=== PATIENT | female | born 1955 | race Caucasian/White ===

== ENCOUNTER 2023-03-27 08:40 | Outpatient (OUT) | payer MEDICARE, OTHER, SELFPAY ==
[2023-03-27 09:25] LABS: Basophils Absolute Auto 0.1 10^3/uL (0.0-0.1); Basophils Percent Auto 0.9 % (0.2-2.0); Eosinophils Absolute Auto 0.1 10^3/uL (0.0-0.7); Eosinophils Percent Auto 1.7 % (0.9-7.0); Hemoglobin 15.1 g/dL (12.0-16.0); Immature Granulocytes Abs Auto 0.02 10^3/uL (0.00-0.03); Immature Granulocytes Pct Auto 0.3 % (0.0-0.5); Lymphocytes Absolute Auto 2.9 10^3/uL (1.2-3.8); Lymphocytes Percent Auto 49.2 % (20.5-60.0); Mean Corpuscular HGB Conc 32.1 g/dL (29.9-35.2); Mean Corpuscular Hemoglobin 31.9 pg (26.7-34.0); Mean Corpuscular Volume 99.2 fL (81.0-99.0); Mean Platelet Volume 10.5 fL (9.5-13.5); Monocytes Absolute Auto 0.6 10^3/uL (0.3-0.8); Monocytes Percent Auto 10.2 % (1.7-12.0); Neutrophils Absolute Auto 2.2 10^3/uL (1.4-6.5); Neutrophils Percent Auto 37.7 % (43.0-75.0); Platelet Count 329 10^3/uL (150-450); Red Blood Count 4.74 10^6/uL (4.20-5.40); Red Cell Distribution Width 12.8 % (11.0-15.0); White Blood Count 5.8 10^3/uL (4.0-11.0)
[2023-03-27 10:08] LABS: Estimated Average Glucose 117 mg/dL; Glycohemoglobin A1C 5.7 % (4.5-6.2)
[2023-03-27 10:12] LABS: Alanine Aminotransferase 23 U/L (14-59); Albumin Globulin Ratio 0.9; Albumin Level 3.6 g/dL (3.4-5.0); Alkaline Phosphatase 84 U/L (46-116); Anion Gap 17.4; Aspartate Amino Transferase 16 U/L (15-37); Bilirubin Total 0.2 mg/dL (0.2-1.0); Calcium 9.1 mg/dL (8.5-10.1); Carbon Dioxide 24.2 mmol/L (21.0-32.0); Chloride 105 mmol/L (98-107); Chol HDL Ratio 4.1; Cholesterol 207 mg/dL (<=200); Estimated GFR (African America >60 (>=60); Estimated GFR (Non-African Ame >60 (>=60); Globulin 3.9 g/dL; Glucose 112 mg/dL (74-106); HDL Cholesterol 51 mg/dL (40-60); Potassium 4.6 mmol/L (3.5-5.1); Sodium 142 mmol/L (136-145); Thyroid Stimulating Hormone 0.739 uIU/mL (0.358-3.740); Total Protein 7.5 g/dL (6.4-8.2); Triglycerides 97 mg/dL (<=150); VLDL CHOLESTEROL 19.4 mg/dL
== END 2023-03-27 08:41 | disposition home or self-care (01) ==
PROVIDERS: PCP Family Medicine; Visit Provider Family Medicine
DX: R10.11 Right upper quadrant pain (principal); G47.00 Insomnia, unspecified; E78.00 Pure hypercholesterolemia, unspecified; R73.09 Other abnormal glucose; E55.9 Vitamin D deficiency, unspecified
CPT/HCPCS: 36415; 80053; 80061; 82306; 83036; 84436; 84443; 84481; 85025

== ENCOUNTER 2023-04-07 08:48 | Outpatient (OUT) | payer MEDICARE, OTHER, SELFPAY ==
--- NOTE | 2023-04-07 08:53 | MM_ITS ---
Patient: SUSANNA CABALLERO Exam Date: 04/07/2023 : 1955 Gender:F Ordering : DR John Tao . Admission #: [id number] Family : Order #: [id number] CLICK HERE TO VIEW EXAM RADIOLOGY REPORT PROCEDURE: MM TOMOSYNTHESIS SCREENING BI COMPARISON: MG MAMM SCREEN 3D MICHAEL CAD, 04/05/2022. MG MAMM SCREEN 3D MICHAEL CAD, 01/22/2021. MG MAMM SCREEN MICHAEL W CAD, 12/14/2019. MG MAMM MICHAEL SCRN W CAD DIG, 11/30/2013. INDICATIONS: Screening Calculator Name NCI Breast Cancer Risk Assessment Tool 5 Year Breast Cancer Risk 1.20% Lifetime Breast Cancer Risk 3.90% Personal Breast Cancer No Personal Ovarian Cancer No Treatments None Family Cancers Father with colon cancer at age 78; Mother with lung cancer at age 82. LOCATION: [facility] BREAST COMPOSITION: Heterogeneously dense,which may obscure small masses. FINDINGS: DIAGNOSTIC CATEGORY 2--BENIGN FINDING: RIGHT BREAST: No significant suspicious finding. Scattered benign-appearing calcifications are present. No significant change has occurred. LEFT BREAST: No significant suspicious finding. Scattered benign-appearing calcifications are present. No significant change has occurred. RECOMMENDATIONS: ROUTINE MAMMOGRAM AND CLINICAL EVALUATION IN 12 MONTHS. PLEASE NOTE: A NORMAL MAMMOGRAM DOES NOT EXCLUDE THE POSSIBILITY OF BREAST CANCER. A CLINICALLY SUSPICIOUS PALPABLE LUMP SHOULD BE BIOPSIED. Dictated by: Merrill Wu M.D. on 04/11/2023 at 14:45 Approved by: Merrill Wu M.D. on 04/11/2023 at 14:50
--- NOTE | 2023-04-07 08:53 | US_ITS ---
The [address] [address] Patient Name: SUSANNA CABALLERO MRN: [id number] date: 1955 Sex: F Assigned Patient Location: US Current Patient Location: Accession/Order Number: [id number] Exam Date: 04/07/2023 09:00 Report Date: 04/07/2023 13:46 At the request of: ELIDA BOOGIE Procedure: US aorta EXAM: US aorta HISTORY: Right Upper Quadrant Abdominal Pain Acute R10.11. Abdominal aortic aneurysm screening, family history of abdominal aortic aneurysm TECHNIQUE: Ultrasound was performed of the abdominal aorta. COMPARISON: None. FINDINGS: AORTA: 2.4 x 2.1 cm maximum diameter; no aneurysm or dissection. OTHER: Right iliac artery 1.1 cm diameter. Left iliac artery 1.3 cm diameter. Mild plaque. US/US aorta IMPRESSION: 1. No aneurysm of the abdominal aorta. 2. 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 Electronically authenticated by: MIGUEL ANGEL MILIAN Date: 04/07/2023 13:46
== END 2023-04-07 08:49 | disposition home or self-care (01) ==
LOC: US 08:49
PROVIDERS: PCP Family Medicine; Visit Provider Family Medicine
DX: R10.11 Right upper quadrant pain (principal); Z12.31 Encounter for screening mammogram for malignant neoplasm of breast; Z80.0 Family history of malignant neoplasm of digestive organs; Z80.1 Family history of malignant neoplasm of trachea, bronchus and lung
CPT/HCPCS: 76706; 77063; 77067

== ENCOUNTER 2023-07-29 10:54 | Outpatient (OUT) | payer MEDICARE, OTHER, SELFPAY ==
--- NOTE | 2023-07-29 10:57 | XR_ITS ---
[address] [address] Patient Name: SUSANNA CABALLERO MRN: [id number] date: 1955 Sex: F Assigned Patient Location: [facility] Current Patient Location: [facility] Accession/Order Number: [id number] Exam Date: 07/29/2023 11:05 Report Date: 07/29/2023 12:51 At the request of: ELIDA BOOGIE Procedure: XR DEXA axial skeleton EXAM: XR DEXA axial skeleton HISTORY: age-related osteoporosis without current pathological fx COMPARISON: None. TECHNIQUE: Routine DEXA scan lumbar spine and bilateral hips. FINDINGS: L1-L4: BMD 1.037 g/sq cm and T score -1.2. Left femoral neck: BMD 0.777 g/sq cm and T score -1.9. Left hip total: BMD 0.876 g/sq cm and T score -1.0. Right femoral neck: BMD 0.742 g/sq cm and T score -2.1. Right hip total: BMD 0.869 g/sq cm and T score -1.1. XR/XR DEXA axial skeleton IMPRESSION: Osteopenia. Electronically authenticated by: MY GRANDE Date: 07/29/2023 12:51
--- OUTSIDE RECORDS SUMMARY | 2023-07-29 10:57 | XMS_ITS | CCD ---
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 Role Phone KEAGAN, DR MARRERO Admitting Unavailable HOY, DR MARRERO Attending Unavailable HOY, DR MARRERO Primary Care Unavailable HOY, DR MARRERO Consulting Unavailable HOY, DR MARRERO Admitting Unavailable HOY, DR MARRERO Attending Unavailable HOY, DR MARRERO Primary Care Unavailable HOY, DR MARRERO Consulting Unavailable ZIEBER, DR MIGUEL ANGEL Bartholomew Consulting Unavailable RAMSAY, SORAYA Consulting Unavailable HOY, DR MARRERO Admitting Unavailable HOY, DR MARRERO Attending Unavailable HOY, DR MARRERO Primary Care Unavailable HOY, DR MARRERO Consulting Unavailable HOY, DR MARRERO Admitting Unavailable HOY, DR MARRERO Attending Unavailable HOY, DR MARRERO Primary Care Unavailable HOY, DR MARRERO Consulting Unavailable HOY, DR MARRERO Admitting Unavailable HOY, DR MARRERO Attending Unavailable HOY, DR MARRERO Primary Care Unavailable HOY, DR MARRERO Consulting Unavailable WEST, DR MARIA VICTORIA Bello Consulting Unavailable WEST, DR MARIA VICTORIA Bello Admitting Unavailable WEST, DR MARIA VICTORIA Bello Attending Unavailable KEAGAN, DR MARRERO Primary Care Unavailable WEST, DR MARIA VICTORIA Bello Consulting Unavailable WEST, DR MARIA VICTORIA Blelo Admitting Unavailable WEST, DR MARIA VICTORIA Bello Attending Unavailable HOY, DR MARRERO Primary Care Unavailable WEST, DR MARIA VICTORIA Bello Consulting Unavailable WEST, DR MARIA VICTORIA Bello Admitting Unavailable WEST, DR MARIA VICTORIA Bello Attending Unavailable HOY, DR MARRERO Primary Care Unavailable WEST, DR MARIA VICTORIA Bello Consulting Unavailable Allergies Allergy Classification Reported Allergen(s) Allergy Type Date of Onset Reaction(s) Facility (1 source) Naproxen Drug Allergy [facility] Repository Problems Active Problems Problem Classification Problem Date Documented Da te Episodic/Chronic Disorders of lipid metabolism (6 sources) Hyperlipidemia, unspecified; Translations: [Pure hypercholesterolem ia, unspecified] Onset: 08-20-2021 Chronic Nutritional deficiencies (1 source) Vitamin D deficiency, unspecified; Translations: [VITAMIN D DEFICIENCY UNSPECIFIED] Onset: 04-09-2022 Chronic Past or Other Problems Problem Classification Problem Date Documented Da te Episodic/Chronic Deficiency and other anemia (1 source) Anemia, unspecified; Translations: [ANEMIA UNSPECIFIED] Onset: 04-09-2022 Episodic Diabetes mellitus without complication (1 source) Other abnormal glucose; Translations: [OTHER ABNORMAL GLUCOSE] Onset: 04-09-2022 Episodic Malaise and fatigue (4 sources) Other fatigue; Translations: [OTHER FATIGUE] Onset: 04-04-2022 Episodic Other screening for suspected conditions (not mental disorders or infectious disease) (4 sources) Encounter for screening mammogram for malignant neoplasm of breast; Translations: [ENC SCR MAMMO MALIG NEOPLASM BREAST] Onset: 04-05-2022 Episodic Residual codes; unclassified (1 source) Family history of malignant neoplasm of digestive organs; Translations: [FAM HX MALIG NEOPLASM DIGESTIV ORGN] Onset: 04-10-2022 Episodic Residual codes; unclassified (1 source) Family history of malignant neoplasm of trachea, bronchus and lung; Translations: [FAM HX MALIG NEOPLSM TRACH BRON LNG] Onset: 04-10-2022 Episodic Residual codes; unclassified (1 source) Insomnia, unspecified; Translations: [INSOMNIA UNSPECIFIED] Onset: 04-09-2022 Episodic Urinary tract infections (8 sources) Urinary tract infection, site not specified; Translations: [Tubulo-interstit ial nephritis, not specified as acute or chronic] Onset: 01-08-2022 Episodic Results Test Name Value Interpretation Reference Range Facility INSULINon 04-05-2022 Insulin 9.4 uIU/mL Normal 2.6-24.9 [facility] Comment on above: Performed By: #### I NSULIN #### [facility] [address] [address] [address] May Santos MG MAMM SCREEN 3D MICHAEL CADon 04-05-2022 MG MAMM SCREEN 3D MICHAEL CAD Patient: SUSANNA CABALLERO Exam Date: 04/05/2022 : 1955 Gender:F Ordering : DR ELIDA BOOGIE . Admission #: [id number] Family : Order #: [id number] CLICK HERE TO VIEW EXAM RADIOLOGY REPORT PROCEDURE: MAMMOGRAM SCREENING 3D BILATERAL CAD COMPARISON: MG MAMM SCREEN MICHAEL W CAD, 12/14/2019. MG MAMM SCREEN 3D MICHAEL CAD, 01/22/2021. INDICATIONS: Screening mammography Calculator Name NCI Breast Cancer Risk Assessment Tool 5 Year Breast Cancer Risk 1.20% Lifetime Breast Cancer Risk 4.00% Personal Breast Cancer No Personal Ovarian Cancer No Treatments None Family Cancers Father with colon cancer at age 78; Mother with lung cancer at age 82. LOCATION: [facility] BREAST COMPOSITION: Heterogeneously dense,which may obscure small masses. FINDINGS: DIAGNOSTIC CATEGORY 2--BENIGN FINDING. NO CHANGE FROM COMPARISON. Scattered benign-appearing calcifications are present. Scattered benign-appearing lymph nodes are present. RIGHT BREAST: No significant suspicious finding. LEFT BREAST: No significant suspicious finding. RECOMMENDATIONS: ROUTINE MAMMOGRAM AND CLINICAL EVALUATION IN 12 MONTHS. PLEASE NOTE: A NORMAL MAMMOGRAM DOES NOT EXCLUDE THE POSSIBILITY OF BREAST CANCER. A CLINICALLY SUSPICIOUS PALPABLE LUMP SHOULD BE BIOPSIED. Dictated by: Maria Victoria Hayden MD on 04/05/2022 at 10:06 Approved by: Maria Victoria Hayden MD on 04/05/2022 at 10:08 Normal [facility] CBC AUTO DIFFon 04-04-2022 BASO # 0.0 103/ul Normal 0.0-0.1 [facility] Comment on above: Performed By: #### C BC ####[facility] [address] [place], [place] [address]Dr. May Santos Basophils/100 WBC (Bld) 0.3 % Normal 0.2-2.0 [facility] Comment on above: Performed By: #### C BC ####[facility] [address] [address]Dr. May Santos EO # 0.2 103/ul Normal 0.0-0.7 [facility] Comment on above: Performed By: #### C BC ####[facility] [address] [place], [place] [address]Dr. May Santos Eosinophils/100 WBC (Bld) 2.0 % Normal 0.9-7.0 [facility] Comment on above: Performed By: #### C BC ####[facility] R[address]qrspt[address] [place], [place] [address]Dr. May Santos Erythrocyte distribution width (RBC) [Ratio] 12.7 % Normal 11.0-15.0 [facility] Comment on above: Performed By: #### C BC ####[facility] [address] [address]Dr. May Santos Hematocrit (Bld) [Volume fraction] 44.7 % Normal 36.0-48.0 [facility] Comment on above: Performed By: #### C BC ####[facility] [address] [address]Dr. May Santos Hemoglobin (Bld) [Mass/Vol] 14.9 g/dL Normal 12.0-16.0 [facility] Comment on above: Performed By: #### C BC ####[facility] K[address] [place], [place] [address]Dr. May Santos IG # 0.05 10e3/ul Critically high 0.00-0.03 [facility] Comment on above: Performed By: #### C BC ####[facility] [address] [place], [place] [address]Dr. May Santos IG % 0.6 % Critically high 0.0-0.5 [facility] Comment on above: Performed By: #### C BC ####[facility] [address] [place], [place] [address]Dr. May Santos LYMPH # 2.9 103/ul Normal 1.2-3.8 [facility] Comment on above: Performed By: #### C BC ####[facility] [address] [place], [place] [address]Dr. May Santos Lymphocytes/100 WBC (Bld) 32.9 % Normal 20.5-60.0 [facility] Comment on above: Performed By: #### C BC ####[facility] [address]stl[address] [place], [place] [address]Dr. May Tom MANUAL DIFF REQ NO Normal [facility] Comment on above: Performed By: #### C BC ####[facility] [address]rwupbrq[address] [place], [place] [address]Dr. May Santos MCH (RBC) [Entitic mass] 33.0 pg Normal 26.7-34.0 [facility] Comment on above: Performed By: #### C BC ####[facility] [address] [id number]. May Santos MCHC (RBC) [Mass/Vol] 33.3 g/dL Normal 29.9-35.2 [facility] Comment on above: Performed By: #### C BC ####[facility] [address] [address]Dr. May Santos MCV (RBC) [Entitic vol] 98.9 fL Normal 81.0-99.0 [facility] Comment on above: Performed By: #### C BC ####[facility] Rwewtmx[address] [place], [place] [address]Dr. May Santos MONO # 0.7 103/ul Normal 0.3-0.8 [facility] Comment on above: Performed By: #### C BC ####[facility] [address]jmoj[address] [place], [place] [address]Dr. May Santos Monocytes/100 WBC (Bld) 8.4 % Normal 1.7-12.0 [facility] Comment on above: Performed By: #### C BC ####[facility] [address]ab[address] [place], [place] [address]Dr. May Santos NEUT # 4.9 103/ul Normal 1.4-6.5 [facility] Comment on above: Performed By: #### C BC ####[facility] Xz[address]dt[address]pc[address] [place], [place] [address]Dr. May Tom Neutrophils/100 WBC (Bld) 55.8 % Normal 43.0-75.0 [facility] Comment on above: Performed By: #### C BC ####[facility] Lexzqvmrys[address] [place], [place] [address]Dr. May Santos Platelet mean volume (Bld) [Entitic vol] 10.5 fL Normal 9.5-13.5 [facility] Comment on above: Performed By: #### C BC ####[facility] [address] [address]Dr. May Santos PLT 341 103/ul Normal 150-450 [facility] Comment on above: Performed By: #### C BC ####[facility] [address] [address]Dr. May Santos RBC 4.52 106/ul Normal 4.20-5.40 [facility] Comment on above: Performed By: #### C BC ####[facility] [address] [address]Dr. May Santos WBC 8.9 103/ul Normal 4.0-11.0 [facility] Comment on above: Performed By: #### C BC ####[facility] [address] [address]Dr. May Santos FREE THYROXINE INDEX T7on FTI 2.57 Normal 1.30-4.50 [facility] Comment on above: Performed By: #### T 7, TSH, LIPID, CMP ####[facility] [address] [address]Dr. May Santos T3U 33.0 % Normal 30.0-39.0 [facility] Comment on above: Performed By: #### T 7, TSH, LIPID, CMP ####[facility] [address] [address]Dr. May Santos T4 [Mass/Vol] 7.80 ug/dL Normal 4.80-13.90 [facility] Comment on above: Performed By: #### T 7, TSH, LIPID, CMP ####[facility] [address] [id number] Santos GLYCOHEMOGLOBIN A1Con 2021 ADA RECOMMENDATION SEE BELOW Normal [facility] Comment on above: Result Comment: ADA RECOMMENDED LIMIT 4.0 - 6.0 ADA THERAPEUTIC TARGET < 7.0 ACTION SUGGESTED > 7.0 Performed By: #### A 1C #### [facility] [address] [place], [place] [address] Dr. May Santos Glucose [Mass/Vol] 114 mg/dL Normal [facility] Comment on above: Performed By: #### A 1C #### [facility] [address] [place], [place] [address] Dr. May Santos HbA1c (Bld) [Mass fraction] 5.6 % Normal 4.5-6.2 [facility] Comment on above: Performed By: #### A 1C #### [facility] [address] [place], [place] [address] Dr. May Santos IRONon 04-04-2022 Iron [Mass/Vol] 100.0 ug/dL Normal 50.0-170.0 [facility] Comment on above: Performed By: #### V ITAD, IRON ####[facility] [address] [id number]. May Santos LIPID PROFILEon 04-04-2022 CHOL-HDL RATIO NORM SEE BELOW Normal [facility] Comment on above: Result Comment: 3.3 - 4.4 LOW RISK 4.4 - 7.1 AVERAGE RISK 7.1 - 11.0 MODERATE RISK >11.0 HIGH RISK Performed By: #### T 7, TSH, LIPID, CMP ####[facility] [address] [id number]. May Santos Cholesterol [Mass/Vol] 195 mg/dL Normal <=200 [facility] Comment on above: Performed By: #### T 7, TSH, LIPID, CMP ####[facility] [address] [place], [place] [address]Ow. May Santos Cholesterol in HDL [Mass/Vol] 47 mg/dL Normal 40-60 [facility] Comment on above: Performed By: #### T 7, TSH, LIPID, CMP ####[facility] [address] [place], [place] [address]Te. May Santos Cholesterol in LDL [Mass/Vol] 130.0 mg/dL Normal [facility] Comment on above: Performed By: #### T 7, TSH, LIPID, CMP ####[facility] [address] [place], [place] [address]Ti. May Santos Cholesterol.total/Ch olesterol in HDL [Mass ratio] 4.1 {ratio} Normal [facility] Comment on above: Performed By: #### T 7, TSH, LIPID, CMP ####[facility] [address] [address]Dr. May Santos HDL NORMAL > or = 60 mg/dl - LO W CARDIOVASCULAR RISK <40 mg/dl - HIGH CARDIOVASCULAR RISK Normal [facility] Comment on above: Performed By: #### T 7, TSH, LIPID, CMP ####[facility] [address] [address]Dr. May Santos LDL CALC NORMAL SEE BELOW Normal [facility] Comment on above: Result Comment: <100 mg/dl OPTIMAL 100 - 129 mg/dl NEAR OR ABOVE OPTIMAL 130 - 159 mg/dl BORDERLINE HIGH 160 - 189 mg/dl HIGH >190 mg/dl VERY HIGH Performed By: #### T 7, TSH, LIPID, CMP ####[facility] [address] [place], [place] [address]Dr. May Santos Triglyceride [Mass/Vol] 90 mg/dL Normal <=150 [facility] Comment on above: Performed By: #### T 7, TSH, LIPID, CMP ####[facility] [address] [address]Dr. May Santos VLDL CALC 18.0 mg/dL Normal [facility] Comment on above: Performed By: #### T 7, TSH, LIPID, CMP ####[facility] [address] [address]Dr. May Santos PROF 14(COMP METB)on 022 Albumin [Mass/Vol] 3.7 g/dL Normal 3.4-5.[address] [facility] Comment on above: Performed By: #### T 7, TSH, LIPID, CMP ####[facility] [address] [address]Dr. May Santos Albumin/Globulin [Mass ratio] 0.9 {ratio} Normal [facility] Comment on above: Performed By: #### T 7, TSH, LIPID, CMP ####[facility] [address] [address]Dr. May Santos ALP [Catalytic activity/Vol] 94 U/L Normal 46-116 [facility] Comment on above: Performed By: #### T 7, TSH, LIPID, CMP ####[facility] [address] [address]Dr. May Santos ALT [Catalytic activity/Vol] 19 U/L Normal 14-59 [facility] Comment on above: Performed By: #### T 7, TSH, LIPID, CMP ####[facility] V[address] [place], [place] [address]Dr. May Santos Anion gap [Moles/Vol] 14.1 mmol/L Normal [facility] Comment on above: Performed By: #### T 7, TSH, LIPID, CMP ####[facility] Yx[address]og[address] [place], [place] [address]Dr. May Santos AST [Catalytic activity/Vol] 16 U/L Normal 15-37 [facility] Comment on above: Performed By: #### T 7, TSH, LIPID, CMP ####[facility] Hxxjpvumbs[address] [place], [place] [address]Dr. May Santos Bilirubin [Mass/Vol] 0.5 mg/dL Normal 0.2-1.0 [facility] Comment on above: Performed By: #### T 7, TSH, LIPID, CMP ####[facility] [address] [place], [place] [address]Dr. May Santos Calcium [Mass/Vol] 9.1 mg/dL Normal 8.5-10.[address] [facility] Comment on above: Performed By: #### T 7, TSH, LIPID, CMP ####[facility] [address]rgdosrubc[address] [place], [place] [address]Dr. May Santos Chloride [Moles/Vol] 104 mmol/L Normal 98-107 [facility] Comment on above: Performed By: #### T 7, TSH, LIPID, CMP ####[facility] [address]cvj[address] [place], [place] [address]Dr. May Santos CO2 [Moles/Vol] 26.6 mmol/L Normal 21.0-32.0 [facility] Comment on above: Performed By: #### T 7, TSH, LIPID, CMP ####[facility] [address] [id number]. May Santos Creatinine [Mass/Vol] 0.82 mg/dL Normal 0.55-1.02 [facility] Comment on above: Performed By: #### T 7, TSH, LIPID, CMP ####[facility] [address] [address]Dr. May Santos EGFR-AF TRINIDADIAN >60 Normal >=60 [facility] Comment on above: Performed By: #### T 7, TSH, LIPID, CMP ####[facility] [address] [address]Dr. May Santos EGFR-NON AF TRINIDADIAN >60 Normal >=60 [facility] Comment on above: Performed By: #### T 7, TSH, LIPID, CMP ####[facility] [address]msmlsvi[address] [place], [place] [address]Dr. May Santos Globulin (S) [Mass/Vol] 4.0 g/dL Normal [facility] Comment on above: Performed By: #### T 7, TSH, LIPID, CMP ####[facility] M[address] [place], [place] [address]Dr. May Santos Glucose [Mass/Vol] 120 mg/dL Critically high 74-106 [facility] [place] Comment on above: Performed By: #### T 7, TSH, LIPID, CMP ####[facility] [address]fu[address]yx[address] [place], [place] [address]Dr. May Santos Potassium [Moles/Vol] 4.7 mmol/L Normal 3.5-5.1 [facility] Comment on above: Performed By: #### T 7, TSH, LIPID, CMP ####[facility] [address]zwl[address] [place], [place] [address]Dr. May Santos Protein [Mass/Vol] 7.7 g/dL Normal 6.4-8.2 [facility] Comment on above: Performed By: #### T 7, TSH, LIPID, CMP ####[facility] X[address] [place], [place] [address]Dr. May Santos Sodium [Moles/Vol] 140 mmol/L Normal 136-145 [facility] Comment on above: Performed By: #### T 7, TSH, LIPID, CMP ####[facility] [address] [place] [address]Dr. May Santos Urea nitrogen [Mass/Vol] 9.0 mg/dL Normal 7.0-18.0 [facility] Comment on above: Performed By: #### T 7, TSH, LIPID, CMP ####[facility] [address] [id number]. May Santos Urea nitrogen/Creatinine [Mass ratio] 11.0 mg/mg Normal [facility] Comment on above: Performed By: #### T 7, TSH, LIPID, CMP ####[facility] [address] [address]Dr. May Santos TSHon 04-04-2022 TSH 1.034 uIU/mL Normal 0.358-3.740 [facility] Comment on above: Performed By: #### T 7, TSH, LIPID, CMP ####[facility] [address] [address]Dr. May Santos VITAMIN D 25 OHon 04-04-2022 VIT D 25-OH 45.9 ng/mL Normal [facility] Comment on above: Performed By: #### I NSULIN #### [facility] [address] [place] [address] Dr. May Santos VIT D RANGES SEE BELOW Normal [facility] Comment on above: Result Comment: <20 ng/mL Vit D deficient 20 - <30 ng/mL Vit D insufficient 30 - 100 ng/mL Vit D sufficient >100 ng/mL Potential Toxicity Performed By: #### I NSULIN #### [facility] [address] [address] [address] May Santos CULTURE URINEon 01-24-2022 CULTURE URINE Culture Observations : HEAVY GROWTH OF MIXED GENITAL SEAN. NO POTENTIAL PATHOGENS SEEN. Normal [facility] Comment on above: Performed By: #### I NSULIN #### [facility] [address] [address] [address] Yilan Santos UA RANDOM W/MICROSCOPICon BACTERIA NONE SEEN Normal NONE SEEN [facility] Comment on above: Performed By: #### U AMIC ####[facility] [address] [place], [place] [address]Dr. May Santos Bilirubin Ql (U) Negative Normal NEGATIVE [facility] Comment on above: Performed By: #### U AMIC ####[facility] [address] [address]Dr. May Santos CAST NONE SEEN Normal NONE SEEN [facility] Comment on above: Performed By: #### U AMIC ####[facility] [address] [place], [place] [address]Dr. May Santos Clarity (U) CLEAR Normal CLEAR [facility] Comment on above: Performed By: #### U AMIC ####[facility] [address]fbs[address] [place], [place] [address]Dr. May Santos Color (U) YELLOW Normal YELLOW [facility] Comment on above: Performed By: #### U AMIC ####[facility] Cl[address]es[address] [place], [place] [address]Dr. May Santos Crystals LM Nom (Urine sed) NONE SEEN Normal NONE SEEN [facility] Comment on above: Performed By: #### U AMIC ####[facility] [address]vc[address]zd[address] [place], [place] [address]Dr. May Santos Epithelial cells LM Ql (Urine sed) FEW Abnormal NONE SEEN /RARE [facility] Comment on above: Performed By: #### U AMIC ####[facility] Z[address]as[address] [place], [place] [address]Dr. May Santos Glucose Ql (U) Negative Normal NEGATIVE [facility] Comment on above: Performed By: #### U AMIC ####[facility] F[address]cjwwexy[address] [place], [place] [address]Dr. May Santos Hemoglobin Ql (U) Negative Normal NEGATIVE [facility] Comment on above: Performed By: #### U AMIC ####[facility] [address]ls[address] [place], [place] [address]Dr. May Santos Ketones Ql (U) Negative Normal NEGATIVE [facility] Comment on above: Performed By: #### U AMIC ####[facility] [address] [place] [address]Dr. May Santos LEUKOCYTES Negative Normal NEGATIVE [facility] Comment on above: Performed By: #### U AMIC ####[facility] [address] [address]Dr. May Santos MUCOUS NONE SEEN Normal NONE SEEN [facility] Comment on above: Performed By: #### U AMIC ####[facility] [address]rtbzdy[address] [place], [place] [address]Dr. Loveiliana Santos Nitrite Ql (U) Negative Normal NEGATIVE [facility] Comment on above: Performed By: #### U AMIC ####[facility] Gabvaxwmil[address] [place], [place] [address]Dr. May Santos pH (U) 7.0 [pH] Normal 5-9 [facility] Comment on above: Performed By: #### U AMIC ####[facility] [address] [place], [place] [address]Dr. May Santos RBC NONE SEEN Abnormal 0-2 [facility] Comment on above: Performed By: #### U AMIC ####[facility] [address]joa[address] [place], [place] [address]Dr. May Santos SPEC GRAVITY 1.015 Normal 1.005-<=1.025 [facility] Comment on above: Performed By: #### U AMIC ####[facility] [address]fs[address]ibnv[address] [place], [place] [address]Dr. May Santos UA PROTEIN Negative Normal NEGATIVE/ TRACE [facility] Comment on above: Performed By: #### U AMIC ####[facility] Gr[address]uanabu[address] [place], [place] [address]Dr. May Santos Urobilinogen Qn (U) 0.2 {Taylor'U}/dL Normal 0.2 - 1. 0 [facility] Comment on above: Performed By: #### U AMIC ####[facility] [address]ctsuh[address] [place], [place] [address]Dr. May Santos WBC NONE SEEN Normal NONE SEEN [facility] Comment on above: Performed By: #### U AMIC ####[facility] [address] [place], [place] [address]GuDeborah Santos XR KUB 1 VIEWon 01-09-2022 XR KUB 1 VIEW EXAMINATION: XR KUB 1 VIEW HISTORY: Tubulointerstitial nephritis , lower abdominal discomfort, blood in urine COMPARISON: No relevant comparison available. FINDINGS: KIDNEY/URETER - RIGHT: No visible renal or ureteral calcifications. KIDNEY/URETER - LEFT: No visible renal or ureteral calcifications. PELVIS: No appreciable ureteral stones. Pelvic calcifications compatible with phleboliths and atherosclerotic disease. BOWEL: No abnormal dilation or deviation. BONES: No acute abnormality. OTHER: Abdominal and pelvic surgical clips. IMPRESSION: 1. No appreciable urinary tract calculi. 2. Normal bowel gas pattern. Electronically authenticated by: MIGUEL ANGEL MILIAN Date: 2022-01-09 07:27 Normal [facility] US KIDNEYS BLADDERon 022 US KIDNEYS BLADDER Ultrasound kidneys, bilateral HISTORY: Tubulointerstitial nephritis , right nephrectomy. COMPARISON: None. TECHNIQUE: Transabdominal ultrasound imaging of both kidneys was performed. FINDINGS: The right kidney is surgically absent. The left kidney demonstrates normal echogenicity, and measures 12.6 x 6.0 x 7.0 cm. No hydronephrosis of left kidney. No discrete lesion or renal stone seen in the left kidney. The bladder is distended with prevoid volume of 568 mL. Left ureteral jet is seen within the bladder lumen. No focal bladder abnormality. Post void residual is 7 mL. IMPRESSION: 1. Normal left kidney without hydronephrosis, structural lesion, or renal stone by ultrasound. 2. Right nephrectomy. 3. Normal bladder. Postvoid bladder volume of 7 mL is insignificant, reflecting a 1% residual of the pre-void volume. Electronically authenticated by: SORAYA RAMSAY Date: 2022-01-08 10:51 Normal [facility] CBC AUTO DIFFon 08-20-2021 BASO # 0.0 103/ul Normal 0.0-0.1 [facility] Comment on above: Performed By: #### C BC ####[facility] [address] [place], [place] [address]YsDeborah Santos Basophils/100 WBC (Bld) 0.6 % Normal 0.2-2.0 [facility] Comment on above: Performed By: #### C BC ####[facility] Z[address] [place], [place] [address]Dr. May Santos EO # 0.2 103/ul Normal 0.0-0.7 [facility] Comment on above: Performed By: #### C BC ####[facility] Id[address] [place], [place] [address]Dr. May Santos Eosinophils/100 WBC (Bld) 2.4 % Normal 0.9-7.0 [facility] Comment on above: Performed By: #### C BC ####[facility] Ajllujlqvv[address] [place], [place] [address]Dr. May Santos Erythrocyte distribution width (RBC) [Ratio] 13.0 % Normal 11.0-15.0 [facility] Comment on above: Performed By: #### C BC ####[facility] Sogxurtrxp[address] [place], [place] [address]Dr. May Santos Hematocrit (Bld) [Volume fraction] 45.8 % Normal 36.0-48.0 [facility] Comment on above: Performed By: #### C BC ####[facility] Kw[address] [place], [place] [address]Dr. May Santos Hemoglobin (Bld) [Mass/Vol] 15.1 g/dL Normal 12.0-16.0 [facility] Comment on above: Performed By: #### C BC ####[facility] [address] [place], [place] [address]Dr. May Santos IG # 0.02 10e3/ul Normal 0.00-0.03 [facility] Comment on above: Performed By: #### C BC ####[facility] [address] [place], [place] [address]Dr. May Santos IG % 0.3 % Normal 0.0-0.5 [facility] Comment on above: Performed By: #### C BC ####[facility] [address] [place], [place] [address]DrDeborah Santos LYMPH # 2.7 103/ul Normal 1.2-3.8 [facility] Comment on above: Performed By: #### C BC ####[facility] [address] [place] [id number] Santos Lymphocytes/100 WBC (Bld) 41.8 % Normal 20.5-60.0 [facility] Comment on above: Performed By: #### C BC ####[facility] [address] [place] [address]DrDeborah Santos MANUAL DIFF REQ NO Normal [facility] Comment on above: Performed By: #### C BC ####[facility] [address] [place] [address]DrDeborah Santos MCH (RBC) [Entitic mass] 33.0 pg Normal 26.7-34.0 [facility] Comment on above: Performed By: #### C BC ####[facility] [address] [place], [place] [address]DrDeborah Santos MCHC (RBC) [Mass/Vol] 33.0 g/dL Normal 29.9-35.2 [facility] Comment on above: Performed By: #### C BC ####[facility] A[address] [place], [place] [address]DrDeborah Santos MCV (RBC) [Entitic vol] 100.0 fL Critically high 81.0-99.0 [facility] Comment on above: Performed By: #### C BC ####[facility] [address] [place], [place] [address]DrDeborah Santos MONO # 0.5 103/ul Normal 0.3-0.8 [facility] Comment on above: Performed By: #### C BC ####[facility] [address] [place], [place] [address]DrDeborah Santos Monocytes/100 WBC (Bld) 7.2 % Normal 1.7-12.0 [facility] Comment on above: Performed By: #### C BC ####[facility] [address]els[address] [place], [place] [address]DrDeborah Santos NEUT # 3.0 103/ul Normal 1.4-6.5 [facility] Comment on above: Performed By: #### C BC ####[facility] [address] [place] [address]Dr. May Sanots Neutrophils/100 WBC (Bld) 47.7 % Normal 43.0-75.0 [facility] Comment on above: Performed By: #### C BC ####[facility] [address] [place] [address]Dr. May Santos Platelet mean volume (Bld) [Entitic vol] 10.7 fL Normal 9.5-13.5 [facility] Comment on above: Performed By: #### C BC ####[facility] [address] [place] [address]Dr. May Santos PLT 300 103/ul Normal 150-450 [facility] Comment on above: Performed By: #### C BC ####[facility] [address] [place] [address]Dr. May Santos RBC 4.58 106/ul Normal 4.20-5.40 [facility] Comment on above: Performed By: #### C BC ####[facility] [address] [place] [address]DrDeborah Santos WBC 6.4 103/ul Normal 4.0-11.0 [facility] Comment on above: Performed By: #### C BC ####[facility] [address] [place], [place] [address]DrDeborah Santos FREE THYROXINE INDEX T7on FTI 2.24 Normal [facility] Comment on above: Performed By: #### L IPID, CMP, TSH, T7 #### [facility] [address] [place] [address] Dr. May Santos T3U 34.0 % Normal 23.5-40.5 [facility] Comment on above: Performed By: #### L IPID, CMP, TSH, T7 #### [facility] [address] [place] [address] [address] May Santos T4 [Mass/Vol] 6.60 ug/dL Normal 5.53-11.00 [facility] Comment on above: Performed By: #### L IPID, CMP, TSH, T7 #### [facility] [address] [place] [address] Dr. May Santos GLYCOHEMOGLOBIN A1Con 2021 ADA RECOMMENDATION ADA THERAPEUTIC TARG ET 6.0 - 7.0 ACTION SUGGESTED > 7.0 Normal [facility] Comment on above: Performed By: #### A 1C #### [facility] [address] [place] [address] Dr. May Santos Glucose [Mass/Vol] 120 mg/dL Normal [facility] Comment on above: Performed By: #### A 1C #### [facility] [address] [place] [address] Dr. May Santos HbA1c (Bld) [Mass fraction] 5.8 % Normal <=6.0 [facility] Comment on above: Performed By: #### A 1C #### [facility] [address] [place] [address] Dr. May Santos IRONon 08-20-2021 Iron [Mass/Vol] 121.0 ug/dL Normal 37.0-170.0 [facility] Comment on above: Performed By: #### I URSULA FOOTE #### [facility] [address] [place] [address] Dr. May Santos LIPID PROFILEon 08-20-2021 CHOL-HDL RATIO NORM SEE BELOW Normal [facility] Comment on above: Result Comment: 3.3 - 4.4 LOW RISK 4.4 - 7.1 AVERAGE RISK 7.1 - 11.0 MODERATE RISK >11.0 HIGH RISK Performed By: #### L IPID, CMP, TSH, T7 #### [facility] [address] [place] [address] Dr. May Santos Cholesterol [Mass/Vol] 218 mg/dL Critically high <=200 [facility] Comment on above: Performed By: #### L IPID, CMP, TSH, T7 #### [facility] [address] [place] [address] Dr. May Santos Cholesterol in HDL [Mass/Vol] 54 mg/dL Normal [facility] Comment on above: Performed By: #### L IPID, CMP, TSH, T7 #### [facility] [address] [place] [address] [address] May Santos Cholesterol in LDL [Mass/Vol] 140.0 mg/dL Normal [facility] Comment on above: Performed By: #### L IPID, CMP, TSH, T7 #### [facility] [address] [place] [address] [address] May Santos Cholesterol.total/Ch olesterol in HDL [Mass ratio] 4.0 {ratio} Normal [facility] Comment on above: Performed By: #### L IPID, CMP, TSH, T7 #### [facility] [address] [place] [address] [address] May Santos HDL NORMAL > or = 60 mg/dl - LO W CARDIOVASCULAR RISK <40 mg/dl - HIGH CARDIOVASCULAR RISK Normal [facility] Comment on above: Performed By: #### L IPID, CMP, TSH, T7 #### [facility] [address] [place] [address] [address] May Santos LDL CALC NORMAL SEE BELOW Normal [facility] Comment on above: Result Comment: <100 mg/dl OPTIMAL 100 - 129 mg/dl NEAR OR ABOVE OPTIMAL 130 - 159 mg/dl BORDERLINE HIGH 160 - 189 mg/dl HIGH >190 mg/dl VERY HIGH Performed By: #### L IPID, CMP, TSH, T7 #### [facility] [address] [place] [address] [address] May Santos Triglyceride [Mass/Vol] 120 mg/dL Normal <=150 [facility] Comment on above: Performed By: #### L IPID, CMP, TSH, T7 #### [facility] [address] [place] [address] [address] May Santos VLDL CALC 24.0 mg/dL Normal [facility] Comment on above: Performed By: #### L IPID, CMP, TSH, T7 #### [facility] [address] [place] [address] [address] May Santos PROF 14(COMP METB)on 022 Albumin [Mass/Vol] 3.7 g/dL Normal 3.5-5.[address] [facility] Comment on above: Performed By: #### L IPID, CMP, TSH, T7 #### [facility] [address] [place] [address] Dr. May Santos Albumin/Globulin [Mass ratio] 1.0 {ratio} Normal [facility] Comment on above: Performed By: #### L IPID, CMP, TSH, T7 #### [facility] [address] [place] [address] Dr. May Santos ALP [Catalytic activity/Vol] 84 U/L Normal 38-126 [facility] Comment on above: Performed By: #### L IPID, CMP, TSH, T7 #### [facility] [address] [place] [address] Dr. May Santos ALT [Catalytic activity/Vol] 17 U/L Normal 9-52 [facility] Comment on above: Performed By: #### L IPID, CMP, TSH, T7 #### [facility] [address] [place] [address] [address] May Santos Anion gap [Moles/Vol] 11.0 mmol/L Normal [facility] Comment on above: Performed By: #### L IPID, CMP, TSH, T7 #### [facility] [address] [place] [address] Dr. May Santos AST [Catalytic activity/Vol] 16 U/L Normal 14-36 [facility] Comment on above: Performed By: #### L IPID, CMP, TSH, T7 #### [facility] [address] [place] [address] Dr. May Santos Bilirubin [Mass/Vol] 0.5 mg/dL Normal 0.2-1.3 [facility] Comment on above: Performed By: #### L IPID, CMP, TSH, T7 #### [facility] [address] [place] [address] Dr. May Santos Calcium [Mass/Vol] 8.8 mg/dL Normal 8.4-10.2 [facility] Comment on above: Performed By: #### L IPID, CMP, TSH, T7 #### [facility] [address] [place] [address] [address] May Santos Chloride [Moles/Vol] 107 mmol/L Normal 98-107 [facility] Comment on above: Performed By: #### L IPID, CMP, TSH, T7 #### [facility] [address] [place] [address] [address] May Santos CO2 [Moles/Vol] 25.6 mmol/L Normal 22.0-30.0 [facility] Comment on above: Performed By: #### L IPID, CMP, TSH, T7 #### [facility] [address] [place] [address] Dr. May Santos Creatinine [Mass/Vol] 0.91 mg/dL Normal 0.52-1.04 [facility] Comment on above: Performed By: #### L IPID, CMP, TSH, T7 #### [facility] [address] [place] [address] Dr. May Santos EGFR-AF TRINIDADIAN >60 Normal >=60 [facility] Comment on above: Performed By: #### L IPID, CMP, TSH, T7 #### [facility] [address] [place] [address] Dr. May Santos EGFR-NON AF TRINIDADIAN >60 Normal >=60 [facility] Comment on above: Performed By: #### L IPID, CMP, TSH, T7 #### [facility] [address] [place] [address] [address] May Santos Globulin (S) [Mass/Vol] 3.7 g/dL Normal [facility] Comment on above: Performed By: #### L IPID, CMP, TSH, T7 #### [facility] [address] [place] [address] Dr. May Santos Glucose [Mass/Vol] 116 mg/dL Critically high 74-106 [facility] Comment on above: Performed By: #### L IPID, CMP, TSH, T7 #### [facility] [address] [place] [address] Dr. May Santos Potassium [Moles/Vol] 4.6 mmol/L Normal 3.4-5.0 [facility] Comment on above: Performed By: #### L IPID, CMP, TSH, T7 #### [facility] [address] [place] [address] Dr. May Santos Protein [Mass/Vol] 7.4 g/dL Normal 6.1-8.2 [facility] Comment on above: Performed By: #### L IPID, CMP, TSH, T7 #### [facility] [address] [place] [address] Dr. May Santos Sodium [Moles/Vol] 139 mmol/L Normal 137-145 [facility] Comment on above: Performed By: #### L IPID, CMP, TSH, T7 #### [facility] [address] [place] [address] Dr. May Santos Urea nitrogen [Mass/Vol] 8.0 mg/dL Normal 7.0-17.0 [facility] Comment on above: Performed By: #### L IPID, CMP, TSH, T7 #### [facility] [address] [place] [address] Dr. May Santos Urea nitrogen/Creatinine [Mass ratio] 8.8 mg/mg Normal [facility] Comment on above: Performed By: #### L IPID, CMP, TSH, T7 #### [facility] [address] [place] [address] Dr. May Santos TSHon 08-20-2021 TSH 1.583 uIU/mL Normal 0.470-4.680 [facility] Comment on above: Performed By: #### L IPID, CMP, TSH, T7 #### [facility] [address] [place] [address] Dr. May Santos TSH RANGE SEE BELOW Normal [facility] Comment on above: Result Comment: <0.3 4 UIU/ml HYPERTHYROID 0.34-5.60 UIU/ml EUTHYROID >5.60 UIU/ml HYPOTHYROID Performed By: #### L IPID, CMP, TSH, T7 #### [facility] [address] [place], [place] [address] Dr. May Santos VITAMIN D 25 OHon 08-20-2021 VIT D 25-OH 26.0 ng/mL Normal [facility] Comment on above: Performed By: #### I QAMAR VITAD ####[facility] [address] [place], [place] [address]Dr. May Santos VIT D RANGES SEE BELOW Normal [facility] Comment on above: Result Comment: <20 ng/mL Vit D deficient 20 - <30 ng/mL Vit D insufficient 30 - 100 ng/mL Vit D sufficient >100 ng/mL Potential Toxicity Performed By: #### I QAMAR VITAD ####[facility] [address] [place], [place] [address]Dr. May Santos Encounters Encounter Date Encounter Type Care Provider Facility Start: 07-22-[address] MARIA VICTORIA HAYDEN Facilit y:[facility] Start: 04-05-2022 End: 04-06-[address] ELIDA BOOGIE Facility:[facility] Start: 04-04-2022 End: 04-05-[address] ELIDA BOOGIE Facility:[facility] Start: 01-24-2022 End: 01-25-[address] ELIDA BOOGIE Facility:[facility] Start: 01-08-2022 End: 01-09-[address] ELIDA BOOGIE Facility:[facility] Start: 01-07-2022 End: 07-18-[address] MARIA VICTORIA HAYDEN Facility:[facility] Start: 09-17-2021 End: 12-27-[address] MARIA VICTORIA HAYDEN Facility:[facility] Start: 08-20-2021 End: 08-21-[address] ELIDA BOOGIE Facility:[facility] Payers Date Payer Category Payer Medicare [id number] 1961 Self-pay 1961 Unknown [id number] 1955 Unknown [id number] 2.16.84 [id number] 1953 Unknown [id number] 2.16.84 [id number] 1953 Unknown [id number] 2.16.84 [id number] 1953 Unknown [id number] 2.16.84 [id number] 1953 Unknown [id number] 2.16.84 [id number] 1953 Unknown [id number] 2.16.84 [id number] 1953 Unknown [id number] 2.16.84 [id number] 1953 Unknown [id number] 2.16.84 [id number] Summary Purpose Family History No Family History Records Found Advance Directives No Advanced Directives Records Found Additional Source Comments INFORMATION SOURCE (unrecogn ized section and content) DATE CREATED AUTHOR 07/22/2022 [facility] FOR RECORDS PERTAINING TO PATIENTS WHO ARE OR HAVE BEEN ENROLLED IN A CHEMICAL DEPENDENCY/SUBSTANCEABUSE PROGRAM, SOME INFORMATION MAY BE OMITTED. This clinical summary was aggregated from multiple sources. Caution should be exercised in using it in the provision of clinical care. This summary normalizes information from multiple sources, and as a consequence, information in this document may materially change the coding, format and clinical context of patient data. In addition, data may be omitted in some cases. CLINICAL DECISIONS SHOULD BE BASED ON THE PRIMARY CLINICAL RECORDS. [facility]. provides no warranty or guarantee of the accuracy or completeness of information in this document.
== END 2023-07-29 10:55 | disposition home or self-care (01) ==
LOC: RAD 10:54
PROVIDERS: PCP Family Medicine; Visit Provider Family Medicine
DX: M81.0 Age-related osteoporosis without current pathological fracture (principal); M85.80 Other specified disorders of bone density and structure, unspecified site
CPT/HCPCS: 77080

== ENCOUNTER 2024-03-10 07:57 | Outpatient (OUT) | payer MEDICARE, OTHER, SELFPAY ==
--- OUTSIDE RECORDS SUMMARY | 2024-03-10 08:07 | XMS_ITS | CCD ---
Author Organization [facility] CliniSyct Care Team Providers Care Manager Reporting Name Role Phone KEAGAN, DR MARRERO Admitting [...] MARRERO Consulting Unavailable WEST, DR MARIA VICTORIA Blelo Consulting Unavailable WEST, DR MARIA VICTORIA Bello Admitting Unavailable WEST, DR MARIA VICTORIA Bello Attending Unavailable KEAGAN, DR MARRERO Primary Care Unavailable WEST, DR MARIA VICTORIA Bello Consulting Unavailable CATRACHO, DR MARIA VICTORIA Bello Admitting Unavailable WEST, DR MARIA VICTORIA Bello Attending Unavailable JAELY, DR MARRERO Primary Care Unavailable WEST, DR MARIA VICTORIA Bello Consulting Unavailable WEST, DR MARIA VICTORIA Bello Admitting Unavailable WEST, DR MARIA VICTORIA Bello Attending Unavailable HOY, DR MARRERO Primary Care Unavailable WEST, DR MARIA VICTORIA Bello Consulting Unavailable Allergies Allergy Classification Reported Allergen(s) Allergy Type Date of Onset Reaction(s) Facility (1 source) Naproxen Drug Allergy [facility] Repository Problems Active Problems Problem Classification Problem [...] Test Name Value Interpretation Reference Range Facility Physician Referralon 024 Physician Referral [id number] 403 [id number]#1.00T IFF Normal [facility] Physician Referral [id number] 403 [id number]#1.00T IFF Normal [facility] INSULINon 04-05-2022 Insulin 9.4 uIU/mL Normal 2.6-24.9 [facility] Comment on above: Performed By: #### I NSULIN #### [facility] [address] [place] [address] Dr. May Santos MG MAMM SCREEN 3D MICHAEL CADon 04-05-2022 MG MAMM SCREEN 3D MICHAEL CAD Patient: SUSANNA CABALLERO Exam Date: 04/05/2022 : 1955 Gender:F Ordering : DR ELIDA BOOGIE . Admission #: [id number] Family : Order #: [id number] CLICK HERE TO VIEW EXAM RADIOLOGY REPORT [...] lung cancer at age 80. LOCATION: [facility] BREAST COMPOSITION: Heterogeneously dense,which may obscure small [...] MD on 04/05/2022 at 10:08 Normal [facility] CBC AUTO DIFFon 04-04-2022 BASO # 0.0 103/ul Normal 0.0-0.1 [facility] Comment on above: Performed By: #### C BC ####[facility] [address] [place] [phone] Santos Basophils/100 WBC (Bld) 0.3 % Normal 0.2-2.0 [facility] Comment on above: Performed By: #### C BC ####[facility] [address] [place] [phone] Santos EO # 0.2 103/ul Normal 0.0-0.7 [facility] Comment on above: Performed By: #### C BC ####[facility] [address] [place] [phone] Santos Eosinophils/100 WBC (Bld) 2.0 % Normal 0.9-7.0 [facility] Comment on above: Performed By: #### C BC ####[facility] [address] [place], [place] [address]Dr. May Santos Erythrocyte distribution width (RBC) [Ratio] 12.7 % Normal 11.0-15.0 [facility] Comment on above: Performed By: #### C BC ####[facility] Csmpuyllll[address] [place], [place] [address]Dr. May Santos Hematocrit (Bld) [Volume fraction] 44.7 % Normal 36.0-48.0 [facility] Comment on above: Performed By: #### C BC ####[facility] Zvxlfmaxtm[address] [place], [place] [address]Dr. May Santos Hemoglobin (Bld) [Mass/Vol] 14.9 g/dL Normal 12.0-16.0 [facility] Comment on above: Performed By: #### C BC ####[facility] Pjiyylbcur[address] [place], [place] [address]Dr. May Santos IG # 0.05 10e3/ul Critically high 0.00-0.03 [facility] Comment on above: Performed By: #### C BC ####[facility] Qijshgtjym[address] [place], [place] [address]Dr. May Santos IG % 0.6 % Critically high 0.0-0.5 [facility] Comment on above: Performed By: #### C BC ####[facility] Jaqhvnx[address] [place], [place] [address]Dr. May Santos LYMPH # 2.9 103/ul Normal 1.2-3.8 [facility] Comment on above: Performed By: #### C BC ####[facility] Eauhxxyaeq[address] [place], [place] [address]Dr. May Santos Lymphocytes/100 WBC (Bld) 32.9 % Normal 20.5-60.0 [facility] Comment on above: Performed By: #### C BC ####[facility] Aiiwbsajcq[address] [place], [place] [address]Dr. May Santos MANUAL DIFF REQ NO Normal [facility] Comment on above: Performed By: #### C BC ####[facility] [address] [place] [address]Dr. May Tom MCH (RBC) [Entitic mass] 33.0 pg Normal 26.7-34.0 [facility] Comment on above: Performed By: #### C BC ####[facility] Imgcscydms[address] [place], [place] [address]Dr. May Tom MCHC (RBC) [Mass/Vol] 33.3 g/dL Normal 29.9-35.2 [facility] Comment on above: Performed By: #### C BC ####[facility] Uwqjatelkb[address] [place], [place] [address]Dr. May Santos MCV (RBC) [Entitic vol] 98.9 fL Normal 81.0-99.0 [facility] Comment on above: Performed By: #### C BC ####[facility] Ubuupjicev[address] [place], [place] [address]Dr. May Santos MONO # 0.7 103/ul Normal 0.3-0.8 [facility] Comment on above: Performed By: #### C BC ####[facility] Bhktozmocl[address] [place], [place] [address]Dr. May Santos Monocytes/100 WBC (Bld) 8.4 % Normal 1.7-12.0 [facility] Comment on above: Performed By: #### C BC ####[facility] Pbtppenltb[address] [place], [place] [address]Dr. May Santos NEUT # 4.9 103/ul Normal 1.4-6.5 [facility] Comment on above: Performed By: #### C BC ####[facility] Iupagonzaa[address] [place], [place] [address]Dr. May Santos Neutrophils/100 WBC (Bld) 55.8 % Normal 43.0-75.0 [facility] Comment on above: Performed By: #### C BC ####[facility] Hmrlwhihye[address] [place], [place] [address]Dr. May Santos Platelet mean volume (Bld) [Entitic vol] 10.5 fL Normal 9.5-13.5 [facility] Comment on above: Performed By: #### C BC ####[facility] [address] [place] [phone]. May Santos PLT 341 103/ul Normal 150-450 [facility] Comment on above: Performed By: #### C BC ####[facility] [address]rs[address] [place] [phone]. May Santos RBC 4.52 106/ul Normal 4.20-5.40 [facility] Comment on above: Performed By: #### C BC ####[facility] [address] [place] [address]Dr. May Santos WBC 8.9 103/ul Normal 4.0-11.0 [facility] Comment on above: Performed By: #### C BC ####[facility] [address] [place] [address]Dr. May Santos FREE THYROXINE INDEX T7on FTI 2.57 Normal 1.30-4.50 [facility] Comment on above: Performed By: #### T 7, TSH, LIPID, CMP ####[facility] [address] [place] [address]Dr. May Santos T3U 33.0 % Normal 30.0-39.0 [facility] Comment on above: Performed By: #### T 7, TSH, LIPID, CMP ####[facility] [address] [place] [phone]. May Santos T4 [Mass/Vol] 7.80 ug/dL Normal 4.80-13.90 [facility] Comment on above: Performed By: #### T 7, TSH, LIPID, CMP ####[facility] [address] [place] [address]Dr. May Santos GLYCOHEMOGLOBIN A1Con 2021 ADA RECOMMENDATION SEE BELOW Normal [facility] Comment on above: Result Comment: ADA RECOMMENDED LIMIT 4.0 - 6.0 ADA THERAPEUTIC TARGET < 7.0 ACTION SUGGESTED > 7.0 Performed By: #### A 1C #### [facility] [address] [address] [address] May Santos Glucose [Mass/Vol] 114 mg/dL Normal [facility] Comment on above: Performed By: #### A 1C #### [facility] [address] [place], [place] [address] Dr. May Santos HbA1c (Bld) [Mass fraction] 5.6 % Normal 4.5-6.2 [facility] Comment on above: Performed By: #### A 1C #### [facility] [address] [address] [address] May Santos IRONon 04-04-2022 Iron [Mass/Vol] 100.0 ug/dL Normal 50.0-170.0 [facility] Comment on above: Performed By: #### V ITAD, IRON ####[facility] [address] [place] [address]Dr. May Santos LIPID PROFILEon 04-04-2022 CHOL-HDL RATIO NORM SEE BELOW Normal [facility] Comment on above: Result Comment: 3.3 - 4.4 LOW RISK 4.4 - 7.1 AVERAGE RISK 7.1 - 11.0 MODERATE RISK >11.0 HIGH RISK Performed By: #### T 7, TSH, LIPID, CMP ####[facility] [address] [place] [phone]. May Santos Cholesterol [Mass/Vol] 195 mg/dL Normal <=200 [facility] Comment on above: Performed By: #### T 7, TSH, LIPID, CMP ####[facility] [address] [place] [phone] Santos Cholesterol in HDL [Mass/Vol] 47 mg/dL Normal 40-60 [facility] Comment on above: Performed By: #### T 7, TSH, LIPID, CMP ####[facility] [address] [place] [phone] Santos Cholesterol in LDL [Mass/Vol] 130.0 mg/dL Normal [facility] Comment on above: Performed By: #### T 7, TSH, LIPID, CMP ####[facility] [address] [place] [phone]. May Santos Cholesterol.total/Ch olesterol in HDL [Mass ratio] 4.1 {ratio} Normal [facility] Comment on above: Performed By: #### T 7, TSH, LIPID, CMP ####[facility] [address] [place] [phone]. May Santos HDL NORMAL > or = 60 mg/dl - LO W CARDIOVASCULAR RISK <40 mg/dl - HIGH CARDIOVASCULAR RISK Normal [facility] Comment on above: Performed By: #### T 7, TSH, LIPID, CMP ####[facility] [address] [place] [address]Dr. May Santos LDL CALC NORMAL SEE BELOW Normal [facility] Comment on above: Result Comment: <100 mg/dl OPTIMAL 100 - 129 mg/dl NEAR OR ABOVE OPTIMAL 130 - 159 mg/dl BORDERLINE HIGH 160 - 189 mg/dl HIGH >190 mg/dl VERY HIGH Performed By: #### T 7, TSH, LIPID, CMP ####[facility] [address]cxety[address] [place] [phone]. May Santos Triglyceride [Mass/Vol] 90 mg/dL Normal <=150 [facility] Comment on above: Performed By: #### T 7, TSH, LIPID, CMP ####[facility] [address] [place] [phone]. May Santos VLDL CALC 18.0 mg/dL Normal [facility] Comment on above: Performed By: #### T 7, TSH, LIPID, CMP ####[facility] [address]xy[address] [place] [phone]. May Santos PROF 14(COMP METB)on 022 Albumin [Mass/Vol] 3.7 g/dL Normal 3.4-5.0 [facility] Comment on above: Performed By: #### T 7, TSH, LIPID, CMP ####[facility] [address] [place] [phone]. May Santos Albumin/Globulin [Mass ratio] 0.9 {ratio} Normal [facility] Comment on above: Performed By: #### T 7, TSH, LIPID, CMP ####[facility] [address] [place] [address]Dr. May Santos ALP [Catalytic activity/Vol] 94 U/L Normal 46-116 [facility] Comment on above: Performed By: #### T 7, TSH, LIPID, CMP ####[facility] [address] [place] [address]Dr. May Santos ALT [Catalytic activity/Vol] 19 U/L Normal 14-59 [facility] Comment on above: Performed By: #### T 7, TSH, LIPID, CMP ####[facility] Ezksxuwcbe[address] [place], [place] [address]Dr. May Santos Anion gap [Moles/Vol] 14.1 mmol/L Normal [facility] Comment on above: Performed By: #### T 7, TSH, LIPID, CMP ####[facility] Ilvuwaziwy[address] [place], [place] [address]Dr. May Santos AST [Catalytic activity/Vol] 16 U/L Normal 15-37 [facility] Comment on above: Performed By: #### T 7, TSH, LIPID, CMP ####[facility] Kkqxlzetzi[address] [place], [place] [address]Dr. May Santos Bilirubin [Mass/Vol] 0.5 mg/dL Normal 0.2-1.0 [facility] Comment on above: Performed By: #### T 7, TSH, LIPID, CMP ####[facility] Hypjesqgzs[address] [place], [place] [address]Dr. May Santos Calcium [Mass/Vol] 9.1 mg/dL Normal 8.5-10.1 [facility] Comment on above: Performed By: #### T 7, TSH, LIPID, CMP ####[facility] Enlpkwmleh[address] [place], [place] [address]Dr. May Santos Chloride [Moles/Vol] 104 mmol/L Normal 98-107 [facility] Comment on above: Performed By: #### T 7, TSH, LIPID, CMP ####[facility] [address] [place] [address]Dr. May Santos CO2 [Moles/Vol] 26.6 mmol/L Normal 21.0-32.0 [facility] [place] [facility] Comment on above: Performed By: #### T 7, TSH, LIPID, CMP ####[facility] Acbwbpplif[address] [place], [place] [address]Dr. May Santos Creatinine [Mass/Vol] 0.82 mg/dL Normal 0.55-1.02 [facility] Comment on above: Performed By: #### T 7, TSH, LIPID, CMP ####[facility] Vbquaiwvcy[address] [place], [place] [address]Dr. May Santos EGFR-AF ALBANIAN >60 Normal >=60 [facility] [place] [facility] Comment on above: Performed By: #### T 7, TSH, LIPID, CMP ####[facility] Hmfg[address] [place], [place] [address]Dr. May Santos EGFR-NON AF ALBANIAN >60 Normal >=60 [facility] Comment on above: Performed By: #### T 7, TSH, LIPID, CMP ####[facility] Eggehxmpfe[address] [place], [place] [address]Dr. May Santos Globulin (S) [Mass/Vol] 4.0 g/dL [facility] Comment on above: Performed By: #### T 7, TSH, LIPID, CMP ####[facility] Tldyjurkqd[address] [place], [place] [address]Dr. May Santos Glucose [Mass/Vol] 120 mg/dL Critically high 74-106 [facility] Comment on above: Performed By: #### T 7, TSH, LIPID, CMP ####[facility] Ofvpqnxcik[address] [place], [place] [address]Dr. May Santos Potassium [Moles/Vol] 4.7 mmol/L Normal 3.5-5.1 [facility] Comment on above: Performed By: #### T 7, TSH, LIPID, CMP ####[facility] Mzsobpbihd[address] [place], [place] [address]Dr. May Santos Protein [Mass/Vol] 7.7 g/dL Normal 6.4-8.2 [facility] Comment on above: Performed By: #### T 7, TSH, LIPID, CMP ####[facility] [address] [place] [address]Dr. May Santos Sodium [Moles/Vol] 140 mmol/L Normal 136-145 [facility] Comment on above: Performed By: #### T 7, TSH, LIPID, CMP ####[facility] [address] [place] [address]Dr. May Santos Urea nitrogen [Mass/Vol] 9.0 mg/dL Normal 7.0-18.0 [facility] Comment on above: Performed By: #### T 7, TSH, LIPID, CMP ####[facility] L[address]zijzr[address] [place], [place] [address]Dr. May Santos Urea nitrogen/Creatinine [Mass ratio] 11.0 mg/mg Normal [facility] Comment on above: Performed By: #### T 7, TSH, LIPID, CMP ####[facility] [address] [place] [address]Dr. May Santos TSHon 04-04-2022 TSH 1.034 uIU/mL Normal 0.358-3.740 [facility] Comment on above: Performed By: #### T 7, TSH, LIPID, CMP ####[facility] Glofkyzoom[address] [place], [place] [address]Dr. May Santos VITAMIN D 25 OHon 04-04-2022 VIT D 25-OH 45.9 ng/mL Normal [facility] Comment on above: Performed By: #### I NSULIN #### [facility] [address] [place] [address] Dr. May Santos VIT D RANGES SEE BELOW Normal [facility] Comment on above: Result Comment: <20 ng/mL Vit D deficient 20 - <30 ng/mL Vit D insufficient 30 - 100 ng/mL Vit D sufficient >100 ng/mL Potential Toxicity Performed By: #### I NSULIN #### [facility] [address] [address] [address] May Santos CULTURE URINEon 01-24-2022 CULTURE URINE Culture Observations : HEAVY GROWTH OF MIXED GENITAL SEAN. NO POTENTIAL PATHOGENS SEEN. Normal [facility] Comment on above: Performed By: #### I NSULIN #### [facility] [address] [address] [address] May Santos UA RANDOM W/MICROSCOPICon BACTERIA NONE SEEN Normal NONE SEEN [facility] Comment on above: Performed By: #### U AMIC ####[facility] [address] [place] [address]Dr. May Santos Bilirubin Ql (U) Negative Normal NEGATIVE [facility] [place] [facility] Comment on above: Performed By: #### U AMIC ####[facility] [address] [place] [address]Dr. May Santos CAST NONE SEEN Normal NONE SEEN [facility] Comment on above: Performed By: #### U AMIC ####[facility] [address] [place] [address]Dr. May Santos Clarity (U) CLEAR Normal CLEAR [facility] Comment on above: Performed By: #### U AMIC ####[facility] [address] [place] [address]Dr. May Santos Color (U) YELLOW Normal YELLOW [facility] Comment on above: Performed By: #### U AMIC ####[facility] [address] [place] [address]Dr. May Santos Crystals LM Nom (Urine sed) NONE SEEN Normal NONE SEEN [facility] Comment on above: Performed By: #### U AMIC ####[facility] [address]xi[address] [place] [address]Dr. May Santos Epithelial cells LM Ql (Urine sed) FEW Abnormal NONE SEEN /RARE [facility] Comment on above: Performed By: #### U AMIC ####[facility] Ly[address]hzmzan[address] [place], [place] [address]Dr. May Santos Glucose Ql (U) Negative Normal NEGATIVE [facility] Comment on above: Performed By: #### U AMIC ####[facility] [address] [place] [address]Dr. May Santos Hemoglobin Ql (U) Negative Normal NEGATIVE [facility] Comment on above: Performed By: #### U AMIC ####[facility] [address] [place] [address]Dr. May Santos Ketones Ql (U) Negative Normal NEGATIVE [facility] Comment on above: Performed By: #### U AMIC ####[facility] [address] [place], [place] [address]Dr. May Santos LEUKOCYTES Negative Normal NEGATIVE [facility] Comment on above: Performed By: #### U AMIC ####[facility] Ak[address]lsie[address] [place], [place] [address]Dr. May Santos MUCOUS NONE SEEN Normal NONE SEEN [facility] Comment on above: Performed By: #### U AMIC ####[facility] Jtrr[address]fua[address] [place], [place] [address]Dr. May Santos Nitrite Ql (U) Negative Normal NEGATIVE [facility] Comment on above: Performed By: #### U AMIC ####[facility] [address]ux[address]adn[address] [place], [place] [address]Dr. May Santos pH (U) 7.0 [pH] Normal 5-9 [facility] Comment on above: Performed By: #### U AMIC ####[facility] [address]ew[address]oxygp[address] [place], [place] [address]Dr. May Santos RBC NONE SEEN Abnormal 0-2 [facility] Comment on above: Performed By: #### U AMIC ####[facility] [address]drl[address] [place], [place] [address]Dr. May Santos SPEC GRAVITY 1.015 Normal 1.005-<=1.025 [facility] Comment on above: Performed By: #### U AMIC ####[facility] O[address]xtg[address] [place], [place] [address]Dr. May Santos UA PROTEIN Negative Normal NEGATIVE/ TRACE [facility] Comment on above: Performed By: #### U AMIC ####[facility] Dhxgsyjjrk[address] [place], [place] [address]Dr. May Santos Urobilinogen Qn (U) 0.2 {Taylor'U}/dL Normal 0.2 - 1. 0 [facility] Comment on above: Performed By: #### U AMIC ####[facility] [address] [place], [place] [address]Hu. May Santos WBC NONE SEEN Normal NONE SEEN [facility] Comment on above: Performed By: #### U AMIC ####[facility] [address]ex[address]ahds[address] [place], [place] [address]Qp. May Santos XR KUB 1 VIEWon 01-09-2022 XR [...] ANGEL MILIAN Date: 2022-01-09 07:27 Normal [facility] US KIDNEYS BLADDERon 01-08- 022 US KIDNEYS BLADDER Ultrasound kidneys, bilateral [...] SORAYA RAMSAY Date: 2022-01-08 10:51 Normal [facility] CBC AUTO DIFFon 08-20-2021 BASO # 0.0 103/ul Normal 0.0-0.1 [facility] Comment on above: Performed By: #### C BC ####[facility] [address]ju[address] [place], [place] [address]Dr. May Santos Basophils/100 WBC (Bld) 0.6 % Normal 0.2-2.0 [facility] Comment on above: Performed By: #### C BC ####[facility] Ruyynwirhl[address] [place], [place] [address]Dr. May Santos EO # 0.2 103/ul Normal 0.0-0.7 [facility] Comment on above: Performed By: #### C BC ####[facility] [address]ngdaeoeu[address] [place], [place] [address]Dr. May Santos Eosinophils/100 WBC (Bld) 2.4 % Normal 0.9-7.0 [facility] Comment on above: Performed By: #### C BC ####[facility] Aaks[address]jim[address] [place], [place] [address]Dr. May Santos Erythrocyte distribution width (RBC) [Ratio] 13.0 % Normal 11.0-15.0 [facility] Comment on above: Performed By: #### C BC ####[facility] [address] [place], [place] [address]Dr. Loveiliana Santos Hematocrit (Bld) [Volume fraction] 45.8 % Normal 36.0-48.0 [facility] Comment on above: Performed By: #### C BC ####[facility] [address]ay[address]ogf[address] [place], [place] [address]Dr. May Santos Hemoglobin (Bld) [Mass/Vol] 15.1 g/dL Normal 12.0-16.0 [facility] Comment on above: Performed By: #### C BC ####[facility] [address]mcejpipxa[address] [place], [place] [address]Dr. May Santos IG # 0.02 10e3/ul Normal 0.00-0.03 [facility] Comment on above: Performed By: #### C BC ####[facility] N[address]eq[address] [place], [place] [address]Dr. May Santos IG % 0.3 % Normal 0.0-0.5 [facility] Comment on above: Performed By: #### C BC ####[facility] [address] [place] [address]DrDeborah Loveiliana Santos LYMPH # 2.7 103/ul Normal 1.2-3.8 [facility] Comment on above: Performed By: #### C BC ####[facility] [address]rt[address] [place] [address]DrDeborah Santos Lymphocytes/100 WBC (Bld) 41.8 % Normal 20.5-60.0 [facility] Comment on above: Performed By: #### C BC ####[facility] [address]fe[address] [place] [address]DrDeborah Santos MANUAL DIFF REQ NO Normal [facility] Comment on above: Performed By: #### C BC ####[facility] [address]ers[address]lsn[address] [place], [place] [address]DrDeborah Santos MCH (RBC) [Entitic mass] 33.0 pg Normal 26.7-34.0 [facility] Comment on above: Performed By: #### C BC ####[facility] [address]ugwp[address] [place], [place] [address]DrDeborah May Tom MCHC (RBC) [Mass/Vol] 33.0 g/dL Normal 29.9-35.2 [facility] Comment on above: Performed By: #### C BC ####[facility] Tb[address]eqz[address]vq[address] [place] [address]DrDeborah Santos MCV (RBC) [Entitic vol] 100.0 fL Critically high 81.0-99.0 [facility] Comment on above: Performed By: #### C BC ####[facility] R[address]to[address] [place], [place] [address]DrDeborah Santos MONO # 0.5 103/ul Normal 0.3-0.8 [facility] Comment on above: Performed By: #### C BC ####[facility] Bis[address] [place], [place] [address]DrDeborah Santos Monocytes/100 WBC (Bld) 7.2 % Normal 1.7-12.0 [facility] Comment on above: Performed By: #### C BC ####[facility] [address]bv[address] [place] [id number]. May Santos NEUT # 3.0 103/ul Normal 1.4-6.5 [facility] Comment on above: Performed By: #### C BC ####[facility] [address]fwdx[address] [place] [address]Dr. May Santos Neutrophils/100 WBC (Bld) 47.7 % Normal 43.0-75.0 [facility] Comment on above: Performed By: #### C BC ####[facility] [address]xf[address] [place] [address]Dr. May Santos Platelet mean volume (Bld) [Entitic vol] 10.7 fL Normal 9.5-13.5 [facility] Comment on above: Performed By: #### C BC ####[facility] [address] [place] [address]Dr. May Santos PLT 300 103/ul Normal 150-450 [facility] Comment on above: Performed By: #### C BC ####[facility] [address] [place] [address]Dr. May Santos RBC 4.58 106/ul Normal 4.20-5.40 [facility] Comment on above: Performed By: #### C BC ####[facility] [address] [place] [id number] Santos WBC 6.4 103/ul Normal 4.0-11.0 [facility] Comment on above: Performed By: #### C BC ####[facility] [address] [place] [id number]. May Santos FREE THYROXINE INDEX T7on FTI 2.24 Normal [facility] Comment on above: Performed By: #### L IPID, CMP, TSH, T7 #### [facility] [address] [place], [place] [address] Dr. May Santos T3U 34.0 % Normal 23.5-40.5 [facility] Comment on above: Performed By: #### L IPID, CMP, TSH, T7 #### [facility] [address] [address] [address] May Santos T4 [Mass/Vol] 6.60 ug/dL Normal 5.53-11.00 [facility] Comment on above: Performed By: #### L IPID, CMP, TSH, T7 #### [facility] [address] [address] [address] May Santos GLYCOHEMOGLOBIN A1Con 2021 ADA RECOMMENDATION ADA THERAPEUTIC TARG ET 6.0 - 7.0 ACTION SUGGESTED > 7.0 [facility] Comment on above: Performed By: #### A 1C #### [facility] [address] [place] [address] Dr. May Santos Glucose [Mass/Vol] 120 mg/dL Normal [facility] Comment on above: Performed By: #### A 1C #### [facility] [address] [address] [address] May Santos HbA1c (Bld) [Mass fraction] 5.8 % Normal <=6.0 [facility] Comment on above: Performed By: #### A 1C #### [facility] [address] [place] [address] Dr. May Santos IRONon 08-20-2021 Iron [Mass/Vol] 121.0 ug/dL Normal 37.0-170.0 [facility] Comment on above: Performed By: #### I URSULA FOOTE #### [facility] [address] [place] [address] Dr. May Santos LIPID PROFILEon 08-20-2021 CHOL-HDL RATIO NORM SEE BELOW Normal [facility] Comment on above: Result Comment: 3.3 - 4.4 LOW RISK 4.4 - 7.1 AVERAGE RISK 7.1 - 11.0 MODERATE RISK >11.0 HIGH RISK Performed By: #### L IPID, CMP, TSH, T7 #### [facility] [address] [place] [address] Dr. May Santos Cholesterol [Mass/Vol] 218 mg/dL Critically high <=200 [facility] Comment on above: Performed By: #### L IPID, CMP, TSH, T7 #### [facility] [address] [address] [address] May Santos Cholesterol in HDL [Mass/Vol] 54 mg/dL Normal [facility] Comment on above: Performed By: #### L IPID, CMP, TSH, T7 #### [facility] [address] [address] [address] May Santos Cholesterol in LDL [Mass/Vol] 140.0 mg/dL Normal [facility] Comment on above: Performed By: #### L IPID, CMP, TSH, T7 #### [facility] [address] [address] [address] May Santos Cholesterol.total/Ch olesterol in HDL [Mass ratio] 4.0 {ratio} Normal [facility] Comment on above: Performed By: #### L IPID, CMP, TSH, T7 #### [facility] [address] [address] [address] May Santos HDL NORMAL > or = 60 mg/dl - LO W CARDIOVASCULAR RISK <40 mg/dl - HIGH CARDIOVASCULAR RISK Normal [facility] Comment on above: Performed By: #### L IPID, CMP, TSH, T7 #### [facility] [address] [address] [address] May Santos LDL CALC NORMAL SEE BELOW Normal [facility] Comment on above: Result Comment: <100 mg/dl OPTIMAL 100 - 129 mg/dl NEAR OR ABOVE OPTIMAL 130 - 159 mg/dl BORDERLINE HIGH 160 - 189 mg/dl HIGH >190 mg/dl VERY HIGH Performed By: #### L IPID, CMP, TSH, T7 #### [facility] [address] [address] [address] May Santos Triglyceride [Mass/Vol] 120 mg/dL Normal <=150 [facility] Comment on above: Performed By: #### L IPID, CMP, TSH, T7 #### [facility] [address] [address] [address] May Santos VLDL CALC 24.0 mg/dL Normal [facility] Comment on above: Performed By: #### L IPID, CMP, TSH, T7 #### [facility] [address] [place] [address] Dr. May Santos PROF 14(COMP METB)on 022 Albumin [Mass/Vol] 3.7 g/dL Normal 3.5-5.0 [facility] Comment on above: Performed By: #### L IPID, CMP, TSH, T7 #### [facility] [address] [place] [address] Dr. May Santos Albumin/Globulin [Mass ratio] 1.0 {ratio} Normal [facility] Comment on above: Performed By: #### L IPID, CMP, TSH, T7 #### [facility] [address] [place] [address] Dr. May Santos ALP [Catalytic activity/Vol] 84 U/L Normal 38-126 [facility] Comment on above: Performed By: #### L IPID, CMP, TSH, T7 #### [facility] [address] [place] [address] Dr. May Santos ALT [Catalytic activity/Vol] 17 U/L Normal 9-52 [facility] Comment on above: Performed By: #### L IPID, CMP, TSH, T7 #### [facility] [address] [place] [address] Dr. May Santos Anion gap [Moles/Vol] 11.0 mmol/L Normal [facility] Comment on above: Performed By: #### L IPID, CMP, TSH, T7 #### [facility] [address] [place] [address] Dr. May Santos AST [Catalytic activity/Vol] 16 U/L Normal 14-36 [facility] Comment on above: Performed By: #### L IPID, CMP, TSH, T7 #### [facility] [address] [place] [address] Dr. May Santos Bilirubin [Mass/Vol] 0.5 mg/dL Normal 0.2-1.3 [facility] Comment on above: Performed By: #### L IPID, CMP, TSH, T7 #### [facility] [address] [address] [address] May Santos Calcium [Mass/Vol] 8.8 mg/dL Normal 8.4-10.2 [facility] Comment on above: Performed By: #### L IPID, CMP, TSH, T7 #### [facility] [address] [place] [address] Dr. May Santos Chloride [Moles/Vol] 107 mmol/L Normal 98-107 [facility] Comment on above: Performed By: #### L IPID, CMP, TSH, T7 #### [facility] [address] [address] [address] May Santos CO2 [Moles/Vol] 25.6 mmol/L Normal 22.0-30.0 [facility] Comment on above: Performed By: #### L IPID, CMP, TSH, T7 #### [facility] [address] [place] [address] Dr. May Santos Creatinine [Mass/Vol] 0.91 mg/dL Normal 0.52-1.04 [facility] Comment on above: Performed By: #### L IPID, CMP, TSH, T7 #### [facility] [address] [place] [address] Dr. May Santos EGFR-AF ALBANIAN >60 Normal >=60 [facility] Comment on above: Performed By: #### L IPID, CMP, TSH, T7 #### [facility] [address] [place] [address] Dr. May Santos EGFR-NON AF ALBANIAN >60 Normal >=60 [facility] Comment on above: Performed By: #### L IPID, CMP, TSH, T7 #### [facility] [address] [place] [address] Dr. May Santos Globulin (S) [Mass/Vol] 3.7 g/dL Normal [facility] Comment on above: Performed By: #### L IPID, CMP, TSH, T7 #### [facility] [address] [place] [address] Dr. May Santos Glucose [Mass/Vol] 116 mg/dL Critically high 74-106 [facility] Comment on above: Performed By: #### L IPID, CMP, TSH, T7 #### [facility] [address] [address] [address] May Santos Potassium [Moles/Vol] 4.6 mmol/L Normal 3.4-5.0 [facility] Comment on above: Performed By: #### L IPID, CMP, TSH, T7 #### [facility] [address] [address] [address] May Santos Protein [Mass/Vol] 7.4 g/dL Normal 6.1-8.2 [facility] Comment on above: Performed By: #### L IPID, CMP, TSH, T7 #### [facility] [address] [place] [address] Dr. May Santos Sodium [Moles/Vol] 139 mmol/L Normal 137-145 [facility] Comment on above: Performed By: #### L IPID, CMP, TSH, T7 #### [facility] [address] [address] [address] May Santos Urea nitrogen [Mass/Vol] 8.0 mg/dL Normal 7.0-17.0 [facility] Comment on above: Performed By: #### L IPID, CMP, TSH, T7 #### [facility] [address] [place] [address] Dr. May Santos Urea nitrogen/Creatinine [Mass ratio] 8.8 mg/mg Normal [facility] Comment on above: Performed By: #### L IPID, CMP, TSH, T7 #### [facility] [address] [address] [address] May Santos TSHon 08-20-2021 TSH 1.583 uIU/mL Normal 0.470-4.680 [facility] Comment on above: Performed By: #### L IPID, CMP, TSH, T7 #### [facility] [address] [place] [address] Dr. May Santos TSH RANGE SEE BELOW Normal [facility] Comment on above: Result Comment: <0.3 4 UIU/ml HYPERTHYROID 0.34-5.60 UIU/ml EUTHYROID >5.60 UIU/ml HYPOTHYROID Performed By: #### L IPID, CMP, TSH, T7 #### [facility] [address] [place], [place] [address] Dr. May Santos VITAMIN D 25 OHon 08-20-2021 VIT D 25-OH 26.0 ng/mL Normal [facility] Comment on above: Performed By: #### I QAMAR VITAD ####[facility] [address] [place], [place] [address]BtDr. May Santos VIT D RANGES SEE BELOW Normal [facility] Comment on above: Result Comment: <20 ng/mL Vit D deficient 20 - <30 ng/mL Vit D insufficient 30 - 100 ng/mL Vit D sufficient >100 ng/mL Potential Toxicity Performed By: #### I QAMAR VITAD ####[facility] [address] [place], [place] [address]DuDr. May Santos Encounters Encounter Date Encounter Type [...] Facility:[facility] Payers Date Payer Category Payer Medicare [id number] 1961 Self-pay 1961 Unknown [id number] 1955 Unknown [id number] 2.16.84 [id number] 1955 Unknown [id number] 2.16.84 [id number] 1953 Unknown [id number] 2.16.84 [id number] 1953 Unknown [id number] 2.16.84 [id number] 1953 Unknown [id number] 2.16.84 [id number] 1953 Unknown [id number] 2.16.84 [id number] 1953 Unknown [id number] 2.16.84 [id number] 1953 Unknown [id number] 2.16.84 [id number] Summary Purpose Family History No Family History Records FoundNo Family History Records Found Advance Directives No Advanced Directives Records FoundNo Advanced Directives Records Found Additional Source Comments INFORMATION SOURCE (unrecogn ized section and content) DATE CREATED AUTHOR 07/22/2022 [facility] DATE CREATED AUTHOR AUTHOR'S CLAUDIO KHAN 09/17/2023 [facility] FOR RECORDS PERTAINING TO PATIENTS WHO ARE [...] BE BASED ON THE PRIMARY CLINICAL RECORDS. [employer] provides no warranty or guarantee of the accuracy or completeness of information in this document.
[2024-03-10 08:28] LABS: Basophils Percent Auto 0.5 % (0.2-2.0); Eosinophils Absolute Auto 0.3 10^3/uL (0.0-0.7); Eosinophils Percent Auto 3.2 % (0.9-7.0); Hematocrit 46.5 % (36.0-48.0); Hemoglobin 15.3 g/dL (12.0-16.0); Immature Granulocytes Abs Auto 0.02 10^3/uL (0.00-0.03); Immature Granulocytes Pct Auto 0.2 % (0.0-0.5); Lymphocytes Absolute Auto 3.6 10^3/uL (1.2-3.8); Lymphocytes Percent Auto 41.1 % (20.5-60.0); Mean Corpuscular HGB Conc 32.9 g/dL (29.9-35.2); Mean Corpuscular Hemoglobin 32.9 pg (26.7-34.0); Mean Platelet Volume 10.4 fL (9.5-13.5); Monocytes Absolute Auto 0.7 10^3/uL (0.3-0.8); Monocytes Percent Auto 7.4 % (1.7-12.0); Neutrophils Absolute Auto 4.2 10^3/uL (1.4-6.5); Neutrophils Percent Auto 47.6 % (43.0-75.0); Platelet Count 346 10^3/uL (150-450); Red Blood Count 4.65 10^6/uL (4.20-5.40); Red Cell Distribution Width 12.9 % (11.0-15.0); White Blood Count 8.8 10^3/uL (4.0-11.0)
[2024-03-10 09:06] LABS: Estimated Average Glucose 108 mg/dL; Glycohemoglobin A1C 5.4 % (4.5-6.2)
[2024-03-10 09:31] LABS: Alanine Aminotransferase 18 U/L (14-59); Albumin Globulin Ratio 1.1; Albumin Level 3.8 g/dL (3.4-5.0); Alkaline Phosphatase 79 U/L (46-116); Anion Gap 10.6; Aspartate Amino Transferase 19 U/L (15-37); BUN Creatinine Ratio 15.4; Bilirubin Total 0.7 mg/dL (0.2-1.0); Calcium 9.6 mg/dL (8.5-10.1); Chloride 103 mmol/L (98-107); Chol HDL Ratio 4.3; Cholesterol 234 mg/dL (<=200); Estimated GFR (African America >60 (>=60); Estimated GFR (Non-African Ame >60 (>=60); Free T3 3.36 pg/mL (2.18-3.98); Globulin 3.6 g/dL; Glucose 116 mg/dL (74-106); HDL Cholesterol 54 mg/dL (40-60); Potassium 4.6 mmol/L (3.5-5.1); Sodium 137 mmol/L (136-145); Thyroid Stimulating Hormone 0.986 uIU/mL (0.358-3.740); Total Protein 7.4 g/dL (6.4-8.2); Triglycerides 175 mg/dL (<=150)
== END 2024-03-10 07:58 | disposition home or self-care (01) ==
LOC: LAB 08:04
PROVIDERS: PCP Family Medicine; Visit Provider Family Medicine
DX: G47.00 Insomnia, unspecified (principal); E78.5 Hyperlipidemia, unspecified; E78.00 Pure hypercholesterolemia, unspecified; M85.80 Other specified disorders of bone density and structure, unspecified site; R53.83 Other fatigue; I10 Essential (primary) hypertension; R73.09 Other abnormal glucose; D64.9 Anemia, unspecified; E03.9 Hypothyroidism, unspecified
CPT/HCPCS: 36415; 80053; 80061; 83036; 83540; 84436; 84443; 84481; 85025

== ENCOUNTER 2024-04-08 12:54 | Outpatient (OUT) | payer MEDICARE, OTHER, SELFPAY ==
--- NOTE | 2024-04-08 12:56 | MM_ITS ---
Patient Name: SUSANNA CABALLERO MR#: [id number] : 1955 Exam Date: 04/08/2024 Ordering Doctor: DR John Tao . RADIOLOGY REPORT PROCEDURE: MM TOMOSYNTHESIS SCREENING BI COMPARISON: MM TOMOSYNTHESIS SCREENING BI, 04/07/2023. MG MAMM SCREEN 3D MICHAEL CAD, 04/05/2022. MG MAMM SCREEN 3D MICHAEL CAD, 01/22/2021. MG MAMM MICHAEL SCRN W CAD DIG, 11/30/2013. INDICATIONS: Screening for malignant neoplasm of breast Calculator Name NCI Breast Cancer Risk Assessment Tool 5 Year Breast Cancer Risk 1.20% Lifetime Breast Cancer Risk 3.70% Personal Breast Cancer No Personal Ovarian Cancer No Treatments None Family Cancers Father with colon cancer at age 78; Mother with lung cancer at age 82. LOCATION: [facility] BREAST COMPOSITION: The breasts are heterogeneously dense,which may obscure small masses. FINDINGS: DIAGNOSTIC CATEGORY 2--BENIGN FINDING: RIGHT BREAST: No significant suspicious finding. Scattered benign-appearing calcifications are present. Scattered benign-appearing lymph nodes are present. No significant change has occurred. LEFT BREAST: No significant suspicious finding. Scattered benign-appearing calcifications are present. No significant change has occurred. RECOMMENDATIONS: ROUTINE MAMMOGRAM AND CLINICAL EVALUATION IN 12 MONTHS. PLEASE NOTE: A NORMAL MAMMOGRAM DOES NOT EXCLUDE THE POSSIBILITY OF BREAST CANCER. A CLINICALLY SUSPICIOUS PALPABLE LUMP SHOULD BE BIOPSIED. Dictated by: Merrill Wu M.D. on 04/11/2024 at 19:27 Approved by: Merrill Wu M.D. on 04/11/2024 at 19:32
--- OUTSIDE RECORDS SUMMARY | 2024-04-08 13:00 | XMS_ITS | CCD ---
Author Organization [facility] Care Team Providers Care Guard Immigration Name Role Phone KEAGAN, DR MARRERO Admitting [...] WEST, DR MARIA VICTORIA Bello Attending Unavailable HORobert, DR MARRERO Primary Care Unavailable WEST, DR MARIA VICTORIA Bello Consulting Unavailable Herbert RUIZ Attending Unavailable Elida Tao Primary Care Physician [phone] Allergies Allergy Classification Reported Allergen(s) Allergy Type Date of Onset Reaction(s) Facility (2 sources) Naproxen; Translations: [Aleve] Drug Allergy [facility] Repository (1 source) Naproxen; Translations: [naproxen] Drug Allergy [facility] Medications Current Medications Medication Drug Class(es) Dates Sig (Normalized) Sig (Original) calcium carbonate 1500 mg oral tablet (1 source) Start: 03-12-2024 take 1 tablet by mouth twice daily calcium (as carbonate) 600 mg oral tablet 600 mg = 1 tab(s), Oral, BID, Refills(s) 0 Start Date: 03/12/24 Status: Ordered zolpidem tartrate 12.5 mg extended release oral tablet (1 source) gamma-Aminobutyri c Acid-ergic Agonist Start: 11-07-2015 take 12.5 mg by mouth once daily at bedtime zolpidem 12.5 mg, Oral, Once a day (at bedtime), Refills(s) 0, Insomnia Start Date: 11/07/15 Status: Ordered Problems Active Problems Problem Classification Problem Date Documented Date Episodic/Chronic Disorders of lipid metabolism (7 sources) Hyperlipidemia, unspecified; Translations: [Pure hypercholesterolemia, unspecified] Onset: 08-20-2021 Chronic Nutritional deficiencies (1 source) Vitamin D deficiency, unspecified; Translations: [VITAMIN D DEFICIENCY UNSPECIFIED] Onset: 04-09-2022 Chronic Osteoporosis (1 source) Osteoporosis 03-12-2024 Chronic Other and unspecified benign neoplasm (3 sources) History of polyp of colon; Translations: [Personal history of hyperplastic colon polyps] Onset: 03-30-2024 Episodic Other and unspecified benign neoplasm (1 source) Pseudopolyposis of colon 03-16-2019 Episodic Other nutritional; endocrine; and metabolic disorders (1 source) Overweight 03-12-2024 Episodic Other nutritional; endocrine; and metabolic disorders (1 source) Overweight in adulthood with body mass index of 25 or more but less than 30 03-30-2024 Episodic Residual codes; unclassified (1 source) Family history of malignant neoplasm of digestive organ; Translations: [Family history of malignant neoplasm of digestive organs] Onset: 03-30-2024 Episodic Residual codes; unclassified (1 source) Family history of cancer of colon 03-12-2024 Episodic Residual codes; unclassified (1 source) Insomnia 03-12-2024 Episodic Residual codes; unclassified (1 source) Tobacco user 03-30-2024 Episodic Past or Other Problems Problem Classification Problem [...] Test Name Value Interpretation Reference Range Facility Ambulatory Visit Summaryon 1 Ambulatory Visit Summary Ambulatory Visit Summary SUSANNA CABALLERO :1955 Visit Date:03/30/2024 Ambulatory Visit Instructions Your Diagnosis Family history of colon cancer in father Personal history of hyperplastic colon polyps Your Care Team Attending Physician - JOSEPH WISDOM, Herbert Bartholomew Primary Care Physician - Elida Tao MD This Is Your Medications List Contact prescribing physician if questions or concerns calcium carbonate (calcium (as carbonate) 600 mg oral tablet) zolpidem Procedures Performed Colonoscopy (03/2019), Colonoscopy and biopsy of colon (11/08/2015), Appendectomy, Nephrectomy, IDA BSO - Total abdominal hysterectomy and bilateral salpingo-oophorectomy, Tonsillectomy. Discharge Vitals Heart Rate (Peripheral) 72 Respiratory Rate 16 Blood Pressure 116/76 Height 170.1 cm Height 67 in Weight 74 kg Weight 162.8 lb BMI 25.58 Medications What How Much When Instructions Unchanged calcium carbonate (calcium (as carbonate) 600 mg oral tablet) 1 Tablets By Mouth 2 times a day Contact prescribing physician if questions or concerns Unchanged zolpidem 12.5 Milligram By Mouth Once a day (at bedtime) Contact prescribing physician if questions or concerns Allergies Aleve (Hives) Problems Ongoing - Any problem that you are currently receiving treatment for. BMI 25.0-25.9,adult Family history of colon cancer in father Insomnia Osteoporosis Overweight Personal history of colonic polyps Personal history of hyperplastic colon polyps Pure hypercholesterolemia Historical - Any problem that you are no longer receiving treatment for. Inflammatory polyps of colon Patient Survey You may receive a survey via text or e-mail asking about your office visit. Please share your experience with us by completing your survey. We appreciate your feedback and thank you for choosing us for your care. Normal [facility] Physician Referralon 024 Physician Referral [phone] [id number] [id number] F Normal [facility] Physician Referral [id number] 4030 [id number] F Normal [facility] INSULINon 04-05-2022 Insulin 9.4 uIU/mL Normal 2.6-24.9 [facility] Comment on above: Performed By: #### I NSULIN #### [facility] [address] [place] [address] Dr. May Santos MG MAMM SCREEN 3D MICHAEL CADon 04-05-2022 MG MAMM SCREEN 3D MICHAEL CAD Patient: SUSANNA CABALLERO Exam Date: 04/05/2022 : 1955 Gender:F Ordering : DR ELIDA TAO . Admission #: [id number] Family : Order #: [id number] CLICK HERE TO VIEW EXAM RADIOLOGY REPORT [...] lung cancer at age 80. LOCATION: [facility] BREAST COMPOSITION: Heterogeneously dense,which may [...] MD on 04/05/2022 at 10:08 Normal [facility] CBC AUTO DIFFon 04-04-2022 BASO # 0.0 103/ul Normal 0.0-0.1 [facility] Comment on above: Performed By: #### C BC ####[facility] Ehza[address] [place], [place] [address]Dr. May Santos Basophils/100 WBC (Bld) 0.3 % Normal 0.2-2.0 [facility] Comment on above: Performed By: #### C BC ####[facility] Luc[address] [place], [place] [address]Dr. May Santos EO # 0.2 103/ul Normal 0.0-0.7 [facility] Comment on above: Performed By: #### C BC ####[facility] E[address] [place], [place] [address]Dr. May Santos Eosinophils/100 WBC (Bld) 2.0 % Normal 0.9-7.0 [facility] Comment on above: Performed By: #### C BC ####[facility] Eff[address] [place], [place] [address]Dr. May Santos Erythrocyte distribution width (RBC) [Ratio] 12.7 % Normal 11.0-15.0 [facility] Comment on above: Performed By: #### C BC ####[facility] Xqs[address] [place], [place] [address]Dr. May Santos Hematocrit (Bld) [Volume fraction] 44.7 % Normal 36.0-48.0 [facility] Comment on above: Performed By: #### C BC ####[facility] [address] [place] [address]Dr. May Santos Hemoglobin (Bld) [Mass/Vol] 14.9 g/dL Normal 12.0-16.0 [facility] Comment on above: Performed By: #### C BC ####[facility] [address] [place] [address]Dr. May Santos IG # 0.05 10e3/ul Critically high 0.00-0.03 [facility] Comment on above: Performed By: #### C BC ####[facility] [address] [place] [address]Dr. May Santos IG % 0.6 % Critically high 0.0-0.5 [facility] Comment on above: Performed By: #### C BC ####[facility] U[address] [place], [place] [address]Dr. May Santos LYMPH # 2.9 103/ul Normal 1.2-3.8 [facility] Comment on above: Performed By: #### C BC ####[facility] [address] [place] [address]Dr. May Santos Lymphocytes/100 WBC (Bld) 32.9 % Normal 20.5-60.0 [facility] Comment on above: Performed By: #### C BC ####[facility] [address] [place] [address]Dr. May Santos MANUAL DIFF REQ NO Normal [facility] Comment on above: Performed By: #### C BC ####[facility] Cx[address] [place], [place] [address]Dr. May Santos MCH (RBC) [Entitic mass] 33.0 pg Normal 26.7-34.0 [facility] Comment on above: Performed By: #### C BC ####[facility] [address] [place], [place] [address]Dr. May Santos MCHC (RBC) [Mass/Vol] 33.3 g/dL Normal 29.9-35.2 [facility] Comment on above: Performed By: #### C BC ####[facility] [address] [place] [id number]. May Santos MCV (RBC) [Entitic vol] 98.9 fL Normal 81.0-99.0 [facility] Comment on above: Performed By: #### C BC ####[facility] [address] [place] [id number]. May Santos MONO # 0.7 103/ul Normal 0.3-0.8 [facility] Comment on above: Performed By: #### C BC ####[facility] [address] [place] [id number]. May Tom Monocytes/100 WBC (Bld) 8.4 % Normal 1.7-12.0 [facility] Comment on above: Performed By: #### C BC ####[facility] [address] [place], [place] [address]Dr. May Santos NEUT # 4.9 103/ul Normal 1.4-6.5 [facility] Comment on above: Performed By: #### C BC ####[facility] [address] [place], [place] [address]Dr. Loveiliana Santos Neutrophils/100 WBC (Bld) 55.8 % Normal 43.0-75.0 [facility] Comment on above: Performed By: #### C BC ####[facility] [address] [place], [place] [address]Dr. May Santos Platelet mean volume (Bld) [Entitic vol] 10.5 fL Normal 9.5-13.5 [facility] Comment on above: Performed By: #### C BC ####[facility] [address] [place], [place] [address]Dr. May Tom PLT 341 103/ul Normal 150-450 [facility] Comment on above: Performed By: #### C BC ####[facility] [address] [place], [place] [address]Dr. May Santos RBC 4.52 106/ul Normal 4.20-5.40 [facility] Comment on above: Performed By: #### C BC ####[facility] [address] [place] [id number]. May Santos WBC 8.9 103/ul Normal 4.0-11.0 [facility] Comment on above: Performed By: #### C BC ####[facility] [address] [place] [id number]. May Santos FREE THYROXINE INDEX T7on FTI 2.57 Normal 1.30-4.50 [facility] Comment on above: Performed By: #### T 7, TSH, LIPID, CMP ####[facility] [address] [place] [id number]. May Santos T3U 33.0 % Normal 30.0-39.0 [facility] Comment on above: Performed By: #### T 7, TSH, LIPID, CMP ####[facility] [address] [place] [address]Dr. May Santos T4 [Mass/Vol] 7.80 ug/dL Normal 4.80-13.90 [facility] Comment on above: Performed By: #### T 7, TSH, LIPID, CMP ####[facility] [address] [place] [address]DrDeborah Santos GLYCOHEMOGLOBIN A1Con 2021 ADA RECOMMENDATION SEE BELOW Normal [facility] Comment on above: Result Comment: ADA RECOMMENDED LIMIT 4.0 - 6.0 ADA THERAPEUTIC TARGET < 7.0 ACTION SUGGESTED > 7.0 Performed By: #### A 1C #### [facility] [address] [address] [address] May Santos Glucose [Mass/Vol] 114 mg/dL Normal [facility] Comment on above: Performed By: #### A 1C #### [facility] [address] [address] [address] May Santos HbA1c (Bld) [Mass fraction] 5.6 % Normal 4.5-6.2 [facility] Comment on above: Performed By: #### A 1C #### [facility] [address] [address] [address] May Santos IRONon 04-04-2022 Iron [Mass/Vol] 100.0 ug/dL Normal 50.0-170.0 [facility] Comment on above: Performed By: #### V ITAD, IRON ####[facility] [address] [place] [address]Dr. May Santos LIPID PROFILEon 04-04-2022 CHOL-HDL RATIO NORM SEE BELOW Normal [facility] Comment on above: Result Comment: 3.3 - 4.4 LOW RISK 4.4 - 7.1 AVERAGE RISK 7.1 - 11.0 MODERATE RISK >11.0 HIGH RISK Performed By: #### T 7, TSH, LIPID, CMP ####[facility] [address] [place] [address]Dr. May Santos Cholesterol [Mass/Vol] 195 mg/dL Normal <=200 [facility] Comment on above: Performed By: #### T 7, TSH, LIPID, CMP ####[facility] [address] [place] [address]Dr. May Santos Cholesterol in HDL [Mass/Vol] 47 mg/dL Normal 40-60 [facility] Comment on above: Performed By: #### T 7, TSH, LIPID, CMP ####[facility] [address] [place] [address]Dr. May Santos Cholesterol in LDL [Mass/Vol] 130.0 mg/dL Normal [facility] Comment on above: Performed By: #### T 7, TSH, LIPID, CMP ####[facility] [address] [place] [address]Dr. May Santos Cholesterol.total/Ch olesterol in HDL [Mass ratio] 4.1 {ratio} Normal [facility] Comment on above: Performed By: #### T 7, TSH, LIPID, CMP ####[facility] [address] [place] [address]Dr. May Santos HDL NORMAL > or = 60 mg/dl - LO W CARDIOVASCULAR RISK <40 mg/dl - HIGH CARDIOVASCULAR RISK Normal [facility] Comment on above: Performed By: #### T 7, TSH, LIPID, CMP ####[facility] [address] [place] [id number]. May Santos LDL CALC NORMAL SEE BELOW Normal [facility] Comment on above: Result Comment: <100 mg/dl OPTIMAL 100 - 129 mg/dl NEAR OR ABOVE OPTIMAL 130 - 159 mg/dl BORDERLINE HIGH 160 - 189 mg/dl HIGH >190 mg/dl VERY HIGH Performed By: #### T 7, TSH, LIPID, CMP ####[facility] [address] [place] [address]Dr. May Santos Triglyceride [Mass/Vol] 90 mg/dL Normal <=150 [facility] Comment on above: Performed By: #### T 7, TSH, LIPID, CMP ####[facility] [address] [place] [address]Dr. May Santos VLDL CALC 18.0 mg/dL Normal [facility] Comment on above: Performed By: #### T 7, TSH, LIPID, CMP ####[facility] E[address] [place] [address]Dr. May Santos PROF 14(COMP METB)on 04-04- 022 Albumin [Mass/Vol] 3.7 g/dL Normal 3.4-5.0 [facility] Comment on above: Performed By: #### T 7, TSH, LIPID, CMP ####[facility] [address] [place] [id number]. May Santos Albumin/Globulin [Mass ratio] 0.9 {ratio} Normal [facility] Comment on above: Performed By: #### T 7, TSH, LIPID, CMP ####[facility] [address] [place] [id number]. May Santos ALP [Catalytic activity/Vol] 94 U/L Normal 46-116 [facility] Comment on above: Performed By: #### T 7, TSH, LIPID, CMP ####[facility] [address] [place] [address]Dr. May Santos ALT [Catalytic activity/Vol] 19 U/L Normal 14-59 [facility] Comment on above: Performed By: #### T 7, TSH, LIPID, CMP ####[facility] [address] [place] [address]Dr. May Santos Anion gap [Moles/Vol] 14.1 mmol/L Normal [facility] Comment on above: Performed By: #### T 7, TSH, LIPID, CMP ####[facility] [address] [place] [address]Dr. May Santos AST [Catalytic activity/Vol] 16 U/L Normal 15-37 [facility] Comment on above: Performed By: #### T 7, TSH, LIPID, CMP ####[facility] [address] [place], [place] [address]Dr. May Santos Bilirubin [Mass/Vol] 0.5 mg/dL Normal 0.2-1.0 [facility] Comment on above: Performed By: #### T 7, TSH, LIPID, CMP ####[facility] Z[address] [place], [place] [address]Dr. May Santos Calcium [Mass/Vol] 9.1 mg/dL Normal 8.5-10.1 [facility] Comment on above: Performed By: #### T 7, TSH, LIPID, CMP ####[facility] [address] [place], [place] [address]Dr. May Santos Chloride [Moles/Vol] 104 mmol/L Normal 98-107 [facility] Comment on above: Performed By: #### T 7, TSH, LIPID, CMP ####[facility] [address] [place], [place] [address]Dr. May Santos CO2 [Moles/Vol] 26.6 mmol/L Normal 21.0-32.0 [facility] Comment on above: Performed By: #### T 7, TSH, LIPID, CMP ####[facility] Yslzybingq[address] [place], [place] [address]Dr. May Santos Creatinine [Mass/Vol] 0.82 mg/dL Normal 0.55-1.02 [facility] Comment on above: Performed By: #### T 7, TSH, LIPID, CMP ####[facility] [address] [place], [place] [address]Dr. May Santos EGFR-AF KOSOVAN >60 Normal >=60 [facility] Comment on above: Performed By: #### T 7, TSH, LIPID, CMP ####[facility] [address] [place] [address]Dr. May Santos EGFR-NON AF KOSOVAN >60 Normal >=60 [facility] Comment on above: Performed By: #### T 7, TSH, LIPID, CMP ####[facility] [address] [place] [address]Dr. May Santos Globulin (S) [Mass/Vol] 4.0 g/dL Normal [facility] Comment on above: Performed By: #### T 7, TSH, LIPID, CMP ####[facility] [address] [place], [place] [address]Dr. May Santos Glucose [Mass/Vol] 120 mg/dL Critically high 74-106 [facility] Comment on above: Performed By: #### T 7, TSH, LIPID, CMP ####[facility] [address] [place] [address]Dr. May Santos Potassium [Moles/Vol] 4.7 mmol/L Normal 3.5-5.1 [facility] Comment on above: Performed By: #### T 7, TSH, LIPID, CMP ####[facility] [address] [place] [address]Dr. May Santos Protein [Mass/Vol] 7.7 g/dL Normal 6.4-8.2 [facility] Comment on above: Performed By: #### T 7, TSH, LIPID, CMP ####[facility] [address]qr[address] [place] [address]Dr. May Santos Sodium [Moles/Vol] 140 mmol/L Normal 136-145 [facility] Comment on above: Performed By: #### T 7, TSH, LIPID, CMP ####[facility] [address] [place] [address]Dr. May Santos Urea nitrogen [Mass/Vol] 9.0 mg/dL Normal 7.0-18.0 [facility] Comment on above: Performed By: #### T 7, TSH, LIPID, CMP ####[facility] [address] [place] [id number] Santos Urea nitrogen/Creatinine [Mass ratio] 11.0 mg/mg Normal [facility] Comment on above: Performed By: #### T 7, TSH, LIPID, CMP ####[facility] [address] [place] [id number]. May Santos TSHon 04-04-2022 TSH 1.034 uIU/mL Normal 0.358-3.740 [facility] Comment on above: Performed By: #### T 7, TSH, LIPID, CMP ####[facility] [address] [place] [id number]. May Santos VITAMIN D 25 OHon 04-04-2022 VIT D 25-OH 45.9 ng/mL Normal [facility] Comment on above: Performed By: #### I NSULIN #### [facility] [address] [place] [address] Dr. May Santos VIT D RANGES SEE BELOW Normal [facility] Comment on above: Result Comment: <20 ng/mL Vit D deficient 20 - <30 ng/mL Vit D insufficient 30 - 100 ng/mL Vit D sufficient >100 ng/mL Potential Toxicity Performed By: #### I NSULIN #### [facility] [address] [place] [address] Dr. May Santos CULTURE URINEon 01-24-2022 CULTURE URINE Culture Observations : HEAVY GROWTH OF MIXED GENITAL SEAN. NO POTENTIAL PATHOGENS SEEN. Normal [facility] Comment on above: Performed By: #### I NSULIN #### [facility] [address] [place] [address] Dr. May Santos UA RANDOM W/MICROSCOPICon BACTERIA NONE SEEN Normal NONE SEEN [facility] Comment on above: Performed By: #### U AMIC ####[facility] [address] [place] [id number]. May Santos Bilirubin Ql (U) Negative Normal NEGATIVE [facility] Comment on above: Performed By: #### U AMIC ####[facility] [address] [place] [address]Dr. May Santos CAST NONE SEEN Normal NONE SEEN [facility] Comment on above: Performed By: #### U AMIC ####[facility] [address] [place], [place] [address]Dr. May Santos Clarity (U) CLEAR Normal CLEAR [facility] Comment on above: Performed By: #### U AMIC ####[facility] [address] [place] [address]Dr. May Santos Color (U) YELLOW Normal YELLOW [facility] Comment on above: Performed By: #### U AMIC ####[facility] [address] [place], [place] [address]Dr. May Santos Crystals LM Nom (Urine sed) NONE SEEN Normal NONE SEEN [facility] Comment on above: Performed By: #### U AMIC ####[facility] [address] [place], [place] [address]Dr. May Santos Epithelial cells LM Ql (Urine sed) FEW Abnormal NONE SEEN /RARE [facility] Comment on above: Performed By: #### U AMIC ####[facility] [address]wf[address] [place], [place] [address]Dr. May Santos Glucose Ql (U) Negative Normal NEGATIVE [facility] Comment on above: Performed By: #### U AMIC ####[facility] [address] [place], [place] [address]Dr. May Santos Hemoglobin Ql (U) Negative Normal NEGATIVE [facility] Comment on above: Performed By: #### U AMIC ####[facility] K[address] [place], [place] [address]Dr. May Santos Ketones Ql (U) Negative Normal NEGATIVE [facility] Comment on above: Performed By: #### U AMIC ####[facility] Z[address] [place], [place] [address]Dr. May Santos LEUKOCYTES Negative Normal NEGATIVE [facility] Comment on above: Performed By: #### U AMIC ####[facility] Sw[address] [place], [place] [address]Dr. Yilan Santos MUCOUS NONE SEEN Normal NONE SEEN [facility] Comment on above: Performed By: #### U AMIC ####[facility] [address] [place] [address]Dr. May Santos Nitrite Ql (U) Negative Normal NEGATIVE [facility] Comment on above: Performed By: #### U AMIC ####[facility] [address] [place] [address]Dr. May Santos pH (U) 7.0 [pH] Normal 5-9 [facility] Comment on above: Performed By: #### U AMIC ####[facility] [address] [place] [address]Dr. May Santos RBC NONE SEEN Abnormal 0-2 [facility] Comment on above: Performed By: #### U AMIC ####[facility] [address] [place] [address]Dr. May Santos SPEC GRAVITY 1.015 Normal 1.005-<=1.025 [facility] Comment on above: Performed By: #### U AMIC ####[facility] [address] [place] [address]Dr. May Santos UA PROTEIN Negative Normal NEGATIVE/ TRACE [facility] Comment on above: Performed By: #### U AMIC ####[facility] [address] [place] [address]Dr. May Santos Urobilinogen Qn (U) 0.2 {Taylor'U}/dL Normal 0.2 - 1. 0 [facility] Comment on above: Performed By: #### U AMIC ####[facility] [address] [place], [place] [address]Dr. May Santos WBC NONE SEEN Normal NONE SEEN [facility] Comment on above: Performed By: #### U AMIC ####[facility] [address] [place], [place] [address]Dr. May Santos XR KUB 1 VIEWon 01-09-2022 [...] ANGEL MILIAN Date: 2022-01-09 07:27 Normal [facility] US KIDNEYS BLADDERon 01-08-2 022 US KIDNEYS BLADDER Ultrasound kidneys, bilateral [...] SORAYA RAMSAY Date: 2022-01-08 10:51 Normal [facility] CBC AUTO DIFFon 08-20-2021 BASO # 0.0 103/ul Normal 0.0-0.1 [facility] Comment on above: Performed By: #### C BC ####[facility] [address] [place], [place] [address]Vk. May Santos Basophils/100 WBC (Bld) 0.6 % Normal 0.2-2.0 [facility] Comment on above: Performed By: #### C BC ####[facility] [address] [place], [place] [address]QwDeborah Santos EO # 0.2 103/ul Normal 0.0-0.7 [facility] Comment on above: Performed By: #### C BC ####[facility] [address] [place] [id number]. May Santos Eosinophils/100 WBC (Bld) 2.4 % Normal 0.9-7.0 [facility] Comment on above: Performed By: #### C BC ####[facility] [address] [place] [id number]. May Santos Erythrocyte distribution width (RBC) [Ratio] 13.0 % Normal 11.0-15.0 [facility] Comment on above: Performed By: #### C BC ####[facility] [address] [place], [place] [address]Dr. May Santos Hematocrit (Bld) [Volume fraction] 45.8 % Normal 36.0-48.0 [facility] Comment on above: Performed By: #### C BC ####[facility] [address] [place], [place] [address]Dr. May Santos Hemoglobin (Bld) [Mass/Vol] 15.1 g/dL Normal 12.0-16.0 [facility] Comment on above: Performed By: #### C BC ####[facility] [address] [place], [place] [address]Dr. May Santos IG # 0.02 10e3/ul Normal 0.00-0.03 [facility] Comment on above: Performed By: #### C BC ####[facility] [address] [place], [place] [address]Dr. May Santos IG % 0.3 % Normal 0.0-0.5 [facility] Comment on above: Performed By: #### C BC ####[facility] [address] [place], [place] [address]Dr. May Santos LYMPH # 2.7 103/ul Normal 1.2-3.8 [facility] Comment on above: Performed By: #### C BC ####[facility] Z[address] [place], [place] [address]Dr. May Santos Lymphocytes/100 WBC (Bld) 41.8 % Normal 20.5-60.0 [facility] Comment on above: Performed By: #### C BC ####[facility] [address] [place] [address]Dr. May Santos MANUAL DIFF REQ NO Normal [facility] Comment on above: Performed By: #### C BC ####[facility] [address] [place] [address]Dr. May Santos MCH (RBC) [Entitic mass] 33.0 pg Normal 26.7-34.0 [facility] Comment on above: Performed By: #### C BC ####[facility] N[address] [place], [place] [address]Dr. May Santos MCHC (RBC) [Mass/Vol] 33.0 g/dL Normal 29.9-35.2 [facility] Comment on above: Performed By: #### C BC ####[facility] T[address] [place], [place] [address]Dr. May Santos MCV (RBC) [Entitic vol] 100.0 fL Critically high 81.0-99.0 [facility] Comment on above: Performed By: #### C BC ####[facility] [address] [place], [place] [address]Dr. May Santos MONO # 0.5 103/ul Normal 0.3-0.8 [facility] Comment on above: Performed By: #### C BC ####[facility] [address] [place], [place] [address]Dr. May Santos Monocytes/100 WBC (Bld) 7.2 % Normal 1.7-12.0 [facility] Comment on above: Performed By: #### C BC ####[facility] [address] [place], [place] [address]Dr. May Santos NEUT # 3.0 103/ul Normal 1.4-6.5 [facility] Comment on above: Performed By: #### C BC ####[facility] [address] [place], [place] [address]Dr. May Santos Neutrophils/100 WBC (Bld) 47.7 % Normal 43.0-75.0 [facility] Comment on above: Performed By: #### C BC ####[facility] [address] [place], [place] [address]Ol. May Santos Platelet mean volume (Bld) [Entitic vol] 10.7 fL Normal 9.5-13.5 [facility] Comment on above: Performed By: #### C BC ####[facility] [address] [place], [place] [address]Vt. May Santos PLT 300 103/ul Normal 150-450 [facility] Comment on above: Performed By: #### C BC ####[facility] [address] [place], [place] [address]Sc. May Santos RBC 4.58 106/ul Normal 4.20-5.40 [facility] Comment on above: Performed By: #### C BC ####[facility] [address] [place], [place] [address]Lx. May Santos WBC 6.4 103/ul Normal 4.0-11.0 [facility] Comment on above: Performed By: #### C BC ####[facility] [address] [place], [place] [address]VnDeborah Santos FREE THYROXINE INDEX T7on FTI 2.24 Normal [facility] Comment on above: Performed By: #### L IPID, CMP, TSH, T7 #### [facility] [address] [place] [address] [address] May Santos T3U 34.0 % Normal 23.5-40.5 [facility] Comment on above: Performed By: #### L IPID, CMP, TSH, T7 #### [facility] [address] [place] [address] [address] May Santos T4 [Mass/Vol] 6.60 ug/dL Normal 5.53-11.00 [facility] Comment on above: Performed By: #### L IPID, CMP, TSH, T7 #### [facility] [address] [place] [address] [address] May Santos GLYCOHEMOGLOBIN A1Con 2021 ADA RECOMMENDATION ADA THERAPEUTIC TARG ET 6.0 - 7.0 ACTION SUGGESTED > 7.0 Normal [facility] Comment on above: Performed By: #### A 1C #### [facility] [address] [place] [address] [address] May Santos Glucose [Mass/Vol] 120 mg/dL Normal [facility] Comment on above: Performed By: #### A 1C #### [facility] [address] [place] [address] [address] May Santos HbA1c (Bld) [Mass fraction] 5.8 % Normal <=6.0 [facility] Comment on above: Performed By: #### A 1C #### [facility] [address] [place] [address] Dr. May Santos IRONon 08-20-2021 Iron [Mass/Vol] 121.0 ug/dL Normal 37.0-170.0 [facility] Comment on above: Performed By: #### I URSULA FOOTE #### [facility] [address] [place] [address] Dr. May Santos LIPID PROFILEon 08-20-2021 CHOL-HDL RATIO NORM SEE BELOW Normal [facility] Comment on above: Result Comment: 3.3 - 4.4 LOW RISK 4.4 - 7.1 AVERAGE RISK 7.1 - 11.0 MODERATE RISK >11.0 HIGH RISK Performed By: #### L IPID, CMP, TSH, T7 #### [facility] [address] [place] [address] Dr. May Santos Cholesterol [Mass/Vol] 218 mg/dL Critically high <=200 [facility] Comment on above: Performed By: #### L IPID, CMP, TSH, T7 #### [facility] [address] [place] [address] [address] May Santos Cholesterol in HDL [Mass/Vol] 54 mg/dL Normal [facility] Comment on above: Performed By: #### L IPID, CMP, TSH, T7 #### [facility] [address] [place] [address] [address] May Santos Cholesterol in LDL [Mass/Vol] 140.0 mg/dL Normal [facility] Comment on above: Performed By: #### L IPID, CMP, TSH, T7 #### [facility] [address] [place] [address] [address] May Santos Cholesterol.total/Ch olesterol in HDL [Mass ratio] 4.0 {ratio} Normal [facility] Comment on above: Performed By: #### L IPID, CMP, TSH, T7 #### [facility] [address] [address] [address] May Santos HDL NORMAL > or = 60 mg/dl - LO W CARDIOVASCULAR RISK <40 mg/dl - HIGH CARDIOVASCULAR RISK Normal [facility] Comment on above: Performed By: #### L IPID, CMP, TSH, T7 #### [facility] [address] [place] [address] [address] May Santos LDL CALC NORMAL SEE BELOW Normal [facility] Comment on above: Result Comment: <100 mg/dl OPTIMAL 100 - 129 mg/dl NEAR OR ABOVE OPTIMAL 130 - 159 mg/dl BORDERLINE HIGH 160 - 189 mg/dl HIGH >190 mg/dl VERY HIGH Performed By: #### L IPID, CMP, TSH, T7 #### [facility] [address] [address] [address] May Santos Triglyceride [Mass/Vol] 120 mg/dL Normal <=150 [facility] Comment on above: Performed By: #### L IPID, CMP, TSH, T7 #### [facility] [address] [address] [address] May Santos VLDL CALC 24.0 mg/dL Normal [facility] Comment on above: Performed By: #### L IPID, CMP, TSH, T7 #### [facility] [address] [address] [address] May Santos PROF 14(COMP METB)on 022 Albumin [Mass/Vol] 3.7 g/dL Normal 3.5-5.0 [facility] Comment on above: Performed By: #### L IPID, CMP, TSH, T7 #### [facility] [address] [address] [address] May Santos Albumin/Globulin [Mass ratio] 1.0 {ratio} Normal [facility] Comment on above: Performed By: #### L IPID, CMP, TSH, T7 #### [facility] [address] [address] [address] May Santos ALP [Catalytic activity/Vol] 84 U/L Normal 38-126 [facility] Comment on above: Performed By: #### L IPID, CMP, TSH, T7 #### [facility] [address] [place] [address] Dr. May Santos ALT [Catalytic activity/Vol] 17 U/L Normal 9-52 [facility] Comment on above: Performed By: #### L IPID, CMP, TSH, T7 #### [facility] [address] [place] [address] Dr. May Santos Anion gap [Moles/Vol] 11.0 mmol/L Normal [facility] Comment on above: Performed By: #### L IPID, CMP, TSH, T7 #### [facility] [address] [place] [address] Dr. May Santos AST [Catalytic activity/Vol] 16 U/L Normal 14-36 [facility] Comment on above: Performed By: #### L IPID, CMP, TSH, T7 #### [facility] [address] [place] [address] Dr. May Santos Bilirubin [Mass/Vol] 0.5 mg/dL Normal 0.2-1.3 [facility] Comment on above: Performed By: #### L IPID, CMP, TSH, T7 #### [facility] [address] [place] [address] Dr. May Santos Calcium [Mass/Vol] 8.8 mg/dL Normal 8.4-10.2 [facility] Comment on above: Performed By: #### L IPID, CMP, TSH, T7 #### [facility] [address] [place] [address] Dr. May Santos Chloride [Moles/Vol] 107 mmol/L Normal 98-107 [facility] Comment on above: Performed By: #### L IPID, CMP, TSH, T7 #### [facility] [address] [address] [address] May Santos CO2 [Moles/Vol] 25.6 mmol/L Normal 22.0-30.0 [facility] Comment on above: Performed By: #### L IPID, CMP, TSH, T7 #### [facility] [address] [place] [address] Dr. May Santos Creatinine [Mass/Vol] 0.91 mg/dL Normal 0.52-1.04 [facility] Comment on above: Performed By: #### L IPID, CMP, TSH, T7 #### [facility] [address] [address] [address] May Santos EGFR-AF KOSOVAN >60 Normal >=60 [facility] Comment on above: Performed By: #### L IPID, CMP, TSH, T7 #### [facility] [address] [place] [address] Dr. May Santos EGFR-NON AF KOSOVAN >60 Normal >=60 [facility] Comment on above: Performed By: #### L IPID, CMP, TSH, T7 #### [facility] [address] [place] [address] Dr. May Santos Globulin (S) [Mass/Vol] 3.7 g/dL Normal [facility] Comment on above: Performed By: #### L IPID, CMP, TSH, T7 #### [facility] [address] [place] [address] Dr. May Santos Glucose [Mass/Vol] 116 mg/dL Critically high 74-106 [facility] Comment on above: Performed By: #### L IPID, CMP, TSH, T7 #### [facility] [address] [place] [address] Dr. May Santos Potassium [Moles/Vol] 4.6 mmol/L Normal 3.4-5.0 [facility] Comment on above: Performed By: #### L IPID, CMP, TSH, T7 #### [facility] [address] [place] [address] Dr. May Santos Protein [Mass/Vol] 7.4 g/dL Normal 6.1-8.2 [facility] Comment on above: Performed By: #### L IPID, CMP, TSH, T7 #### [facility] [address] [address] [address] May Santos Sodium [Moles/Vol] 139 mmol/L Normal 137-145 [facility] Comment on above: Performed By: #### L IPID, CMP, TSH, T7 #### [facility] [address] [address] [address] May Santos Urea nitrogen [Mass/Vol] 8.0 mg/dL Normal 7.0-17.0 [facility] Comment on above: Performed By: #### L IPID, CMP, TSH, T7 #### [facility] [address] [address] [address] May Santos Urea nitrogen/Creatinine [Mass ratio] 8.8 mg/mg Normal [facility] Comment on above: Performed By: #### L IPID, CMP, TSH, T7 #### [facility] [address] [address] [address] May Santos TSHon 08-20-2021 TSH 1.583 uIU/mL Normal 0.470-4.680 [facility] Comment on above: Performed By: #### L IPID, CMP, TSH, T7 #### [facility] [address] [address] [address] May Santos TSH RANGE SEE BELOW Normal [facility] Comment on above: Result Comment: <0.3 4 UIU/ml HYPERTHYROID 0.34-5.60 UIU/ml EUTHYROID >5.60 UIU/ml HYPOTHYROID Performed By: #### L IPID, CMP, TSH, T7 #### [facility] [address] [address] [address] May Santos VITAMIN D 25 OHon 08-20-2021 VIT D 25-OH 26.0 ng/mL Normal [facility] Comment on above: Performed By: #### I QAMAR, VITAD ####[facility] [address] [place] [address]Dr. May Santos VIT D RANGES SEE BELOW Normal [facility] Comment on above: Result Comment: <20 ng/mL Vit D deficient 20 - <30 ng/mL Vit D insufficient 30 - 100 ng/mL Vit D sufficient >100 ng/mL Potential Toxicity Performed By: #### I QAMAR VITAD ####[facility] [address] [place], [place] [address]Dr. May Santos Vital Signs Date Time Vital Sign Value Performing Clinician Arelis pimentel 03-30-2024 14:29-0400 Blood Pressure Location Herbert NILL [facility] 03-30-2024 14:29-0400 Diastolic blood pressure 76 mm[Hg] Herbert NILL [facility] 03-30-2024 14:29-0400 Heart rate 72 /min Herbert OSORIOL [facility] 03-30-2024 14:29-0400 Respiratory rate 16 /min Herbert OSORIOL [facility] 03-30-2024 14:29-0400 Systolic blood pressure 116 mm[Hg] Herbert NILL [facility] Encounters Encounter Date Encounter Type Care Provider Facility Start: 03-30-2024 End: 03-30-2024 ambulatory Herbert RUIZ Facility:[facility] Start: 03-30-2024 End: 03-30-2024 Patient encounter procedure Herbert RUIZ [facility] Start: 07-22-[address] MARIA VICTORIA Mckeon y:[facility] Start: 04-05-2022 End: 04-06-[address] ELIDA TAO Facility:[facility] Start: 04-04-2022 End: 04-05-[address] ELIDA TAO Facility:[facility] Start: 01-24-2022 End: 01-25-[address] ELIDA TAO Facility:[facility] Start: 01-08-2022 End: 01-09-[address] ELIDA TAO Facility:[facility] Start: 01-07-2022 End: 07-18-[address] MARIA VICTORIA HAYDEN Facility:[facility] Start: 09-17-2021 End: 12-27-[address] MARIA VICTORIA HAYDEN Facility:[facility] Start: 08-20-2021 End: 08-21-[address] ELIDA TAO Facility:[facility] Procedures Date Procedure Procedure Detail Performing Clinician Start: 03-16-2019 Colonoscopy Herbert GARCIA LL Start: 11-08-2015 Colonoscopy and biop sy of colon Herbert NILL Comment on above: hyperplastic polyps Appendectomy Herbert NILL Tonsillectomy Herbert NILL Total abdominal hysterectomy with bilateral salpingo-oophorectomy Herbert NILL Total nephrectomy Herbert NI LL Immunizations Immunization Date Immunization Notes Care Provider Fa [facility] 05-14-2021 SARS-CoV-2 (COVID-19 ) mRNA BNT-162b2 vax Herbert NILL [facility] [place] 08-18-2020 SARS-CoV-2 (COVID-19 ) mRNA BNT-162b2 vax Herbert NILL [facility] [place] 07-28-2020 SARS-CoV-2 (COVID-19 ) mRNA BNT-162b2 vax Herbert NILL [facility] [place] Payers Date Payer Category Payer Medicare [id number] 1961 Self-pay 1961 Unknown [id number] 1955 Unknown [id number] 2.16.84 [id number] 1953 Unknown [id number] 2.16.84 [id number] 1953 Unknown [id number] 2.16.84 [id number] 1953 Unknown [id number] 2.16.84 [id number] 1953 Unknown [id number] 2.16.84 [id number] 1953 Unknown [id number] 2.16.84 [id number] 1953 Unknown [id number] 2.16.84 [id number] 1953 Unknown [id number] 2.16.84 [id number] 1953 Unknown [id number] 2.16.8 [id number] Social History Date Type Detail Facility Start: 03-30-2024 Tobacco smoking status Heavy t obacco smoker (finding) [facility] Tobacco smoking status Never [facility] Sex Assigned At Female [facility] Functional Status Date Assessment Result Facility 03-30-2024 Functional Status N/A [facility] Clinical Note 03-30-2024 Note Date & Type Note Facility 03-30-2024 Note [facility] Offi ce/Clinic Note Chief Complaint consultation for colonoscopy HPI Staff 68 year old female presents on consultation from Dr. Tao for surveillance colonoscopy. Last colonoscopy completed 03/2019 with hyperplastic polyp x 2. Father with history of colon cancer, diagnosed age 70. Denies abdominal or rectal pain. No rectal bleeding or change in bowel habits. Denies nausea or vomiting. No unexplained weight loss. History of Present Illness 68 yo female with h/o hypercholesterolemia, referred for surveillance colonoscopy; personal h/o colon polyps, small hyperplastic rectosigmoid polyps removed in 2015 and 2018; patient denies change in bms or blood in stools, no abdominal complaints; fmhx of colon cancer in patient's father, of the disease at age 70; no fmhx of IBD; abdominal operations significant for IDA, appendectomy and donor nephrectomy; no asa or NSAID use; smokes daily. Review of Systems PHQ Score Initial Depression Screen Score: 0 SCORE ROS - Provider Constitutional: no fever, no sweats, no weight loss. Eyes: no glasses, no blurred vision, no visual loss. ENMT: no dentures, no hoarseness, no swallowing difficulties, no hearing loss, no ear infection(s), no nose bleeds. Cardiovascular: normal blood pressure, no chest pain, regular heartbeat, no heart murmur. Respiratory: no shortness of breath, no cough, no asthma, no wheezing. Gastrointestinal: no nausea, no vomiting, no diarrhea, no constipation, no blood in stool, no change in bowel habits, no abdominal pain, no hepatitis. Genitourinary: no kidney stones, no urine infection, no dysuria. Musculoskeletal: no pain, no weakness. Skin: no changing moles, no rash, no skin lumps. Neurologic: no seizures, no epilepsy, no headache. Psychiatric: no emotional or psychiatric problem. Heme/Lymph: no bleeding problems, no anemia, no blood clots, no transfusions. Allergy/Immunologic: no swollen lymph nodes/glands, no IV drug abuse. Other: Additional ROS info: Except as noted in the above Review of Systems and in the History of Present Illness, all other systems have been reviewed and are negative or noncontributory. Physical Exam Vitals & Measurements HR: 72(Peripheral) RR: 16 BP: 116/76 HT: 67 in HT: 170.1 cm WT: 74 kg WT: 162.8 lb BMI: 25.58 HEENT: normal conjunctiva, sclera clear, no scleral icterus, EOM intact, PERRLA, oral mucosa moist without lesions. Neck: trachea midline, no mass, symmetric, no thyromegaly or nodules, no adenopathy Respiratory: lungs CTA, respirations non labored. Cardiovascular: regular rate and rhythm, no murmur, no pedal edema or varicosities. Gastrointestinal: soft, non distended, no tenderness, no masses, no palpable hernias, diastasis recti no, no hepatosplenomegaly; normal bs Lymphatic: no cervical adenopathy, no supraclavicular adenopathy. Musculoskeletal: normal gait, digits and nails without infection, nodes, cyanosis, clubbing. Skin: no rashes, no lesions, no ulcers, no subcutaneous nodules, induration. Psychiatric/Neuro: oriented to time, place, person, judgement normal, affect appropriate for age, insight intact, no focal deficits. Tests: , review of old records completed , Discussed surgical options, risks, and possible complications with patient. Assessment/Plan 1. Family history of colon cancer in father (Z80.0: Family history of malignant neoplasm of digestive organs) plan colonoscopy under anesthesia, informed consent obtained. 2. Personal history of hyperplastic colon polyps (Z86.0102: Personal history of hyperplastic colon polyps) see # 1 Follow-up No qualifying data available Problem List/Past Medical History Ongoing BMI 25.0-25.9,adult Family history of colon cancer in father Insomnia Osteoporosis Overweight Personal history of colonic polyps Personal history of hyperplastic colon polyps Pure hypercholesterolemia Historical Inflammatory polyps of colon Procedure/Surgical History Colonoscopy (03/2019), Colonoscopy and biopsy of colon (11/08/2015), Appendectomy, Nephrectomy, IDA BSO - Total abdominal hysterectomy and bilateral salpingo-oophorectomy, Tonsillectomy. Medications calcium (as carbonate) 600 mg oral tablet, 600 mg= 1 tab(s), Oral, BID zolpidem, 12.5 mg, Oral, Once a day (at bedtime) Allergies Aleve (Hives) Social History Alcohol Current, Beer, Daily, 03/30/2024 Substance Abuse - Denies Substance Abuse, 03/16/2019 Tobacco 10 or more cigarettes (1/2 pack or more)/day in last 30 days Tobacco Use:. Never Smokeless Tobacco Use:. Cigarettes, 0.5 per day. Started age 16.0 Years., 03/30/2024 Family History Primary malignant neoplasm of colon: Father. Immunizations Vaccine Date Status SARS-CoV-2 (COVID-19) mRNA BNT-162b2 vax 05/14/2021 Recorded SARS-CoV-2 (COVID-19) mRNA BNT-162b2 vax 08/18/2020 Recorded SARS-CoV-2 (COVID-19) mRNA BNT-162b2 vax 07/28/2020 Recorded [facility] Comment on above: Result Comment: Elec tronically Signed By: JOSEPH WISDOM, Herbert Cunha\Date and Time Signed: 03/30/24 14:52 EDT Evaluation + Plan note Note Date & Type Note Facility Evaluation + Plan note No data available for this section [facility] Hospital Discharge instructions Note Date & Type Note Facility Hospital Discharge instructions No data available for this section [facility] Progress note Note Date & Type Note Facility Progress note No data available for this section [facility] Summary Purpose Family History No Family History Records FoundNo Family History Records Found No data available for this section Advance Directives No Advanced Directives Records FoundNo Advanced Directives Records Found Additional Source Comments INFORMATION SOURCE (unrecogn ized section and content) DATE CREATED AUTHOR 07/22/2022 [facility] DATE CREATED AUTHOR AUTHOR'S ORGANIZ ATION 04/01/2024 [facility] Patient Care team informatio n (unrecognized section and content) Personnel Name: Elida Tao MD Address: Address: [address] [place] [address] FOR RECORDS PERTAINING TO PATIENTS WHO ARE [...] BE BASED ON THE PRIMARY CLINICAL RECORDS. [facility]. provides no warranty or guarantee of the accuracy or completeness of information in this document.
== END 2024-04-08 12:55 | disposition home or self-care (01) ==
LOC: MAMMO 12:54
PROVIDERS: PCP Family Medicine; Visit Provider Family Medicine
DX: Z12.31 Encounter for screening mammogram for malignant neoplasm of breast (principal); Z80.0 Family history of malignant neoplasm of digestive organs; Z80.1 Family history of malignant neoplasm of trachea, bronchus and lung
CPT/HCPCS: 77063; 77067

== ENCOUNTER 2024-05-06 14:09 | Outpatient (OUT) | payer MEDICARE, OTHER, SELFPAY | END 2024-05-06 14:10 | disposition home or self-care (01) | LOC: PST 14:09 | PROVIDERS: PCP Family Medicine; Visit Provider Surgery | DX: Z01.818 Encounter for other preprocedural examination (principal); Z80.0 Family history of malignant neoplasm of digestive organs; Z86.0109 Personal history of other colon polyps ==

== ENCOUNTER 2024-05-19 06:30 | Day surgery (SDC) | payer MEDICARE, OTHER, SELFPAY ==
--- NOTE | 2024-05-19 | OP_ITS ---
OPERATION DATE: 05/19/2024 PREOPERATIVE DIAGNOSIS: Family history of colon cancer. POSTOPERATIVE DIAGNOSIS: 3 mm rectal polyp as well as severe sigmoid diverticulosis. PROCEDURE: Colonoscopy to cecum. SURGEON: Herbert Rainey M.D. ANESTHESIA: Monitored anesthesia care. ESTIMATED BLOOD LOSS: Less than 1 mL. INDICATIONS AND CONSENT: Patient is a 68-year-old female who presents for surveillance colonoscopy. Indications, risks, benefits, alternatives of proceeding with colonoscopy were explained extensively to the patient, including the risks of bleeding, colon perforation or anesthetic complications. All of her questions were answered. Informed consent was obtained. PROCEDURE: Patient brought to the operating room, placed in the left lateral decubitus position. Monitored anesthesia care was provided. Rectal exam was performed which showed no masses or blood. The scope was inserted into the anal canal. Under direct visualization was advanced. With the aid of abdominal compression, it was advanced to the cecum where cecal markings were clearly identified. There was noted to be a fair prep with some solid and liquid stool throughout the colon that was partially irrigated clear. Upon withdrawal of the scope, mucosal surfaces were carefully examined. There were no mass lesions or inflammatory changes. There was severe sigmoid diverticulosis without inflammatory changes or scarring. Within the rectum, there was noted to be a 3 mm sessile, erythematous polyp that was removed with cold biopsy forceps with good hemostasis. The scope was retroflexed in the anal canal. There were prominent rectal veins. No significant hemorrhoidal disease. Scope was then withdrawn. Patient tolerated procedure well, was sent to recovery room in good condition. f/u screening colonoscopy likely in 5 years, but may change based on pathology report. CC: John Tao M.D. [place]
[2024-05-19 06:30] VITALS: BP 102/68; PULSE 86; TEMP 35.8; O2SAT 98; BMI 25.4
--- OUTSIDE RECORDS SUMMARY | 2024-05-19 06:33 | XMS_ITS | CCD ---
Author Organization [facility] Care Team Providers Care Back Hanger Name Role Phone KEAGAN, DR MARRERO Admitting [...] Attending Unavailable Elida Tao Primary Care Physician Allergies Allergy Classification Reported Allergen(s) Allergy Type Date of Onset Reaction(s) Facility (2 sources) Naproxen; Translations: [Aleve] Drug Allergy [facility] Repository (1 source) Naproxen; Translations: [naproxen] Drug Allergy [facility] Medications Current Medications Medication Drug Class(es) [...] for choosing us for your care. Normal [facility] Physician Referralon 024 Physician Referral [id number] 4030 [id number] F Normal [facility] Physician Referral [id number] 4030 [id number] F Normal [facility] INSULINon 04-05-2022 Insulin 9.4 uIU/mL Normal 2.6-24.9 [facility] Comment on above: Performed By: #### I NSULIN #### [facility] Laboratory [address] [place] [address] Dr. May Santos MG MAMM SCREEN 3D MIHCAEL CADon 04-05-2022 MG MAMM SCREEN 3D MICHAEL CAD Patient: SUSANNA CABALLERO Exam Date: 04/05/2022 : 1955 Gender:F Ordering : DR ELIDA TAO . Admission #: [id number] Family : Order #: [id number] CLICK HERE TO VIEW EXAM RADIOLOGY REPORT [...] lung cancer at age 80. LOCATION: [facility] BREAST COMPOSITION: Heterogeneously dense,which may obscure small [...] MD on 04/05/2022 at 10:08 Normal [facility] CBC AUTO DIFFon 04-04-2022 BASO # 0.0 103/ul Normal 0.0-0.1 [facility] Comment on above: Performed By: #### C BC ####[facility] [address] [place], [place] [address]Dr. May Santos Basophils/100 WBC (Bld) 0.3 % Normal 0.2-2.0 [facility] Comment on above: Performed By: #### C BC ####[facility] E[address] [place], [place] [address]Dr. May Santos EO # 0.2 103/ul Normal 0.0-0.7 [facility] Comment on above: Performed By: #### C BC ####[facility] [address] [place], [place] [address]Dr. May Santos Eosinophils/100 WBC (Bld) 2.0 % Normal 0.9-7.0 [facility] Comment on above: Performed By: #### C BC ####[facility] He[address] [place], [place] [address]Dr. May Santos Erythrocyte distribution width (RBC) [Ratio] 12.7 % Normal 11.0-15.0 [facility] Comment on above: Performed By: #### C BC ####[facility] [address] [place], [place] [address]Dr. May Santos Hematocrit (Bld) [Volume fraction] 44.7 % Normal 36.0-48.0 [facility] Comment on above: Performed By: #### C BC ####[facility] [address] [place] [address]Dr. May Santos Hemoglobin (Bld) [Mass/Vol] 14.9 g/dL Normal 12.0-16.0 [facility] Comment on above: Performed By: #### C BC ####[facility] [address] [place] [address]Dr. May Santos IG # 0.05 10e3/ul Critically high 0.00-0.03 [facility] Comment on above: Performed By: #### C BC ####[facility] [address] [place] [address]Dr. May Santos IG % 0.6 % Critically high 0.0-0.5 [facility] Comment on above: Performed By: #### C BC ####[facility] M[address]qi[address] [place], [place] [address]Dr. May Santos LYMPH # 2.9 103/ul Normal 1.2-3.8 [facility] Comment on above: Performed By: #### C BC ####[facility] [address] [place] [address]Dr. May Santos Lymphocytes/100 WBC (Bld) 32.9 % Normal 20.5-60.0 [facility] Comment on above: Performed By: #### C BC ####[facility] [address] [place] [address]Dr. May Santos MANUAL DIFF REQ NO Normal [facility] Comment on above: Performed By: #### C BC ####[facility] Xers[address] [place], [place] [address]Dr. May Santos MCH (RBC) [Entitic mass] 33.0 pg Normal 26.7-34.0 [facility] Comment on above: Performed By: #### C BC ####[facility] Gx[address] [place], [place] [address]Dr. May Santos MCHC (RBC) [Mass/Vol] 33.3 g/dL Normal 29.9-35.2 [facility] Comment on above: Performed By: #### C BC ####[facility] [address] [place] [address]Dr. May Santos MCV (RBC) [Entitic vol] 98.9 fL Normal 81.0-99.0 [facility] Comment on above: Performed By: #### C BC ####[facility] [address] [place] [address]Dr. May Santos MONO # 0.7 103/ul Normal 0.3-0.8 [facility] Comment on above: Performed By: #### C BC ####[facility] [address] [place] [address]Dr. May Tom Monocytes/100 WBC (Bld) 8.4 % Normal 1.7-12.0 [facility] Comment on above: Performed By: #### C BC ####[facility] Z[address] [place], [place] [address]Dr. May Santos NEUT # 4.9 103/ul Normal 1.4-6.5 [facility] Comment on above: Performed By: #### C BC ####[facility] F[address] [place], [place] [address]Dr. Loveiliana Santos Neutrophils/100 WBC (Bld) 55.8 % Normal 43.0-75.0 [facility] Comment on above: Performed By: #### C BC ####[facility] [address] [place], [place] [address]Dr. May Santos Platelet mean volume (Bld) [Entitic vol] 10.5 fL Normal 9.5-13.5 [facility] Comment on above: Performed By: #### C BC ####[facility] Cx[address] [place], [place] [address]Dr. May Tom PLT 341 103/ul Normal 150-450 [facility] Comment on above: Performed By: #### C BC ####[facility] Wy[address] [place], [place] [address]Dr. May Santos RBC 4.52 106/ul Normal 4.20-5.40 [facility] Comment on above: Performed By: #### C BC ####[facility] [address] [place] [address]Dr. May Santos WBC 8.9 103/ul Normal 4.0-11.0 [facility] Comment on above: Performed By: #### C BC ####[facility] [address] [place] [address]Dr. May Santos FREE THYROXINE INDEX T7on FTI 2.57 Normal 1.30-4.50 [facility] Comment on above: Performed By: #### T 7, TSH, LIPID, CMP ####[facility] [address] [place] [address]Dr. May Santos T3U 33.0 % Normal 30.0-39.0 [facility] Comment on above: Performed By: #### T 7, TSH, LIPID, CMP ####[facility] [address] [place] [address]Dr. May Santos T4 [Mass/Vol] 7.80 ug/dL Normal 4.80-13.90 [facility] Comment on above: Performed By: #### T 7, TSH, LIPID, CMP ####[facility] [address] [place] [address]DrDeborah Santos GLYCOHEMOGLOBIN A1Con 2021 ADA RECOMMENDATION SEE BELOW Normal [facility] Comment on above: Result Comment: ADA RECOMMENDED LIMIT 4.0 - 6.0 ADA THERAPEUTIC TARGET < 7.0 ACTION SUGGESTED > 7.0 Performed By: #### A 1C #### [facility] Laboratory [address] [address] [address] May Santos Glucose [Mass/Vol] 114 mg/dL Normal [facility] Comment on above: Performed By: #### A 1C #### [facility] Laboratory [address] [address] [address] May Santos HbA1c (Bld) [Mass fraction] 5.6 % Normal 4.5-6.2 [facility] Comment on above: Performed By: #### A 1C #### [facility] Laboratory [address] [address] [address] May Santos IRONon 04-04-2022 Iron [Mass/Vol] 100.0 ug/dL Normal 50.0-170.0 [facility] Comment on above: Performed By: #### V ITAD, IRON ####[facility] [address] [place] [address]Dr. May Santos LIPID PROFILEon 04-04-2022 CHOL-HDL RATIO NORM SEE BELOW Normal [facility] Comment on above: Result Comment: 3.3 - 4.4 LOW RISK 4.4 - 7.1 AVERAGE RISK 7.1 - 11.0 MODERATE RISK >11.0 HIGH RISK Performed By: #### T 7, TSH, LIPID, CMP ####[facility] [address] [place] [address]Dr. May Santos Cholesterol [Mass/Vol] 195 mg/dL Normal <=200 [facility] Comment on above: Performed By: #### T 7, TSH, LIPID, CMP ####[facility] [address] [place] [address]Dr. May Santos Cholesterol in HDL [Mass/Vol] 47 mg/dL Normal 40-60 [facility] Comment on above: Performed By: #### T 7, TSH, LIPID, CMP ####[facility] [address] [place] [address]Dr. May Santos Cholesterol in LDL [Mass/Vol] 130.0 mg/dL Normal [facility] Comment on above: Performed By: #### T 7, TSH, LIPID, CMP ####[facility] [address] [place] [address]Dr. May Santos Cholesterol.total/Ch olesterol in HDL [Mass ratio] 4.1 {ratio} Normal [facility] Comment on above: Performed By: #### T 7, TSH, LIPID, CMP ####[facility] [address] [place] [address]Dr. May Santos HDL NORMAL > or = 60 mg/dl - LO W CARDIOVASCULAR RISK <40 mg/dl - HIGH CARDIOVASCULAR RISK Normal [facility] Comment on above: Performed By: #### T 7, TSH, LIPID, CMP ####[facility] [address] [place] [address]Dr. May Santos LDL CALC NORMAL SEE BELOW Normal [facility] Comment on above: Result Comment: <100 mg/dl OPTIMAL 100 - 129 mg/dl NEAR OR ABOVE OPTIMAL 130 - 159 mg/dl BORDERLINE HIGH 160 - 189 mg/dl HIGH >190 mg/dl VERY HIGH Performed By: #### T 7, TSH, LIPID, CMP ####[facility] [address] [place] [address]Dr. May Santos Triglyceride [Mass/Vol] 90 mg/dL Normal <=150 [facility] Comment on above: Performed By: #### T 7, TSH, LIPID, CMP ####[facility] [address]yr[address] [place] [address]Dr. May Santos VLDL CALC 18.0 mg/dL Normal [facility] Comment on above: Performed By: #### T 7, TSH, LIPID, CMP ####[facility] [address] [place] [address]Dr. May Santos PROF 14(COMP METB)on 04-04- 022 Albumin [Mass/Vol] 3.7 g/dL Normal 3.4-5.0 [facility] Comment on above: Performed By: #### T 7, TSH, LIPID, CMP ####[facility] [address] [place] [address]Dr. May Santos Albumin/Globulin [Mass ratio] 0.9 {ratio} Normal [facility] Comment on above: Performed By: #### T 7, TSH, LIPID, CMP ####[facility] [address] [place] [address]Dr. May Santos ALP [Catalytic activity/Vol] 94 U/L Normal 46-116 [facility] Comment on above: Performed By: #### T 7, TSH, LIPID, CMP ####[facility] [address] [place] [address]Dr. May Santos ALT [Catalytic activity/Vol] 19 U/L Normal 14-59 [facility] Comment on above: Performed By: #### T 7, TSH, LIPID, CMP ####[facility] [address] [place] [address]Dr. May Santos Anion gap [Moles/Vol] 14.1 mmol/L Normal [facility] Comment on above: Performed By: #### T 7, TSH, LIPID, CMP ####[facility] [address] [place] [address]Dr. May Santos AST [Catalytic activity/Vol] 16 U/L Normal 15-37 [facility] Comment on above: Performed By: #### T 7, TSH, LIPID, CMP ####[facility] [address]rn[address] [place], [place] [address]Dr. May Santos Bilirubin [Mass/Vol] 0.5 mg/dL Normal 0.2-1.0 [facility] Comment on above: Performed By: #### T 7, TSH, LIPID, CMP ####[facility] [address] [place], [place] [address]Dr. May Santos Calcium [Mass/Vol] 9.1 mg/dL Normal 8.5-10.1 [facility] Comment on above: Performed By: #### T 7, TSH, LIPID, CMP ####[facility] Ot[address] [place], [place] [address]Dr. May Santos Chloride [Moles/Vol] 104 mmol/L Normal 98-107 [facility] Comment on above: Performed By: #### T 7, TSH, LIPID, CMP ####[facility] [address]wapxoi[address] [place], [place] [address]Dr. May Santos CO2 [Moles/Vol] 26.6 mmol/L Normal 21.0-32.0 [facility] Comment on above: Performed By: #### T 7, TSH, LIPID, CMP ####[facility] X[address]zw[address] [place], [place] [address]Dr. May Santos Creatinine [Mass/Vol] 0.82 mg/dL Normal 0.55-1.02 [facility] Comment on above: Performed By: #### T 7, TSH, LIPID, CMP ####[facility] [address]wi[address] [place], [place] [address]Dr. May Santos EGFR-AF WALLISIAN >60 Normal >=60 [facility] Comment on above: Performed By: #### T 7, TSH, LIPID, CMP ####[facility] [address] [place] [address]Dr. May Santos EGFR-NON AF WALLISIAN >60 Normal >=60 [facility] Comment on above: Performed By: #### T 7, TSH, LIPID, CMP ####[facility] [address]tesu[address] [place] [address]Dr. May Santos Globulin (S) [Mass/Vol] 4.0 g/dL Normal [facility] Comment on above: Performed By: #### T 7, TSH, LIPID, CMP ####[facility] [address]nz[address] [place], [place] [address]Dr. May Santos Glucose [Mass/Vol] 120 mg/dL Critically high 74-106 [facility] Comment on above: Performed By: #### T 7, TSH, LIPID, CMP ####[facility] [address] [place] [address]Dr. May Santos Potassium [Moles/Vol] 4.7 mmol/L Normal 3.5-5.1 [facility] Comment on above: Performed By: #### T 7, TSH, LIPID, CMP ####[facility] [address] [place] [address]Dr. Mya Santos Protein [Mass/Vol] 7.7 g/dL Normal 6.4-8.2 [facility] Comment on above: Performed By: #### T 7, TSH, LIPID, CMP ####[facility] [address]gb[address] [place] [address]Dr. May Santos Sodium [Moles/Vol] 140 mmol/L Normal 136-145 [facility] Comment on above: Performed By: #### T 7, TSH, LIPID, CMP ####[facility] [address] [place] [address]Dr. May Santos Urea nitrogen [Mass/Vol] 9.0 mg/dL Normal 7.0-18.0 [facility] Comment on above: Performed By: #### T 7, TSH, LIPID, CMP ####[facility] [address] [place] [address]DrDeborah Santos Urea nitrogen/Creatinine [Mass ratio] 11.0 mg/mg Normal [facility] Comment on above: Performed By: #### T 7, TSH, LIPID, CMP ####[facility] [address] [place] [address]Dr. May Santos TSHon 04-04-2022 TSH 1.034 uIU/mL Normal 0.358-3.740 [facility] Comment on above: Performed By: #### T 7, TSH, LIPID, CMP ####[facility] [address] [place] [address]Dr. May Santos VITAMIN D 25 OHon 04-04-2022 VIT D 25-OH 45.9 ng/mL Normal [facility] Comment on above: Performed By: #### I NSULIN #### [facility] Laboratory [address] [place] [address] Dr. May Santos VIT D RANGES SEE BELOW Normal [facility] Comment on above: Result Comment: <20 ng/mL Vit D deficient 20 - <30 ng/mL Vit D insufficient 30 - 100 ng/mL Vit D sufficient >100 ng/mL Potential Toxicity Performed By: #### I NSULIN #### [facility] [address] [place] [address] Dr. May Santos CULTURE URINEon 01-24-2022 CULTURE URINE Culture Observations : HEAVY GROWTH OF MIXED GENITAL SEAN. NO POTENTIAL PATHOGENS SEEN. Normal [facility] Comment on above: Performed By: #### I NSULIN #### [facility] [address] [place] [address] Dr. May Santos UA RANDOM W/MICROSCOPICon BACTERIA NONE SEEN Normal NONE SEEN [facility] Comment on above: Performed By: #### U AMIC ####[facility] [address] [place] [id number]. May Santos Bilirubin Ql (U) Negative Normal NEGATIVE [facility] Comment on above: Performed By: #### U AMIC ####[facility] [address] [place] [address]Dr. May Satnos CAST NONE SEEN Normal NONE SEEN [facility] Comment on above: Performed By: #### U AMIC ####[facility] [address] [place], [place] [address]Dr. May Santos Clarity (U) CLEAR Normal CLEAR [facility] Comment on above: Performed By: #### U AMIC ####[facility] [address] [place] [address]Dr. May Santos Color (U) YELLOW Normal YELLOW [facility] Comment on above: Performed By: #### U AMIC ####[facility] [address] [place], [place] [address]Dr. May Santos Crystals LM Nom (Urine sed) NONE SEEN Normal NONE SEEN [facility] Comment on above: Performed By: #### U AMIC ####[facility] On[address] [place], [place] [address]Dr. May Santos Epithelial cells LM Ql (Urine sed) FEW Abnormal NONE SEEN /RARE [facility] Comment on above: Performed By: #### U AMIC ####[facility] [address]xh[address] [place], [place] [address]Dr. May Santos Glucose Ql (U) Negative Normal NEGATIVE [facility] Comment on above: Performed By: #### U AMIC ####[facility] [address]ionu[address] [place], [place] [address]Dr. May Santos Hemoglobin Ql (U) Negative Normal NEGATIVE [facility] Comment on above: Performed By: #### U AMIC ####[facility] Sc[address]feuosa[address] [place], [place] [address]Dr. May Santos Ketones Ql (U) Negative Normal NEGATIVE [facility] Comment on above: Performed By: #### U AMIC ####[facility] [address]jovu[address] [place], [place] [address]Dr. May Santos LEUKOCYTES Negative Normal NEGATIVE [facility] Comment on above: Performed By: #### U AMIC ####[facility] [address]xw[address]fgue[address] [place], [place] [address]Dr. Yilan Santos MUCOUS NONE SEEN Normal NONE SEEN [facility] Comment on above: Performed By: #### U AMIC ####[facility] [address] [place] [address]Dr. May Santos Nitrite Ql (U) Negative Normal NEGATIVE [facility] Comment on above: Performed By: #### U AMIC ####[facility] [address]hda[address] [place] [address]Dr. May Santos pH (U) 7.0 [pH] Normal 5-9 [facility] Comment on above: Performed By: #### U AMIC ####[facility] [address] [place] [address]Dr. May Santos RBC NONE SEEN Abnormal 0-2 [facility] Comment on above: Performed By: #### U AMIC ####[facility] [address] [place] [address]Dr. May Santos SPEC GRAVITY 1.015 Normal 1.005-<=1.025 [facility] Comment on above: Performed By: #### U AMIC ####[facility] [address]le[address] [place] [address]Dr. May Santos UA PROTEIN Negative Normal NEGATIVE/ TRACE [facility] Comment on above: Performed By: #### U AMIC ####[facility] [address]sx[address] [place] [address]Dr. May Santos Urobilinogen Qn (U) 0.2 {Taylor'U}/dL Normal 0.2 - 1. 0 [facility] Comment on above: Performed By: #### U AMIC ####[facility] [address]pc[address] [place], [place] [address]Dr. May Santos WBC NONE SEEN Normal NONE SEEN [facility] Comment on above: Performed By: #### U AMIC ####[facility] [address]wo[address] [place], [place] [address]Dr. May Santos XR KUB 1 VIEWon 01-09-2022 [...] ANGEL MILIAN Date: 2022-01-09 07:27 Normal [facility] US KIDNEYS BLADDERon 01-08-2 022 US KIDNEYS [...] SORAYA RAMSAY Date: 2022-01-08 10:51 Normal [facility] CBC AUTO DIFFon 08-20-2021 BASO # 0.0 103/ul Normal 0.0-0.1 [facility] Comment on above: Performed By: #### C BC ####[facility] [address] [place], [place] [address]Vc. May Santos Basophils/100 WBC (Bld) 0.6 % Normal 0.2-2.0 [facility] Comment on above: Performed By: #### C BC ####[facility] [address] [place], [place] [address]MoDeborah Santos EO # 0.2 103/ul Normal 0.0-0.7 [facility] Comment on above: Performed By: #### C BC ####[facility] [address]cyv[address] [place] [address]Dr. May Santos Eosinophils/100 WBC (Bld) 2.4 % Normal 0.9-7.0 [facility] Comment on above: Performed By: #### C BC ####[facility] [address] [place] [address]Dr. May Santos Erythrocyte distribution width (RBC) [Ratio] 13.0 % Normal 11.0-15.0 [facility] Comment on above: Performed By: #### C BC ####[facility] [address] [place], [place] [id number]. May Santos Hematocrit (Bld) [Volume fraction] 45.8 % Normal 36.0-48.0 [facility] Comment on above: Performed By: #### C BC ####[facility] [address] [place], [place] [address]Dr. May Santos Hemoglobin (Bld) [Mass/Vol] 15.1 g/dL Normal 12.0-16.0 [facility] Comment on above: Performed By: #### C BC ####[facility] [address]va[address] [place], [place] [address]Dr. May Santos IG # 0.02 10e3/ul Normal 0.00-0.03 [facility] Comment on above: Performed By: #### C BC ####[facility] [facility] [place] [id number] [place], [place] [address]Dr. May Santos IG % 0.3 % Normal 0.0-0.5 [facility] Comment on above: Performed By: #### C BC ####[facility] [address] [place], [place] [address]Dr. May Santos LYMPH # 2.7 103/ul Normal 1.2-3.8 [facility] Comment on above: Performed By: #### C BC ####[facility] [address] [place], [place] [address]Dr. May Santos Lymphocytes/100 WBC (Bld) 41.8 % Normal 20.5-60.0 [facility] Comment on above: Performed By: #### C BC ####[facility] [address] [place] [address]Dr. May Santos MANUAL DIFF REQ NO Normal [facility] Comment on above: Performed By: #### C BC ####[facility] [address] [place] [address]Dr. May Santos MCH (RBC) [Entitic mass] 33.0 pg Normal 26.7-34.0 [facility] Comment on above: Performed By: #### C BC ####[facility] [address] [place], [place] [address]Dr. May Santos MCHC (RBC) [Mass/Vol] 33.0 g/dL Normal 29.9-35.2 [facility] Comment on above: Performed By: #### C BC ####[facility] [address] [place], [place] [address]Dr. May Santos MCV (RBC) [Entitic vol] 100.0 fL Critically high 81.0-99.0 [facility] Comment on above: Performed By: #### C BC ####[facility] [address] [place], [place] [address]Dr. May Santos MONO # 0.5 103/ul Normal 0.3-0.8 [facility] Comment on above: Performed By: #### C BC ####[facility] [address] [place], [place] [address]Dr. May Santos Monocytes/100 WBC (Bld) 7.2 % Normal 1.7-12.0 [facility] Comment on above: Performed By: #### C BC ####[facility] [address] [place], [place] [address]Dr. May Santos NEUT # 3.0 103/ul Normal 1.4-6.5 [facility] Comment on above: Performed By: #### C BC ####[facility] [address] [place], [place] [address]Dr. May Santos Neutrophils/100 WBC (Bld) 47.7 % Normal 43.0-75.0 [facility] Comment on above: Performed By: #### C BC ####[facility] [address] [place], [place] [address]Pr. May Santos Platelet mean volume (Bld) [Entitic vol] 10.7 fL Normal 9.5-13.5 [facility] Comment on above: Performed By: #### C BC ####[facility] [address] [place], [place] [address]Gv. May Santos PLT 300 103/ul Normal 150-450 [facility] Comment on above: Performed By: #### C BC ####[facility] [address] [place], [place] [address]Qi. May Santos RBC 4.58 106/ul Normal 4.20-5.40 [facility] Comment on above: Performed By: #### C BC ####[facility] [address] [place], [place] [address]Tr. May Santos WBC 6.4 103/ul Normal 4.0-11.0 [facility] Comment on above: Performed By: #### C BC ####[facility] [address] [place], [place] [address]DcDeborah Santos FREE THYROXINE INDEX T7on FTI 2.24 Normal [facility] Comment on above: Performed By: #### L IPID, CMP, TSH, T7 #### [facility] Laboratory [address] [address] [address] May Santos T3U 34.0 % Normal 23.5-40.5 [facility] Comment on above: Performed By: #### L IPID, CMP, TSH, T7 #### [facility] Laboratory [address] [address] [address] May Santos T4 [Mass/Vol] 6.60 ug/dL Normal 5.53-11.00 [facility] Comment on above: Performed By: #### L IPID, CMP, TSH, T7 #### [facility] Laboratory [address] [address] [address] May Santos GLYCOHEMOGLOBIN A1Con 2021 ADA RECOMMENDATION ADA THERAPEUTIC TARG ET 6.0 - 7.0 ACTION SUGGESTED > 7.0 Normal [facility] Comment on above: Performed By: #### A 1C #### [facility] Laboratory [address] [address] [address] May Santos Glucose [Mass/Vol] 120 mg/dL Normal [facility] Comment on above: Performed By: #### A 1C #### [facility] Laboratory [address] [address] [address] May Santos HbA1c (Bld) [Mass fraction] 5.8 % Normal <=6.0 [facility] Comment on above: Performed By: #### A 1C #### [facility] Laboratory [address] [place] [address] Dr. May Santos IRONon 08-20-2021 Iron [Mass/Vol] 121.0 ug/dL Normal 37.0-170.0 [facility] Comment on above: Performed By: #### I URSULA FOOTE #### [facility] Laboratory [address] [place] [address] Dr. May Santos LIPID PROFILEon 08-20-2021 CHOL-HDL RATIO NORM SEE BELOW Normal [facility] Comment on above: Result Comment: 3.3 - 4.4 LOW RISK 4.4 - 7.1 AVERAGE RISK 7.1 - 11.0 MODERATE RISK >11.0 HIGH RISK Performed By: #### L IPID, CMP, TSH, T7 #### [facility] Laboratory [address] [place] [address] Dr. May aSntos Cholesterol [Mass/Vol] 218 mg/dL Critically high <=200 [facility] Comment on above: Performed By: #### L IPID, CMP, TSH, T7 #### [facility] Laboratory [address] [address] [address] May Santos Cholesterol in HDL [Mass/Vol] 54 mg/dL Normal [facility] Comment on above: Performed By: #### L IPID, CMP, TSH, T7 #### [facility] Laboratory [address] [address] [address] May Santos Cholesterol in LDL [Mass/Vol] 140.0 mg/dL Normal [facility] Comment on above: Performed By: #### L IPID, CMP, TSH, T7 #### [facility] [address] [address] [address] May Santos Cholesterol.total/Ch olesterol in HDL [Mass ratio] 4.0 {ratio} Normal [facility] Comment on above: Performed By: #### L IPID, CMP, TSH, T7 #### [facility] [address] [address] [address] May Santos HDL NORMAL > or = 60 mg/dl - LO W CARDIOVASCULAR RISK <40 mg/dl - HIGH CARDIOVASCULAR RISK Normal [facility] Comment on above: Performed By: #### L IPID, CMP, TSH, T7 #### [facility] [address] [address] [address] May Santos LDL CALC NORMAL SEE BELOW Normal [facility] Comment on above: Result Comment: <100 mg/dl OPTIMAL 100 - 129 mg/dl NEAR OR ABOVE OPTIMAL 130 - 159 mg/dl BORDERLINE HIGH 160 - 189 mg/dl HIGH >190 mg/dl VERY HIGH Performed By: #### L IPID, CMP, TSH, T7 #### [facility] [address] [address] [address] May Santos Triglyceride [Mass/Vol] 120 mg/dL Normal <=150 [facility] Comment on above: Performed By: #### L IPID, CMP, TSH, T7 #### [facility] [address] [address] [address] May Santos VLDL CALC 24.0 mg/dL Normal [facility] Comment on above: Performed By: #### L IPID, CMP, TSH, T7 #### [facility] [address] [address] [address] May Santos PROF 14(COMP METB)on 022 Albumin [Mass/Vol] 3.7 g/dL Normal 3.5-5.0 [facility] Comment on above: Performed By: #### L IPID, CMP, TSH, T7 #### [facility] [address] [address] [address] May Santos Albumin/Globulin [Mass ratio] 1.0 {ratio} Normal [facility] Comment on above: Performed By: #### L IPID, CMP, TSH, T7 #### [facility] [address] [address] [address] May Santos ALP [Catalytic activity/Vol] 84 U/L Normal 38-126 [facility] Comment on above: Performed By: #### L IPID, CMP, TSH, T7 #### [facility] Laboratory [address] [place] [address] Dr. May Snatos ALT [Catalytic activity/Vol] 17 U/L Normal 9-52 [facility] Comment on above: Performed By: #### L IPID, CMP, TSH, T7 #### [facility] Laboratory [address] [place] [address] Dr. May Santos Anion gap [Moles/Vol] 11.0 mmol/L Normal [facility] Comment on above: Performed By: #### L IPID, CMP, TSH, T7 #### [facility] [address] [place] [address] Dr. May Santos AST [Catalytic activity/Vol] 16 U/L Normal 14-36 [facility] Comment on above: Performed By: #### L IPID, CMP, TSH, T7 #### [facility] [address] [place] [address] Dr. May Santos Bilirubin [Mass/Vol] 0.5 mg/dL Normal 0.2-1.3 [facility] Comment on above: Performed By: #### L IPID, CMP, TSH, T7 #### [facility] [address] [place] [address] Dr. May Santos Calcium [Mass/Vol] 8.8 mg/dL Normal 8.4-10.2 [facility] Comment on above: Performed By: #### L IPID, CMP, TSH, T7 #### [facility] [address] [place] [address] Dr. May Santos Chloride [Moles/Vol] 107 mmol/L Normal 98-107 [facility] Comment on above: Performed By: #### L IPID, CMP, TSH, T7 #### [facility] [address] [address] [address] May Santos CO2 [Moles/Vol] 25.6 mmol/L Normal 22.0-30.0 [facility] Comment on above: Performed By: #### L IPID, CMP, TSH, T7 #### [facility] [address] [place] [address] Dr. May Santos Creatinine [Mass/Vol] 0.91 mg/dL Normal 0.52-1.04 [facility] Comment on above: Performed By: #### L IPID, CMP, TSH, T7 #### [facility] [address] [address] [address] May Santos EGFR-AF WALLISIAN >60 Normal >=60 [facility] Comment on above: Performed By: #### L IPID, CMP, TSH, T7 #### [facility] [address] [place] [address] Dr. May Santos EGFR-NON AF WALLISIAN >60 Normal >=60 [facility] Comment on above: Performed By: #### L IPID, CMP, TSH, T7 #### [facility] [address] [place] [address] Dr. May Santos Globulin (S) [Mass/Vol] 3.7 g/dL Normal [facility] Comment on above: Performed By: #### L IPID, CMP, TSH, T7 #### [facility] [address] [place] [address] Dr. May Santos Glucose [Mass/Vol] 116 mg/dL Critically high 74-106 [facility] Comment on above: Performed By: #### L IPID, CMP, TSH, T7 #### [facility] [address] [place] [address] Dr. May Santos Potassium [Moles/Vol] 4.6 mmol/L Normal 3.4-5.0 [facility] Comment on above: Performed By: #### L IPID, CMP, TSH, T7 #### [facility] [address] [place] [address] Dr. May Santos Protein [Mass/Vol] 7.4 g/dL Normal 6.1-8.2 [facility] Comment on above: Performed By: #### L IPID, CMP, TSH, T7 #### [facility] [address] [address] [address] May Santos Sodium [Moles/Vol] 139 mmol/L Normal 137-145 [facility] Comment on above: Performed By: #### L IPID, CMP, TSH, T7 #### [facility] [address] [address] [address] May Santos Urea nitrogen [Mass/Vol] 8.0 mg/dL Normal 7.0-17.0 [facility] Comment on above: Performed By: #### L IPID, CMP, TSH, T7 #### [facility] [address] [address] [address] May Santos Urea nitrogen/Creatinine [Mass ratio] 8.8 mg/mg Normal [facility] Comment on above: Performed By: #### L IPID, CMP, TSH, T7 #### [facility] [address] [address] [address] May Santos TSHon 08-20-2021 TSH 1.583 uIU/mL Normal 0.470-4.680 [facility] Comment on above: Performed By: #### L IPID, CMP, TSH, T7 #### [facility] [address] [address] [address] May Santos TSH RANGE SEE BELOW Normal [facility] Comment on above: Result Comment: <0.3 4 UIU/ml HYPERTHYROID 0.34-5.60 UIU/ml EUTHYROID >5.60 UIU/ml HYPOTHYROID Performed By: #### L IPID, CMP, TSH, T7 #### [facility] [address] [address] [address] May Santos VITAMIN D 25 OHon 08-20-2021 VIT D 25-OH 26.0 ng/mL Normal [facility] Comment on above: Performed By: #### I QAMAR, VITAD ####[facility] [address] [place] [address]Dr. May Santos VIT D RANGES SEE BELOW Normal [facility] Comment on above: Result Comment: <20 ng/mL Vit D deficient 20 - <30 ng/mL Vit D insufficient 30 - 100 ng/mL Vit D sufficient >100 ng/mL Potential Toxicity Performed By: #### I QAMAR VITAD ####[facility] [address] [place], [place] [address]RnDr. May Santos Vital Signs Date Time Vital Sign Value Performing Clinician Arelis pimentel 03-30-2024 14:29-0400 Blood Pressure Location Herbert NILL [facility] 03-30-2024 14:29-0400 Diastolic blood pressure 76 mm[Hg] Herbert NILL [facility] 03-30-2024 14:29-0400 Heart rate 72 /min Herbert OSORIOL [facility] 03-30-2024 14:29-0400 Respiratory rate 16 /min Herbert OSORIOL [facility] 03-30-2024 14:29-0400 Systolic blood pressure 116 mm[Hg] Herbert NILL [facility] Encounters Encounter Date Encounter Type Care Provider Facility Start: 03-30-2024 End: 03-30-2024 ambulatory Herbert RUIZ Facility:[facility] Start: 03-30-2024 End: 03-30-2024 Patient encounter procedure Herbert RUIZ [facility] Start: 07-22-[address] MARIA VICTORIA Mckeon y:[facility] Start: 04-05-2022 End: 04-06-[address] ELIDA TAO Facility:[facility] Start: 04-04-2022 End: 04-05-[address] ELIDA TAO Facility:[facility] Start: 01-24-2022 End: 01-25-[address] ELIDA TAO Facility:[facility] Start: 01-08-2022 End: 01-09-[address] ELIDA TAO Facility:[facility] Start: 01-07-2022 End: 07-18-[address] MARIA VICTORIA HYADEN Facility:[facility] Start: 09-17-2021 End: 12-27-[address] [...] Immunization Date Immunization Notes Care Provider Fa [facility] 05-14-2021 SARS-CoV-2 (COVID-19 ) mRNA BNT-162b2 vax Herbert NILL [facility] [place] 08-18-2020 SARS-CoV-2 (COVID-19 ) mRNA BNT-162b2 vax Herbert NILL [facility] [place] 07-28-2020 SARS-CoV-2 (COVID-19 ) mRNA BNT-162b2 vax Herbert NILL [facility] [place] Payers Date Payer Category Payer Medicare [id number] 1961 Self-pay 1961 Unknown [id number] 1955 Unknown [id number] 2.16.84 [id number] 1953 Unknown [id number] 2.16.84 [id number] 1953 Unknown [id number] 2.16.84 [id number] 1953 Unknown [id number] 2.16.84 [id number] 1953 Unknown [id number] 2.16.84 [id number] 1953 Unknown [id number] 2.16.84 [id number] 1953 Unknown [id number] 2.16.84 [id number] 1953 Unknown [id number] 2.16.84 [id number] 1953 Unknown [id number] 2.16.8 [id number] Social History Date Type Detail Facility Start: 03-30-2024 Tobacco smoking status Heavy t obacco smoker (finding) [facility] Tobacco smoking status Never Fis[facility] Sex Assigned At Female [facility] Functional Status Date Assessment Result Facility 03-30-2024 Functional Status N/A [facility] Clinical Note 03-30-2024 Note Date & Type Note Facility 03-30-2024 Note [facility] Offi ce/Clinic Note Chief Complaint consultation [...] SARS-CoV-2 (COVID-19) mRNA BNT-162b2 vax 07/28/2020 Recorded [facility] Comment on above: Result Comment: Elec tronically Signed By: JOSEPH WISDOM, Herbert Cunha\Date and Time Signed: 03/30/24 14:52 EDT Evaluation + Plan note Note Date & Type Note Facility Evaluation + Plan note No data available for this section [facility] Hospital Discharge instructions Note Date & Type Note Facility Hospital Discharge instructions No data available for this section [facility] Progress note Note Date & Type Note Facility Progress note No data available for this section [facility] Summary Purpose Family History No Family History Records FoundNo Family History Records Found No data available for this section Advance Directives No Advanced Directives Records FoundNo Advanced Directives Records Found Additional Source Comments INFORMATION SOURCE (unrecogn ized section and content) DATE CREATED AUTHOR 07/22/2022 [facility] DATE CREATED AUTHOR AUTHOR'S ORGANIZ ATION 04/01/2024 [facility] Patient Care team informatio n (unrecognized section and content) Personnel Name: Elida Tao MD Address: Address: [address] [place] [address] FOR RECORDS PERTAINING TO PATIENTS WHO ARE [...] BE BASED ON THE PRIMARY CLINICAL RECORDS. [facility]. provides no warranty or guarantee of the accuracy or completeness of information in this document.
[2024-05-19] MEDS: 0.9 % SODIUM CHLORIDE 500 ML 50 ML IV (07:07)
[2024-05-19 07:50] VITALS: BP 121/67; PULSE 78; TEMP 36.2; O2SAT 95
[2024-05-19 08:05] VITALS: BP 92/67; PULSE 75; TEMP 36.1; O2SAT 95
[2024-05-19 08:20] VITALS: BP 118/80; PULSE 79; O2SAT 94
[2024-05-19 08:35] VITALS: BP 111/89; PULSE 77; TEMP 36.2; O2SAT 95
== END 2024-05-19 08:35 | disposition home or self-care (01) ==
PROVIDERS: PCP Family Medicine; Visit Provider Surgery
PROC: (CPT 45380; principal; 2024-05-19 07:30)
DX: Z09 Encounter for follow-up examination after completed treatment for conditions other than malignant neoplasm (principal); K62.1 Rectal polyp; Z86.0100 Personal history of colon polyps, unspecified; Z80.0 Family history of malignant neoplasm of digestive organs; K57.30 Diverticulosis of large intestine without perforation or abscess without bleeding; E78.00 Pure hypercholesterolemia, unspecified; Z90.710 Acquired absence of both cervix and uterus; Z90.5 Acquired absence of kidney; F17.210 Nicotine dependence, cigarettes, uncomplicated
CPT/HCPCS: 45380; J2704

== ENCOUNTER 2024-08-09 16:23 | Outpatient (OUT) | payer MEDICARE, OTHER, SELFPAY ==
--- OUTSIDE RECORDS SUMMARY | 2024-08-09 16:42 | XMS_ITS | CCD ---
Author Organization [facility] Care Team Providers Care Paid Search Specialist Name Role Phone KEAGAN, DR MARRERO Admitting [...] WEST, DR MARIA VICTORIA Bello Consulting Unavailable Elida Tao Primary Care Physician Herbert Rainey Attending Unavailable Nill, Herbert Bartholomew Admitting Unavailable NILL, Herbert Bartholomew Attending Unavailable NILL, Herbert Bartholomew Attending Unavailable NILL, Herbert Bartholomew Attending Unavailable NILL, Herbert Bartholomew Attending Unavailable Allergies Allergy Classification Reported Allergen(s) Allergy Type Date of Onset Reaction(s) Facility (2 sources) Naproxen; Translations: [Aleve] Drug Allergy [facility] Repository (2 sources) Naproxen; Translations: [naproxen] Drug Allergy [facility] Medications Current Medications Medication Drug Class(es) Dates Sig (Normalized) Sig (Original) calcium carbonate 1500 mg oral tablet (2 sources) Start: 03-12-2024 take 1 tablet by mouth twice daily calcium (as carbonate) 600 mg oral tablet 600 mg = 1 tab(s), Oral, BID, Refills(s) 0 Start Date: 03/12/24 Status: Ordered zolpidem tartrate 12.5 mg extended release oral tablet (2 sources) gamma-Aminobutyri c Acid-ergic Agonist Start: 11-07-2015 take 12.5 mg by mouth once daily at bedtime zolpidem 12.5 mg, Oral, Once a day (at bedtime), Refills(s) 0, Insomnia Start Date: 11/07/15 Status: Ordered Problems Active Problems Problem Classification Problem Date Documented Date Episodic/Chronic Disorders of lipid metabolism (8 sources) Hyperlipidemia, unspecified; Translations: [Pure hypercholesterolemia, unspecified] Onset: 08-20-2021 Chronic Diverticulosis and diverticulitis (1 source) Diverticular disease 05-20-2024 Chronic Nutritional deficiencies (1 source) Vitamin D deficiency, unspecified; Translations: [VITAMIN D DEFICIENCY UNSPECIFIED] Onset: 04-09-2022 Chronic Osteoporosis (2 sources) Osteoporosis 03-12-2024 Chronic Other and unspecified benign neoplasm (5 sources) History of polyp of colon; Translations: [Personal history of hyperplastic colon polyps] Onset: 03-30-2024 Episodic Other and unspecified benign neoplasm (2 sources) Pseudopolyposis of colon 03-16-2019 Episodic Other nutritional; endocrine; and metabolic disorders (2 sources) Overweight 03-12-2024 Episodic Other nutritional; endocrine; and metabolic disorders (2 sources) Overweight in adulthood with body mass index of 25 or more but less than 30 03-30-2024 Episodic Residual codes; unclassified (1 source) Family history of malignant neoplasm of digestive organ; Translations: [Family history of malignant neoplasm of digestive organs] Onset: 03-30-2024 Episodic Residual codes; unclassified (2 sources) Family history of cancer of colon 03-12-2024 Episodic Residual codes; unclassified (2 sources) Insomnia 03-12-2024 Episodic Residual codes; unclassified (2 sources) Tobacco user 03-30-2024 Episodic Past or Other [...] Test Name Value Interpretation Reference Range Facility Reminderson 05-27-2024 Reminders Reminders From: Yeimi Schwartz LPN To: [facility] - Clinical; Sent: 05/27/2024 15:40:04 EST Show up: 04/19/2029 07:00:00 EST Subject: colonosocpy recall Due Date/Time: 05/19/2029 07:00:00 EST Reminder/Recall Patient due for surveillance colonoscopy 05/19/2029 due to family history of colon cancer. Normal [facility] Pathology Request for Lab Co rpon 05-19-2024 Pathology Request for Lab Kristofer Normal [facility] Comment on above: Order Comment: PATHO LOGY GI SPECIMEN Result Comment: See report. Scanned copy available in EMR. PERFORMED BY: [place] [address] PATHOLOGIST INFORMATION SECURITY OFFICER YUAN GLEASON M.D. Performed By: #### P ATH TO [facility] #### [address] Ambulatory Visit Summaryon 1 Ambulatory Visit Summary [...] for your care. Normal [facility] Physician Referralon 024 Physician Referral [id number] F Normal [facility] Physician Referral [id number] 4030 [id number] F Normal [facility] INSULINon 04-05-2022 Insulin 9.4 uIU/mL Normal 2.6-24.9 [facility] Comment on above: Performed By: #### I NSULIN #### [facility] [address] [address] [address] May Santos MG MAMM SCREEN 3D MICHAEL CADon 04-05-2022 MG MAMM SCREEN 3D MICHAEL CAD Patient: SUSANNA CABALLERO Exam Date: 04/05/2022 : 1955 Gender:F Ordering : DR ELIDA TAO . Admission #: [id number] Family : Order #: [id number] CLICK HERE TO VIEW EXAM RADIOLOGY REPORT [...] lung cancer at age 80. LOCATION: [facility] BREAST COMPOSITION: Heterogeneously dense,which may [...] MD on 04/05/2022 at 10:08 Normal [facility] CBC AUTO DIFFon 04-04-2022 BASO # 0.0 103/ul Normal 0.0-0.1 [facility] Comment on above: Performed By: #### C BC ####[facility] [address] [id number]. May Santos Basophils/100 WBC (Bld) 0.3 % Normal 0.2-2.0 [facility] Comment on above: Performed By: #### C BC ####[facility] [address] [id number]. May Santos EO # 0.2 103/ul Normal 0.0-0.7 [facility] Comment on above: Performed By: #### C BC ####[facility] [address] [place], [place] [id number]. May Santos Eosinophils/100 WBC (Bld) 2.0 % Normal 0.9-7.0 [facility] Comment on above: Performed By: #### C BC ####[facility] [address] [place], [place] [address]Dr. May Santos Erythrocyte distribution width (RBC) [Ratio] 12.7 % Normal 11.0-15.0 [facility] Comment on above: Performed By: #### C BC ####[facility] [address] [place], [place] [address]Dr. May Santos Hematocrit (Bld) [Volume fraction] 44.7 % Normal 36.0-48.0 [facility] Comment on above: Performed By: #### C BC ####[facility] E[address] [place], [place] [id number]. May Santos Hemoglobin (Bld) [Mass/Vol] 14.9 g/dL Normal 12.0-16.0 [facility] Comment on above: Performed By: #### C BC ####[facility] [address] [address]Dr. May Santos IG # 0.05 10e3/ul Critically high 0.00-0.03 [facility] Comment on above: Performed By: #### C BC ####[facility] Fs[address] [place], [place] [id number]. May Santos IG % 0.6 % Critically high 0.0-0.5 [facility] Comment on above: Performed By: #### C BC ####[facility] [address] [id number]. May Santos LYMPH # 2.9 103/ul Normal 1.2-3.8 [facility] Comment on above: Performed By: #### C BC ####[facility] [address] [id number]. May Santos Lymphocytes/100 WBC (Bld) 32.9 % Normal 20.5-60.0 [facility] Comment on above: Performed By: #### C BC ####[facility] [address] [id number]. May Santos MANUAL DIFF REQ NO Normal [facility] Comment on above: Performed By: #### C BC ####[facility] [address] [id number]. May Santos MCH (RBC) [Entitic mass] 33.0 pg Normal 26.7-34.0 [facility] Comment on above: Performed By: #### C BC ####[facility] [address] [id number]. May Santos MCHC (RBC) [Mass/Vol] 33.3 g/dL Normal 29.9-35.2 [facility] Comment on above: Performed By: #### C BC ####[facility] [address] [id number]. May Santos MCV (RBC) [Entitic vol] 98.9 fL Normal 81.0-99.0 [facility] Comment on above: Performed By: #### C BC ####[facility] [address] [id number]. May Santos MONO # 0.7 103/ul Normal 0.3-0.8 [facility] Comment on above: Performed By: #### C BC ####[facility] [address] [id number]. May Santos Monocytes/100 WBC (Bld) 8.4 % Normal 1.7-12.0 [facility] Comment on above: Performed By: #### C BC ####[facility] [address] [id number]. May Santos NEUT # 4.9 103/ul Normal 1.4-6.5 [facility] Comment on above: Performed By: #### C BC ####[facility] [address] [id number]. May Santos Neutrophils/100 WBC (Bld) 55.8 % Normal 43.0-75.0 [facility] Comment on above: Performed By: #### C BC ####[facility] [address] [id number]. May Santos Platelet mean volume (Bld) [Entitic vol] 10.5 fL Normal 9.5-13.5 [facility] Comment on above: Performed By: #### C BC ####[facility] [address] [place], [place] [address]Dr. May Santos PLT 341 103/ul Normal 150-450 [facility] Comment on above: Performed By: #### C BC ####[facility] [address] [place], [place] [phone]. May Santos RBC 4.52 106/ul Normal 4.20-5.40 [facility] Comment on above: Performed By: #### C BC ####[facility] Fuwfxtciei[address] [place], [place] [phone]. May Santos WBC 8.9 103/ul Normal 4.0-11.0 [facility] Comment on above: Performed By: #### C BC ####[facility] [address] [place], [place] [phone]. May Santos FREE THYROXINE INDEX T7on -2021 FTI 2.57 Normal 1.30-4.50 [facility] Comment on above: Performed By: #### T 7, TSH, LIPID, CMP ####[facility] [address] [address]Dr. May Santos T3U 33.0 % Normal 30.0-39.0 [facility] Comment on above: Performed By: #### T 7, TSH, LIPID, CMP ####[facility] [address] [id number]. May Santos T4 [Mass/Vol] 7.80 ug/dL Normal 4.80-13.90 [facility] Comment on above: Performed By: #### T 7, TSH, LIPID, CMP ####[facility] [address] [id number] Santos GLYCOHEMOGLOBIN A1Con 2021 ADA RECOMMENDATION SEE BELOW Normal [facility] Comment on above: Result Comment: ADA RECOMMENDED LIMIT 4.0 - 6.0 ADA THERAPEUTIC TARGET < 7.0 ACTION SUGGESTED > 7.0 Performed By: #### A 1C #### [facility] [address] [address] [address] May Santos Glucose [Mass/Vol] 114 mg/dL Normal [facility] Comment on above: Performed By: #### A 1C #### [facility] [address] [address] [address] May Santos HbA1c (Bld) [Mass fraction] 5.6 % Normal 4.5-6.2 [facility] Comment on above: Performed By: #### A 1C #### [facility] [address] [address] [address] May Santos IRONon 04-04-2022 Iron [Mass/Vol] 100.0 ug/dL Normal 50.0-170.0 [facility] Comment on above: Performed By: #### V ITAD, IRON ####[facility] [address] [id number]. May Santos LIPID PROFILEon 04-04-2022 CHOL-HDL RATIO NORM SEE BELOW Normal [facility] Comment on above: Result Comment: 3.3 - 4.4 LOW RISK 4.4 - 7.1 AVERAGE RISK 7.1 - 11.0 MODERATE RISK >11.0 HIGH RISK Performed By: #### T 7, TSH, LIPID, CMP ####[facility] [address] [phone]. Yilan Santos Cholesterol [Mass/Vol] 195 mg/dL Normal <=200 [facility] Comment on above: Performed By: #### T 7, TSH, LIPID, CMP ####[facility] [address] [id number]. May Santos Cholesterol in HDL [Mass/Vol] 47 mg/dL Normal 40-60 [facility] Comment on above: Performed By: #### T 7, TSH, LIPID, CMP ####[facility] [address] [phone]. Loveiliana Santos Cholesterol in LDL [Mass/Vol] 130.0 mg/dL Normal [facility] Comment on above: Performed By: #### T 7, TSH, LIPID, CMP ####[facility] [address] [place], [place] [address]Dr. May Santos Cholesterol.total/C holesterol in HDL [Mass ratio] 4.1 {ratio} Normal [facility] Comment on above: Performed By: #### T 7, TSH, LIPID, CMP ####[facility] [address] [address]Dr. Lovelan Santos HDL NORMAL > or = 60 mg/dl - LO W CARDIOVASCULAR RISK <40 mg/dl - HIGH CARDIOVASCULAR RISK Normal [facility] Comment on above: Performed By: #### T 7, TSH, LIPID, CMP ####[facility] [address] [address]Dr. May Santos LDL CALC NORMAL SEE BELOW Normal [facility] Comment on above: Result Comment: <100 mg/dl OPTIMAL 100 - 129 mg/dl NEAR OR ABOVE OPTIMAL 130 - 159 mg/dl BORDERLINE HIGH 160 - 189 mg/dl HIGH >190 mg/dl VERY HIGH Performed By: #### T 7, TSH, LIPID, CMP ####[facility] [address] [address]Dr. Lovelan Santos Triglyceride [Mass/Vol] 90 mg/dL Normal <=150 [facility] Comment on above: Performed By: #### T 7, TSH, LIPID, CMP ####[facility] [address] [address]Dr. May Santos VLDL CALC 18.0 mg/dL Normal [facility] Comment on above: Performed By: #### T 7, TSH, LIPID, CMP ####[facility] [address] [address]Dr. May Santos PROF 14(COMP METB)on 022 Albumin [Mass/Vol] 3.7 g/dL Normal 3.4-5.0 [facility] Comment on above: Performed By: #### T 7, TSH, LIPID, CMP ####[facility] [address] [address]Dr. May Santos Albumin/Globulin [Mass ratio] 0.9 {ratio} Normal [facility] Comment on above: Performed By: #### T 7, TSH, LIPID, CMP ####[facility] [address] [place], [place] [address]Dr. May Santos ALP [Catalytic activity/Vol] 94 U/L Normal 46-116 [facility] Comment on above: Performed By: #### T 7, TSH, LIPID, CMP ####[facility] [address] [address]Dr. May Santos ALT [Catalytic activity/Vol] 19 U/L Normal 14-59 [facility] Comment on above: Performed By: #### T 7, TSH, LIPID, CMP ####[facility] [address] [address]Dr. May Santos Anion gap [Moles/Vol] 14.1 mmol/L Normal [facility] Comment on above: Performed By: #### T 7, TSH, LIPID, CMP ####[facility] [address] [address]Dr. May Santos AST [Catalytic activity/Vol] 16 U/L Normal 15-37 [facility] Comment on above: Performed By: #### T 7, TSH, LIPID, CMP ####[facility] [address] [address]Dr. May Santos Bilirubin [Mass/Vol] 0.5 mg/dL Normal 0.2-1.0 [facility] Comment on above: Performed By: #### T 7, TSH, LIPID, CMP ####[facility] [address] [address]Dr. May Santos Calcium [Mass/Vol] 9.1 mg/dL Normal 8.5-10.1 [facility] Comment on above: Performed By: #### T 7, TSH, LIPID, CMP ####[facility] U[address]rur[address] [place], [place] [address]Dr. May Santos Chloride [Moles/Vol] 104 mmol/L Normal 98-107 [facility] Comment on above: Performed By: #### T 7, TSH, LIPID, CMP ####[facility] St[address]tn[address] [place], [place] [address]Dr. May Santos CO2 [Moles/Vol] 26.6 mmol/L Normal 21.0-32.0 [facility] Comment on above: Performed By: #### T 7, TSH, LIPID, CMP ####[facility] [address] [place], [place] [address]Dr. May Santos Creatinine [Mass/Vol] 0.82 mg/dL Normal 0.55-1.02 [facility] Comment on above: Performed By: #### T 7, TSH, LIPID, CMP ####[facility] J[address] [place], [place] [address]Dr. May Santos EGFR-AF AUSTRALIAN >60 Normal >=60 [facility] Comment on above: Performed By: #### T 7, TSH, LIPID, CMP ####[facility] [address] [place], [place] [address]Dr. May Santos EGFR-NON AF AUSTRALIAN >60 Normal >=60 [facility] Comment on above: Performed By: #### T 7, TSH, LIPID, CMP ####[facility] En[address]vquqls[address] [place], [place] [address]Dr. May Santos Globulin (S) [Mass/Vol] 4.0 g/dL Normal [facility] Comment on above: Performed By: #### T 7, TSH, LIPID, CMP ####[facility] Y[address] [place], [place] [address]Dr. May Santos Glucose [Mass/Vol] 120 mg/dL Critically high 74-106 [facility] Comment on above: Performed By: #### T 7, TSH, LIPID, CMP ####[facility] [address] [address]Dr. May Santos Potassium [Moles/Vol] 4.7 mmol/L Normal 3.5-5.1 [facility] Comment on above: Performed By: #### T 7, TSH, LIPID, CMP ####[facility] [address] [address]Dr. May Santos Protein [Mass/Vol] 7.7 g/dL Normal 6.4-8.2 [facility] Comment on above: Performed By: #### T 7, TSH, LIPID, CMP ####[facility] [address]ogn[address] [place], [place] [address]Dr. May Santos Sodium [Moles/Vol] 140 mmol/L Normal 136-145 [facility] Comment on above: Performed By: #### T 7, TSH, LIPID, CMP ####[facility] [address] [address]Dr. May Santos Urea nitrogen [Mass/Vol] 9.0 mg/dL Normal 7.0-18.0 [facility] Comment on above: Performed By: #### T 7, TSH, LIPID, CMP ####[facility] [address] [place], [place] [id number]. May Santos Urea nitrogen/Creatinine [Mass ratio] 11.0 mg/mg Normal [facility] Comment on above: Performed By: #### T 7, TSH, LIPID, CMP ####[facility] [address] [address]Dr. May Santos TSHon 04-04-2022 TSH 1.034 uIU/mL Normal 0.358-3.740 [facility] Comment on above: Performed By: #### T 7, TSH, LIPID, CMP ####[facility] [address] [place], [place] [address]Dr. May Santos VITAMIN D 25 OHon 04-04-2022 VIT D 25-OH 45.9 ng/mL Normal [facility] Comment on above: Performed By: #### I NSULIN #### [facility] [address] [place] [address] Dr. May Santos VIT D RANGES SEE BELOW Normal [facility] Comment on above: Result Comment: <20 ng/mL Vit D deficient 20 - <30 ng/mL Vit D insufficient 30 - 100 ng/mL Vit D sufficient >100 ng/mL Potential Toxicity Performed By: #### I NSULIN #### [facility] [address] [place] [address] Dr. May Santos CULTURE URINEon 01-24-2022 CULTURE URINE Culture Observations : HEAVY GROWTH OF MIXED GENITAL SEAN. NO POTENTIAL PATHOGENS SEEN. Normal [facility] Comment on above: Performed By: #### I NSULIN #### [facility] [address] [place] [address] Dr. May Santos UA RANDOM W/MICROSCOPICon BACTERIA NONE SEEN Normal NONE SEEN [facility] Comment on above: Performed By: #### U AMIC ####[facility] [address] [address]Dr. May Santos Bilirubin Ql (U) Negative Normal NEGATIVE [facility] Comment on above: Performed By: #### U AMIC ####[facility] [address] [place], [place] [address]Dr. May Santos CAST NONE SEEN Normal NONE SEEN [facility] Comment on above: Performed By: #### U AMIC ####[facility] [address] [place], [place] [address]Dr. May Santos Clarity (U) CLEAR Normal CLEAR [facility] Comment on above: Performed By: #### U AMIC ####[facility] [address] [address]Dr. May Santos Color (U) YELLOW Normal YELLOW [facility] Comment on above: Performed By: #### U AMIC ####[facility] [address] [address]Dr. May Santos Crystals LM Nom (Urine sed) NONE SEEN Normal NONE SEEN [facility] Comment on above: Performed By: #### U AMIC ####[facility] [address] [address]Dr. May Santos Epithelial cells LM Ql (Urine sed) FEW Abnormal NONE SEEN /RARE [facility] Comment on above: Performed By: #### U AMIC ####[facility] [address] [address]Dr. May Santos Glucose Ql (U) Negative Normal NEGATIVE [facility] Comment on above: Performed By: #### U AMIC ####[facility] [address] [place], [place] [address]Dr. May Santos Hemoglobin Ql (U) Negative Normal NEGATIVE [facility] Comment on above: Performed By: #### U AMIC ####[facility] [address] [place], [place] [address]Dr. May Santos Ketones Ql (U) Negative Normal NEGATIVE [facility] Comment on above: Performed By: #### U AMIC ####[facility] [address] [place], [place] [address]Dr. Yilan Santos LEUKOCYTES Negative Normal NEGATIVE [facility] Comment on above: Performed By: #### U AMIC ####[facility] [address] [place], [place] [address]Dr. Yilan Santos MUCOUS NONE SEEN Normal NONE SEEN [facility] Comment on above: Performed By: #### U AMIC ####[facility] [address] [place], [place] [address]Dr. Yilan Santos Nitrite Ql (U) Negative Normal NEGATIVE [facility] Comment on above: Performed By: #### U AMIC ####[facility] [address] [place], [place] [address]Dr. May Santos pH (U) 7.0 [pH] Normal 5-9 [facility] Comment on above: Performed By: #### U AMIC ####[facility] [address] [place], [place] [address]Dr. Lovelan Santos RBC NONE SEEN Abnormal 0-2 [facility] Comment on above: Performed By: #### U AMIC ####[facility] [address] [place], [place] [address]Pb. May Santos SPEC GRAVITY 1.015 Normal 1.005-<=1.025 [facility] Comment on above: Performed By: #### U AMIC ####[facility] [address] [place], [place] [address]Tm. May Santos UA PROTEIN Negative Normal NEGATIVE/ TRACE [facility] Comment on above: Performed By: #### U AMIC ####[facility] [address] [place], [place] [address]Gx. May Santos Urobilinogen Qn (U) 0.2 {Taylor'U}/dL Normal 0.2 - 1. 0 [facility] Comment on above: Performed By: #### U AMIC ####[facility] [address] [id number]. May Santos WBC NONE SEEN Normal NONE SEEN [facility] Comment on above: Performed By: #### U AMIC ####[facility] [address]qp[address] [place], [place] [address]Ak. May Santos XR KUB 1 VIEWon 01-09-2022 [...] ANGEL MILIAN Date: 2022-01-09 07:27 Normal [facility] US KIDNEYS BLADDERon 022 US KIDNEYS BLADDER [...] SORAYA RAMSAY Date: 2022-01-08 10:51 Normal [facility] CBC AUTO DIFFon 08-20-2021 BASO # 0.0 103/ul Normal 0.0-0.1 [facility] Comment on above: Performed By: #### C BC ####[facility] [address] [place], [place] [address]Dr. May Santos Basophils/100 WBC (Bld) 0.6 % Normal 0.2-2.0 [facility] Comment on above: Performed By: #### C BC ####[facility] [address] [address]Dr. Loveiliana Santos EO # 0.2 103/ul Normal 0.0-0.7 [facility] Comment on above: Performed By: #### C BC ####[facility] [address]fwi[address] [place], [place] [address]Dr. May Santos Eosinophils/100 WBC (Bld) 2.4 % Normal 0.9-7.0 [facility] Comment on above: Performed By: #### C BC ####[facility] [address]rfe[address] [place], [place] [address]Dr. May Snatos Erythrocyte distribution width (RBC) [Ratio] 13.0 % Normal 11.0-15.0 [facility] Comment on above: Performed By: #### C BC ####[facility] [address] [place], [place] [address]Dr. May Santos Hematocrit (Bld) [Volume fraction] 45.8 % Normal 36.0-48.0 [facility] Comment on above: Performed By: #### C BC ####[facility] [address] [id number]. May Santos Hemoglobin (Bld) [Mass/Vol] 15.1 g/dL Normal 12.0-16.0 [facility] Comment on above: Performed By: #### C BC ####[facility] [address] [id number]. May Santos IG # 0.02 10e3/ul Normal 0.00-0.03 [facility] Comment on above: Performed By: #### C BC ####[facility] Z[address] [place], [place] [address]Dr. May Santos IG % 0.3 % Normal 0.0-0.5 [facility] Comment on above: Performed By: #### C BC ####[facility] [address] [place], [place] [address]Dr. May Santos LYMPH # 2.7 103/ul Normal 1.2-3.8 [facility] Comment on above: Performed By: #### C BC ####[facility] Spr[address] [place], [place] [address]Dr. May Santos Lymphocytes/100 WBC (Bld) 41.8 % Normal 20.5-60.0 [facility] Comment on above: Performed By: #### C BC ####[facility] [address] [place], [place] [address]Dr. May Santos MANUAL DIFF REQ NO Normal [facility] Comment on above: Performed By: #### C BC ####[facility] I[address] [place], [place] [address]Dr. May Santos MCH (RBC) [Entitic mass] 33.0 pg Normal 26.7-34.0 [facility] Comment on above: Performed By: #### C BC ####[facility] [address] [place], [place] [address]Dr. May Santos MCHC (RBC) [Mass/Vol] 33.0 g/dL Normal 29.9-35.2 [facility] Comment on above: Performed By: #### C BC ####[facility] [address] [id number]. May Santos MCV (RBC) [Entitic vol] 100.0 fL Critically high 81.0-99.0 [facility] Comment on above: Performed By: #### C BC ####[facility] [address] [id number]. May Santos MONO # 0.5 103/ul Normal 0.3-0.8 [facility] Comment on above: Performed By: #### C BC ####[facility] Gh[address]ver[address] [place], [place] [address]Dr. May Santos Monocytes/100 WBC (Bld) 7.2 % Normal 1.7-12.0 [facility] Comment on above: Performed By: #### C BC ####[facility] C[address] [place], [place] [address]Dr. May Santos NEUT # 3.0 103/ul Normal 1.4-6.5 [facility] Comment on above: Performed By: #### C BC ####[facility] [address] [place], [place] [address]Dr. May Santos Neutrophils/100 WBC (Bld) 47.7 % Normal 43.0-75.0 [facility] Comment on above: Performed By: #### C BC ####[facility] As[address] [place], [place] [address]Dr. May Santos Platelet mean volume (Bld) [Entitic vol] 10.7 fL Normal 9.5-13.5 [facility] Comment on above: Performed By: #### C BC ####[facility] [address] [place], [place] [id number]. May Santos PLT 300 103/ul Normal 150-450 [facility] Comment on above: Performed By: #### C BC ####[facility] [address] [place], [place] [address]Dr. May Santos RBC 4.58 106/ul Normal 4.20-5.40 [facility] Comment on above: Performed By: #### C BC ####[facility] [address] [place], [place] [address]LcDr. May Santos WBC 6.4 103/ul Normal 4.0-11.0 [facility] Comment on above: Performed By: #### C BC ####[facility] [address] [place], [place] [address]VyDr. May Santos FREE THYROXINE INDEX T7on FTI 2.24 Normal [facility] Comment on above: Performed By: #### L IPID, CMP, TSH, T7 #### [facility] [address] [address] [address] May Santos T3U 34.0 % Normal 23.5-40.5 [facility] Comment on above: Performed By: #### L IPID, CMP, TSH, T7 #### [facility] [address] [address] [address] May Santos T4 [Mass/Vol] 6.60 ug/dL Normal 5.53-11.00 [facility] Comment on above: Performed By: #### L IPID, CMP, TSH, T7 #### [facility] [address] [address] [address] May Santos GLYCOHEMOGLOBIN A1Con 2021 ADA RECOMMENDATION ADA THERAPEUTIC TARG ET 6.0 - 7.0 ACTION SUGGESTED > 7.0 Normal [facility] Comment on above: Performed By: #### A 1C #### [facility] [address] [address] [address] May Santos Glucose [Mass/Vol] 120 mg/dL Normal [facility] Comment on above: Performed By: #### A 1C #### [facility] [address] [address] [address] May Santos HbA1c (Bld) [Mass fraction] 5.8 % Normal <=6.0 [facility] Comment on above: Performed By: #### A 1C #### [facility] [address] [address] [address] May Santos IRONon 08-20-2021 Iron [Mass/Vol] 121.0 ug/dL Normal 37.0-170.0 [facility] Comment on above: Performed By: #### I QAMAR, VITAD #### [facility] [address] [address] [address] May Santos LIPID PROFILEon 08-20-2021 CHOL-HDL RATIO NORM SEE BELOW Normal [facility] Comment on above: Result Comment: 3.3 - 4.4 LOW RISK 4.4 - 7.1 AVERAGE RISK 7.1 - 11.0 MODERATE RISK >11.0 HIGH RISK Performed By: #### L IPID, CMP, TSH, T7 #### [facility] [address] [address] [address] May Santos Cholesterol [Mass/Vol] 218 mg/dL Critically high <=200 [facility] Comment on above: Performed By: #### L IPID, CMP, TSH, T7 #### [facility] [address] [address] [address] May Santos Cholesterol in HDL [Mass/Vol] 54 mg/dL Normal [facility] Comment on above: Performed By: #### L IPID, CMP, TSH, T7 #### [facility] [address] [address] [address] May Santos Cholesterol in LDL [Mass/Vol] 140.0 mg/dL Normal [facility] Comment on above: Performed By: #### L IPID, CMP, TSH, T7 #### [facility] [address] [address] [address] May Santos Cholesterol.total/C holesterol in HDL [Mass ratio] 4.0 {ratio} Normal [facility] Comment on above: Performed By: #### L IPID, CMP, TSH, T7 #### [facility] [address] [address] [address] May Santos HDL NORMAL > or = 60 mg/dl - LO W CARDIOVASCULAR RISK <40 mg/dl - HIGH CARDIOVASCULAR RISK Normal [facility] Comment on above: Performed By: #### L IPID, CMP, TSH, T7 #### [facility] [address] [address] [address] May Santos LDL CALC NORMAL SEE BELOW Normal [facility] Comment on above: Result Comment: <100 mg/dl OPTIMAL 100 - 129 mg/dl NEAR OR ABOVE OPTIMAL 130 - 159 mg/dl BORDERLINE HIGH 160 - 189 mg/dl HIGH >190 mg/dl VERY HIGH Performed By: #### L IPID, CMP, TSH, T7 #### [facility] [address] [address] [address] May Santos Triglyceride [Mass/Vol] 120 mg/dL Normal <=150 [facility] Comment on above: Performed By: #### L IPID, CMP, TSH, T7 #### [facility] [address] [address] [address] May Santos VLDL CALC 24.0 mg/dL Normal [facility] Comment on above: Performed By: #### L IPID, CMP, TSH, T7 #### [facility] [address] [address] [address] May Santos PROF 14(COMP METB)on 022 Albumin [Mass/Vol] 3.7 g/dL Normal 3.5-5.0 [facility] Comment on above: Performed By: #### L IPID, CMP, TSH, T7 #### [facility] [address] [address] [address] May Santos Albumin/Globulin [Mass ratio] 1.0 {ratio} Normal [facility] Comment on above: Performed By: #### L IPID, CMP, TSH, T7 #### [facility] [address] [address] [address] May Santos ALP [Catalytic activity/Vol] 84 U/L Normal 38-126 [facility] Comment on above: Performed By: #### L IPID, CMP, TSH, T7 #### [facility] [address] [address] [address] May Santos ALT [Catalytic activity/Vol] 17 U/L Normal 9-52 [facility] Comment on above: Performed By: #### L IPID, CMP, TSH, T7 #### [facility] [address] [address] [address] May Santos Anion gap [Moles/Vol] 11.0 mmol/L Normal [facility] Comment on above: Performed By: #### L IPID, CMP, TSH, T7 #### [facility] [address] [address] [address] May Santos AST [Catalytic activity/Vol] 16 U/L Normal 14-36 [facility] Comment on above: Performed By: #### L IPID, CMP, TSH, T7 #### [facility] [address] [address] [address] May Santos Bilirubin [Mass/Vol] 0.5 mg/dL Normal 0.2-1.3 [facility] Comment on above: Performed By: #### L IPID, CMP, TSH, T7 #### [facility] [address] [place] [address] Dr. May Santos Calcium [Mass/Vol] 8.8 mg/dL Normal 8.4-10.2 [facility] Comment on above: Performed By: #### L IPID, CMP, TSH, T7 #### [facility] [address] [place] [address] Dr. May Santos Chloride [Moles/Vol] 107 mmol/L Normal 98-107 [facility] Comment on above: Performed By: #### L IPID, CMP, TSH, T7 #### [facility] [address] [place] [address] Dr. May Santos CO2 [Moles/Vol] 25.6 mmol/L Normal 22.0-30.0 [facility] Comment on above: Performed By: #### L IPID, CMP, TSH, T7 #### [facility] [address] [place] [address] Dr. May Santos Creatinine [Mass/Vol] 0.91 mg/dL Normal 0.52-1.04 [facility] Comment on above: Performed By: #### L IPID, CMP, TSH, T7 #### [facility] [address] [place] [address] Dr. May Santos EGFR-AF AUSTRALIAN >60 Normal >=60 [facility] Comment on above: Performed By: #### L IPID, CMP, TSH, T7 #### [facility] [address] [address] [address] May Santos EGFR-NON AF AUSTRALIAN >60 Normal >=60 [facility] Comment on above: Performed By: #### L IPID, CMP, TSH, T7 #### [facility] [address] [address] [address] May Santos Globulin (S) [Mass/Vol] 3.7 g/dL Normal [facility] Comment on above: Performed By: #### L IPID, CMP, TSH, T7 #### [facility] [address] [address] [address] May Santos Glucose [Mass/Vol] 116 mg/dL Critically high 74-106 T [facility] Comment on above: Performed By: #### L IPID, CMP, TSH, T7 #### [facility] [address] [place] [address] Dr. May Santos Potassium [Moles/Vol] 4.6 mmol/L Normal 3.4-5.0 [facility] Comment on above: Performed By: #### L IPID, CMP, TSH, T7 #### [facility] [address] [address] [address] May Santos Protein [Mass/Vol] 7.4 g/dL Normal 6.1-8.2 [facility] Comment on above: Performed By: #### L IPID, CMP, TSH, T7 #### [facility] [address] [address] [address] May Santos Sodium [Moles/Vol] 139 mmol/L Normal 137-145 [facility] Comment on above: Performed By: #### L IPID, CMP, TSH, T7 #### [facility] [address] [address] [address] May Santos Urea nitrogen [Mass/Vol] 8.0 mg/dL Normal 7.0-17.0 [facility] Comment on above: Performed By: #### L IPID, CMP, TSH, T7 #### [facility] [address] [address] [address] May Santos Urea nitrogen/Creatinine [Mass ratio] 8.8 mg/mg Normal [facility] Comment on above: Performed By: #### L IPID, CMP, TSH, T7 #### [facility] [address] [address] [address] May Santos TSHon 08-20-2021 TSH 1.583 uIU/mL Normal 0.470-4.680 [facility] Comment on above: Performed By: #### L IPID, CMP, TSH, T7 #### [facility] [address] [address] [address] May Santos TSH RANGE SEE BELOW Normal [facility] Comment on above: Result Comment: <0.3 4 UIU/ml HYPERTHYROID 0.34-5.60 UIU/ml EUTHYROID >5.60 UIU/ml HYPOTHYROID Performed By: #### L IPID, CMP, TSH, T7 #### [facility] [address] [address] [address] May Santos VITAMIN D 25 OHon 08-20-2021 VIT D 25-OH 26.0 ng/mL Normal [facility] Comment on above: Performed By: #### I QAMAR VITAD ####[facility] [address] [address]Dr. May Santos VIT D RANGES SEE BELOW Normal [facility] Comment on above: Result Comment: <20 ng/mL Vit D deficient 20 - <30 ng/mL Vit D insufficient 30 - 100 ng/mL Vit D sufficient >100 ng/mL Potential Toxicity Performed By: #### Anneliese FOOTE VITAD ####[facility] [address] [address]Dr. May Santos Vital Signs Date Time Vital Sign Value Performing Clinician Faci lity 03-30-2024 14:29-0400 Blood Pressure Location Herbert RAINEY [facility] 03-30-2024 14:29-0400 Diastolic blood pressure 76 mm[Hg] Herbert RAINEY [facility] 03-30-2024 14:29-0400 Heart rate 72 /min [facility]-30-[facility] 14:29-0400 Respiratory rate 16 /min Herbert OSORIOL [facility] 03-30-2024 14:29-0400 Systolic blood pressure 116 mm[Hg] Herbert OSORIOL [facility] Encounters Encounter Date Encounter Type Care Provider Facility Start: 06-01-2024 End: 06-01-2024 [facility]: 06-01-2024 End: 06-01-2024 Patient encounter procedure Herbert aBrtholomew NILL [facility] [place] Start: 05-19-2024 End: 05-19-2024 ambulatory Herbert R Nill Facility:[facility] Start: 05-19-2024 End: 05-19-2024 ambulatory Herbert R NILL Facility:[id number] Start: 03-30-2024 End: 03-30-2024 [facility]ulatory [facility] Start: 03-30-2024 End: 03-30-2024 Patient encounter [facility] Start: 07-22-[address] MARIA VICTORIA HAYDEN [...] Date Procedure Procedure Detail Performing Clinician Start: 05-19-2024 Colonoscopy Herbert NI LL Start: 03-16-2019 Colonoscopy Herebrt HANNA Start: 11-08-2015 Colonoscopy and biop sy of colon Herbert RAINEY Comment on above: hyperplastic polyps Appendectomy Herbert OSORIOL Tonsillectomy Herbert NILL Total abdominal hysterectomy with bilateral salpingo-oophorectomy Herbert NILL Total nephrectomy Herbert GARCIA LL Immunizations Immunization Date Immunization Notes Care Provider [facility] 05-14-2021 SARS-CoV-2 (COVID-19 ) mRNA BNT-162b2 vax Herbert RAINEY [facility] [place] 08-18-2020 SARS-CoV-2 (COVID-19 ) mRNA BNT-162b2 vax Herbert RAINEY [facility] 07-28-2020 SARS-CoV-2 (COVID-19 ) mRNA BNT-162b2 vax Herbert RAINEY [facility] Payers Date Payer Category Payer Medicare [id number] 1961 Self-pay 1961 Unknown [id number] 1955 Unknown [id number] 2.16.84 [id number] 1955 Unknown [id number] 2.16.84 0.1.473819.3.579.2.593 1953 Unknown [id number] 2.16.84 0.1.763591.3.579.2.593 1953 Unknown [id number] 2.16.84 0.1.019639.3.579.2.593 1953 Unknown [id number] 2.16.84 0.1.383373.3.579.2.593 1953 Unknown [id number] 2.16.84 0.1.665076.3.579.2.593 1953 Unknown [id number] 2.16.84 0.1.429441.3.579.2.593 1953 Unknown [id number] 2.16.84 0.1.838902.3.579.2.593 1953 Unknown [id number] 2.16.8 40.1.931552.3.579.2.727 1955 Unknown [id number] 2.16.8 40.1.825025.3.579.2.727 1955 Unknown [id number] 2.16.8 40.1.220500.3.579.2.727 1955 Unknown [id number] 2.16.8 40.1.324043.3.579.2.727 Unknown [id number] 2.16.8 40.1.750461.3.579.2.531 Social History Date Type Detail Facility Start: 03-30-2024 Tobacco smoking status Heavy t obacco smoker (finding) [facility] Tobacco smoking status Never [facility] Sex Assigned At Female [facility] Functional Status Date Assessment Result Facility 03-30-2024 Functional Status N/A [facility] Clinical Note 03-30-2024 Note Date & Type Note Facility 03-30-2024 Note General Surgery Offi ce/Clinic Note Chief Complaint consultation for [...] polyps, small hyperplastic rectosigmoid polyps removed in 2016 and 2019; patient denies change in bms or blood [...] BNT-162b2 vax 07/28/2020 Recorded [facility] Comment on above: Result Comment: Elec tronically Signed By: JOSEPH WISDOM, Herbert Cunha\Date and Time Signed: 03/30/24 14:52 EDT Evaluation + Plan note Note Date & Type Note Facility Evaluation + Plan note No data available for this section [facility] Discharge instructions Note Date & Type Note Facility Hospital Discharge instructions No data available for this section [facility] Progress note Note Date & Type Note Facility Progress note No data available for this section [facility] Summary Purpose Family History No Family History Records Found No data available for this section No Family History Records Found No data available for this section No Family History Records Found Advance Directives No Advanced Directives Records FoundNo Advanced Directives Records FoundNo Advanced Directives Records Found Additional Source Comments INFORMATION SOURCE (unrecogn ized section and content) DATE CREATED AUTHOR 07/22/2022 [facility] DATE CREATED AUTHOR AUTHOR'S ORGANIZ ATION 05/27/2024 [facility] DATE CREATED AUTHOR AUTHOR'S ORGANIZ ATION 06/05/2024 [facility] Patient Care team informatio n (unrecognized section and content) Personnel Name: Elida Tao MD Address: Address: [address] [place] [address] Personnel Name: Elida Tao MD Address: Address: [address] [place] [address] FOR RECORDS PERTAINING TO PATIENTS WHO ARE [...] BE BASED ON THE PRIMARY CLINICAL RECORDS. [facility]. provides no warranty or guarantee of the accuracy or completeness of information in this document.
--- NOTE | 2024-08-09 16:44 | XR_ITS ---
The [address] [address] Patient Name: SUSANNA CABALLERO MRN: [id number] date: 1955 Sex: F Assigned Patient Location: [facility] Current Patient Location: Accession/Order Number: [id number] Exam Date: 08/10/2024 10:37 Report Date: 08/10/2024 10:41 At the request of: ELIDA BOOGIE MD Procedure: XR lumbar spine min 4V LUMBAR SPINE -4 views: CLINICAL HISTORY: Low back pain at multiple sites COMPARISON: None AP, lateral and both oblique views of the lumbosacral junction were obtained. There is osteopenia. There is no evidence of fracture. There is slight retrolisthesis of L2 on L3 and approximately 9 mm of anterolisthesis of L4 and L5. Obvious pars defects are seen. Mild to moderate space narrowing is present at L4-5 and the lumbosacral junction. There is minimal endplate spurring and mild facet disease. Sclerosis is visualized at the SI joints. There are no paraspinal soft tissue abnormalities. XR/XR lumbar spine min 4V IMPRESSION: OSTEOPENIA AND DEGENERATIVE CHANGES Impression dictated by: Sana White M.D.08/10/2024 10:41 AM [facility]ictation [facility] Electron[facility] authenticated by: [id number] Y Date: 08/10/2024 10:41
== END 2024-08-09 16:24 | disposition home or self-care (01) ==
LOC: RAD 16:24
PROVIDERS: PCP Family Medicine; Visit Provider Family Medicine
DX: M54.50 Low back pain, unspecified (principal); M85.80 Other specified disorders of bone density and structure, unspecified site; M51.369 Other intervertebral disc degeneration, lumbar region without mention of lumbar back pain or lower extremity pain
CPT/HCPCS: 72110

== ENCOUNTER 2025-01-03 13:55 | Outpatient (OUT) | payer MEDICARE, OTHER, SELFPAY ==
--- OUTSIDE RECORDS SUMMARY | 2024-12-23 06:13 | XMS_ITS ---
Author Organization The [facility] in [place] Address [address] [place] [address] Care Team Providers Care Dining Room Attendant Cafeteria Name Role Phone Janusz Tao Primary Care Provider REASON FOR VISIT BP CHeck Medications Medication SIG (Take, Route, Fr equency, Duration) Notes Start Date End Date Status Lisinopril 20 MG 1 tablet Orally Once a day for 30 days 11/29/2024 Active Encounters Encounter Location Date Provider Diagnosis [facility] [address] [facility] [place] [address] 12/23/2024 Janusz Tao Hypertension I10 Assessments Encounter Date Diagnosis (ICD Code) Assessment Notes Treatment Notes Treatment Clinical Notes Section Notes 12/23/2024 Hypertension (ICD-10 - I10) Plan Of Treatment Medication Medication Name Sig Start Date Stop Date Notes Lisinopril 20 MG 1 tablet Orally Once a day for 30 days Progress Notes * Courtney CABALLERO LDOB:1955 (69 yo F)Acc No.[id number]:12/23/2024 Patient: Courtney JOEL :1955 A ge:69 Y S ex:Female Address:[facility] [place] [address] [address] * Refills Refill Lisinopril Tablet, 20 MG, Orally, 30, 1 tablet, Once a day, 30 days, Refills=3 * true * Date: Generated for Printi ng/Faxing/eTransmitting on: 0 01/03/2025 01:56 PM EDT
--- OUTSIDE RECORDS SUMMARY | 2024-12-23 06:15 | XMS_ITS ---
Author Organization The [facility] in [place] Address [address] [place] [address] Care Team Providers Care Legal Word Processor Name Role Phone Janusz Tao Primary Care Provider [phone] REASON FOR VISIT bp check Vital Signs Height 67 in 12/23/2024 Blood pressure systolic 140 mm Hg 12/24/19 25 Blood pressure diastolic 88 mm Hg 025 Encounters Encounter Location Date Provider Diagnosis [facility] [address] [facility] [place] [address] 12/23/2024 Janusz Tao Plan Of Treatment No Information Progress Notes * Courtney CABALLERO LDOB:1955 (69 yo F)Acc No.[id number]:12/23/2024 BP Check Patient: Courtney JOEL Provider: Junior Tao ([facility])MD :1955 A ge:69 Y S ex:Female Date:12/23/2024 Address:[address], [id number] Check In:10:08 AM ESTCheck O ut:10:14 AM EST Subjective: * Chief Complaints: * 1 . Bp check. * Active Problem List D22.5 Melanocytic nevi of trunk Modified On:09/06/2022W/U Status:confirmed L72.11 Pilar cyst Modified On:09/06/2022/U Status:confirmed N30.01 Acute cystitis with hematuria Modified On:09/06/2022/U Status:confirmed Z01.89 Encounter for other specified special examinations Modified On:09/06/2022 Status:confirmed J20.9 Acute bronchitis, un specified organism Modified On:09/06/2022 Status:confirmed L82.1 Keratosis, seborrhei c Modified On:09/06/2022 Status:confirmed R10.11 Abdominal pain, acut e, right upper quadrant Modified On:03/25/2023 Status:confirmed M25.50 Arthralgia, unspecif ied joint Modified On:09/06/2022 Status:confirmed K63.5 Polyp of colon, unsp ecified part of colon, unspecified type Modified On:09/16/2023 Status:confirmed L84 Clavus Modified On:09/06/2022 Status:confirmed G47.00 Insomnia, unspecifie d type Modified On:09/15/2023 Status:confirmed E78.00 Pure hypercholestero lemia, unspecified Modified On:03/25/2023 Status:confirmed M85.80 Other specified diso rders of bone density and structure, unspecified site Modified On:07/30/2023 Status:confirmed K57.90 Diverticulosis Modified On:06/03/2024 Status:confirmed M54.50 Low back pain at mul tiple sites Modified On:08/09/2024 Status:confirmed I10 Hypertension Modified On:11/29/2024 Status:confirmed * Medical History: Objective: * Vitals: H t: 67 in, BP:140/88mm Hg, Ht-cm: 170.18 cm. Assessment: Plan: * Treatment: * * Sign off status: Completed Visit Status: Joanne SCHULTE (Check Out) true * Provider: Junior Tao ([facility])MD Date: 12/23/2024 Generated for Annie dobson/Camelia/Rosetteitting on: 01/03/2025 01:56 PM EDT
--- OUTSIDE RECORDS SUMMARY | 2025-01-03 13:56 | XMS_ITS | Clinical Summary ---
Author Organization [facility] Address [address] [place] [id number] Care Team Providers Care Peripheral Equipment Operator Name Role Phone Ramin Isaac Primary Care Provider Allergies No known active allergies Medications OMEGA-3 ACID ETHYL ESTERS (LOVAZA ORAL) Take by mouth. Active rosuvastatin (CRESTOR) 5 mg ORAL tablet Take 5 mg by mouth once daily. Active VITAMIN E ORAL Take by mouth. Active Ascorbic Acid (VITAMIN C) 1,000 mg ORAL tablet Take 1,000 mg by mouth once daily. Active aspirin 325 mg ORAL tablet Take 325 mg by mouth once daily. Active Zolpidem 12.5 mg ORAL CR tablet Take 12.5 mg by mouth at bedtime as needed. Active Family History Medical History Relation Comments Diabetes Father Relation Status Comments Father Social History Tobacco Use Types Packs/Day Years Used Date Smoking Tobacco: Every Day Cigarettes Alcohol Use Standard Drinks/Week Comments Yes 0 (1 standard drink = 0.6 oz pur e alcohol) Comments Unknown Sex and Gender Information Value Date Recorded Sex Assigned at Not on file Legal Sex Female 10:12 AM EST Gender Identity Not on file Sexual Orientation Not on file Last Filed Vital Signs Vital Sign Reading Time Taken Comments Blood Pressure - - Pulse - - Temperature - - Respiratory Rate - - Oxygen Saturation - - Inhaled Oxygen Concentration - - Weight 72.6 kg (160 lb) 07/02/2011 12:41 PM EST Height 167.6 cm (5' 6 ) 07/02/2011 12:41 PM EST Body Mass Index 25.82 07/02/2011 12:41 PM EST Plan of Treatment Health Maintenance Due Date Last Done Comments Anxiety Screening 10/30/1971 Depression Screening 10/30/1971 Hepatitis C Screening 10/30/1971 DTaP,Tdap,Td Vaccine (1 - Tdap) [address] Colonography 1998 Cologuard (FIT-DNA) 1998 Colonoscopy 1998 Colorectal Cancer Screening 1998 Diabetes Screening 1998 Fecal Occult Blood 1998 Lipid Screening 1998 Sigmoidoscopy 1998 Pneumococcal Vaccine: 50+ (1 of 1 - PCV) 10/30/2003 Shingrix Vaccine (1 of 2) 10/30/2003 Bone Density Screening 2018 Covid-19 Vaccine (1 - 2023- season) 2024 Advance Directive Discussion 06/16/2024 Influenza Vaccine (#1) 2025 RSV Vaccine (1 - 1-dose 75+ series) 2028 Insurance [employer] PPO Care Teams Peripheral Equipment Operator Relationship Specialty Start Date End Date Ramin Isaac [address] [facility] [place] [id number] PCP - General Enrobing Machine Feeder 04/25/11
--- OUTSIDE RECORDS SUMMARY | 2025-01-03 13:56 | XMS_ITS | Clinical Summary ---
[facility] Organization [facility] Address [address] [place] [address] Care Team Providers Care Quality Assurance Calibrator Name Role Phone Unavailable Primary Care Provider Unavailabl e Social History Tobacco Use Types Packs/Day Years Used Date Smoking Tobacco: Never Assessed Comments Unknown Sex and Gender Information Value Date Recorded Sex Assigned at Not on file Legal Sex Female 3:41 PM EST Gender Identity Not on file Sexual Orientation Not on file Plan of Treatment Health Maintenance Due Date Last Done Comments DEXA SCAN DISCUSSION 1955 HEPATITIS C VIRUS SCREENING 1955 TETANUS 1955 TDAP (ADULT) 1972 CERVICAL CANCER SCREENING DISCUSSION 1974 LIPID SCREENING 1993 MAMMOGRAM SCREENING DISCUSSION 1993 COLORECTAL CANCER SCREENING DISCUSSION 1998 PNEUMOCOCCAL VACCINE SERIES (1 of 1 - PCV) 10/30/2003 ZOSTER (SHINGLES) VACCINE (1 of 2) 10/30/2003 COVID-19 VACCINE (2023-2 5 season) 2024 INFLUENZA VACCINE (#1) 2025 RSV VACCINE (1 - 1-dose 75+ series) 2028 HEP B VACCINE Aged Out No longer anita bassett based on patient's age to complete this topic
--- OUTSIDE RECORDS SUMMARY | 2025-01-03 13:56 | XMS_ITS | Patient Health Record ---
Author Organization [facility] in [place] Address [address] [place] [address] Care Team Providers Care Spindle Repairer Name Role Phone Janusz Boogie Primary Care Provider Celeste Brown Unavailable [phone] Allergies No Known Allergies Results Component Value Reference Range Notes GLYCOHEMOGLOBIN A1C Reviewed date:03/10/2024 01:01:24 PM Interpretation: Performing Lab: Notes/Report: [facility] , Glycohemoglobin A1C 5.4 4.5-6.2 % ADA RECOMMENDED LIMIT 4.0 - 6.0 ADA THERAPEUTIC TARGET < 7.0 ACTION SUGGESTED > 7.0 Estimated Average Glucose 108 Performing Lab: see note ML - [facility] MM tomosynthesis screening B I Reviewed date:04/11/2024 10:39:37 PM Interpretation: Performing Lab: Notes/Report: Source Facility: [place] [address] [place] [address] Mammography Report Signed Patient: SUSANNA CABALLERO MR#: [id number] : 1955 Acct:[id number] Age/Sex: 68 / F ADM Date: 04/08/24 Loc: MAMMO Attending Dr: Elida Boogie M.D. Ordering Physician: Elida Boogie M.D. Results: Date of Service: 04/08/24 Follow Up: Procedure(s): MM tomosynthesis screening BI Accession Number(s): [id number] cc: Elida Boogie M.D. Patient Name: SUSANNA CABALLERO MR#: [id number] : 1955 Exam Date: 04/08/2024 Ordering Doctor: DR Elida Boogie . RADIOLOGY REPORT PROCEDURE: MM TOMOSYNTHESIS SCREENING BI COMPARISON: MM TOMOSYNTHESIS SCREENING BI, 04/07/2023. MG MAMM SCREEN 3D MICHAEL CAD, 04/05/2022. MG MAMM SCREEN 3D MICHAEL CAD, 01/22/2021. MG MAMM MICHAEL SCRN W CAD DIG, 11/30/2013. INDICATIONS: Screening for malignant neoplasm of breast Calculator Name NCI Breast Cancer Risk Assessment Tool 5 Year Breast Cancer Risk 1.20% Lifetime Breast Cancer Risk 3.70% Personal Breast Cancer No Personal Ovarian Cancer No Treatments None Family Cancers Father with colon cancer at age 78; Mother with lung cancer at age 82. LOCATION: [facility] BREAST COMPOSITION: The breasts are heterogeneously dense,which may obscure small masses. FINDINGS: DIAGNOSTIC CATEGORY 2--BENIGN FINDING: RIGHT BREAST: No significant suspicious finding. Scattered benign-appearing calcifications are present. Scattered benign-appearing lymph nodes are present. No significant change has occurred. LEFT BREAST: No significant suspicious finding. Scattered benign-appearing calcifications are present. No significant change has occurred. RECOMMENDATIONS: ROUTINE MAMMOGRAM AND CLINICAL EVALUATION IN 12 MONTHS. PLEASE NOTE: A NORMAL MAMMOGRAM DOES NOT EXCLUDE THE POSSIBILITY OF BREAST CANCER. A CLINICALLY SUSPICIOUS PALPABLE LUMP SHOULD BE BIOPSIED. Dictated by: Merrill Wu M.D. on 04/11/2024 at 19:27 Approved by: Merrill Wu M.D. on 04/11/2024 at 19:32 Dictated By: Merrill Wu M.D. Signed By: 04/11/241932 DD/ 31 TD/TT: Forest Botany Instructor: [place] [address] Mammography Report Signed Patient: SUSANNA CABALLERO MR#: [id number] : 1955 Acct:[id number] Age/Sex: 68 / F ADM Date: 04/08/24 Loc: MAMMO Attending Dr: Nas Boogie M.D. Ordering Physician: Elida Boogie M.D. Results: Date of Service: 04/08/24 Follow Up: Procedure(s): MM tomosynthesis screening BI Accession Number(s): [id number] cc: Elida Boogie M.D. Patient Name: SUSANNA CABALLERO MR#: [id number] : 1955 Exam Date: 04/08/2024 Ordering Doctor: DR Elida Boogie . RADIOLOGY REPORT PROCEDURE: MM TOMOSYNTHESIS SCREENING BI COMPARISON: MM TOMOSYNTHESIS SCREENING BI, 04/07/2023. MG MAMM SCREEN 3D MICHAEL CAD, 04/05/2022. MG MAMM SCREEN 3D MICHAEL CAD, 01/22/2021. MG MAMM MICHAEL SCRN W CAD DIG, 11/30/2013. INDICATIONS: Screeni ng for malignant neoplasm of breast Calculator Name NCI Breast Cancer Risk Assessment Tool 5 Year Breast Cancer Risk 1.20% Lifetime Breast Canc er Risk 3.70% Personal Breast Canc er No Personal Ovarian Can cer No Treatments None Family Cancers Fathe r with colon cancer at age 78; Mother with lung cancer at age 82. LOCATION: [facility] BREAST COMPOSITION: The breasts are heterogeneously dense,which may obscure small masses. FINDINGS: DIAGNOSTIC CATEGORY 2--BENIGN FINDING: RIGHT BREAST: No significant suspicious finding. Scattered benign-appearing calcifications are present. Scattered benign-appearing lymph nodes are present. No signific ant change has occurred. LEFT BREAST: No significant suspicious finding. Scattered benign-appearing calcifications are present. No significant change has occurred. RECOMMENDATIONS: ROUTINE MAMMOGRAM AN D CLINICAL EVALUATION IN 12 MONTHS. PLEASE NOTE: A JOHNSON L MAMMOGRAM DOES NOT EXCLUDE THE POSSIBILITY OF BREAST CANCER. A CLINICALLY SUSPICIOUS PALPABLE LUMP SHOULD BE BIOPSIED. Dictated by: Merrill Wu M.D. on 04/11/2024 at 19:27 Approved by: Merrill Wu M.D. on 04/11/2024 at 19:32 Dictated By: Merrill Wu M.D. Signed By: 04/11/241932 DD/ 31 TD/TT: Forest Botany Instructor: ANGELES lumbar spine min 4V Reviewed date:08/10/2024 02:32:42 PM Interpretation: Performing Lab: Notes/Report: Source Facility: [facility]-[address] [place] [address] [place] [address] XRay Report Signed Patient: SUSANNA CABALLERO MR#: [id number] : 1955 Acct:[id number] Age/Sex: 68 / F ADM Date: 08/09/24 Loc: [facility] Attending Dr: Elida Boogie M.D. Ordering Physician: Elida Boogie M.D. Date of Service: 08/09/24 Procedure(s): XR lumbar spine min 4V Accession Number(s): [id number] cc: Elida Boogie M.D. [place] [address] Patient Name: SUSANNA CABALLERO MRN: [id number] date: 1955 Sex: F Assigned Patient Location: [facility] Current Patient Location: Accession/Order Number: [id number] Exam Date: 08/10/2024 10:37 Report Date: 08/10/2024 10:41 At the request of: ELIDA BOOGIE MD Procedure: XR lumbar spine min 4V LUMBAR SPINE -4 views: CLINICAL HISTORY: Low back pain at multiple sites COMPARISON: None AP, lateral and both oblique views of the lumbosacral junction were obtained. There is osteopenia. There is no evidence of fracture. There is slight retrolisthesis of L2 on L3 and approximately 9 mm of anterolisthesis of L4 and L5. Obvious pars defects are seen. Mild to moderate space narrowing is present at L4-5 and the lumbosacral junction. There is minimal endplate spurring and mild facet disease. Sclerosis is visualized at the SI joints. There are no paraspinal soft tissue abnormalities. XR/XR lumbar spine min 4V IMPRESSION: OSTEOPENIA AND DEGENERATIVE CHANGES Impression dictated by: Sana White M.D.08/10/2024 10:41 AM Dictation Location: [place] [address] Electronically authenticated by: [id number] Y Date: 08/10/2024 10:41 Dictated By: Sana White M.D. Signed By: 08/10/24 1043 DD/ 1041 TD/TT: Forest Botany Instructor: [place] [id number] XRay Report Signed Patient: SUSANNA CABALLERO MR#: [id number] : 1955 Acct:[id number] Age/Sex: 68 / F ADM Date: 08/09/24 Loc: RAD Attending Dr: Nas Boogie M.D. Ordering Physician: Elida Boogie M.D. Date of Service: 08/09/24 Procedure(s): XR lum bar spine min 4V Accession Number(s): [id number] cc: Elida Boogie M.D. [place] [id number] Patient Name: SUSANNA CABALLERO MRN: [id number] date: 1955 Sex: F Assigned Patient Location: [facility] Current Patient Location: Accession/Order Numb er: [id number] Exam Date: 08/10/2024 10:37 Report Date: 08/10/2024 10:41 At the request of: ELIDA BOOGIE MD Procedure: XR lumbar spine min 4V LUMBAR SPINE -4 views: CLINICAL HISTORY: Lo w back pain at multiple sites COMPARISON: None AP, lateral and both oblique views of the lumbosacral junction were obtained. There is osteopenia. There is no evidence of fracture. There is slight retrolisthesis of L2 on L3 and approximately 9 mm of anterolisthesis of L4 and L5. Obvious pars defects are seen. Mild to moderate space narrowing is present at L4-5 and the lumbosacral junction. There is minimal endplate spurring and mild fa cet disease. Sclerosis is visualized at the SI joints. There are no paraspi nal soft tissue abnormalities. XR/XR lumbar spine min 4V IMPRESSION: OSTEOPENIA AND DEGENERATIVE CHANGES Impression dictated by: Sana White M.D.08/10/2024 10:41 AM Dictation Location: [place] [address] Electronically authenticated by: [id number] Y Date: 08/10/2024 10:41 Dictated By: Sana White M.D. Signed By: 08/10/24 1043 DD/ 1041 TD/TT: Forest Botany Instructor: TRINIDAD Reviewed date:03/10/2024 01:01:24 PM Interpretation: Performing Lab: Notes/Report: [facility] , Thyroid Stimulating Hormone 0.986 0.358-3.740 uIU/mL Performing Lab: see note ML - [facility] LB T4 Reviewed date:03/10/2024 01:01:24 PM Interpretation: Performing Lab: Notes/Report: [facility] , T4 Thyroxine 7.90 4.80-13.90 ug/dL Performing Lab: see note - [facility] LB PROF 14(COMP METB) Reviewed date:03/10/2024 01:01:24 PM Interpretation: Performing Lab: Notes/Report: [facility] , Sodium 137 136-145 mmol/L Potassium 4.6 3.5-5.1 mmol/L Chloride 103 98-107 mmol/L Carbon Dioxide 28.0 21.0-32.0 mmol/L Anion Gap 10.6 Glucose 116 74-106 mg/dL Blood Urea Nitrogen 14.0 7.0-18.0 mg/dL Creatinine 0.91 0.55-1.02 mg/dL Estimated GFR ( [place] >60 >=60 Estimated GFR (Non- Siom[place] >60 >=60 BUN Creatinine Ratio 15.4 Calcium 9.6 8.5-10.1 mg/dL Bilirubin Total 0.7 0.2-1.0 mg/dL Aspartate Amino Transferase 19 15-37 U/L Alanine Aminotransferase 18 14-59 U/L Alkaline Phosphatase 79 46-116 U/L Total Protein 7.4 6.4-8.2 g/dL Albumin Level 3.8 3.4-5.0 g/dL Globulin 3.6 Albumin Globulin Ratio 1.1 Performing Lab: see note ML - [facility] LB LIPID PROFILE Reviewed date:03/10/2024 01:01:24 PM Interpretation: Performing Lab: Notes/Report: [facility] , Triglycerides 175 <=150 mg/dL Cholesterol 234 <=200 mg/dL HDL Cholesterol 54 40-60 mg/dL > or =60 mg/dl - LOW CARDIOVASCULAR RISK <40 mg/dl - HIGH CARDIOVASCULAR RISK LDL Cholesterol Calculated 145.0 <100 mg/dl OPTIMAL 100-129 mg/dl NEAR OR ABOVE OPTIMAL 130-159 mg/dl BORDERLINE HIGH 160-189 mg/dl HIGH >190 mg/dl VERY HIGH VLDL CHOLESTEROL 35.0 Chol HDL Ratio 4.3 3.3 - 4.4 LOW RISK 4.4 - 7.1 AVERAGE RISK 7.1 - 11.0 MODERATE RISK >11.0 HIGH RISK Performing Lab: see note ML - [facility] LB IRON Reviewed date:03/10/2024 01:01:24 PM Interpretation: Performing Lab: Notes/Report: [facility] , Iron 146.0 50.0-170.0 ug/dL Performing Lab: see note ML - [facility] LB FREE T3 Reviewed date:03/10/2024 01:01:24 PM Interpretation: Performing Lab: Notes/Report: [facility] , Free T3 3.36 2.18-3.98 pg/mL Performing Lab: see note ML - [facility] LB CBC AUTO DIFF Reviewed date:03/10/2024 01:01:24 PM Interpretation: Performing Lab: Notes/Report: [facility] , White Blood Count 8.8 4.0-11.0 10 3/uL Red Blood Count 4.65 4.20-5.40 10 6/uL Hemoglobin 15.3 12.0-16.0 g/dL Hematocrit 46.5 36.0-48.0 % Mean Corpuscular Volume 100.0 81.0-99.0 fL Mean Corpuscular Hemoglobin 32.9 26.7-34.0 pg Mean Corpuscular HGB Conc 32.9 29.9-35.2 g/dL Red Cell Distribution Width 12.9 11.0-15.0 % Platelet Count 346 150-450 10 3/uL Mean Platelet Volume 10.4 9.5-13.5 fL Neutrophils Percent Auto 47.6 43.0-75.0 % Lymphocytes Percent Auto 41.1 20.5-60.0 % Monocytes Percent Auto 7.4 1.7-12.0 % Eosinophils Percent Auto 3.2 0.9-7.0 % Basophils Percent Auto 0.5 0.2-2.0 % Immature Granulocytes Pct Auto 0.2 0.0-0.5 % Neutrophils Absolute Auto 4.2 1.4-6.5 10 3/uL Lymphocytes Absolute Auto 3.6 1.2-3.8 10 3/uL Monocytes Absolute Auto 0.7 0.3-0.8 10 3/uL Eosinophils Absolute Auto 0.3 0.0-0.7 10 3/uL Basophils Absolute Auto 0.0 0.0-0.1 10 3/uL Immature Granulocytes Abs Auto 0.02 0.00-0.03 10 3/uL Performing Lab: see note ML - [facility] LB Reason For Referral No Information Medications Medication SIG (Take, Route, Frequency, Duration) Notes Start Date End Date Status Calcium 600 600 MG 1 tablet with food O rally Twice a day Active Carvedilol 12.5 MG 1 tablet with food O rally Twice a day for 30 days 12/06/2024 Active Lisinopril 20 MG 1 tablet Orally Once a day for 30 days 11/29/2024 Active Vitamin D (Cholecalciferol) 50 MCG (1999) [...] qhs fo r 30 days 08/09/2024 Active Immunizations Vaccine Route Administration Date Status Comme nts Flu, Fluad (2345-1401) (40686) 65 yrs+, single-dose syringe IM Intramuscular 03/25/2023 Administered Pneumococcal (Prevnar 13) Unknown 08/20/2019 Administer ed Social History Tobacco Use: Social History Observation [...] in quitting? Not ready to vernon t Problems Problem Type SNOMED Code ICD Code Onset Dates Problem Status W/U Status Risk Notes Problem 355618131 Melanocytic nevi of trunk (D22.5) Active confirmed Problem 702852934 Pilar cyst (L72.11) Active confirmed Problem 638090400 Other specified disorders of bone density and structure, unspecified site (M85.80) Active confirmed Problem 22538351 Acute cystitis with hematuria (N30.01) Active confirmed Problem 410159058 Encounter for other specified special examinations (Z01.89) Active confirmed Problem Hypertension (06707430) Hypertension (I10) Active confirmed Problem Diverticular disease of colon (614439198) Diverticulosis (K57.90) Active confirmed Problem 06108900 Acute bronchitis , unspecified organism (J20.9) Active confirmed Problem 599483494 Keratosis, seborrheic (L82.1) Active confirmed Problem 295543756 Abdominal pain, acute, right upper quadrant (R10.11) Active confirmed Problem 922682998 Insomnia, unspecified type (G47.00) Active confirmed Problem 91280523 Arthralgia, unspecified joint (M25.50) Active confirmed Problem 075100278 Pure hypercholesterolem ia, unspecified (E78.00) Active confirmed Problem 93354402 Polyp of colon, unspecified part of colon, unspecified type (K63.5) Active confirmed Problem 42538353 Clavus (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) Active confirmed Problem Low back pain at multiple sites (M54.50) Active confirmed Vital Signs Blood pressure diastolic 94 mm Hg 12/30/2024 Height 67 in 12/30/2024 Blood pressure systolic 170 mm Hg 12/30/2024 Weight 156 lbs 12/30/2024 BMI 24.43 kg/m2 12/30/2024 Procedures Procedure Date Ordered Date Performed Result Body Sit e Colonoscopy 05/19/2024 Normal Encounters Encounter Location Date Provider Diagnosis [address] [address] 12/30/2024 Janusz Hoy Hypertension I10 [place] [address] [place] [address] 03/08/2024 Janusz Hoy Insomnia, unspecifie d type G47.00 ; Pure hypercholesterolemia, unspecified E78.00 and Other specified disorders of bone density and structure, unspecified site M85.80 [place] [address] [place] [address] 08/09/2024 Janusz Hoy Low back pain at multiple sites M54.50 [facility] [address] [place] [address] 11/29/2024 Janusz Hoy Hypertension I10 [place] [address] [place] [address] 03/10/2024 Janusz Boogie [facility] [address] [place] [address] 04/02/2024 Janusz [facility] [address] [place] [address] 04/11/2024 Celeste Mejiamer [facility] [address] [place] [address] 05/03/2024 Janusz maegan [facility] [address] [place] [address] 05/31/2024 Janusz [facility] [address] [place] [address] 06/29/2024 Janusz [facility] [address] [place] [address] 07/26/2024 Janusz [facility] [address] [place] [address] 08/10/2024 Janusz maegan [facility] [address] [place] [address] 08/27/2024 Janusz [facility] [address] [place] [address] 09/27/2024 Janusz [facility] [address] [place] [address] 10/26/2024 Janusz maegan [facility] [address] [place] [address] 11/23/2024 Janusz [facility] [address] [place] [address] 12/10/2024 Janusz [facility] [address] [place] [address] 12/16/2024 Janusz maegan [facility] [address] [place] [address] 12/21/2024 Janusz [facility] [address] [place] [address] 12/23/2024 Janusz Hoy Hypertension I10 [facility] [address] [place] [address] 12/06/2024 Janusz Hoy Hypertension I10 [facility] [address] [place] [address] 12/10/2024 Janusz Hoy Hypertension I10 [facility] [address] [place] [address] 12/16/2024 Janusz Hoy Hypertension I10 [facility] [address] [place] [address] 12/23/2024 Janusz Hoy Assessments Encounter Date Diagnosis (ICD Code) Assessment Notes Treatment Notes Treatment Clinical Notes Section Notes 03/08/2024 Insomnia, unspecified type (ICD-10 - G47.00) 03/08/2024 Pure hypercholesterole elvis, unspecified (ICD-10 - E78.00) 08/09/2024 Low back pain at multiple sites (ICD-10 - M54.50) 11/29/2024 Hypertension (ICD-10 - I10) 12/06/2024 Hypertension (ICD-10 - I10) 12/10/2024 Hypertension (ICD-10 - I10) 12/16/2024 Hypertension (ICD-10 - I10) 12/30/2024 Hypertension (ICD-10 - I10) 12/23/2024 Hypertension (ICD-10 - I10) 03/08/2024 Other specified disorders of bone density and structure, unspecified site (ICD-10 - M85.80) Plan Of Treatment Pending Test Test Name Order Date CMP (COMPLETE METABOLIC PANEL) 3 CMP (COMPLETE METABOLIC PANEL) HEMOGLOBIN A1C (GLYCO) 03/25/2023 HEMOGLOBIN A1C (GLYCO) 03/08/2024 IRON, TOTAL 03/08/2024 LIPID PANEL (CHOL/TRIG/HDL/LDL) 03/08/20 LIPID PANEL (CHOL/TRIG/HDL/LDL) 03/25/20 CBC WITH DIFF 03/25/2023 CBC WITH DIFF 03/08/2024 VITAMIN D, 25 LEVEL (TOTAL) 03/25/2023 MAMM Mammograms CAD 03/25/2023 US Aorta 10/15/2022 US Aorta 03/25/2023 CT Angio Upper Extremity Left 12/30/2024 CT Angio Upper Extremity Right 5 XR DEXA BONE DENSITY 07/24/2023 XR LSPINE MIN 4 VIEWS 08/09/2024 THYROID PANEL (T4/TSH/FREE T3) 4 THYROID PANEL (T4/TSH/FREE T3) 3 MM screening mammo BI 03/08/2024 Insurance Providers Payer Name Payer Address Payer Phone Subscriber Number Group Number Insured Name Patient Relationship to Insured Coverage Start Date Coverage End Date [place] [address] [place] [address] [id number] Deborah Susanna Self - patient is the insured [address] [id number] Susanna Caballero Self - patient is the insured Medical (General) History Medical History History ICD Code Overweight E66.3 Pyelonephritis N12 Lump on face R22.0 Fatigue R53.83 Skin tag L91.8 Seborrheic keratosis L82.1 Hyperplastic colonic polyp K63.5 Arthralgia, unspecified joint M25.50 Acute cystitis with hematuria N30.01 Polyp of colon, unspecified part of colo n, unspecified type K63.5 Clavus L84 Encounter for other specified special ex aminations Z01.89 Melanocytic nevi of trunk D22.5 Keratosis, seborrheic L82.1 Pilar cyst L72.11 Acute bronchitis, unspecified organism J 20.9 Insomnia, unspecified type G47.00 Abdominal pain, acute, right upper quadr ant R10.11 Pure hypercholesterolemia, unspecified E 78.00 Osteoporosis M81.0 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
--- NOTE | 2025-01-03 14:18 | CT_ITS ---
The [address] [address] Patient Name: SUSANNA CABALLERO MRN: [id number] date: 1955 Sex: F Assigned Patient Location: LAB Current Patient Location: Accession/Order Number: [id number] Exam Date: 01/04/2025 08:44 Report Date: 01/04/2025 08:48 At the request of: ELIDA BOOGIE MD Procedure: CT angio UE RT CTA right upper extremity CLINICAL DATA: High blood pressure for one month. TECHNIQUE: Intravenous contrast-enhanced CT angiography of the right upper extremity was performed. Axial, sagittal, coronal, and 3D-dimensional reconstructions were created and reviewed. These CT exams were performed using one or more of the following dose reduction techniques: Automated exposure control, adjustment of the mA and/or kV according to patient size, or use of iterative reconstruction technique. COMPARISON: None. FINDINGS: Visualized portions of the aortic arch appear unremarkable. Three-vessel arch is noted. Right subclavian axillary arteries appear unremarkable. Right brachial artery appears unremarkable. The radial and are larger arteries appear unremarkable to the level of the wrist. Common carotid arteries appear unremarkable. There is mild calcification and soft plaquing involving the carotid bulbs causing no critical stenosis or occlusion. Internal carotid arteries appear unremarkable. Visualized portions of the left subclavian artery appear unremarkable. Musculature of the right upper extremity appears unremarkable. No soft tissue swelling is seen. No fluid collection to suggest abscess. Osseous structures demonstrate degenerative change. Visualized lung parenchyma demonstrates emphysematous change. No pneumothorax. Left lobe thyroid nodule measuring 3.5 cm. No gross central airway mass. No soft tissue swelling or lymphadenopathy involving the neck. CT/CT angio UE RT IMPRESSION: No critical stenosis or occlusion involving the major arterial vessels of the right upper extremity. Impression dictated by: John Erickson Jr., D.O. 01/04/2025 8:48 AM Dictation Location: [place] [address] Electronically authenticated by: [id number] Y Date: 01/04/2025 08:48
[2025-01-03 14:31] LABS: Estimated GFR (African America >60 (>=60 mL/min/1.73m^2); Estimated GFR (Non-African Ame >60 (>=60 mL/min/1.73m^2)
== END 2025-01-03 13:56 | disposition home or self-care (01) ==
LOC: LAB 13:55
PROVIDERS: Pathology Anatomic Pathology & Clinical Pathology; PCP Family Medicine; Visit Provider Family Medicine
DX: I10 Essential (primary) hypertension (principal)
CPT/HCPCS: 36415; 73206; 82565; Q9967

== ENCOUNTER 2025-01-05 10:02 | Outpatient (OUT) | payer MEDICARE, OTHER, SELFPAY ==
--- OUTSIDE RECORDS SUMMARY | 2024-12-23 06:15 | XMS_ITS ---
Author Organization The [facility] in [place] Address [address] [place] [address] Care Team Providers Care Pipe Fitter Name Role Phone Janusz Tao Primary Care Provider REASON FOR VISIT bp check Vital Signs Height 67 in 12/23/2024 Blood pressure systolic 140 mm Hg 12/24/19 25 Blood pressure diastolic 88 mm Hg 025 Encounters Encounter Location Date Provider Diagnosis [facility] [address] [facility] [place] [address] 12/23/2024 Janusz Tao Plan Of Treatment No Information Progress Notes * Courtney CABALLERO LDOB:1955 (69 yo F)Acc No.[id number]:12/23/2024 BP Check Patient: Courtney JOEL Provider: Junior Tao ([facility])MD :1955 A ge:69 Y S ex:Female Date:12/23/2024 Address:[address], [id number] Check In:10:08 AM ESTCheck O ut:10:14 AM [...] Junior Tao ([facility])MD Date: 12/23/2024 Generated for Anine dobson/Camelia/Rosetteitting on: 01/05/2025 10:05 AM EDT
--- OUTSIDE RECORDS SUMMARY | 2024-12-30 06:30 | XMS_ITS ---
Author Organization [facility] [place] Address [address] [place] [address] Care Team Providers Care Merchandise Executive Name Role Phone Janusz Tao Primary Care Provider Allergies No Known Allergies REASON FOR VISIT BP- still elevated with increased meds- lisinopril 20mg QD, Coreg 6.25mg BID, Left arm BP 140/92, and right arm 162/100 Medications Medication SIG (Take, Route, Frequency, Duration) Notes Start Date End Date Status Carvedilol 12.5 MG 1 tablet with food O rally Twice a day for 30 days 12/06/2024 Active Vitamin D (Cholecalciferol) 50 MCG (1999) 1 capsule Orally Once a day Active Zolpidem Tartrate ER 12.5 MG TAKE 1 TABLET BY MOUTH EVERY DAY AT BEDTIME NEEDED FOR 30 DAYS for 30 12/21/2024 Active Meloxicam 15 MG 1 tablet Orally Once a day for 30 days 08/09/2024 Active tiZANidine HCl 4 MG 2 tabs Orally qhs fo r 30 days 08/09/2024 Active Calcium 600 600 MG 1 tablet with food O rally Twice a day Active Lisinopril 20 MG 1 tablet Orally Once a day for 30 days 11/29/2024 Active Social History Tobacco Use: Social History Observation Description Date Details (start date - stop date) Current Smoker 10/14/1969 - NA Tobacco Use/Smoking Question Answer Notes Patient is a current smoker When did you start smoking? 10/14/1969 How often do you smoke cigarettes? every day How many cigarettes a day do you smoke? 6-10 How soon after you wake up do you smoke your fir st cigarette? 31-60 minutes Are you interested in quitting? Not ready to vernon t Vital Signs Weight 156 lbs 12/30/2024 Height 67 in 12/30/2024 Blood pressure systolic 170 mm Hg 12/31/19 25 Blood pressure diastolic 94 mm Hg 025 BMI 24.43 kg/m2 12/30/2024 Encounters Encounter Location Date Provider Diagnosis [facility] [address] [facility] [place] [address] 12/30/2024 Janusz Tao Hypertension I10 Assessments Encounter Date Diagnosis (ICD Code) Assessment Notes Treatment Notes Treatment Clinical Notes Section Notes 12/30/2024 Hypertension (ICD-10 - I10) Plan Of Treatment Medication Medication Name Sig Start Date Stop Date Notes Carvedilol 12.5 MG 1 tablet with food O rally Twice a day for 30 days 12/06/2024 Pending Test Test Name Order Date CT Angio Upper Extremity Left 12/30/2024 CT Angio Upper Extremity Right Progress Notes * Courtney CABALLERO LDOB:1955 (69 yo F)Acc No.[id number]:12/30/2024 Progress Note Patient: Courtney JOEL Provider: Junior Tao ([facility])MD :1955 A ge:69 Y S ex:Female Date:12/30/2024 Address:[address] [place] [address] , [id number] Check In:10:21 AM ESTCheck O ut:11:14 AM EST Subjective: * Chief Complaints: * B P- still elevated with increased meds- lisinopril 20mg QD, Coreg 6.25mg BIDLeft arm BP 140/92, and right arm 162/100 * HPI: I nterim History: Patient presents for high blood pressure check. Doing well on medication. Denies chest pain, palpitations, lightheadedness, or vision changes. * ROS: G eneral/Constitutional: Lightheadedness d enies. F ever d enies. H eadache d enies. C ardiovascular: Chest pain d enies. P alpitations d enies. ? R espiratory: Cough d enies. S hortness of breath d enies. ? * Active Problem List D22.5 Melanocytic nevi of trunk Modified On:09/06/2022 Status:confirmed L72.11 Pilar cyst Modified On:09/06/2022 Status:confirmed N30.01 Acute cystitis with hematuria Modified On:09/06/2022 Status:confirmed Z01.89 Encounter for other specified special [...] Hypertension Modified On:11/29/2024 Status:confirmed * Medical History: * Surgical History: h ysterectmy 10/2018kidney transplant for sisiter 10/1979Appendectomy Tonsillectomy Repair torn retina Rt eye 12/07dental extraction 2024 * Hospitalization/Major Diagno stic Procedure: D enies Past Hospitalization * Family History: F ather: 79 yrs, diagnosed with Colon cancer. M other: 84 yrs, diagnosed with Other malignant neoplasm of unspecified site. B rother(s): alive. S ister(s): alive. Son(s): alive 43 yrs. D sonu(s): alive 41 yrs. 2 brother(s) , 1 sister(s) - healthy. 1 son(s) , 1 daughter(s) - healthy. . * Social History: T obacco Use: T obacco Use/Smoking P atient is a c urrent smoker W hen did you start smoking? H ow often do you smoke cigarettes? e very day H ow many cigarettes a day do you smoke? 6 -10 H ow soon after you wake up do you smoke your first cigarette? 3 1-60 minutes A re you interested in quitting? N ot ready to quit * Medications: T akingCalcium 600(Calcium Carbonate) 600 MG Tablet 1 tablet with food Orally Twice a day Carvedilol 6.25 MG Tablet 1 tablet with food Orally Twice a day Lisinopril 20 MG Tablet 1 tablet Orally Once a day Meloxicam 15 MG Tablet 1 tablet Orally Once a day tiZANidine HCl 4 MG Tablet 2 tabs Orally qhs Vitamin D (Cholecalciferol) 50 MCG (2000 UT) Capsule 1 capsule Orally Once a day Zolpidem Tartrate ER 12.5 MG Tablet Extended Release TAKE 1 TABLET BY MOUTH EVERY DAY AT BEDTIME NEEDED FOR 30 DAYS Medication List reviewed and reconciled with the patientTaking Calcium 600(Calcium Carbonate) 600 MG Tablet 1 tablet with food Orally Twice a day Taking Carvedilol 6.25 MG Tablet 1 tablet with food Orally Twice a day Taking Lisinopril 20 MG Tablet 1 tablet Orally Once a day Taking Meloxicam 15 MG Tablet 1 tablet Orally Once a day Taking tiZANidine HCl 4 MG Tablet 2 tabs Orally qhs Taking Vitamin D (Cholecalciferol) 50 MCG (2000 UT) Capsule 1 capsule Orally Once a day Taking Zolpidem Tartrate ER 12.5 MG Tablet Extended Release TAKE 1 TABLET BY MOUTH EVERY DAY AT BEDTIME NEEDED FOR 30 DAYS Medication List reviewed and reconciled with the patient * Allergies: N .K.D.A.no[Allergies Verified] Objective: * Vitals: W t:156lbs, Ht: 67 in, BP: 140/92 mm Hg,162/100 mm Hg,170/94mm Hg, BMI:24.43Index, Ht-cm: 170.18 cm, Wt-k.76 kg. * Examination: G eneral Examination: GENERAL APPEARANCE: in no acute distress, well developed, well nourished. LUNGS: clear to auscultation bilaterally. CARDIO: regular rate and rhythm, S1, S2 normal, no murmurs. Assessment: * Assessment: 1. H ypertension - I10 (Primary) Plan: * Treatment: * Procedure Codes: * * Sign off status: Completed Visit Status: C HK (Check Out) true * Provider: Junior Tao ([facility])MD Date: 12/30/2024 Generated for Printi ng/Camelia/eTransmitting on: 01/05/2025 10:05 AM EDT History and Physical Notes * Examination Category Sub-Category Detail Notes Category Not es General Examination GENERAL APPEARANCE: in no ac xochitl distress, well developed, well nourished CARDIO: regular rate and rhy thm, S1, S2 normal, no murmurs LUNGS: clear to auscultatio n bilaterally
--- OUTSIDE RECORDS SUMMARY | 2025-01-04 11:33 | XMS_ITS ---
Author Organization The [facility] in [place] Address [address] [place] [address] Care Team Providers Care Collection Supervisor Name Role Phone Udaymaegan Janusz Primary Care Provider Encounters Encounter Location Date Provider Diagnosis [address] [place] [address] 01/04/2025 Janusz Tao Plan Of Treatment No Information Progress Notes * ADACourtney LDOB:1955 (69 yo F)Acc No.[id number]:01/04/2025 UNLOCKED PROGRESS NOTE Patient: Courtney JOEL :1955 A ge:69 Y S ex:Female Address:[place] [address] * * Date:
--- NOTE | 2025-01-05 10:06 | CT_ITS ---
The [address] [address] Patient Name: SUSANNA CABALLERO MRN: [id number] date: 1955 Sex: F Assigned Patient Location: CT Current Patient Location: CT Accession/Order Number: [id number] Exam Date: 01/05/2025 11:04 Report Date: 01/05/2025 11:08 At the request of: ELIDA BOOGIE MD Procedure: CT angio UE LT CTA left upper extremity CLINICAL DATA: Hypertension. TECHNIQUE: Intravenous contrast-enhanced CT angiography of the left upper extremity was performed. Axial, sagittal, coronal, and 3D-dimensional reconstructions were created and reviewed. These CT exams were performed using one or more of the following dose reduction techniques: Automated exposure control, adjustment of the mA and/or kV according to patient size, or use of iterative reconstruction technique. COMPARISON: None. FINDINGS: 3 vessel arch is noted. Left subclavian artery appears unremarkable. Left axillary and brachial artery appears unremarkable. Radial and ulnar arteries appear unremarkable to the level of the wrist. Musculature appears unremarkable. No soft tissue swelling. No fluid collection to suggest abscess. Osseous structures demonstrate degenerative change. Lung parenchyma demonstrates no acute process. No left axillary lymphadenopathy. 3.3 cm nodule left lobe of the thyroid gland. CT/CT angio UE LT IMPRESSION: No critical stenosis or occlusion involving the major vessels of the left upper extremity. 3.3 cm nodule left lobe of the thyroid gland. This can be further evaluated by ultrasound. Impression dictated by: John Erickson Jr., DDeborahODeborah 01/05/2025 11:08 AM Dictation Location: [place] [address] Electronically authenticated by: [id number] Y Date: 01/05/2025 11:08
--- OUTSIDE RECORDS SUMMARY | 2025-01-05 10:06 | XMS_ITS | Clinical Summary ---
Author Organization [facility] Address [address] [place] [address] Care Team Providers Care Inker And Opaquer Name Role Phone Ramin Isaac Primary Care [...] (1 - 1-dose 75+ series) 2028 Insurance [employer] PPO Care Teams Inker And Opaquer Relationship Specialty Start Date End Date Ramin Isaac [address] [place] [facility] [place] [id number] PCP - General Grain I Farmworker 04/25/11
--- OUTSIDE RECORDS SUMMARY | 2025-01-05 10:06 | XMS_ITS | Clinical Summary ---
Author Organization [facility] Address [address] [place] [address] Care Team Providers Care Plush Finisher Name Role Phone Unavailable Primary Care Provider [...]
--- OUTSIDE RECORDS SUMMARY | 2025-01-05 10:06 | XMS_ITS | Patient Health Record ---
Author Organization [facility] in [place] Address [address] [place] [address] Care Team Providers Care Forklift Wheel Loader Name Role Phone Janusz Boogie Primary Care Provider [phone] StephanieAvani blueela Unavailable [phone] Allergies No Known Allergies Results Component Value Reference Range Notes FREE T3 Reviewed date:03/10/2024 01:01:24 PM Interpretation: Performing Lab: Notes/Report: [facility] , Free T3 3.36 2.18-3.98 pg/mL Performing Lab: see note ML - [facility] LB LIPID PROFILE Reviewed date:03/10/2024 01:01:24 PM Interpretation: Performing Lab: Notes/Report: [facility] , Triglycerides 175 <=150 mg/dL Cholesterol 234 <=200 mg/dL HDL Cholesterol 54 40-60 mg/dL > or =60 mg/dl - LOW CARDIOVASCULAR RISK <40 mg/dl - HIGH CARDIOVASCULAR RISK LDL Cholesterol Calculated 145.0 100-129 mg/dl NEAR OR ABOVE OPTIMAL <100 mg/dl OPTIMAL >190 mg/dl VERY HIGH 130-159 mg/dl BORDERLINE HIGH 160-189 mg/dl HIGH VLDL CHOLESTEROL 35.0 Chol HDL Ratio 4.3 3.3 - 4.4 LOW RISK >11.0 HIGH RISK 7.1 - 11.0 MODERATE RISK 4.4 - 7.1 AVERAGE RISK Performing Lab: see note ML - [facility] LB PROF 14(COMP METB) Reviewed date:03/10/2024 01:01:24 PM Interpretation: Performing Lab: Notes/Report: [facility] , Sodium 137 136-145 mmol/L Potassium [...] 1.1 Performing Lab: see note ML - [facility] LB T4 Reviewed date:03/10/2024 01:01:24 PM Interpretation: Performing Lab: Notes/Report: [facility] , T4 Thyroxine 7.90 4.80-13.90 ug/dL Performing Lab: see note ML - [facility] LB TSH Reviewed date:03/10/2024 01:01:24 PM Interpretation: Performing Lab: Notes/Report: [facility] , Thyroid Stimulating Hormone 0.986 0.358-3.740 uIU/mL Performing Lab: see note ML - [facility] LB CREATININE Reviewed date:01/03/2025 02:41:26 PM Interpretation: Performing Lab: Notes/Report: [facility] , Creatinine 0.87 0.55-1.02 mg/dL Estimated GFR ( Diana >60 >=60 mL/min/1.73m 2 Estimated GFR (Non- Siomara >60 >=60 mL/min/1.73m 2 Performing Lab: see note ML - [facility] LB MM tomosynthesis screening B I Reviewed date:04/11/2024 10:39:37 PM Interpretation: Performing Lab: Notes/Report: Source Facility: [facility] [place] [address] [place] [address] Mammography Report Signed Patient: SUSANAN CABALLERO MR#: [id number] : 1955 Acct:[id number] Age/Sex: 68 / F ADM Date: 04/08/24 Loc: MAMMO Attending Dr: Elida Boogie M.D. Ordering Physician: Elida Boogie M.D. Results: Date of Service: 04/08/24 Follow Up: Procedure(s): MM tomosynthesis screening BI Accession Number(s): [id number] cc: Elida Boogie M.D. Patient Name: SUSANNA CABALLERO MR#: [id number] : 1955 Exam Date: 04/08/2024 Ordering Doctor: [...] lung cancer at age 80. LOCATION: [facility] BREAST COMPOSITION: The breasts are heterogeneously [...] M.D. Signed By: 04/11/241932 DD/ 31 TD/TT: P[employer] Control Service Sales Agent: [place] [address] Mammography Report Signed Patient: SUSANNA CABALLERO MR#: [id number] : 1955 Acct:[id number] Age/Sex: 68 / F ADM Date: 04/08/24 Loc: MAMMO Attending Dr: Nas Boogie M.D. Ordering Physician: Elida Boogie M.D. Results: Date of Service: 04/08/24 Follow Up: Procedure(s): MM tomosynthesis screening BI Accession Number(s): [id number] cc: Elida Boogie M.D. Patient Name: SUSANNA CABALLERO MR#: [id number] : 1955 Exam Date: 04/08/2024 Ordering Doctor: [...] lung cancer at age 80. LOCATION: The [facility] BREAST COMPOSITION: The breasts are heterogeneously dense,which [...] M.D. Signed By: 04/11/241932 DD/ 31 TD/TT: Pest Control Service Sales Agent: IRON Reviewed date:03/10/2024 01:01:24 PM Interpretation: Performing Lab: Notes/Report: [facility] , Iron 146.0 50.0-170.0 ug/dL Performing Lab: see note ML - [facility] LB GLYCOHEMOGLOBIN A1C Reviewed date:03/10/2024 01:01:24 PM Interpretation: Performing Lab: Notes/Report: [facility] , Glycohemoglobin A1C 5.4 4.5-6.2 % ADA RECOMMENDED LIMIT 4.0 - 6.0 > 7.0 ACTION SUGGESTED ADA THERAPEUTIC TARGET < 7.0 Estimated Average Glucose 108 Performing Lab: see note - [facility] LB CBC AUTO DIFF Reviewed date:03/10/2024 01:01:24 PM Interpretation: Performing Lab: Notes/Report: [facility] , White Blood Count 8.8 4.0-11.0 [...] 3/uL Performing Lab: see note ML - [facility] CT angio UE RT Reviewed date:01/04/2025 03:34:53 PM Interpretation: Performing Lab: Notes/Report: Source Facility: [place] [address] CT Scan Report Signed Patient: SUSANNA CABALLERO MR#: [id number] : 1955 Acct:[id number] Age/Sex: 69 / F ADM Date: 01/03/25 Loc: LAB Attending Dr: Elida Boogie M.D. Ordering Physician: Elida Boogie M.D. Date of Service: 01/03/25 Procedure(s): CT angio UE RT Accession Number(s): [id number] cc: Elida Boogie M.D. [place] [id number] Patient Name: SUSANNA CABALLERO MRN: [id number] date: 1955 Sex: F Assigned Patient Location: LAB Current Patient Location: Accession/Order Number: [id number] Exam Date: 01/04/2025 08:44 Report Date: 01/04/2025 08:48 At the request of: ELIDA BOOGIE MD Procedure: CT angio UE RT CTA right upper extremity CLINICAL DATA: High blood pressure for one month. TECHNIQUE: Intravenous contrast-enhanced CT angiography of the right upper extremity was performed. Axial, sagittal, coronal, and 3D-dimensional reconstructions were created and reviewed. These CT exams were performed using one or more of the following dose reduction techniques: Automated exposure control, adjustment of the mA and/or kV according to patient size, or use of iterative reconstruction technique. COMPARISON: None. FINDINGS: Visualized portions of the aortic arch appear unremarkable. Three-vessel arch is noted. Right subclavian axillary arteries appear unremarkable. Right brachial artery appears unremarkable. The radial and are larger arteries appear unremarkable to the level of the wrist. Common carotid arteries appear unremarkable. There is mild calcification and soft plaquing involving the carotid bulbs causing no critical stenosis or occlusion. Internal carotid arteries appear unremarkable. Visualized portions of the left subclavian artery appear unremarkable. Musculature of the right upper extremity appears unremarkable. No soft tissue swelling is seen. No fluid collection to suggest abscess. Osseous structures demonstrate degenerative change. Visualized lung parenchyma demonstrates emphysematous change. No pneumothorax. Left lobe thyroid nodule measuring 3.5 cm. No gross central airway mass. No soft tissue swelling or lymphadenopathy involving the neck. CT/CT angio UE RT IMPRESSION: No critical stenosis or occlusion involving the major arterial vessels of the right upper extremity. Impression dictated by: John Erickson Jr., D.ODeborah 01/04/2025 8:48 AM Dictation Location: [place] [address] Electronically authenticated by: [id number] Y Date: 01/04/2025 08:48 Dictated By: John Erickson M.D. Signed By: 01/04/25 0851 DD/ TD/TT: Pest Control Service Sales Agent: [place] [address] CT Scan Report Signed Patient: SUSANNA CABALLERO MR#: [id number] : 1955 Acct:[id number] Age/Sex: 69 / F ADM Date: 01/03/25 Loc: LAB Attending Dr: Nas Boogie M.D. Ordering Physician: Elida Boogie M.D. Date of Service: 01/03/25 Procedure(s): CT ang io UE RT Accession Number(s): [id number] cc: Elida Boogie M.D. [address] [address] Patient Name: SUSANNA CABALLERO MRN: [id number] date: 1955 Sex: F Assigned Patient Location: LAB Current Patient Location: Accession/Order Numb er: [id number] Exam Date: 01/04/2025 08:44 Report Date: 01/04/2025 08:48 At the request of: ELIDA BOOGIE MD Procedure: CT angio UE RT CTA right upper extremity CLINICAL DATA: High blood pressure for one month. TECHNIQUE: Intraveno us contrast-enhanced CT angiography of the right upper extremity was performed. Axial, sagittal, coronal, and 3D-dimensional reconstructions were created and reviewed. These CT exams were performed using one or more of the following dose reduction techniques: Automated exposure control, adjustment of the mA and/or kV according to patient size, or use of iterative reconstruction technique. COMPARISON: None. FINDINGS: Visualized portions of the aortic arch appear unremarkable. Three-vessel arch is noted. Right subclavian axillary arteries appear unremarkable. Right brachial artery appe ars unremarkable. The radial and are larger arteries appear unremarkable to the level of the wrist. Common carotid arteries appear unremarkable. There is mild calcification and soft plaquing involving the carotid bulbs causin g no critical stenosis or occlusion. Internal carotid arteries appear unremarkable. Visualized portions of the left subclavian artery appear unremarkable. Musculature of the right upper extremity appears unremarkable. No soft tissue swelling is seen. No fluid collection to suggest abscess. Osseous structures demonstrate degenerative change. Visualized lung parenchyma demonstrates emphysematous change. No pneumothorax. Left lobe thyroid nodule measuring 3.5 cm. No gross central airway mass. No soft tissue swelling or lymphadenopathy involving the neck. CT/CT angio UE RT IMPRESSION: No critical stenosis or occlusion involving the major arterial vessels of the right upper extremity. Impression dictated by: John Erickson Jr., D.O. 01/04/2025 8:48 AM Dictation Location: [place] [address] Electronically authenticated by: [id number] Y Date: 01/04/2025 08:48 Dictated By: John Erickson M.D. Signed By: 01/04/25 0851 DD/ TD/TT: Pest Control Service Sales Agent: XR lumbar spine min 4V Reviewed date:08/10/2024 02:32:42 PM Interpretation: Performing Lab: Notes/Report: Source Facility: [place] [address] [place] [address] XRay Report Signed Patient: SUSANNA CABALLERO MR#: [id number] : 1955 Acct:[id number] Age/Sex: 68 / F ADM Date: 08/09/24 Loc: [facility] Attending Dr: Elida Boogie M.D. Ordering Physician: Elida Boogie M.D. Date of Service: 08/09/24 Procedure(s): XR lumbar spine min 4V Accession Number(s): [id number] cc: Elida Boogie M.D. [address] [address] Patient Name: SUSANNA CABALLERO MRN: [id number] date: 1955 Sex: F Assigned Patient Location: [facility] Current Patient Location: Accession/Order Number: [id number] Exam Date: 08/10/2024 10:37 Report Date: 08/10/2024 [...] Sana White M.D.08/10/2024 10:41 AM Dictation Location: [place] [address] Electronically authenticated by: [id number] Y Date: 08/10/2024 10:41 Dictated By: Sana White M.D. Signed By: 08/10/24 1043 DD/ 1041 TD/TT: Pest Control Service Sales Agent: [place] [address] XRay Report Signed Patient: SUSANNA CABALLERO MR#: [id number] : 1955 Acct:[id number] Age/Sex: 68 / F ADM Date: 08/09/24 Loc: RAD Attending Dr: Nas Boogie M.D. Ordering Physician: Elida Boogie M.D. Date of Service: 08/09/24 Procedure(s): XR lum bar spine min 4V Accession Number(s): [id number] cc: Elida Boogie M.D. [place] [id number] Patient Name: SUSANNA CABALLERO MRN: [id number] date: 1955 Sex: F Assigned Patient Location: [facility] Current Patient Location: Accession/Order Numb er: [id number] Exam Date: 08/10/2024 10:37 Report Date: 08/10/2024 [...] Sana White M.D.08/10/2024 10:41 AM Dictation Location: [place] [address] Electronically authenticated by: [id number] Y Date: 08/10/2024 10:41 Dictated By: Sana White M.D. Signed By: 08/10/24 1043 DD/ 1041 TD/TT: Pest Control Service Sales Agent: Reason For Referral No Information Medications Medication [...] Administration Date Status Comme nts Flu, Fluad (4562-0020) (60424) 65 yrs+, single-dose syringe IM Intramuscular 03/25/2023 [...] in quitting? Not ready to vernon t Alcohol Screen (Audit-C) Question Answer Notes Did you have a drink contain ing alcohol in the past year? Yes How often did you have 6 or more drinks on one occasion in the past year? Never (0 point) How many drinks did you have on a typical day when you were drinking in the past year? 3 or 4 drinks (1 point) How often did you have a dri nk containing alcohol in the past year? Daily or almost daily (4 points) Points 5 Interpretation Positive AUDIT-C (Standard) Question Answer Notes Did you have a drink contain ing alcohol in the past year? Yes How often did you have six o r more drinks on one occasion in the past year? Less than monthly (1 point) How many drinks did you have on a typical day when you were drinking in the past year? 3 or 4 drinks (1 point) How often did you have a dri nk containing alcohol in the past year? 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) Active confirmed Problem 47939888 Acute cystitis with hematuria (N30.01) Active confirmed Problem 747713675 Encounter for other specified special examinations (Z01.89) Active confirmed Problem Hypertension (90304146) Hypertension (I10) Active confirmed Problem Diverticular disease of colon (293637016) Diverticulosis (K57.90) Active confirmed Problem 23089354 Acute bronchitis , unspecified organism (J20.9) Active confirmed Problem 683280331 Keratosis, seborrheic (L82.1) Active confirmed Problem 902882686 Abdominal pain, acute, right upper quadrant (R10.11) Active confirmed Problem 406757412 Insomnia, unspecified type (G47.00) Active confirmed Problem 16156452 Arthralgia, unspecified joint (M25.50) Active confirmed Problem 318274513 Pure hypercholesterolem ia, unspecified (E78.00) Active confirmed Problem 65241136 Polyp of colon, unspecified part of colon, unspecified type (K63.5) Active confirmed Problem 58130891 Clavus (L84) Active confirmed Problem Low back pain at multiple sites (M54.50) Active confirmed Vital Signs Blood pressure diastolic 94 mm Hg 12/30/2024 Height 67 in 12/30/2024 Blood pressure systolic 170 mm Hg 12/30/2024 Weight 156 lbs 12/30/2024 BMI 24.43 kg/m2 12/30/2024 Procedures Procedure Date Ordered Date Performed Result Body Sit e Colonoscopy 05/19/2024 Normal Encounters Encounter Location Date Provider Diagnosis [facility] [address] [place] [address] 01/04/2025 Janusz maegan [facility] [address] [place] [address] 12/21/2024 Janusz Boogie [facility] [address] [place] [address] 12/23/2024 Janusz Boogie Hypertension I10 [facility] [address] [place] [address] 08/27/2024 Janusz maegan [facility] [address] [place] [address] 09/27/2024 Janusz Boogie [facility] [address] [place] [address] 10/26/2024 Janusz Boogie [facility] [address] [place] [address] 11/23/2024 Janusz Boogie [facility] [address] [place] [address] 12/10/2024 Janusz maegan [facility] [address] [place] [address] 12/16/2024 Janusz maegan [facility] [address] [place] [address] 04/11/2024 Celeste Stephanie [facility] [address] [place] [address] 05/03/2024 Janusz Boogie [facility] [address] [place] [address] 05/31/2024 Janusz [facility] [address] [place] [address] 06/29/2024 Janusz Boogie [facility] [address] [place] [address] 07/26/2024 Janusz maegan [facility] [address] [place] [address] 08/10/2024 Janusz maegan [facility] [address] [place] [address] 03/10/2024 Janusz Boogie [facility] [address] [place] [address] 04/02/2024 Janusz maegan [facility] [address] [place] [address] 12/06/2024 Janusz Hoy Hypertension I10 [place] [address] [place] [address] 12/10/2024 Janusz Hoy Hypertension I10 [facility] [address] [place] [address] 12/16/2024 Janusz Hoy Hypertension I10 [facility] [address] [place] [address] 12/23/2024 Janusz Hoy [facility] [address] [place] [address] 03/08/2024 Janusz Hoy Insomnia, unspecifie d type G47.00 ; Pure hypercholesterolemia, unspecified E78.00 and Other specified disorders of bone density and structure, unspecified site M85.80 [place] [address] [place] [address] 08/09/2024 Janusz Hoy Low back pain at multiple sites M54.50 [place] [address] [place] [address] 11/29/2024 Janusz Hoy Hypertension I10 [address] [address] 12/30/2024 Janusz Hoy Hypertension I10 Assessments Encounter Date Diagnosis (ICD [...] METABOLIC PANEL) 3 CMP (COMPLETE METABOLIC PANEL) 4 HEMOGLOBIN A1C (GLYCO) 03/25/2023 HEMOGLOBIN A1C (GLYCO) 03/08/2024 IRON, TOTAL 03/08/2024 LIPID PANEL (CHOL/TRIG/HDL/LDL) 03/08/20 24 LIPID PANEL (CHOL/TRIG/HDL/LDL) 03/25/20 23 CBC WITH DIFF 03/25/2023 CBC WITH DIFF [...] End Date [place]IC[place] [address] [place] [address] [id number] DeborahSusanna Self - patient is the insured [address] [id number] DeborahSusanna Self - patient is the insured Medical [...] detachme nt OD Surgical History Surgery Date(Month/Year) hysterectmy 10/2018 dental extraction 2024 Repair torn retina Rt eye 12/07 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
== END 2025-01-05 10:03 | disposition home or self-care (01) ==
LOC: CT 10:03
PROVIDERS: PCP Family Medicine; Visit Provider Family Medicine
DX: E04.1 Nontoxic single thyroid nodule (principal); I10 Essential (primary) hypertension
CPT/HCPCS: 73206; Q9967

== ENCOUNTER 2025-01-10 13:33 | Outpatient (OUT) | payer MEDICARE, OTHER, SELFPAY ==
--- NOTE | 2025-01-10 13:35 | US_ITS ---
The [address] [address] Patient Name: SUSANNA CABALLERO MRN: [id number] date: 1955 Sex: F Assigned Patient Location: US Current Patient Location: US Accession/Order Number: [id number] Exam Date: 01/10/2025 20:55 Report Date: 01/10/2025 20:57 At the request of: ELIDA BOOGIE MD Procedure: US thyroid Thyroid ultrasound Reason for exam: Thyroid cyst Comparison: none Technique: Grayscale and color Doppler images of the thyroid gland were obtained. Findings: The right lobe measures 4.7 x 1.5 x 2.1 cm. The left lobe measures 4.7 x 2.7 x 2.5 cm. The isthmus measures 4 mm. A solid/cystic nodule seen involving the mid to inferior aspect of the left lobe measuring 33 x 31 x 32 mm. No solid component is seen. Additional smaller colloid cyst is seen involving the inferior pole of the right lobe measuring 4 x 3 x 4 mm. No solid nodule is noted. US/US thyroid Impression: Solid/cystic nodule involving the mid to inferior aspect of the left lobe measuring 33 x 31 x 32 mm. FNA should be considered. Impression dictated by: John Erickson Jr., D.O. 01/10/2025 8:57 PM Dictation Location: [place] [address] Electronically authenticated by: [id number] Y Date: 01/10/2025 20:57
--- OUTSIDE RECORDS SUMMARY | 2025-01-10 14:26 | XMS_ITS | CCD ---
Author Organization [facility] Care Team Providers Care Philosophy Faculty Name Role Phone KEAGAN, DR MARRERO Admitting [...] Consulting Unavailable Elida Tao Primary Care Physician [phone] Herbert Rainey Attending Unavailable Nill, Herbert Bartholomew Admitting Unavailable NILL, Herbert Bartholomew Attending Unavailable NILL, Herbert Bartholomew Attending Unavailable NILL, Herbert Bartholomew Attending Unavailable NILL, Herbert Bartholomew Attending Unavailable Allergies Allergy Classification Reported Allergen(s) Allergy Type Date of Onset Reaction(s) Facility (2 sources) Naproxen; Translations: [Aleve] Drug Allergy [facility] Repository (2 sources) Naproxen; Translations: [naproxen] Drug Allergy [facility] Medications Current Medications Medication Drug Class(es) [...] to family history of colon cancer. Normal [facility] Pathology Request for Lab Co rpon 05-19-2024 Pathology Request for Lab Kristofer Normal [facility] Comment on above: Order Comment: PATHO LOGY GI SPECIMEN Result Comment: See report. Scanned copy available in EMR. PERFORMED BY: [place] [address] PATHOLOGIST MEDICAL RECORDS ANALYST YUAN GLEASON M.D. Performed By: #### P ATH TO [facility] #### [address] Ambulatory Visit Summaryon 1 Ambulatory Visit [...] for choosing us for your care. Normal [facility] Physician Referralon 024 Physician Referral [id number] [id number] F Normal [facility] Physician Referral [id number] 4030 [id number] F Normal [facility] INSULINon 04-05-2022 Insulin 9.4 uIU/mL Normal 2.6-24.9 [facility] Comment on above: Performed By: #### I NSULIN #### [facility] [address] [address] [address] May Santos MG MAMM SCREEN 3D MICHAEL CADon 04-05-2022 MG MAMM SCREEN 3D MICHAEL CAD Patient: SUSANNA CABALLERO Exam Date: 04/05/2022 : 1955 Gender:F Ordering : DR ELIDA TAO . Admission #: [id number] Family : Order #: [id number] CLICK HERE TO VIEW EXAM RADIOLOGY REPORT [...] lung cancer at age 80. LOCATION: [facility] BREAST COMPOSITION: Heterogeneously dense,which may obscure [...] MD on 04/05/2022 at 10:08 Normal [facility] CBC AUTO DIFFon 04-04-2022 BASO # 0.0 103/ul Normal 0.0-0.1 [facility] Comment on above: Performed By: #### C BC ####[facility] [address] [id number]. May Santos Basophils/100 WBC (Bld) 0.3 % Normal 0.2-2.0 [facility] Comment on above: Performed By: #### C BC ####[facility] [address]fh[address] [id number]. May Santos EO # 0.2 103/ul Normal 0.0-0.7 [facility] Comment on above: Performed By: #### C BC ####[facility] Qeglasjgjt[address] [place], [place] [address]Dr. May Santos Eosinophils/100 WBC (Bld) 2.0 % Normal 0.9-7.0 [facility] Comment on above: Performed By: #### C BC ####[facility] Nrkz[address]reds[address] [place], [place] [address]Dr. May Santos Erythrocyte distribution width (RBC) [Ratio] 12.7 % Normal 11.0-15.0 [facility] Comment on above: Performed By: #### C BC ####[facility] Jxaqzcmtle[address] [place], [place] [address]Dr. May Santos Hematocrit (Bld) [Volume fraction] 44.7 % Normal 36.0-48.0 [facility] Comment on above: Performed By: #### C BC ####[facility] Fjzzssux[address] [place], [place] [address]Dr. May Santos Hemoglobin (Bld) [Mass/Vol] 14.9 g/dL Normal 12.0-16.0 [facility] Comment on above: Performed By: #### C BC ####[facility] [address] [address]Dr. May Santos IG # 0.05 10e3/ul Critically high 0.00-0.03 [facility] Comment on above: Performed By: #### C BC ####[facility] Isj[address]nfqow[address] [place], [place] [address]Dr. May Santos IG % 0.6 % Critically high 0.0-0.5 [facility] Comment on above: Performed By: #### C BC ####[facility] [address]kex[address] [id number]. May Santos LYMPH # 2.9 103/ul Normal 1.2-3.8 [facility] Comment on above: Performed By: #### C BC ####[facility] V[address]qpq[address] [address]Dr. May Santos Lymphocytes/100 WBC (Bld) 32.9 % Normal 20.5-60.0 [facility] Comment on above: Performed By: #### C BC ####[facility] F[address]xs[address]rmm[address] [address]Dr. May Santos MANUAL DIFF REQ NO Normal [facility] Comment on above: Performed By: #### C BC ####[facility] [address]yglpe[address] [address]Dr. May Santos MCH (RBC) [Entitic mass] 33.0 pg Normal 26.7-34.0 [facility] Comment on above: Performed By: #### C BC ####[facility] [address]llla[address] [address]Dr. May Santos MCHC (RBC) [Mass/Vol] 33.3 g/dL Normal 29.9-35.2 [facility] Comment on above: Performed By: #### C BC ####[facility] [address]vkedh[address] [address]Dr. May Santos MCV (RBC) [Entitic vol] 98.9 fL Normal 81.0-99.0 [facility] Comment on above: Performed By: #### C BC ####[facility] H[address] [address]Dr. May Santos MONO # 0.7 103/ul Normal 0.3-0.8 [facility] Comment on above: Performed By: #### C BC ####[facility] Hzticrqaqx[address] [address]Dr. May Santos Monocytes/100 WBC (Bld) 8.4 % Normal 1.7-12.0 [facility] Comment on above: Performed By: #### C BC ####[facility] W[address]qluizeb[address] [id number]. May Santos NEUT # 4.9 103/ul Normal 1.4-6.5 [facility] Comment on above: Performed By: #### C BC ####[facility] Idpbiwdflc[address] [address]Dr. May Santos Neutrophils/100 WBC (Bld) 55.8 % Normal 43.0-75.0 [facility] Comment on above: Performed By: #### C BC ####[facility] Im[address]htscrt[address] [address]Dr. May Santos Platelet mean volume (Bld) [Entitic vol] 10.5 fL Normal 9.5-13.5 [facility] Comment on above: Performed By: #### C BC ####[facility] Qjvmhrnlus[address] [place], [place] [address]Dr. May Santos PLT 341 103/ul Normal 150-450 [facility] Comment on above: Performed By: #### C BC ####[facility] Oovvpypdts[address] [place], [place] [address]Dr. May Santos RBC 4.52 106/ul Normal 4.20-5.40 [facility] Comment on above: Performed By: #### C BC ####[facility] Yxyby[address]wfx[address] [place], [place] [address]Dr. May Santos WBC 8.9 103/ul Normal 4.0-11.0 [facility] Comment on above: Performed By: #### C BC ####[facility] Menxykdurl3[address] [place], [place] [address]Dr. May Santos FREE THYROXINE INDEX T7on -2021 FTI 2.57 Normal 1.30-4.50 [facility] Comment on above: Performed By: #### T 7, TSH, LIPID, CMP ####[facility] [address]px[address] [address]Dr. May Santos T3U 33.0 % Normal 30.0-39.0 [facility] Comment on above: Performed By: #### T 7, TSH, LIPID, CMP ####[facility] Jigtyudper[address] [address]Dr. May Santos T4 [Mass/Vol] 7.80 ug/dL Normal 4.80-13.90 [facility] Comment on above: Performed By: #### T 7, TSH, LIPID, CMP ####[facility] Ilf[address] [id number] Santos GLYCOHEMOGLOBIN A1Con 2021 ADA RECOMMENDATION SEE BELOW Normal [facility] Comment on above: Result Comment: ADA RECOMMENDED LIMIT 4.0 - 6.0 ADA THERAPEUTIC TARGET < 7.0 ACTION SUGGESTED > 7.0 Performed By: #### A 1C #### [facility] [address] [address] [address] May Santos Glucose [Mass/Vol] 114 mg/dL Normal [facility] Comment on above: Performed By: #### A 1C #### [facility] [address] [address] [address] May Santos HbA1c (Bld) [Mass fraction] 5.6 % Normal 4.5-6.2 [facility] Comment on above: Performed By: #### A 1C #### [facility] [address] [address] [address] May Santos IRONon 04-04-2022 Iron [Mass/Vol] 100.0 ug/dL Normal 50.0-170.0 [facility] Comment on above: Performed By: #### V ITAD, IRON ####[facility] R[address]ds[address] [id number]. May Santos LIPID PROFILEon 04-04-2022 CHOL-HDL RATIO NORM SEE BELOW Normal [facility] Comment on above: Result Comment: 3.3 - 4.4 LOW RISK 4.4 - 7.1 AVERAGE RISK 7.1 - 11.0 MODERATE RISK >11.0 HIGH RISK Performed By: #### T 7, TSH, LIPID, CMP ####[facility] V[address] [address]Dr. Yilan Santos Cholesterol [Mass/Vol] 195 mg/dL Normal <=200 [facility] Comment on above: Performed By: #### T 7, TSH, LIPID, CMP ####[facility] Mrigxmlxsw[address] [address]Dr. May Santos Cholesterol in HDL [Mass/Vol] 47 mg/dL Normal 40-60 [facility] Comment on above: Performed By: #### T 7, TSH, LIPID, CMP ####[facility] K[address]al[address] [id number]. Loveiliana Santos Cholesterol in LDL [Mass/Vol] 130.0 mg/dL Normal [facility] Comment on above: Performed By: #### T 7, TSH, LIPID, CMP ####[facility] Navpcjhokj[address] [place], [place] [address]Dr. May Santos Cholesterol.total/C holesterol in HDL [Mass ratio] 4.1 {ratio} Normal [facility] Comment on above: Performed By: #### T 7, TSH, LIPID, CMP ####[facility] [address] [address]Dr. Lovelan Santos HDL NORMAL > or = 60 mg/dl - LO W CARDIOVASCULAR RISK <40 mg/dl - HIGH CARDIOVASCULAR RISK Normal [facility] Comment on above: Performed By: #### T 7, TSH, LIPID, CMP ####[facility] [address] [address]Dr. May Santos LDL CALC NORMAL SEE BELOW Normal [facility] Comment on above: Result Comment: <100 mg/dl OPTIMAL 100 - 129 mg/dl NEAR OR ABOVE OPTIMAL 130 - 159 mg/dl BORDERLINE HIGH 160 - 189 mg/dl HIGH >190 mg/dl VERY HIGH Performed By: #### T 7, TSH, LIPID, CMP ####[facility] [address] [address]Dr. Lovelan Santos Triglyceride [Mass/Vol] 90 mg/dL Normal <=150 [facility] Comment on above: Performed By: #### T 7, TSH, LIPID, CMP ####[facility] Qpqdlrammx[address] [address]Dr. May Santos VLDL CALC 18.0 mg/dL Normal [facility] Comment on above: Performed By: #### T 7, TSH, LIPID, CMP ####[facility] [address]em[address]zd[address] [address]Dr. May Santos PROF 14(COMP METB)on 022 Albumin [Mass/Vol] 3.7 g/dL Normal 3.4-5.0 [facility] Comment on above: Performed By: #### T 7, TSH, LIPID, CMP ####[facility] Q[address]udvrrj[address] [address]Dr. May Santos Albumin/Globulin [Mass ratio] 0.9 {ratio} Normal [facility] Comment on above: Performed By: #### T 7, TSH, LIPID, CMP ####[facility] Wptwbvfwyh[address] [place], [place] [address]Dr. May Santos ALP [Catalytic activity/Vol] 94 U/L Normal 46-116 [facility] Comment on above: Performed By: #### T 7, TSH, LIPID, CMP ####[facility] Bxmuscn[address] [address]Dr. May Santos ALT [Catalytic activity/Vol] 19 U/L Normal 14-59 [facility] Comment on above: Performed By: #### T 7, TSH, LIPID, CMP ####[facility] V[address]clcuujp[address] [address]Dr. May Santos Anion gap [Moles/Vol] 14.1 mmol/L Normal [facility] Comment on above: Performed By: #### T 7, TSH, LIPID, CMP ####[facility] R[address]ymttopc[address] [address]Dr. May Santos AST [Catalytic activity/Vol] 16 U/L Normal 15-37 [facility] Comment on above: Performed By: #### T 7, TSH, LIPID, CMP ####[facility] [address]byqmoc[address] [address]Dr. May Santos Bilirubin [Mass/Vol] 0.5 mg/dL Normal 0.2-1.0 [facility] Comment on above: Performed By: #### T 7, TSH, LIPID, CMP ####[facility] L[address]qolyyis[address] [address]Dr. May Santos Calcium [Mass/Vol] 9.1 mg/dL Normal 8.5-10.1 [facility] Comment on above: Performed By: #### T 7, TSH, LIPID, CMP ####[facility] Qllbckrnmm[address] [place], [place] [address]Dr. May Santos Chloride [Moles/Vol] 104 mmol/L Normal 98-107 [facility] Comment on above: Performed By: #### T 7, TSH, LIPID, CMP ####[facility] Kenmrcbfpi70[address] [place], [place] [address]Dr. May Santos CO2 [Moles/Vol] 26.6 mmol/L Normal 21.0-32.0 [facility] Comment on above: Performed By: #### T 7, TSH, LIPID, CMP ####[facility] Wlrdgbjbao[address] [place], [place] [address]Dr. May Santos Creatinine [Mass/Vol] 0.82 mg/dL Normal 0.55-1.02 [facility] Comment on above: Performed By: #### T 7, TSH, LIPID, CMP ####[facility] Hphaorereb[address] [place], [place] [address]Dr. May Santos EGFR-AF YEMENI >60 Normal >=60 [facility] Comment on above: Performed By: #### T 7, TSH, LIPID, CMP ####[facility] Jpezxrwjhi97[address] [place], [place] [address]Dr. May Santos EGFR-NON AF YEMENI >60 Normal >=60 [facility] Comment on above: Performed By: #### T 7, TSH, LIPID, CMP ####[facility] Gigukaxbla8[address] [place], [place] [address]Dr. May Santos Globulin (S) [Mass/Vol] 4.0 g/dL Normal [facility] Comment on above: Performed By: #### T 7, TSH, LIPID, CMP ####[facility] Vlaoorplpb[address] [place], [place] [address]Dr. May Santos Glucose [Mass/Vol] 120 mg/dL Critically high 74-106 [facility] Comment on above: Performed By: #### T 7, TSH, LIPID, CMP ####[facility] Vpzsdorkbi[address] [address]Dr. May Santos Potassium [Moles/Vol] 4.7 mmol/L Normal 3.5-5.1 [facility] Comment on above: Performed By: #### T 7, TSH, LIPID, CMP ####[facility] D[address]fwpks[address] [address]Dr. May Santos Protein [Mass/Vol] 7.7 g/dL Normal 6.4-8.2 [facility] Comment on above: Performed By: #### T 7, TSH, LIPID, CMP ####[facility] Rhoflvzavd8[address] [place], [place] [address]Dr. May Santos Sodium [Moles/Vol] 140 mmol/L Normal 136-145 [facility] Comment on above: Performed By: #### T 7, TSH, LIPID, CMP ####[facility] Jkbxavjcck[address] [address]Dr. May Santos Urea nitrogen [Mass/Vol] 9.0 mg/dL Normal 7.0-18.0 [facility] Comment on above: Performed By: #### T 7, TSH, LIPID, CMP ####[facility] Doptrptqus[address] [place], [place] [address]Dr. May Santos Urea nitrogen/Creatinine [Mass ratio] 11.0 mg/mg Normal [facility] Comment on above: Performed By: #### T 7, TSH, LIPID, CMP ####[facility] Snqefwpqiu[address] [address]Dr. May Santos TSHon 04-04-2022 TSH 1.034 uIU/mL Normal 0.358-3.740 [facility] Comment on above: Performed By: #### T 7, TSH, LIPID, CMP ####[facility] Snetghorgr[address] [place], [place] [address]Dr. May Santos VITAMIN D 25 OHon 04-04-2022 VIT D 25-OH 45.9 ng/mL Normal [facility] Comment on above: Performed By: #### I NSULIN #### [facility] [address] [place] [address] Dr. aMy Santos VIT D RANGES SEE BELOW Normal [facility] Comment on above: Result Comment: <20 ng/mL Vit D deficient 20 - <30 ng/mL Vit D insufficient 30 - 100 ng/mL Vit D sufficient >100 ng/mL Potential Toxicity Performed By: #### I NSULIN #### [facility] [address] [place] [address] Dr. May Santos CULTURE URINEon 01-24-2022 CULTURE URINE Culture Observations : HEAVY GROWTH OF MIXED GENITAL SEAN. NO POTENTIAL PATHOGENS SEEN. Normal [facility] Comment on above: Performed By: #### I NSULIN #### [facility] [address] [place] [address] Dr. May Santos UA RANDOM W/MICROSCOPICon BACTERIA NONE SEEN Normal NONE SEEN [facility] Comment on above: Performed By: #### U AMIC ####[facility] Xerxwpmfql[address] [address]Dr. May Santos Bilirubin Ql (U) Negative Normal NEGATIVE [facility] Comment on above: Performed By: #### U AMIC ####[facility] Uczeayexxp[address] [place], [place] [address]Dr. May Santos CAST NONE SEEN Normal NONE SEEN [facility] Comment on above: Performed By: #### U AMIC ####[facility] Oeedxmcdfr[address] [place], [place] [address]Dr. May Santos Clarity (U) CLEAR Normal CLEAR [facility] Comment on above: Performed By: #### U AMIC ####[facility] Oihtjgvwgf[address] [address]Dr. May Santos Color (U) YELLOW Normal YELLOW [facility] Comment on above: Performed By: #### U AMIC ####[facility] G[address]sebwzzpg[address] [address]Dr. May Santos Crystals LM Nom (Urine sed) NONE SEEN Normal NONE SEEN [facility] Comment on above: Performed By: #### U AMIC ####[facility] Jijsjjxytu[address] [address]Dr. May Santos Epithelial cells LM Ql (Urine sed) FEW Abnormal NONE SEEN /RARE [facility] Comment on above: Performed By: #### U AMIC ####[facility] Rgjtprwiiw[address] [address]Dr. May Santos Glucose Ql (U) Negative Normal NEGATIVE [facility] Comment on above: Performed By: #### U AMIC ####[facility] Tdjxtdpgsx[address] [place], [place] [address]Dr. May Santos Hemoglobin Ql (U) Negative Normal NEGATIVE [facility] Comment on above: Performed By: #### U AMIC ####[facility] Qnrsbwnswy[address] [place], [place] [address]Dr. May Santos Ketones Ql (U) Negative Normal NEGATIVE [facility] Comment on above: Performed By: #### U AMIC ####[facility] Xjsldctfsc[address] [place], [place] [address]Dr. Yilan Santos LEUKOCYTES Negative Normal NEGATIVE [facility] Comment on above: Performed By: #### U AMIC ####[facility] Ibjdjdogix[address] [place], [place] [address]Dr. Yilan Santos MUCOUS NONE SEEN Normal NONE SEEN [facility] Comment on above: Performed By: #### U AMIC ####[facility] Gfrtnpoolf[address] [place], [place] [address]Dr. Yilan Santos Nitrite Ql (U) Negative Normal NEGATIVE [facility] Comment on above: Performed By: #### U AMIC ####[facility] Vpjghnodhw[address] [place], [place] [address]Dr. May Santos pH (U) 7.0 [pH] Normal 5-9 [facility] Comment on above: Performed By: #### U AMIC ####[facility] Brcxyremld[address] [place], [place] [address]Dr. Lovelan Santos RBC NONE SEEN Abnormal 0-2 [facility] Comment on above: Performed By: #### U AMIC ####[facility] Xahtuwolpe4560 [place], [place] [address]Nj. May Santos SPEC GRAVITY 1.015 Normal 1.005-<=1.025 [facility] Comment on above: Performed By: #### U AMIC ####[facility] Wauuemcolj5041 [place], [place] [address]Iu. May Santos UA PROTEIN Negative Normal NEGATIVE/ TRACE [facility] Comment on above: Performed By: #### U AMIC ####[facility] Osrfvddwvd1228 [place], [place] [address]Ce. May Santos Urobilinogen Qn (U) 0.2 {Taylor'U}/dL Normal 0.2 - 1. 0 [facility] Comment on above: Performed By: #### U AMIC ####[facility] H[address]ami[address] [id number]. May Santos WBC NONE SEEN Normal NONE SEEN [facility] Comment on above: Performed By: #### U AMIC ####[facility] Aldalotzrj4297 [place], [place] [address]Rj. May Santos XR KUB 1 VIEWon 01-09-2022 [...] ANGEL MILIAN Date: 2022-01-09 07:27 Normal [facility] US KIDNEYS BLADDERon 022 US KIDNEYS [...] SORAYA RAMSAY Date: 2022-01-08 10:51 Normal [facility] CBC AUTO DIFFon 08-20-2021 BASO # 0.0 103/ul Normal 0.0-0.1 [facility] Comment on above: Performed By: #### C BC ####[facility] Kgfugpemeg23[address] [place], [place] [address]Dr. May Santos Basophils/100 WBC (Bld) 0.6 % Normal 0.2-2.0 [facility] Comment on above: Performed By: #### C BC ####[facility] Juuwgpvtbj[address] [address]Dr. Loveiliana Santos EO # 0.2 103/ul Normal 0.0-0.7 [facility] Comment on above: Performed By: #### C BC ####[facility] Spycasobtq86[address] [place], [place] [address]Dr. May Santos Eosinophils/100 WBC (Bld) 2.4 % Normal 0.9-7.0 [facility] Comment on above: Performed By: #### C BC ####[facility] Jomrrswblf7[address] [place], [place] [address]Dr. May Santos Erythrocyte distribution width (RBC) [Ratio] 13.0 % Normal 11.0-15.0 [facility] Comment on above: Performed By: #### C BC ####[facility] Qcccaofvug[address] [place], [place] [address]Dr. May Santos Hematocrit (Bld) [Volume fraction] 45.8 % Normal 36.0-48.0 [facility] Comment on above: Performed By: #### C BC ####[facility] Ugcqrolbdg8[address] [id number]. May Santos Hemoglobin (Bld) [Mass/Vol] 15.1 g/dL Normal 12.0-16.0 [facility] Comment on above: Performed By: #### C BC ####[facility] Wjboofcynq33[address] [id number]. May Santos IG # 0.02 10e3/ul Normal 0.00-0.03 [facility] Comment on above: Performed By: #### C BC ####[facility] Llzunxyutj09[address] [place], [place] [address]Dr. May Santos IG % 0.3 % Normal 0.0-0.5 [facility] Comment on above: Performed By: #### C BC ####[facility] Hmxqjqanpd18[address] [place], [place] [address]Dr. May Santos LYMPH # 2.7 103/ul Normal 1.2-3.8 [facility] Comment on above: Performed By: #### C BC ####[facility] Lpupzelenz7664[address] [place], [place] [address]Dr. May Santos Lymphocytes/100 WBC (Bld) 41.8 % Normal 20.5-60.0 [facility] Comment on above: Performed By: #### C BC ####[facility] Yvakgluqiz[address] [place], [place] [address]Dr. May Santos MANUAL DIFF REQ NO Normal [facility] Comment on above: Performed By: #### C BC ####[facility] Ofxmzdcijg07[address] [place], [place] [address]Dr. May Santos MCH (RBC) [Entitic mass] 33.0 pg Normal 26.7-34.0 [facility] Comment on above: Performed By: #### C BC ####[facility] Zalzrimobs[address] [place], [place] [address]Dr. May Santos MCHC (RBC) [Mass/Vol] 33.0 g/dL Normal 29.9-35.2 [facility] Comment on above: Performed By: #### C BC ####[facility] [address] [id number]. May Santos MCV (RBC) [Entitic vol] 100.0 fL Critically high 81.0-99.0 [facility] Comment on above: Performed By: #### C BC ####[facility] [address] [id number]. May Santos MONO # 0.5 103/ul Normal 0.3-0.8 [facility] Comment on above: Performed By: #### C BC ####[facility] [address] [place], [place] [address]Dr. May Santos Monocytes/100 WBC (Bld) 7.2 % Normal 1.7-12.0 [facility] Comment on above: Performed By: #### C BC ####[facility] [address] [place], [place] [address]Dr. May Santos NEUT # 3.0 103/ul Normal 1.4-6.5 [facility] Comment on above: Performed By: #### C BC ####[facility] [address] [place], [place] [address]Dr. May Santos Neutrophils/100 WBC (Bld) 47.7 % Normal 43.0-75.0 [facility] Comment on above: Performed By: #### C BC ####[facility] [address] [place], [place] [address]Dr. May Santos Platelet mean volume (Bld) [Entitic vol] 10.7 fL Normal 9.5-13.5 [facility] Comment on above: Performed By: #### C BC ####[facility] [address] [place], [place] [address]Dr. May Santos PLT 300 103/ul Normal 150-450 [facility] Comment on above: Performed By: #### C BC ####[facility] [address] [place], [place] [address]Dr. May Santos RBC 4.58 106/ul Normal 4.20-5.40 [facility] Comment on above: Performed By: #### C BC ####[facility] [address]mmas[address] [place], [place] [address]KtDr. May Santos WBC 6.4 103/ul Normal 4.0-11.0 [facility] Comment on above: Performed By: #### C BC ####[facility] [address] [place], [place] [address]NjDr. May Santos FREE THYROXINE INDEX T7on FTI 2.24 Normal [facility] Comment on above: Performed By: #### L IPID, CMP, TSH, T7 #### [facility] [address] [address] [address] May Santos T3U 34.0 % Normal 23.5-40.5 [facility] Comment on above: Performed By: #### L IPID, CMP, TSH, T7 #### [facility] [address] [address] [address] May Santos T4 [Mass/Vol] 6.60 ug/dL Normal 5.53-11.00 [facility] Comment on above: Performed By: #### L IPID, CMP, TSH, T7 #### [facility] [address] [address] [address] May Santos GLYCOHEMOGLOBIN A1Con 2021 ADA RECOMMENDATION ADA THERAPEUTIC TARG ET 6.0 - 7.0 ACTION SUGGESTED > 7.0 Normal [facility] Comment on above: Performed By: #### A 1C #### [facility] [address] [address] [address] May Santos Glucose [Mass/Vol] 120 mg/dL Normal [facility] Comment on above: Performed By: #### A 1C #### [facility] [address] [address] [address] May Santos HbA1c (Bld) [Mass fraction] 5.8 % Normal <=6.0 [facility] Comment on above: Performed By: #### A 1C #### [facility] [address] [address] [address] May Santos IRONon 08-20-2021 Iron [Mass/Vol] 121.0 ug/dL Normal 37.0-170.0 [facility] Comment on above: Performed By: #### I QAMAR, VITAD #### [facility] [address] [address] [address] May Santos LIPID PROFILEon 08-20-2021 CHOL-HDL RATIO NORM SEE BELOW Normal [facility] Comment on above: Result Comment: 3.3 - 4.4 LOW RISK 4.4 - 7.1 AVERAGE RISK 7.1 - 11.0 MODERATE RISK >11.0 HIGH RISK Performed By: #### L IPID, CMP, TSH, T7 #### [facility] [address] [address] [address] May Santos Cholesterol [Mass/Vol] 218 mg/dL Critically high <=200 [facility] Comment on above: Performed By: #### L IPID, CMP, TSH, T7 #### [facility] [address] [address] [address] May Santos Cholesterol in HDL [Mass/Vol] 54 mg/dL Normal [facility] Comment on above: Performed By: #### L IPID, CMP, TSH, T7 #### [facility] [address] [address] [address] May Santos Cholesterol in LDL [Mass/Vol] 140.0 mg/dL Normal [facility] Comment on above: Performed By: #### L IPID, CMP, TSH, T7 #### [facility] [address] [address] [address] May Santos Cholesterol.total/C holesterol in HDL [Mass ratio] 4.0 {ratio} Normal [facility] Comment on above: Performed By: #### L IPID, CMP, TSH, T7 #### [facility] [address] [address] [address] May Santos HDL NORMAL > or = 60 mg/dl - LO W CARDIOVASCULAR RISK <40 mg/dl - HIGH CARDIOVASCULAR RISK Normal [facility] Comment on above: Performed By: #### L IPID, CMP, TSH, T7 #### [facility] [address] [address] [address] May Santos LDL CALC NORMAL SEE BELOW Normal [facility] Comment on above: Result Comment: <100 mg/dl OPTIMAL 100 - 129 mg/dl NEAR OR ABOVE OPTIMAL 130 - 159 mg/dl BORDERLINE HIGH 160 - 189 mg/dl HIGH >190 mg/dl VERY HIGH Performed By: #### L IPID, CMP, TSH, T7 #### [facility] [address] [address] [address] May Santos Triglyceride [Mass/Vol] 120 mg/dL Normal <=150 [facility] Comment on above: Performed By: #### L IPID, CMP, TSH, T7 #### [facility] [address] [address] [address] May Santos VLDL CALC 24.0 mg/dL Normal [facility] Comment on above: Performed By: #### L IPID, CMP, TSH, T7 #### [facility] [address] [address] [address] May Santos PROF 14(COMP METB)on 022 Albumin [Mass/Vol] 3.7 g/dL Normal 3.5-5.0 [facility] Comment on above: Performed By: #### L IPID, CMP, TSH, T7 #### [facility] [address] [address] [address] May Santos Albumin/Globulin [Mass ratio] 1.0 {ratio} Normal [facility] Comment on above: Performed By: #### L IPID, CMP, TSH, T7 #### [facility] [address] [address] [address] May Santos ALP [Catalytic activity/Vol] 84 U/L Normal 38-126 [facility] Comment on above: Performed By: #### L IPID, CMP, TSH, T7 #### [facility] [address] [address] [address] May Santos ALT [Catalytic activity/Vol] 17 U/L Normal 9-52 [facility] Comment on above: Performed By: #### L IPID, CMP, TSH, T7 #### [facility] [address] [address] [address] May Santos Anion gap [Moles/Vol] 11.0 mmol/L Normal [facility] Comment on above: Performed By: #### L IPID, CMP, TSH, T7 #### [facility] [address] [address] [address] May Santos AST [Catalytic activity/Vol] 16 U/L Normal 14-36 [facility] Comment on above: Performed By: #### L IPID, CMP, TSH, T7 #### [facility] [address] [address] [address] May Santos Bilirubin [Mass/Vol] 0.5 mg/dL Normal 0.2-1.3 [facility] Comment on above: Performed By: #### L IPID, CMP, TSH, T7 #### [facility] [address] [place] [address] Dr. May Santos Calcium [Mass/Vol] 8.8 mg/dL Normal 8.4-10.2 [facility] Comment on above: Performed By: #### L IPID, CMP, TSH, T7 #### [facility] [address] [place] [address] Dr. May Santos Chloride [Moles/Vol] 107 mmol/L Normal 98-107 [facility] Comment on above: Performed By: #### L IPID, CMP, TSH, T7 #### [facility] [address] [place] [address] Dr. May Santos CO2 [Moles/Vol] 25.6 mmol/L Normal 22.0-30.0 [facility] Comment on above: Performed By: #### L IPID, CMP, TSH, T7 #### [facility] [address] [place] [address] Dr. May Santos Creatinine [Mass/Vol] 0.91 mg/dL Normal 0.52-1.04 [facility] Comment on above: Performed By: #### L IPID, CMP, TSH, T7 #### [facility] [address] [place] [address] Dr. May Santos EGFR-AF YEMENI >60 Normal >=60 [facility] Comment on above: Performed By: #### L IPID, CMP, TSH, T7 #### [facility] [address] [address] [address] May Santos EGFR-NON AF YEMENI >60 Normal >=60 [facility] Comment on above: Performed By: #### L IPID, CMP, TSH, T7 #### [facility] [address] [address] [address] May Santos Globulin (S) [Mass/Vol] 3.7 g/dL Normal [facility] Comment on above: Performed By: #### L IPID, CMP, TSH, T7 #### [facility] [address] [address] [address] May Santos Glucose [Mass/Vol] 116 mg/dL Critically high 74-106 [facility] Comment on above: Performed By: #### L IPID, CMP, TSH, T7 #### [facility] [address] [place] [address] Dr. May Santos Potassium [Moles/Vol] 4.6 mmol/L Normal 3.4-5.0 [facility] Comment on above: Performed By: #### L IPID, CMP, TSH, T7 #### [facility] [address] [address] [address] May Santos Protein [Mass/Vol] 7.4 g/dL Normal 6.1-8.2 [facility] Comment on above: Performed By: #### L IPID, CMP, TSH, T7 #### [facility] [address] [address] [address] May Santos Sodium [Moles/Vol] 139 mmol/L Normal 137-145 [facility] Comment on above: Performed By: #### L IPID, CMP, TSH, T7 #### [facility] [address] [address] [address] May Santos Urea nitrogen [Mass/Vol] 8.0 mg/dL Normal 7.0-17.0 [facility] Comment on above: Performed By: #### L IPID, CMP, TSH, T7 #### [facility] [address] [address] [address] May Santos Urea nitrogen/Creatinine [Mass ratio] 8.8 mg/mg Normal [facility] Comment on above: Performed By: #### L IPID, CMP, TSH, T7 #### [facility] [address] [address] [address] May Santos TSHon 08-20-2021 TSH 1.583 uIU/mL Normal 0.470-4.680 [facility] Comment on above: Performed By: #### L IPID, CMP, TSH, T7 #### [facility] [address] [address] [address] May Santos TSH RANGE SEE BELOW Normal [facility] Comment on above: Result Comment: <0.3 4 UIU/ml HYPERTHYROID 0.34-5.60 UIU/ml EUTHYROID >5.60 UIU/ml HYPOTHYROID Performed By: #### L IPID, CMP, TSH, T7 #### [facility] [address] [address] [address] May Santos VITAMIN D 25 OHon 08-20-2021 VIT D 25-OH 26.0 ng/mL Normal [facility] Comment on above: Performed By: #### I QAMAR VITAD ####[facility] [address] [address]Dr. May Santos VIT D RANGES SEE BELOW Normal [facility] Comment on above: Result Comment: <20 ng/mL Vit D deficient 20 - <30 ng/mL Vit D insufficient 30 - 100 ng/mL Vit D sufficient >100 ng/mL Potential Toxicity Performed By: #### Anneliese FOOTE VITAD ####[facility] [address] [address]Dr. May Santos Vital Signs Date Time Vital Sign Value Performing Clinician Faci lity 03-30-2024 14:29-0400 Blood Pressure Location Herbert RAINEY [facility] 03-30-2024 14:29-0400 Diastolic blood pressure 76 mm[Hg] Herbert RAINEY [facility] 03-30-2024 14:29-0400 Heart rate 72 /min Herbert NILL [facility] 03-30-2024 14:29-0400 Respiratory rate 16 /min Herbert OSORIOL [facility] 03-30-2024 14:29-0400 Systolic blood pressure 116 mm[Hg] Herbert OSORIOL [facility] Encounters Encounter Date Encounter Type Care Provider Facility Start: 06-01-2024 End: 06-01-2024 [facility]: 06-01-2024 End: 06-01-2024 Patient encounter procedure Herbert Bartholomew NILL [facility] Start: 05-19-2024 End: 05-19-2024 ambulatory Herbert R Nill Facility:[facility] Start: 05-19-2024 End: 05-19-2024 ambulatory Herbert R NILL Facility:CD:[id number] Start: 03-30-2024 End: 03-30-2024 ambulatory [facility] Start: 03-30-2024 End: 03-30-2024 [facility] Start: 07-22-[address] MARIA VICTORIA HAYDEN [...] Colonoscopy Herbert NI LL Start: 03-16-2019 Colonoscopy Herbert HANNA Start: 11-08-2015 Colonoscopy and biop sy of colon Herbert RAINEY Comment on above: hyperplastic polyps Appendectomy Herbert OSORIOL Tonsillectomy Herbert NILL Total abdominal hysterectomy with bilateral salpingo-oophorectomy Herbert NILL Total nephrectomy Herbert GARCIA LL Immunizations Immunization Date Immunization Notes Care Provider [facility] 05-14-2021 SARS-CoV-2 (COVID-19 ) mRNA BNT-162b2 vax Herbert RAINEY [facility] [place] 08-18-2020 SARS-CoV-2 (COVID-19 ) mRNA BNT-162b2 vax Herbert RAINEY [facility] 07-28-2020 SARS-CoV-2 (COVID-19 ) mRNA BNT-162b2 vax Herbert RAINEY [facility] Payers Date Payer Category Payer Medicare [id number] 1961 Self-pay 1961 Unknown [id number] 1955 Unknown [id number] 2.16.84 [id number] 1955 Unknown [id number] 2.16.84 [id number] 1955 Unknown [id number] 2.16.84 0.1.287431.3.579.2.593 1953 Unknown [id number] 2.16.84 0.1.674012.3.579.2.593 1953 Unknown [id number] 2.16.84 0.1.416308.3.579.2.593 1953 Unknown [id number] 2.16.84 0.1.178708.3.579.2.593 1953 Unknown [id number] 2.16.84 0.1.448581.3.579.2.593 1953 Unknown [id number] 2.16.84 0.1.860082.3.579.2.593 1953 Unknown [id number] 2.16.8 40.1.443382.3.579.2.727 1955 Unknown [id number] 2.16.8 40.1.741034.3.579.2.727 1955 Unknown [id number] 2.16.8 40.1.579376.3.579.2.727 1955 Unknown [id number] 2.16.8 40.1.509792.3.579.2.727 Unknown [id number] 2.16.8 40.1.793323.3.579.2.531 Social History Date Type Detail Facility Start: 03-30-2024 Tobacco smoking status Heavy t obacco smoker (finding) [facility] Tobacco smoking status Never [facility] Sex Assigned At Female [facility] Functional Status Date Assessment Result Facility 03-30-2024 Functional Status N/A [facility] Clinical Note 03-30-2024 Note Date & [...] SARS-CoV-2 (COVID-19) mRNA BNT-162b2 vax 07/28/2020 Recorded [facility] Comment on above: Result Comment: Elec tronically Signed By: JOSEPH WISDOM, Herbert Cunha\Date and Time Signed: 03/30/24 14:52 EDT Evaluation + Plan note Note Date & Type Note Facility Evaluation + Plan note No data available for this section [facility] Hospital Discharge instructions Note Date & Type Note Facility Hospital Discharge instructions No data available for this section [facility] Progress note Note Date & Type Note Facility Progress note No data available for this section [facility] Summary Purpose Family History No Family History Records Found No data available for this section No Family History Records Found No data available for this section No Family History Records Found Advance Directives No Advanced Directives Records FoundNo Advanced Directives Records FoundNo Advanced Directives Records Found Additional Source Comments INFORMATION SOURCE (unrecogn ized section and content) DATE CREATED AUTHOR 07/22/2022 [facility] DATE CREATED AUTHOR AUTHOR'S ORGANIZ ATION 05/27/2024 [facility] DATE CREATED AUTHOR AUTHOR'S ORGANIZ ATION 06/05/[address] [facility] Patient Care team informatio n (unrecognized section and content) Personnel Name: Elida Tao MD Address: Address: [address] [place] [address] Personnel Name: Elida Tao MD Address: Address: [address] [place] [address] FOR RECORDS PERTAINING TO PATIENTS WHO ARE [...] BE BASED ON THE PRIMARY CLINICAL RECORDS. [facility] [employer] [facility]. provides no warranty or guarantee of the accuracy or completeness of information in this document.
== END 2025-01-10 13:34 | disposition home or self-care (01) ==
LOC: US 13:33
PROVIDERS: PCP Family Medicine; Visit Provider Family Medicine
DX: E04.1 Nontoxic single thyroid nodule (principal)
CPT/HCPCS: 76536

== ENCOUNTER 2025-02-01 07:26 | Outpatient (OUT) | payer MEDICARE, OTHER, SELFPAY ==
--- OUTSIDE RECORDS SUMMARY | 2025-01-28 06:45 | XMS_ITS ---
Author Organization [facility] in [place] Address [address] [place] [address] Care Team Providers Care Distributor Of Directories Name Role Phone Janusz Tao Primary Care Provider REASON FOR VISIT bp check Vital Signs Height 67 in 01/28/2025 Blood pressure systolic 152 mm Hg 01/29/20 25 Blood pressure diastolic 82 mm Hg 025 Encounters Encounter Location Date Provider Diagnosis [facility] [address] [facility] [place] [address] 01/28/2025 Janusz Tao Plan Of Treatment No Information Progress Notes * Courtney CABALLERO LDOB:1955 (69 yo F)Acc No.[id number]:01/28/2025 BP Check Patient: Courtney JOEL Provider: Junior Tao ([facility])MD :1955 A ge:69 Y S ex:Female Date:01/28/2025 Address:[address], [id number] Check In:10:40 AM EST Subjective: * Chief Complaints: * 1 . Bp check. * Active Problem List D22.5 Melanocytic nevi of trunk Modified On:09/06/2022/U Status:confirmed L72.11 Pilar cyst Modified On:09/06/2022/U Status:confirmed [...] On:08/09/2024 Status:confirmed I10 Hypertension Modified On:11/29/2024 Status:confirmed E04.1 Thyroid cyst Modified On:01/05/2025 Status:confirmed * Medical History: Objective: * Vitals: H t: 67 in, BP:152/82mm Hg, Ht-cm: 170.18 cm. Assessment: Plan: * Treatment: * * Sign off status: Completed Visit Status: A RR (Check-In) true * Provider: Junior Tao ([facility])MD Date: 01/28/2025 Generated for Annie dobson/Camelia/eTransmitting on: 02/01/2025 07:29 AM EDT
--- OUTSIDE RECORDS SUMMARY | 2025-01-28 06:49 | XMS_ITS ---
Author Organization [facility] [place] Address [address] [place] [address] Care Team Providers Care Reducing System Operator Name Role Phone Janusz Tao Primary Care Provider [phone] REASON FOR VISIT BP Check Vital Signs Height 67 in 01/28/2025 Encounters Encounter Location Date Provider Diagnosis [facility] [address] [facility] [address] 01/28/2025 Janusz Aislinn Plan Of Treatment No Information Progress Notes * Courtney CABALLERO LDOB:1955 (69 yo F)Acc No.[id number]:01/28/2025 Patient: Courtney JOEL :1955 A ge:69 Y S ex:Female Address:[facility] [place] [address] Subjective: * Chief Complaints: * B P Check * Medical History: * Surgical History: * Hospitalization/Major Diagno stic Procedure: * Medications: Objective: * Vitals: H t: 67 in, Ht-cm: 170.18 cm. * Physical Examination: Assessment: Plan: * Treatment: * Procedure Codes: * true * Date: Generated for Traceei olya/Fashaguftag/eTransmitting on: 0 02/01/2025 07:29 AM EDT
--- OUTSIDE RECORDS SUMMARY | 2025-01-31 11:45 | XMS_ITS ---
Author Organization [facility] in [place] Address [address] [place] [address] Care Team Providers Care Mangle Catcher Name Role Phone Janusz Tao Primary Care Provider Allergies No Known Allergies REASON FOR VISIT BP running high- per DH Medications Medication SIG (Take, Route, Frequency, Duration) Notes Start Date End Date Status Vitamin D (Cholecalciferol) 50 MCG (1999) 1 capsule Orally Once a day Active Zolpidem Tartrate ER 12.5 MG TAKE 1 TABLET BY MOUTH EVERY DAY AT BEDTIME NEEDED FOR 30 DAYS for 30 01/21/2025 Active Lisinopril 40 MG 1 tablet Orally Once a day for 30 days 11/29/2024 Active Meloxicam 15 MG 1 tablet Orally Once a day for 30 days 08/09/2024 Active tiZANidine HCl 4 MG 2 tabs Orally qhs fo r 30 days 08/09/2024 Active ALPRAZolam 0.25 MG 1 tablet Orally Twice a day for 7 days F41.9 01/31/2025 Active Calcium 600 600 MG 1 tablet with food O rally Twice a day Active Carvedilol 25 MG TAKE 1 TABLET BY BETSY TH TWICE A DAY WITH FOOD FOR 30 DAYS Orally Twice a day for 30 days Active Social History Tobacco Use: Social History [...] in quitting? Not ready to vernon t AUDIT-C (Standard) Question Answer Notes Did you have a drink containing alcohol in the p ast year? No Points 0 Interpretation Negative Vital Signs Weight 156.6 lbs 01/31/2025 Height 67 in 01/31/2025 Blood pressure systolic 160 mm Hg 02/01/20 25 Blood pressure diastolic 98 mm Hg 025 BMI 24.52 kg/m2 01/31/2025 Encounters Encounter Location Date Provider Diagnosis [facility] [address] [place] [address] 01/31/2025 Janusz Tao Hypertension I10 Assessments Encounter Date Diagnosis (ICD Code) Assessment Notes Treatment Notes Treatment Clinical Notes Section Notes 01/31/2025 Hypertension (ICD-10 - I10) Plan Of Treatment Medication Medication Name Sig Start Date Stop Date Notes ALPRAZolam 0.25 MG 1 tablet Orally Twice a day for 7 days 01/31/2025 Carvedilol 25 MG TAKE 1 TABLET BY BETSY TWICE A DAY WITH FOOD FOR 30 DAYS Orally Twice a day for 30 days Pending Test Test Name Order Date CARBOXYHEMOGLOBIN (CARBON MONOXIDE) 01/14 HEMOGLOBIN A1C (GLYCO) 01/31/2025 IRON, TOTAL 01/31/2025 LIPID PANEL (CHOL/TRIG/HDL/LDL) 02/01/20 25 VITAMIN D, 25 LEVEL (TOTAL) 01/31/2025 STOOL OCCULT BLOOD 01/31/2025 AMMONIA 01/31/2025 BNP 01/31/2025 THYROID PANEL (T4/TSH/FREE T3) CMP (COMP MET JOSHI) w/eGFR CKD-EPI 2024 CBC WITH DIFF 01/31/2025 Progress Notes * Courtney CABALLERO LDOB:1955 (69 yo F)Acc No.[id number]:01/31/2025 UNLOCKED PROGRESS NOTE Progress Note Patient: Courtney JOEL Provider: Junior Tao ([facility])MD :1955 A ge:69 Y S ex:Female Date:01/31/2025 Address:[facility] [address], [address] [id number] Check In:03:31 PM ESTCheck O ut:04:24 PM EST Subjective: * Chief Complaints: * 1 . BP running high- per DH. * ROS: E ENT: hearing changes d enies. v isual changes d enies.?non-healing mouth sores d enies. s wollen glands or neck lumps d enies. h oarseness d enies. s ore throat d enies. d ifficulty swallowing d enies. n ose bleeds d enies. n kiki congestion d enies. e ar ache d enies. e ar discharge?denies. r inging in ears d enies. l ight sensitivity d enies. e ye pain d enies. b lurring d enies. e ye irritation d enies. d ouble vision d enies.?vision loss d enies. G eneral/Constitutional: Sweats: D enies. F atigue d enies. S leep problems d enies. A norexia d enies. M alaise d enies. W eight loss d enies.?Fatigue or Weakness d enies. F ever or Chills d enies. C ardiovascular: Shortness of Breath w/lying flat d enies. L ightheadedness/dizziness d enies. C hest tightness/ heavy pressure d enies. S welling of legs, ankles, or feet d enies. W aking up with shortness of breath d enies. C hest pain denies. P alpitations d enies. W eight gain d enies. R espiratory: Chronic or frequent cough d enies. C oughing up blood?denies. D ifficulty breathing d enies. P roductive cough d enies. S noring?denies. S hortness of breath that awakens from sleep (PND) d enies. C hest pain d enies. S putum production d enies. W heezing d enies. M usculoskeletal: Joint pain d enies. J oint Fluid d enies. B ack pain d enies. K nee pain d enies. N zoe pain d enies. J oint Stiffness d enies. M uscle cramps d enies. W eakness of muscles d enies. A rthritis d enies. M uscle aches d enies. P ain in shoulder(s) d enies. S wollen joints d enies. * Medical History: O verweight, Pyelonephritis, Lump on face, Fatigue, Skin tag, Seborrheic keratosis, Hyperplastic colonic polyp, Arthralgia, unspecified joint, Acute cystitis with hematuria, Polyp of colon, unspecified part of colon, unspecified type, Clavus, Encounter for other specified special examinations, Melanocytic nevi of trunk, Keratosis, seborrheic, Pilar cyst, Acute bronchitis, unspecified organism, Insomnia, unspecified type, Abdominal pain, acute, right upper quadrant, Pure hypercholesterolemia, unspecified, Osteoporosis, Retinal tear, lattice degeneration of retinal detachment OD. * Surgical History: h ysterectmy 10/2018, kidney transplant for sisiter 10/1979, Appendectomy , Tonsillectomy , Repair torn retina Rt eye 12/07, dental extraction 2024. * Family History: F ather: 79 yrs, diagnosed with Colon cancer. M other: 84 yrs, diagnosed with Other malignant neoplasm of unspecified site. B rother(s): alive. S ister(s): alive. Son(s): alive 43 yrs. D jordoner(s): alive 41 yrs. 2 brother(s) , 1 [...] in quitting? N ot ready to quit D rug/Alcohol: A COSME-C (Standard) D id you have a drink containing alcohol in the past year? N o P oints 0 I nterpretation N egative * Medications: T aking Calcium 600(Calcium Carbonate) 600 MG Tablet 1 tablet with food Orally Twice a day , Taking Carvedilol 12.5 MG Tablet TAKE 1 TABLET BY MOUTH TWICE A DAY WITH FOOD FOR 30 DAYS , Taking Lisinopril 40 MG Tablet 1 tablet Orally Once a day , Taking Meloxicam 15 MG Tablet 1 tablet Orally Once a day , Taking tiZANidine HCl 4 MG Tablet 2 tabs Orally qhs , Taking Vitamin D (Cholecalciferol) 50 MCG (2000 UT) Capsule 1 capsule Orally Once a day , Taking Zolpidem Tartrate ER 12.5 MG Tablet Extended Release TAKE 1 TABLET BY MOUTH EVERY DAY AT BEDTIME NEEDED FOR 30 DAYS , Medication List reviewed and reconciled with the patient * Allergies: N .K.D.A. Objective: * Vitals: W t:156.6lbs, Ht: 67 in, BP:160/98mm Hg, BMI:24.52Index, Ht-cm: 170.18 cm, Wt-k.03 kg. * Examination: P hysical Exam: GENERAL: w ell developed, well nourished, in no acute distress. HEAD: n ormocephalic/atraumatic. EYES: p upils equal, round and reactive to light, conjunctivae and sclerae normal. EARS: n o deformity or lesion of external ear, canals and TM appear normal bilaterally, TM's intact, not inflamed with normal light reflex, hearing grossly normal to conversational speech. NOSE: n o deformity, discharge, inflammation, or lesions.? MOUTH: m ucous membranes moist, normal oropharynx and posterior pharynx without lesions or exudates, tongue normal, dentition normal. NECK: n zoe supple, no masses or palpable cervical nodes, trachea midline, thyroid without nodules, masses, tenderness, or enlargement. CHEST: n o chest wall deformity, no chest wall tenderness.? LUNGS: n ormal respiratory effort and clear to auscultation, no wheezes, rales, or rhonchi, good air exchange. CARDIO: r egular rate and rhythm, normal S1 and S2, nor murmur, rub, or gallop. PULSES: n ormal capillary refill. ABDOMEN: s oft, non-distended, non-tender, no masses. MUSCULOSKELETAL: n o deformity or scoliosis noted, normal range of motion, joints normal, no erythema, edema, effusion, or ecchymosis. EXTREMITY: n o clubbing, cyanosis, edema, or deformity with normal ROM in both upper and lower bilateral extremities. NEUROLOGIC: g rossly normal. SKIN: n o rashes, ulcerations, or suspicious lesions. LYMPH NODES: n o cervical adenopathy, nodes normal. MENTAL STATUS: a lert and oriented x3, normal mood and affect. Assessment: * Assessment: 1. H ypertension - I10 (Primary) Plan: * Treatment: * Preventive Medicine: Screenings/Counseling: F ALL RISK SCREENING Fall Risk Assessment: N o falls in the past year * * Electronic signature of Janusz Tao MD, [phone] on 02/01/2025 at 07:29 AM EDT Sign off status: Pending Visit Status: C HK (Check Out) * Provider: Junior Tao ([facility])MD Date: 01/31/2025 Generated for Printi ng/Faxing/eTransmitting on: 02/01/2025 07:29 AM EDT History and Physical Notes * Examination Category Sub-Category Detail Notes Category Not es Physical Exam GENERAL: well developed, well nourished, in no acute distress HEAD: normocephalic/atraum atic EYES: pupils equal, round and reactive to light, conjunctivae and sclerae normal EARS: no deformity or lesi on of external ear, canals and TM appear normal bilaterally, TM's intact, not inflamed with normal light reflex, hearing grossly normal to conversational speech NOSE: no deformity, discha rge, inflammation, or lesions MOUTH: mucous membranes gricel st, normal oropharynx and posterior pharynx without lesions or exudates, tongue normal, dentition normal NECK: neck supple, no mass es or palpable cervical nodes, trachea midline, thyroid without nodules, masses, tenderness, or enlargement CHEST: no chest wall deform ity, no chest wall tenderness LUNGS: normal respiratory e ffort and clear to auscultation, no wheezes, rales, or rhonchi, good air exchange CARDIO: regular rate and rhy thm, normal S1 and S2, nor murmur, rub, or gallop PULSES: normal capillary ref ill ABDOMEN: soft, non-distended, non-tender, no masses RECTAL: MUSCULOSKELETAL: no deformity or scol iosis noted, normal range of motion, joints normal, no erythema, edema, effusion, or ecchymosis EXTREMITY: no clubbing, cyanosi s, edema, or deformity with normal ROM in both upper and lower bilateral extremities NEUROLOGIC: grossly normal SKIN: no rashes, ulceratio ns, or suspicious lesions LYMPH NODES: no cervical adenopat hy, nodes normal MENTAL STATUS: alert and oriented x 3, normal mood and affect
--- OUTSIDE RECORDS SUMMARY | 2025-02-01 07:29 | XMS_ITS | Clinical Summary ---
Author Organization [facility] Address [address] [place] [id number] Care Team Providers Care Systems Project Manager Name Role Phone Ramin Isaac Primary Care [...] of 2) 10/30/2003 Bone Density Screening 2018 Advance Directive Discussion 06/16/2024 Influenza Vaccine (#1) 2025 RSV Vaccine (1 - 1-dose 75+ series) 2028 Insurance [employer] PPO Care Teams Systems Project Manager Relationship Specialty Start Date End Date Ramin Isaac [address] [facility] [place] [address] PCP - General Cdl Driver 04/25/11
--- OUTSIDE RECORDS SUMMARY | 2025-02-01 07:29 | XMS_ITS | Clinical Summary ---
[facility] Address [address] [place] [address] Care Team Providers Care Insurance Verification Clerk Name Role Phone Unavailable Primary Care Provider [...]
--- OUTSIDE RECORDS SUMMARY | 2025-02-01 07:29 | XMS_ITS | Patient Health Record ---
Author Organization [facility] in [place] Address [address] [place] [address] Care Team Providers Care [employer] Lead Name Role Phone Janusz Boogie Primary Care Provider [phone] Celeste Brown Unavailable [phone] Allergies No Known Allergies Results Component Value Reference Range Notes US THYROID Reviewed date:01/11/2025 08:01:43 AM Interpretation: Performing Lab: Notes/Report: Source Facility: [place] [address] Ultrasound Report Signed Patient: SUSANNA CABALLERO MR#: [id number] : 1955 Acct:[id number] Age/Sex: 69 / F ADM Date: 01/10/25 Loc: US Attending Dr: Elida Boogie M.D. Ordering Physician: Elida Boogie M.D. Date of Service: 01/10/25 Procedure(s): US thyroid Accession Number(s): [id number] cc: Elida Boogie M.D. [place] [address] Patient Name: SUSANNA CABALLERO MRN: [id number]:[id number] date: 1955 Sex: F Assigned Patient Location: US Current Patient Location: US Accession/Order Number: [id number] Exam Date: 01/10/2025 20:55 Report Date: 01/10/2025 20:57 At the request of: ELIDA BOOGIE MD Procedure: US thyroid Thyroid ultrasound Reason for exam: Thyroid cyst Comparison: none Technique: Grayscale and color Doppler images of the thyroid gland were obtained. Findings: The right lobe measures 4.7 x 1.5 x 2.1 cm. The left lobe measures 4.7 x 2.7 x 2.5 cm. The isthmus measures 4 mm. A solid/cystic nodule seen involving the mid to inferior aspect of the left lobe measuring 33 x 31 x 32 mm. No solid component is seen. Additional smaller colloid cyst is seen involving the inferior pole of the right lobe measuring 4 x 3 x 4 mm. No solid nodule is noted. US/US thyroid Impression: Solid/cystic nodule involving the mid to inferior aspect of the left lobe measuring 33 x 31 x 32 mm. FNA should be considered. Impression dictated by: John Erickson Jr., D.O. 01/10/2025 8:57 PM Dictation Location: [place] [address] Electronically authenticated by: [id number] Y Date: 01/10/2025 20:57 Dictated By: John Erickson M.D. Signed By: 01/10/252099 DD/ 56 TD/TT: Hospital Pharmacist: [place] [address] Ultrasound Report Signed Patient: SUSANNA CABALLERO MR#: [id number] : 1955 Acct:[id number] Age/Sex: 69 / F ADM Date: 01/10/25 Loc: US Attending Dr: Nas Boogie M.D. Ordering Physician: Elida Boogie M.D. Date of Service: 01/10/25 Procedure(s): US thyroid Accession Number(s): [id number] cc: Elida Boogie M.D. [address] [address] Patient Name: SUSANNA CABALLERO MRN: [id number]:[id number] date: 1955 Sex: F Assigned Patient Location: US Current Patient Location: US Accession/Order Numb er: [id number] Exam Date: 01/10/2025 20:55 Report Date: 01/10/2025 20:57 At the request of: ELIDA BOOGIE MD Procedure: US thyroid Thyroid ultrasound Reason for exam: Thyroid cyst Comparison: none Technique: Grayscale and color Doppler images of the thyroid gland were obtained. Findings: The right lobe measu res 4.7 x 1.5 x 2.1 cm. The left lobe measures 4.7 x 2.7 x 2.5 cm. The isthmu s measures 4 mm. A solid/cystic nodule seen involving the mid to inferior aspect of the left lobe measuring 33 x 31 x 32 mm. No solid component is seen. Additional smaller colloid cyst is seen involving the inferior pole of the right lobe measuring 4 x 3 x 4 mm. No solid nodule is noted. US/US thyroid Impression: Solid/cystic nodule involving the mid to inferior aspect of the left lobe measuring 33 x 31 x 32 mm. FNA should be considered. Impression dictated by: John Erickson Jr., D.O. 01/10/2025 8:57 PM Dictation Location: [place] [address] Electronically authenticated by: [id number] Y Date: 01/10/2025 20:57 Dictated By: John Erickson M.D. Signed By: 01/10/252099 DD/ 56 TD/TT: Hospital Pharmacist: GLYCOHEMOGLOBIN A1C Reviewed date:03/10/2024 01:01:24 PM Interpretation: Performing Lab: Notes/Report: [facility] , Glycohemoglobin A1C 5.4 4.5-6.2 % ADA RECOMMENDED LIMIT 4.0 - 6.0 > 7.0 ACTION SUGGESTED ADA THERAPEUTIC TARGET < 7.0 Estimated Average Glucose 108 Performing Lab: see note ML - [facility] LB CREATININE Reviewed date:01/03/2025 02:41:26 PM Interpretation: Performing Lab: Notes/Report: [facility] , Creatinine 0.87 0.55-1.02 mg/dL Estimated GFR ( Diana >60 >=60 mL/min/1.73m 2 Estimated GFR (Non- Siomara >60 >=60 mL/min/1.73m 2 Performing Lab: see note ML - [facility] LB TSH Reviewed date:03/10/2024 01:01:24 PM Interpretation: Performing Lab: Notes/Report: [facility] , Thyroid Stimulating Hormone 0.986 0.358-3.740 uIU/mL Performing Lab: see note ML - [facility] LB T4 Reviewed date:03/10/2024 01:01:24 PM Interpretation: Performing Lab: Notes/Report: [facility] , T4 Thyroxine 7.90 4.80-13.90 ug/dL Performing Lab: see note ML - [facility] LB PROF 14(COMP METB) Reviewed date:03/10/2024 01:01:24 PM Interpretation: Performing Lab: Notes/Report: [facility] , Sodium 137 136-145 mmol/L Potassium 4.6 [...] Performing Lab: see note ML - [facility] LB LIPID PROFILE Reviewed date:03/10/2024 01:01:24 PM Interpretation: Performing Lab: Notes/Report: [facility] , Triglycerides 175 <=150 mg/dL Cholesterol 234 [...] Performing Lab: see note ML - [facility] LB IRON Reviewed date:03/10/2024 01:01:24 PM Interpretation: Performing Lab: Notes/Report: [facility] , Iron 146.0 50.0-170.0 ug/dL Performing Lab: see note ML - [facility] LB FREE T3 Reviewed date:03/10/2024 01:01:24 PM Interpretation: Performing Lab: Notes/Report: [facility] , Free T3 3.36 2.18-3.98 pg/mL Performing Lab: see note ML - [facility] LB CBC AUTO DIFF Reviewed date:03/10/2024 01:01:24 PM Interpretation: Performing Lab: Notes/Report: [facility] , White Blood Count 8.8 4.0-11.0 10 [...] Performing Lab: see note ML - [facility] LB XR lumbar spine min 4V Reviewed date:08/10/2024 02:32:42 PM Interpretation: Performing Lab: Notes/Report: Source Facility: [facility]-[address] [place] [address] [place] [address] XRay Report Signed Patient: SUSANNA CABALLERO MR#: [id number] : 1955 Acct:[id number] Age/Sex: 68 / F ADM Date: 08/09/24 Loc: RAD Attending Dr: Elida Boogie M.D. Ordering Physician: Elida Boogie M.D. Date of Service: 08/09/24 Procedure(s): XR lumbar spine min 4V Accession Number(s): [id number] cc: Elida Boogie M.D. The [place] [address] Patient Name: SUSANNA CABALLERO MRN: [id number]:[id number] date: 1955 Sex: F Assigned Patient Location: [facility] Current Patient Location: Accession/Order Number: [id number] Exam Date: 08/10/2024 10:37 Report Date: 08/10/2024 [...] Sana White M.D.08/10/2024 10:41 AM Dictation Location: [place] [address] Electronically authenticated by: [id number] Y Date: 08/10/2024 10:41 Dictated By: Sana White M.D. Signed By: 08/10/24 1043 DD/ 1041 TD/TT: Hospital Pharmacist: [place] [address] XRay Report Signed Patient: SUSANNA CABALLERO MR#: [id number] : 1955 Acct:[id number] Age/Sex: 68 / F ADM Date: 08/09/24 Loc: RAD Attending Dr: Nas Boogie M.D. Ordering Physician: Elida Boogie M.D. Date of Service: 08/09/24 Procedure(s): XR lum bar spine min 4V Accession Number(s): [id number] cc: Elida Boogie M.D. [place] [id number] Patient Name: SSUANNA CABALLERO MRN: [id number] date: 1955 Sex: F Assigned Patient Location: [facility] Current Patient Location: Accession/Order Numb er: [id number] Exam Date: 08/10/2024 10:37 Report Date: 08/10/2024 [...] Sana White M.D.08/10/2024 10:41 AM Dictation Location: [place] [address] Electronically authenticated by: [id number] Y Date: 08/10/2024 10:41 Dictated By: Sana White M.D. Signed By: 08/10/24 1043 DD/ 104 TD/TT: Hospital Pharmacist: MM tomosynthesis screening B I Reviewed date:04/11/2024 10:39:37 PM Interpretation: Performing Lab: Notes/Report: Source Facility: [place] [address] Mammography Report Signed Patient: SUSANNA CABALLERO MR#: [id number] : 1955 Acct:[id number] Age/Sex: 68 / F ADM Date: 04/08/24 Loc: MAMMO Attending Dr: Elida Boogie M.D. Ordering Physician: Elida Boogie M.D. Results: Date of Service: 04/08/24 Follow Up: Procedure(s): MM tomosynthesis screening BI Accession Number(s): [id number] cc: Elida Boogie M.D. Patient Name: SUSANNA CABALLERO MR#: [id number] : 1955 Exam Date: 04/08/2024 Ordering Doctor: [...] lung cancer at age 80. LOCATION: [facility] BREAST COMPOSITION: The breasts are heterogeneously dense,which [...] M.D. Signed By: 04/11/241932 DD/ 31 TD/TT: Hospital Pharmacist: [place] [address] Mammography Report Signed Patient: SUSANNA CABALLERO MR#: [id number] : 1955 Acct:[id number] Age/Sex: 68 / F ADM Date: 04/08/24 Loc: MAMMO Attending Dr: Nas Boogie M.D. Ordering Physician: Elida Boogie M.D. Results: Date of Service: 04/08/24 Follow Up: Procedure(s): MM tomosynthesis screening BI Accession Number(s): [id number] cc: Elida Boogie M.D. Patient Name: SUSANNA CABALLERO MR#: [id number] : 1955 Exam Date: 04/08/2024 Ordering Doctor: [...] lung cancer at age 80. LOCATION: [facility] BREAST COMPOSITION: The breasts are heterogeneously dense,which [...] M.D. Signed By: 04/11/241932 DD/ 31 TD/TT: Hospital Pharmacist: CT angio UE LT Reviewed date:01/05/2025 12:55:27 PM Interpretation: Performing Lab: Notes/Report: Source Facility: [place] [address] CT Scan Report Signed Patient: SUSANNA CABALLERO MR#: [id number] : 1955 Acct:[id number] Age/Sex: 69 / F ADM Date: 01/05/25 Loc: CT Attending Dr: Elida Boogie M.D. Ordering Physician: Elida Boogie M.D. Date of Service: 01/05/25 Procedure(s): CT angio UE LT Accession Number(s): [id number] cc: Elida Boogie M.D. [place] [address] Patient Name: SUSANNA CABALLERO MRN: [id number]:[id number] date: 1955 Sex: F Assigned Patient Location: CT Current Patient Location: CT Accession/Order Number: [id number] Exam Date: 01/05/2025 11:04 Report Date: 01/05/2025 11:08 At the request of: ELIDA BOOGIE MD Procedure: CT angio UE LT CTA left upper extremity CLINICAL DATA: Hypertension. TECHNIQUE: Intravenous contrast-enhanced CT angiography of the left upper extremity was performed. Axial, sagittal, coronal, and 3D-dimensional reconstructions were created and reviewed. These CT exams were performed using one or more of the following dose reduction techniques: Automated exposure control, adjustment of the mA and/or kV according to patient size, or use of iterative reconstruction technique. COMPARISON: None. FINDINGS: 3 vessel arch is noted. Left subclavian artery appears unremarkable. Left axillary and brachial artery appears unremarkable. Radial and ulnar arteries appear unremarkable to the level of the wrist. Musculature appears unremarkable. No soft tissue swelling. No fluid collection to suggest abscess. Osseous structures demonstrate degenerative change. Lung parenchyma demonstrates no acute process. No left axillary lymphadenopathy. 3.3 cm nodule left lobe of the thyroid gland. CT/CT angio UE LT IMPRESSION: No critical stenosis or occlusion involving the major vessels of the left upper extremity. 3.3 cm nodule left lobe of the thyroid gland. This can be further evaluated by ultrasound. Impression dictated by: John Erickson Jr., D.O. 01/05/2025 11:08 AM Dictation Location: [place] [address] Electronically authenticated by: [id number] Y Date: 01/05/2025 11:08 Dictated By: John Erickson M.D. Signed By: 01/05/25 1111 DD/ 1108 TD/TT: Hospital Pharmacist: [place] [address] CT Scan Report Signed Patient: SUSANNA CABALLERO MR#: [id number] : 1955 Acct:[id number] Age/Sex: 69 / F ADM Date: 01/05/25 Loc: CT Attending Dr: Nas Boogie M.D. Ordering Physician: Elida Boogie M.D. Date of Service: 01/05/25 Procedure(s): CT ang io UE LT Accession Number(s): [id number] cc: Elida Boogie M.D. [place] [id number] Patient Name: SUSANNA CABALLERO MRN: [id number]:[id number] date: 1955 Sex: F Assigned Patient Location: CT Current Patient Location: CT Accession/Order Numb er: [id number] Exam Date: 01/05/2025 11:04 Report Date: 01/05/2025 11:08 At the request of: ELIDA BOOGIE MD Procedure: CT angio UE LT CTA left upper extremity CLINICAL DATA: Hypertension. TECHNIQUE: Intraveno us contrast-enhanced CT angiography of the left upper extremity was performed. Axial, sagittal, coronal, and 3D-dimensional reconstructions were created and reviewed. These CT exams were performed using one or more of the following dose reduction techniques: Automated exposure control, adjustment of the mA and/or kV according to patient size, or use of iterative reconstruction technique. COMPARISON: None. FINDINGS: 3 vessel arch is not ed. Left subclavian artery appears unremarkable. Left axillary and brachia l artery appears unremarkable. Radial and ulnar arteries appear unremarkable to the level of the wrist. Musculature appears unremarkable. No soft tissue swelling. No fluid collection to sugges t abscess. Osseous structures demonstrate degenerative change. Lung parench yma demonstrates no acute process. No left axillary lymphadenopathy. 3.3 cm nodule left lobe of the thyroid gland. CT/CT angio UE LT IMPRESSION: No critical stenosis or occlusion involving the major vessels of the left upper extremity. 3.3 cm nodule left l obe of the thyroid gland. This can be further evaluated by ultrasound. Impression dictated by: John Erickson Jr., D.O. 01/05/2025 11:08 AM Dictation Location: [place] [address] Electronically authenticated by: [id number] Y Date: 01/05/2025 11:08 Dictated By: John Erickson M.D. Signed By: 01/05/25 1111 DD/ 1108 TD/TT: Hospital Pharmacist: CT angio UE RT Reviewed date:01/04/2025 03:34:53 PM Interpretation: Performing Lab: Notes/Report: Source Facility: [place] [address] [place] [address] CT Scan Report Signed Patient: SUSANNA CABALLERO MR#: [id number] : 1955 Acct:[id number] Age/Sex: 69 / F ADM Date: 01/03/25 Loc: LAB Attending Dr: Elida Boogie M.D. Ordering Physician: Elida Boogie M.D. Date of Service: 01/03/25 Procedure(s): CT angio UE RT Accession Number(s): [id number] cc: Elida Boogie M.D. [place] [phone] Patient Name: SUSANNA CABALLERO MRN: [facility]:[id number] date: 1955 Sex: F Assigned Patient Location: LAB Current Patient Location: Accession/Order Number: [id number] Exam Date: 01/04/2025 08:44 Report Date: 01/04/2025 [...] Jr., D.O. 01/04/2025 8:48 AM Dictation Location: [place] [address] Electronically authenticated by: [id number] Y Date: 01/04/2025 08:48 Dictated By: John Erickson M.D. Signed By: 01/04/2551 DD/ 7 TD/TT: Hospital Pharmacist: [place] [address] CT Scan Report Signed Patient: SUSANNA CABALLERO MR#: [id number] : 1955 Acct:[id number] Age/Sex: 69 / F ADM Date: 01/03/25 Loc: LAB Attending Dr: Nas Boogie M.D. Ordering Physician: Elida Boogie M.D. Date of Service: 01/03/25 Procedure(s): CT ang io UE RT Accession Number(s): [id number] cc: Elida Boogie M.D. [place] [address] Patient Name: SUSANNA CABALLERO MRN: [id number]:[id number] date: 1955 Sex: F Assigned Patient Location: LAB Current Patient Location: Accession/Order Numb er: [id number] Exam Date: 01/04/2025 08:44 Report Date: 01/04/2025 [...] extremity. Impression dictated by: John Erickson Jr., D.Michael 01/04/2025 8:48 AM Dictation Location: [place] [address] Electronically authenticated by: [id number] Y Date: 01/04/2025 08:48 Dictated By: John Erickson M.D. Signed By: 01/04/2551 DD/ TD/TT: Hospital Pharmacist: Reason For Referral No Information Medications Medication SIG (Take, Route, Frequency, Duration) Notes Start Date End Date Status Vitamin D (Cholecalciferol) 50 MCG (1999 UT) 1 capsule Orally Once a day Active Zolpidem Tartrate ER 12.5 MG TAKE 1 TABLET BY MOUTH EVERY DAY AT BEDTIME NEEDED FOR 30 DAYS for 30 01/21/2025 Active ALPRAZolam 0.25 MG 1 tablet Orally Twice a day for 7 days F41.9 01/31/2025 Active Calcium 600 600 MG 1 tablet with food O rally Twice a day Active Lisinopril 40 MG 1 tablet Orally Once a day for 30 days 11/29/2024 Active Carvedilol 25 MG TAKE 1 TABLET BY BETSY TH TWICE A DAY WITH FOOD FOR 30 DAYS Orally Twice a day for 30 days Active Meloxicam 15 MG 1 tablet Orally Once a day for 30 days 08/09/2024 Active tiZANidine HCl 4 MG 2 tabs Orally qhs fo r 30 days 08/09/2024 Active Immunizations Vaccine Route Administration Date Status Comme nts Flu, Fluad (5996-6127) (09895) 65 yrs+, single-dose syringe IM Intramuscular 03/25/2023 [...] ast year? 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) Active confirmed Problem 573381134 Other specified disorders of bone density and structure, unspecified site (M85.80) Active confirmed Problem 38188605 Acute cystitis with hematuria (N30.01) Active confirmed Problem 195417716 Encounter for other specified special examinations (Z01.89) Active confirmed Problem Hypertension (89579315) Hypertension (I10) Active confirmed Problem Diverticular disease of colon (902724991) Diverticulosis (K57.90) Active confirmed Problem 17179168 Acute bronchitis , unspecified organism (J20.9) Active confirmed Problem 481739741 Keratosis, seborrheic (L82.1) Active confirmed Problem Cyst of thyroid (91459627) Thyroid cyst (E04.1) Active confirmed Problem 273404840 Abdominal pain, acute, right upper quadrant (R10.11) Active confirmed Problem 597903027 Insomnia, unspecified type (G47.00) Active confirmed Problem 09312767 Arthralgia, unspecified joint (M25.50) Active confirmed Problem 349530713 Pure hypercholesterolem ia, unspecified (E78.00) Active confirmed Problem 13462525 Polyp of colon, unspecified part of colon, unspecified type (K63.5) Active confirmed Problem 61665345 Clavus (L84) Active confirmed Problem Low back pain (finding) (170410059) Low back pain at multiple sites (M54.50) Active confirmed Vital Signs Blood pressure diastolic 98 mm Hg 01/31/2025 Height 67 in 01/31/2025 Blood pressure systolic 160 mm Hg 01/31/2025 Weight 156.6 lbs 01/31/2025 BMI 24.52 kg/m2 01/31/2025 Procedures Procedure Date Ordered Date Performed Result Body Sit e Colonoscopy 05/19/2024 Normal Thyroid biopsy 01/11/2025 N/A Encounters Encounter Location Date Provider Diagnosis [facility] [address] [facility] [place] [address] 03/08/2024 Janusz Hoy Insomnia, unspecifie d type G47.00 ; Pure hypercholesterolemia, unspecified E78.00 and Other specified disorders of bone density and structure, unspecified site M85.80 [facility] [address] [place] [address] 08/09/2024 Janusz Hoy Low back pain at multiple sites M54.50 [facility] [address] [facility] [place] [address] 11/29/2024 Janusz Hoy Hypertension I10 [facility] [address] [facility] [place] [address] 12/06/2024 Janusz Hoy Hypertension I10 [facility] [address] [facility] [place] [address] 12/10/2024 Janusz Hoy Hypertension I10 [facility] [address] [facility] [place] [address] 12/16/2024 Janusz Hoy Hypertension I10 [facility] [address] [facility] [place] [address] 12/23/2024 Janusz Hoy [facility] [address] [facility] [place] [address] 12/30/2024 Janusz Hoy Hypertension I10 [facility] [address] [facility] [place] [address] 01/12/2025 Janusz Hoy Hypertension I10 [facility] [address] [facility] [place] [address] 01/21/2025 Janusz Hoy Hypertension I10 [facility] [address] [facility] [place] [address] 01/28/2025 Janusz Hoy [facility] [address] [place] [address] 03/10/[address] [facility] [address] [place] [address] 04/02/2024 [facility] [address] [place] [address] 04/11/[address] [facility] [address] [place] [address] 05/03/[address] [facility] [address] [place] [address] 05/31/2024 [facility] [address] [place] [address] 06/29/2024 [facility] [address] [place] [address] 07/26/2024 [facility] [address] [place] [address] 08/10/[address] [facility] [address] [place] [address] 08/27/2024 [facility] [address] [place] [address] 09/27/[address] [facility] [address] [place] [address] 10/26/[address] [facility] [address] [place] [address] 11/23/2024 [facility] [address] [place] [address] 12/10/2024 [facility] [address] [place] [address] 12/16/[address] [facility] [address] [place] [address] 12/21/2024 [facility] [address] [facility] [place] [address] 12/23/2024 Janusz Hoy Hypertension I10 [facility] [address] [facility] [place] [address] 01/31/2025 Janusz Hoy Hypertension I10 [facility] [address] [facility] [place] [address] 01/04/2025 Janusz Hoy Thyroid cyst E04.1 [facility] [address] [facility] [place] [address] 01/05/2025 Janusz Hoy [facility] [address] [facility] [place] [address] 01/11/2025 Janusz Hoy Thyroid cyst E04.1 [facility] [address] [facility] [place] [address] 01/12/2025 Janusz Hoy Hypertension I10 [facility] [address] [facility] [place] [address] 01/21/2025 Janusz Hoy [facility] [address] [facility] [place] [address] 01/24/2025 Janusz Hoy [facility] [address] [facility] [place] [address] 01/28/2025 Janusz Fryey Assessments Encounter Date Diagnosis (ICD Code) Assessment [...] - I10) 12/30/2024 Hypertension (ICD-10 - I10) 01/12/2025 Hypertension (ICD-10 - I10) 01/21/2025 Hypertension (ICD-10 - I10) 01/31/2025 Hypertension (ICD-10 - I10) 12/23/2024 Hypertension (ICD-10 - I10) 01/04/2025 Thyroid cyst (ICD-10 - E04.1) 01/11/2025 Thyroid cyst (ICD-10 - E04.1) 01/12/2025 Hypertension (ICD-10 - I10) 03/08/2024 Other specified disorders of bone density and structure, unspecified site (ICD-10 - M85.80) Plan Of Treatment Pending Test Test Name Order Date CMP (COMPLETE METABOLIC PANEL) 3 CMP (COMPLETE METABOLIC PANEL) 4 CARBOXYHEMOGLOBIN (CARBON MONOXIDE) 01/14 HEMOGLOBIN A1C (GLYCO) 03/08/2024 HEMOGLOBIN A1C (GLYCO) 01/31/2025 HEMOGLOBIN A1C (GLYCO) 03/25/2023 IRON, TOTAL 03/08/2024 IRON, TOTAL 01/31/2025 LIPID PANEL (CHOL/TRIG/HDL/LDL) 02/01/20 25 LIPID PANEL (CHOL/TRIG/HDL/LDL) 03/08/20 24 LIPID PANEL (CHOL/TRIG/HDL/LDL) 03/25/20 23 CBC WITH DIFF 03/25/2023 CBC WITH DIFF 03/08/2024 VITAMIN D, 25 LEVEL (TOTAL) 03/25/2023 VITAMIN D, 25 LEVEL (TOTAL) 01/31/2025 MAMM Mammograms CAD 03/25/2023 US Aorta 10/15/2022 US Aorta 03/25/2023 Thyroid biopsy 01/11/2025 CT Angio Upper Extremity Left 12/30/2024 CT Angio Upper Extremity Right 5 STOOL OCCULT BLOOD 01/31/2025 AMMONIA 01/31/2025 BNP 01/31/2025 XR DEXA BONE DENSITY 07/24/2023 XR LSPINE MIN 4 VIEWS 08/09/2024 THYROID PANEL (T4/TSH/FREE T3) 5 THYROID PANEL (T4/TSH/FREE T3) 4 THYROID PANEL (T4/TSH/FREE T3) 3 MM screening mammo BI 03/08/2024 CMP (COMP MET JOSHI) w/eGFR CKD-EPI 2024 CBC WITH DIFF 01/31/2025 Insurance Providers Payer Name Payer Address Payer Phone Subscriber Number Group Number Insured Name Patient Relationship to Insured Coverage Start Date Coverage End Date [place]IC[place] [address] [place] [address] [id number] Susanna Caballero Self - patient is the insured [employer] [address] [id number] Susanna Caballero Self - patient is the [...] detachme nt OD Surgical History Surgery Date(Month/Year) 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
--- OUTSIDE RECORDS SUMMARY | 2025-02-01 07:30 | XMS_ITS | CCD ---
Author Organization [facility] Care Team Providers Care Boat Engine Mechanic Name Role Phone KEAGAN, DR MARRERO Admitting [...] Naproxen; Translations: [Aleve] Drug Allergy [facility] Repository (2 sources) Naproxen; Translations: [naproxen] Drug Allergy [facility] Medications Current Medications Medication Drug Class(es) [...] to family history of colon cancer. Normal [facility] Pathology Request for Lab Co rpon 05-19-2024 Pathology Request for Lab Kristofer Normal [facility] Comment on above: Order Comment: PATHO LOGY GI SPECIMEN Result Comment: See report. Scanned copy available in EMR. PERFORMED BY: [place] [address] PATHOLOGIST WRAPPER OPENER YUAN GLEASON M.D. Performed By: #### P ATH TO [facility] #### [address] Ambulatory Visit Summaryon 1 Ambulatory Visit [...] for choosing us for your care. Normal [facility] Physician Referralon 024 Physician Referral [id number] 4030 [id number] F Normal [facility] Physician Referral [id number] 4030 [id number] F Normal [facility] INSULINon 04-05-2022 Insulin 9.4 uIU/mL Normal 2.6-24.9 [facility] Comment on above: Performed By: #### I NSULIN #### [facility] [address] [address] [address] May Santos MG MAMM SCREEN 3D MICHAEL CADon 04-05-2022 MG MAMM SCREEN 3D MICHAEL CAD Patient: SUSANNA CABALLERO Exam Date: 04/05/2022 : 1955 Gender:F Ordering : DR ELIDA TAO . Admission #: [id number] Family : Order #: [id number] CLICK HERE TO VIEW EXAM RADIOLOGY REPORT [...] cancer at age 80. LOCATION: [facility] BREAST COMPOSITION: Heterogeneously dense,which may obscure [...] on 04/05/2022 at 10:08 Normal [facility] CBC AUTO DIFFon 04-04-2022 BASO # 0.0 103/ul Normal 0.0-0.1 [facility] Comment on above: Performed By: #### C BC ####[facility] [address] [address]Dr. May Santos Basophils/100 WBC (Bld) 0.3 % Normal 0.2-2.0 [facility] Comment on above: Performed By: #### C BC ####[facility] [address] [address]Dr. May Santos EO # 0.2 103/ul Normal 0.0-0.7 [facility] Comment on above: Performed By: #### C BC ####[facility] [address] [place], [place] [address]Dr. May Santos Eosinophils/100 WBC (Bld) 2.0 % Normal 0.9-7.0 [facility] Comment on above: Performed By: #### C BC ####[facility] [address] [place], [place] [address]Dr. May Santos Erythrocyte distribution width (RBC) [Ratio] 12.7 % Normal 11.0-15.0 [facility] Comment on above: Performed By: #### C BC ####[facility] Aet[address]pu[address] [place], [place] [address]Dr. May Santos Hematocrit (Bld) [Volume fraction] 44.7 % Normal 36.0-48.0 [facility] Comment on above: Performed By: #### C BC ####[facility] U[address]ch[address] [place], [place] [address]Dr. May Santos Hemoglobin (Bld) [Mass/Vol] 14.9 g/dL Normal 12.0-16.0 [facility] Comment on above: Performed By: #### C BC ####[facility] [address] [address]Dr. May Santos IG # 0.05 10e3/ul Critically high 0.00-0.03 [facility] Comment on above: Performed By: #### C BC ####[facility] F[address] [place], [place] [address]Dr. May Santos IG % 0.6 % Critically high 0.0-0.5 [facility] Comment on above: Performed By: #### C BC ####[facility] [address] [address]Dr. May Santos LYMPH # 2.9 103/ul Normal 1.2-3.8 [facility] Comment on above: Performed By: #### C BC ####[facility] [address] [address]Dr. May Santos Lymphocytes/100 WBC (Bld) 32.9 % Normal 20.5-60.0 [facility] Comment on above: Performed By: #### C BC ####[facility] [address] [address]Dr. May Santos MANUAL DIFF REQ NO Normal [facility] Comment on above: Performed By: #### C BC ####[facility] [address] [address]Dr. May Santos MCH (RBC) [Entitic mass] 33.0 pg Normal 26.7-34.0 [facility] Comment on above: Performed By: #### C BC ####[facility] [address] [address]Dr. May Santos MCHC (RBC) [Mass/Vol] 33.3 g/dL Normal 29.9-35.2 [facility] Comment on above: Performed By: #### C BC ####[facility] [address] [address]Dr. May Santos MCV (RBC) [Entitic vol] 98.9 fL Normal 81.0-99.0 [facility] Comment on above: Performed By: #### C BC ####[facility] [address]xt[address] [address]Dr. May Santos MONO # 0.7 103/ul Normal 0.3-0.8 [facility] Comment on above: Performed By: #### C BC ####[facility] [address] [address]Dr. May Santos Monocytes/100 WBC (Bld) 8.4 % Normal 1.7-12.0 [facility] Comment on above: Performed By: #### C BC ####[facility] [address] [address]Dr. May Santos NEUT # 4.9 103/ul Normal 1.4-6.5 [facility] Comment on above: Performed By: #### C BC ####[facility] [address] [address]Dr. May Santos Neutrophils/100 WBC (Bld) 55.8 % Normal 43.0-75.0 [facility] Comment on above: Performed By: #### C BC ####[facility] [address] [address]Dr. May Santos Platelet mean volume (Bld) [Entitic vol] 10.5 fL Normal 9.5-13.5 [facility] Comment on above: Performed By: #### C BC ####[facility] Xmut[address]urtx[address] [place], [place] [address]Dr. May Santos PLT 341 103/ul Normal 150-450 [facility] Comment on above: Performed By: #### C BC ####[facility] [address] [place], [place] [address]Dr. May Santos RBC 4.52 106/ul Normal 4.20-5.40 [facility] Comment on above: Performed By: #### C BC ####[facility] Og[address] [place], [place] [address]Dr. May Santos WBC 8.9 103/ul Normal 4.0-11.0 [facility] Comment on above: Performed By: #### C BC ####[facility] Tx[address]rin[address] [place], [place] [address]Dr. May Santos FREE THYROXINE INDEX T7on -2021 FTI 2.57 Normal 1.30-4.50 [facility] Comment on above: Performed By: #### T 7, TSH, LIPID, CMP ####[facility] [address] [address]Dr. May Santos T3U 33.0 % Normal 30.0-39.0 [facility] Comment on above: Performed By: #### T 7, TSH, LIPID, CMP ####[facility] Rx[address] [address]Dr. May Santos T4 [Mass/Vol] 7.80 ug/dL Normal 4.80-13.90 [facility] Comment on above: Performed By: #### T 7, TSH, LIPID, CMP ####[facility] [address] [address]DrDeborah Santos GLYCOHEMOGLOBIN A1Con 2021 ADA RECOMMENDATION SEE BELOW Normal [facility] Comment on above: Result Comment: ADA RECOMMENDED LIMIT 4.0 - 6.0 ADA THERAPEUTIC TARGET < 7.0 ACTION SUGGESTED > 7.0 Performed By: #### A 1C #### [facility] [address] [address] [address] May Santos Glucose [Mass/Vol] 114 mg/dL Normal [facility] Comment on above: Performed By: #### A 1C #### [facility] [address] [address] [address] May Santos HbA1c (Bld) [Mass fraction] 5.6 % Normal 4.5-6.2 [facility] Comment on above: Performed By: #### A 1C #### [facility] [address] [address] [address] May Santos IRONon 04-04-2022 Iron [Mass/Vol] 100.0 ug/dL Normal 50.0-170.0 [facility] Comment on above: Performed By: #### V ITAD, IRON ####[facility] [address] [address]Dr. May Santos LIPID PROFILEon 04-04-2022 CHOL-HDL RATIO NORM SEE BELOW Normal [facility] Comment on above: Result Comment: 3.3 - 4.4 LOW RISK 4.4 - 7.1 AVERAGE RISK 7.1 - 11.0 MODERATE RISK >11.0 HIGH RISK Performed By: #### T 7, TSH, LIPID, CMP ####[facility] [address] [address]Dr. Yilan Santos Cholesterol [Mass/Vol] 195 mg/dL Normal <=200 [facility] Comment on above: Performed By: #### T 7, TSH, LIPID, CMP ####[facility] [address] [address]Dr. May Santos Cholesterol in HDL [Mass/Vol] 47 mg/dL Normal 40-60 [facility] Comment on above: Performed By: #### T 7, TSH, LIPID, CMP ####[facility] [address] [address]Dr. Loveiliana Santos Cholesterol in LDL [Mass/Vol] 130.0 mg/dL Normal [facility] Comment on above: Performed By: #### T 7, TSH, LIPID, CMP ####[facility] [address]stx[address] [place], [place] [address]Dr. May Santos Cholesterol.total/C holesterol in HDL [Mass ratio] 4.1 {ratio} Normal [facility] Comment on above: Performed By: #### T 7, TSH, LIPID, CMP ####[facility] [address] [address]Dr. Lovelan Santos HDL NORMAL > or = 60 mg/dl - LO W CARDIOVASCULAR RISK <40 mg/dl - HIGH CARDIOVASCULAR RISK Normal [facility] Comment on above: Performed By: #### T 7, TSH, LIPID, CMP ####[facility] [address] [address]Dr. May Santos LDL CALC NORMAL SEE BELOW Normal [facility] Comment on above: Result Comment: <100 mg/dl OPTIMAL 100 - 129 mg/dl NEAR OR ABOVE OPTIMAL 130 - 159 mg/dl BORDERLINE HIGH 160 - 189 mg/dl HIGH >190 mg/dl VERY HIGH Performed By: #### T 7, TSH, LIPID, CMP ####[facility] [address] [address]Dr. Lovelan Santos Triglyceride [Mass/Vol] 90 mg/dL Normal <=150 [facility] Comment on above: Performed By: #### T 7, TSH, LIPID, CMP ####[facility] [address] [address]Dr. May Santos VLDL CALC 18.0 mg/dL Normal [facility] Comment on above: Performed By: #### T 7, TSH, LIPID, CMP ####[facility] [address] [address]Dr. May Santos PROF 14(COMP METB)on 022 Albumin [Mass/Vol] 3.7 g/dL Normal 3.4-5.0 [facility] Comment on above: Performed By: #### T 7, TSH, LIPID, CMP ####[facility] [address] [address]Dr. May Santos Albumin/Globulin [Mass ratio] 0.9 {ratio} Normal [facility] Comment on above: Performed By: #### T 7, TSH, LIPID, CMP ####[facility] [address]iel[address] [place], [place] [address]Dr. May Santos ALP [Catalytic activity/Vol] 94 U/L Normal 46-116 [facility] Comment on above: Performed By: #### T 7, TSH, LIPID, CMP ####[facility] [address] [address]Dr. May Santos ALT [Catalytic activity/Vol] 19 U/L Normal 14-59 [facility] Comment on above: Performed By: #### T 7, TSH, LIPID, CMP ####[facility] [address] [address]Dr. May Santos Anion gap [Moles/Vol] 14.1 mmol/L Normal [facility] Comment on above: Performed By: #### T 7, TSH, LIPID, CMP ####[facility] R[address] [address]Dr. May Santos AST [Catalytic activity/Vol] 16 U/L Normal 15-37 [facility] Comment on above: Performed By: #### T 7, TSH, LIPID, CMP ####[facility] [address]ys[address] [address]Dr. May Santos Bilirubin [Mass/Vol] 0.5 mg/dL Normal 0.2-1.0 [facility] Comment on above: Performed By: #### T 7, TSH, LIPID, CMP ####[facility] [address] [address]Dr. May Santos Calcium [Mass/Vol] 9.1 mg/dL Normal 8.5-10.1 [facility] Comment on above: Performed By: #### T 7, TSH, LIPID, CMP ####[facility] Lnkudtk[address] [place], [place] [address]Dr. May Santos Chloride [Moles/Vol] 104 mmol/L Normal 98-107 [facility] Comment on above: Performed By: #### T 7, TSH, LIPID, CMP ####[facility] [address]ocz[address] [place], [place] [address]Dr. May Santos CO2 [Moles/Vol] 26.6 mmol/L Normal 21.0-32.0 [facility] Comment on above: Performed By: #### T 7, TSH, LIPID, CMP ####[facility] Viiqvgpb[address] [place], [place] [address]Dr. May Santos Creatinine [Mass/Vol] 0.82 mg/dL Normal 0.55-1.02 [facility] Comment on above: Performed By: #### T 7, TSH, LIPID, CMP ####[facility] [address]wx[address] [place], [place] [address]Dr. May Santos EGFR-AF MALTESE >60 Normal >=60 [facility] Comment on above: Performed By: #### T 7, TSH, LIPID, CMP ####[facility] Dbokldshft[address] [place], [place] [address]Dr. May Santos EGFR-NON AF MALTESE >60 Normal >=60 [facility] Comment on above: Performed By: #### T 7, TSH, LIPID, CMP ####[facility] Nykrjifxmo[address] [place], [place] [address]Dr. May Santos Globulin (S) [Mass/Vol] 4.0 g/dL Normal [facility] Comment on above: Performed By: #### T 7, TSH, LIPID, CMP ####[facility] Ydbabyjsar[address] [place], [place] [address]Dr. May Santos Glucose [Mass/Vol] 120 mg/dL Critically high 74-106 [facility] [place] Comment on above: Performed By: #### T 7, TSH, LIPID, CMP ####[facility] [address]kr[address] [address]Dr. May Santos Potassium [Moles/Vol] 4.7 mmol/L Normal 3.5-5.1 [facility] Comment on above: Performed By: #### T 7, TSH, LIPID, CMP ####[facility] [address] [address]Dr. May Santos Protein [Mass/Vol] 7.7 g/dL Normal 6.4-8.2 [facility] Comment on above: Performed By: #### T 7, TSH, LIPID, CMP ####[facility] Iddlvnuoel[address] [place], [place] [address]Dr. May Santos Sodium [Moles/Vol] 140 mmol/L Normal 136-145 [facility] Comment on above: Performed By: #### T 7, TSH, LIPID, CMP ####[facility] [address] [address]Dr. May Santos Urea nitrogen [Mass/Vol] 9.0 mg/dL Normal 7.0-18.0 [facility] Comment on above: Performed By: #### T 7, TSH, LIPID, CMP ####[facility] [address] [place], [place] [address]Dr. May Santos Urea nitrogen/Creatinine [Mass ratio] 11.0 mg/mg Normal [facility] Comment on above: Performed By: #### T 7, TSH, LIPID, CMP ####[facility] [address] [address]Dr. May Santos TSHon 04-04-2022 TSH 1.034 uIU/mL Normal 0.358-3.740 [facility] Comment on above: Performed By: #### T 7, TSH, LIPID, CMP ####[facility] Szrqiupotm[address] [place], [place] [address]Dr. May Santos VITAMIN D 25 OHon 04-04-2022 VIT D 25-OH 45.9 ng/mL Normal [facility] Comment on above: Performed By: #### I NSULIN #### [facility] [address] [place] [address] Dr. May Santos VIT D RANGES SEE BELOW Normal [facility] Comment on above: Result Comment: <20 ng/mL Vit D deficient 20 - <30 ng/mL Vit D insufficient 30 - 100 ng/mL Vit D sufficient >100 ng/mL Potential Toxicity Performed By: #### I NSULIN #### [facility] [address] [place] [address] Dr. May Santos CULTURE URINEon 01-24-2022 CULTURE URINE Culture Observations : HEAVY GROWTH OF MIXED GENITAL SEAN. NO POTENTIAL PATHOGENS SEEN. Normal [facility] Comment on above: Performed By: #### I NSULIN #### [facility] [address] [place] [address] Dr. May Santos UA RANDOM W/MICROSCOPICon BACTERIA NONE SEEN Normal NONE SEEN [facility] Comment on above: Performed By: #### U AMIC ####[facility] [address] [address]Dr. May Santos Bilirubin Ql (U) Negative Normal NEGATIVE [facility] Comment on above: Performed By: #### U AMIC ####[facility] Codmz[address]zt[address] [place], [place] [address]Dr. May Santos CAST NONE SEEN Normal NONE SEEN [facility] Comment on above: Performed By: #### U AMIC ####[facility] Drrwnzwufb[address] [place], [place] [address]Dr. May Santos Clarity (U) CLEAR Normal CLEAR [facility] Comment on above: Performed By: #### U AMIC ####[facility] [address] [address]Dr. May Santos Color (U) YELLOW Normal YELLOW [facility] Comment on above: Performed By: #### U AMIC ####[facility] [address] [address]Dr. May Santos Crystals LM Nom (Urine sed) NONE SEEN Normal NONE SEEN [facility] Comment on above: Performed By: #### U AMIC ####[facility] [address] [address]Dr. May Santos Epithelial cells LM Ql (Urine sed) FEW Abnormal NONE SEEN /RARE [facility] Comment on above: Performed By: #### U AMIC ####[facility] [address] [address]Dr. May Santos Glucose Ql (U) Negative Normal NEGATIVE [facility] Comment on above: Performed By: #### U AMIC ####[facility] [address] [place], [place] [address]Dr. May Santos Hemoglobin Ql (U) Negative Normal NEGATIVE [facility] Comment on above: Performed By: #### U AMIC ####[facility] T[address]corwbrf[address] [place], [place] [address]Dr. May Santos Ketones Ql (U) Negative Normal NEGATIVE [facility] Comment on above: Performed By: #### U AMIC ####[facility] Hzscjb[address]uv[address] [place], [place] [address]Dr. Yilan Santos LEUKOCYTES Negative Normal NEGATIVE [facility] Comment on above: Performed By: #### U AMIC ####[facility] Zezgcy[address]um[address] [place], [place] [address]Dr. Yilan Santos MUCOUS NONE SEEN Normal NONE SEEN [facility] Comment on above: Performed By: #### U AMIC ####[facility] K[address]ql[address] [place], [place] [address]Dr. Yilan Santos Nitrite Ql (U) Negative Normal NEGATIVE [facility] Comment on above: Performed By: #### U AMIC ####[facility] [address]fyxpzyjv[address] [place], [place] [address]Dr. May Santos pH (U) 7.0 [pH] Normal 5-9 [facility] Comment on above: Performed By: #### U AMIC ####[facility] Z[address]tykazftv[address] [place], [place] [address]Dr. Lovelan Santos RBC NONE SEEN Abnormal 0-2 [facility] Comment on above: Performed By: #### U AMIC ####[facility] [address] [place], [place] [address]Wx. May Santos SPEC GRAVITY 1.015 Normal 1.005-<=1.025 [facility] Comment on above: Performed By: #### U AMIC ####[facility] [address]tjbzbsmmi[address] [place], [place] [address]Qp. May Santos UA PROTEIN Negative Normal NEGATIVE/ TRACE [facility] Comment on above: Performed By: #### U AMIC ####[facility] Exnxpvac[address] [place], [place] [address]Kb. May Santos Urobilinogen Qn (U) 0.2 {Taylor'U}/dL Normal 0.2 - 1. 0 [facility] Comment on above: Performed By: #### U AMIC ####[facility] [address] [address]Dr. May Santos WBC NONE SEEN Normal NONE SEEN [facility] Comment on above: Performed By: #### U AMIC ####[facility] [address]fczq[address] [place], [place] [address]Si. May Santos XR KUB 1 VIEWon 01-09-2022 [...] MILIAN Date: 2022-01-09 07:27 Normal [facility] US KIDNEYS BLADDERon 022 US KIDNEYS [...] RAMSAY Date: 2022-01-08 10:51 Normal [facility] CBC AUTO DIFFon 08-20-2021 BASO # 0.0 103/ul Normal 0.0-0.1 [facility] Comment on above: Performed By: #### C BC ####[facility] [address]my[address]azc[address] [place], [place] [address]Dr. May Santos Basophils/100 WBC (Bld) 0.6 % Normal 0.2-2.0 [facility] Comment on above: Performed By: #### C BC ####[facility] [address] [address]Dr. Loveiliana Santos EO # 0.2 103/ul Normal 0.0-0.7 [facility] Comment on above: Performed By: #### C BC ####[facility] [address]nozsvxbua[address] [place], [place] [address]Dr. May Santos Eosinophils/100 WBC (Bld) 2.4 % Normal 0.9-7.0 [facility] Comment on above: Performed By: #### C BC ####[facility] Jnsepkwdcg[address] [place], [place] [address]Dr. May Santos Erythrocyte distribution width (RBC) [Ratio] 13.0 % Normal 11.0-15.0 [facility] Comment on above: Performed By: #### C BC ####[facility] Fittybdfrn[address] [place], [place] [address]Dr. May Santos Hematocrit (Bld) [Volume fraction] 45.8 % Normal 36.0-48.0 [facility] Comment on above: Performed By: #### C BC ####[facility] [address] [address]Dr. May Santos Hemoglobin (Bld) [Mass/Vol] 15.1 g/dL Normal 12.0-16.0 [facility] Comment on above: Performed By: #### C BC ####[facility] E[address]lrzd[address] [address]Dr. May Santos IG # 0.02 10e3/ul Normal 0.00-0.03 [facility] Comment on above: Performed By: #### C BC ####[facility] C[address]ceux[address] [place], [place] [address]Dr. May Santos IG % 0.3 % Normal 0.0-0.5 [facility] Comment on above: Performed By: #### C BC ####[facility] Gcujsogsyz[address] [place], [place] [address]Dr. May Santos LYMPH # 2.7 103/ul Normal 1.2-3.8 [facility] Comment on above: Performed By: #### C BC ####[facility] [address]mxotmfyv[address] [place], [place] [address]Dr. May Santos Lymphocytes/100 WBC (Bld) 41.8 % Normal 20.5-60.0 [facility] Comment on above: Performed By: #### C BC ####[facility] [address]kl[address] [place], [place] [address]Dr. May Santos MANUAL DIFF REQ NO Normal [facility] Comment on above: Performed By: #### C BC ####[facility] [address]cf[address] [place], [place] [address]Dr. May Santos MCH (RBC) [Entitic mass] 33.0 pg Normal 26.7-34.0 [facility] Comment on above: Performed By: #### C BC ####[facility] [address] [place], [place] [address]Dr. May Santos MCHC (RBC) [Mass/Vol] 33.0 g/dL Normal 29.9-35.2 [facility] Comment on above: Performed By: #### C BC ####[facility] [address] [address]Dr. May Santos MCV (RBC) [Entitic vol] 100.0 fL Critically high 81.0-99.0 [facility] Comment on above: Performed By: #### C BC ####[facility] [address] [address]Dr. May Santos MONO # 0.5 103/ul Normal 0.3-0.8 [facility] Comment on above: Performed By: #### C BC ####[facility] [address] [place], [place] [address]Dr. May Santos Monocytes/100 WBC (Bld) 7.2 % Normal 1.7-12.0 [facility] Comment on above: Performed By: #### C BC ####[facility] [address] [place], [place] [address]Dr. May Santos NEUT # 3.0 103/ul Normal 1.4-6.5 [facility] Comment on above: Performed By: #### C BC ####[facility] [address] [place], [place] [address]Dr. May Santos Neutrophils/100 WBC (Bld) 47.7 % Normal 43.0-75.0 [facility] Comment on above: Performed By: #### C BC ####[facility] [address] [place], [place] [address]Dr. Mya Santos Platelet mean volume (Bld) [Entitic vol] 10.7 fL Normal 9.5-13.5 [facility] Comment on above: Performed By: #### C BC ####[facility] [address] [place], [place] [address]Dr. May Santos PLT 300 103/ul Normal 150-450 [facility] Comment on above: Performed By: #### C BC ####[facility] [address] [place], [place] [address]Dr. May Santos RBC 4.58 106/ul Normal 4.20-5.40 [facility] Comment on above: Performed By: #### C BC ####[facility] [address] [place], [place] [address]RcDr. May Santos WBC 6.4 103/ul Normal 4.0-11.0 [facility] Comment on above: Performed By: #### C BC ####[facility] [address] [place], [place] [address]TgDr. May Santos FREE THYROXINE INDEX T7on FTI 2.24 Normal [facility] Comment on above: Performed By: #### L IPID, CMP, TSH, T7 #### [facility] [address] [address] [address] May Santos T3U 34.0 % Normal 23.5-40.5 [facility] Comment on above: Performed By: #### L IPID, CMP, TSH, T7 #### [facility] [address] [address] [address] May Santos T4 [Mass/Vol] 6.60 ug/dL Normal 5.53-11.00 [facility] Comment on above: Performed By: #### L IPID, CMP, TSH, T7 #### [facility] [address] [address] [address] May Santos GLYCOHEMOGLOBIN A1Con 2021 ADA RECOMMENDATION ADA THERAPEUTIC TARG ET 6.0 - 7.0 ACTION SUGGESTED > 7.0 Normal [facility] Comment on above: Performed By: #### A 1C #### [facility] [address] [address] [address] May Santos Glucose [Mass/Vol] 120 mg/dL Normal [facility] Comment on above: Performed By: #### A 1C #### [facility] [address] [address] [address] May Santos HbA1c (Bld) [Mass fraction] 5.8 % Normal <=6.0 [facility] Comment on above: Performed By: #### A 1C #### [facility] [address] [address] [address] May Santos IRONon 08-20-2021 Iron [Mass/Vol] 121.0 ug/dL Normal 37.0-170.0 [facility] Comment on above: Performed By: #### I QAMAR, VITAD #### [facility] [address] [address] [address] May Santos LIPID PROFILEon 08-20-2021 CHOL-HDL RATIO NORM SEE BELOW Normal [facility] Comment on above: Result Comment: 3.3 - 4.4 LOW RISK 4.4 - 7.1 AVERAGE RISK 7.1 - 11.0 MODERATE RISK >11.0 HIGH RISK Performed By: #### L IPID, CMP, TSH, T7 #### [facility] [address] [address] [address] May Santos Cholesterol [Mass/Vol] 218 mg/dL Critically high <=200 [facility] Comment on above: Performed By: #### L IPID, CMP, TSH, T7 #### [facility] [address] [address] [address] May Santos Cholesterol in HDL [Mass/Vol] 54 mg/dL Normal [facility] Comment on above: Performed By: #### L IPID, CMP, TSH, T7 #### [facility] [address] [address] [address] May Santos Cholesterol in LDL [Mass/Vol] 140.0 mg/dL Normal [facility] Comment on above: Performed By: #### L IPID, CMP, TSH, T7 #### [facility] [address] [address] [address] May Santos Cholesterol.total/C holesterol in HDL [Mass ratio] 4.0 {ratio} Normal [facility] Comment on above: Performed By: #### L IPID, CMP, TSH, T7 #### [facility] [address] [address] [address] May Santos HDL NORMAL > or = 60 mg/dl - LO W CARDIOVASCULAR RISK <40 mg/dl - HIGH CARDIOVASCULAR RISK Normal [facility] Comment on above: Performed By: #### L IPID, CMP, TSH, T7 #### [facility] [address] [address] [address] May Santos LDL CALC NORMAL SEE BELOW Normal [facility] Comment on above: Result Comment: <100 mg/dl OPTIMAL 100 - 129 mg/dl NEAR OR ABOVE OPTIMAL 130 - 159 mg/dl BORDERLINE HIGH 160 - 189 mg/dl HIGH >190 mg/dl VERY HIGH Performed By: #### L IPID, CMP, TSH, T7 #### [facility] [address] [address] [address] May Santos Triglyceride [Mass/Vol] 120 mg/dL Normal <=150 [facility] Comment on above: Performed By: #### L IPID, CMP, TSH, T7 #### [facility] [address] [address] [address] May Santos VLDL CALC 24.0 mg/dL Normal [facility] Comment on above: Performed By: #### L IPID, CMP, TSH, T7 #### [facility] [address] [address] [address] May Santos PROF 14(COMP METB)on 022 Albumin [Mass/Vol] 3.7 g/dL Normal 3.5-5.0 [facility] Comment on above: Performed By: #### L IPID, CMP, TSH, T7 #### [facility] [address] [address] [address] May Santos Albumin/Globulin [Mass ratio] 1.0 {ratio} Normal [facility] Comment on above: Performed By: #### L IPID, CMP, TSH, T7 #### [facility] [address] [address] [address] May Santos ALP [Catalytic activity/Vol] 84 U/L Normal 38-126 [facility] Comment on above: Performed By: #### L IPID, CMP, TSH, T7 #### [facility] [address] [address] [address] May Santos ALT [Catalytic activity/Vol] 17 U/L Normal 9-52 [facility] Comment on above: Performed By: #### L IPID, CMP, TSH, T7 #### [facility] [address] [address] [address] May Santos Anion gap [Moles/Vol] 11.0 mmol/L Normal [facility] Comment on above: Performed By: #### L IPID, CMP, TSH, T7 #### [facility] [address] [address] [address] Mya Santos AST [Catalytic activity/Vol] 16 U/L Normal 14-36 [facility] Comment on above: Performed By: #### L IPID, CMP, TSH, T7 #### [facility] [address] [address] [address] May Santos Bilirubin [Mass/Vol] 0.5 mg/dL Normal 0.2-1.3 [facility] Comment on above: Performed By: #### L IPID, CMP, TSH, T7 #### [facility] [address] [place] [address] Dr. May Santos Calcium [Mass/Vol] 8.8 mg/dL Normal 8.4-10.2 [facility] Comment on above: Performed By: #### L IPID, CMP, TSH, T7 #### [facility] [address] [place] [address] Dr. May Santos Chloride [Moles/Vol] 107 mmol/L Normal 98-107 [facility] Comment on above: Performed By: #### L IPID, CMP, TSH, T7 #### [facility] [address] [place] [address] Dr. May Santos CO2 [Moles/Vol] 25.6 mmol/L Normal 22.0-30.0 [facility] Comment on above: Performed By: #### L IPID, CMP, TSH, T7 #### [facility] [address] [place] [address] Dr. May Santos Creatinine [Mass/Vol] 0.91 mg/dL Normal 0.52-1.04 [facility] Comment on above: Performed By: #### L IPID, CMP, TSH, T7 #### [facility] [address] [place] [address] Dr. May Santos EGFR-AF MALTESE >60 Normal >=60 [facility] Comment on above: Performed By: #### L IPID, CMP, TSH, T7 #### [facility] [address] [address] [address] May Santos EGFR-NON AF MALTESE >60 Normal >=60 [facility] Comment on above: Performed By: #### L IPID, CMP, TSH, T7 #### [facility] [address] [address] [address] May Santos Globulin (S) [Mass/Vol] 3.7 g/dL Normal [facility] Comment on above: Performed By: #### L IPID, CMP, TSH, T7 #### [facility] [address] [address] [address] aMy Santos Glucose [Mass/Vol] 116 mg/dL Critically high 74-106 [facility] Comment on above: Performed By: #### L IPID, CMP, TSH, T7 #### [facility] [address] [place] [address] Dr. May Santos Potassium [Moles/Vol] 4.6 mmol/L Normal 3.4-5.0 [facility] Comment on above: Performed By: #### L IPID, CMP, TSH, T7 #### [facility] [address] [address] [address] May Santos Protein [Mass/Vol] 7.4 g/dL Normal 6.1-8.2 [facility] Comment on above: Performed By: #### L IPID, CMP, TSH, T7 #### [facility] [address] [address] [address] May Santos Sodium [Moles/Vol] 139 mmol/L Normal 137-145 [facility] Comment on above: Performed By: #### L IPID, CMP, TSH, T7 #### [facility] [address] [address] [address] May Santos Urea nitrogen [Mass/Vol] 8.0 mg/dL Normal 7.0-17.0 [facility] Comment on above: Performed By: #### L IPID, CMP, TSH, T7 #### [facility] [address] [address] [address] May Santos Urea nitrogen/Creatinine [Mass ratio] 8.8 mg/mg Normal [facility] Comment on above: Performed By: #### L IPID, CMP, TSH, T7 #### [facility] [address] [address] [address] May Santos TSHon 08-20-2021 TSH 1.583 uIU/mL Normal 0.470-4.680 [facility] Comment on above: Performed By: #### L IPID, CMP, TSH, T7 #### [facility] [address] [address] [address] May Santos TSH RANGE SEE BELOW Normal [facility] Comment on above: Result Comment: <0.3 4 UIU/ml HYPERTHYROID 0.34-5.60 UIU/ml EUTHYROID >5.60 UIU/ml HYPOTHYROID Performed By: #### L IPID, CMP, TSH, T7 #### [facility] [address] [address] [address] May Santos VITAMIN D 25 OHon 08-20-2021 VIT D 25-OH 26.0 ng/mL Normal [facility] Comment on above: Performed By: #### I QAMAR VITAD ####[facility] [address] [address]Dr. May Santos VIT D RANGES SEE BELOW Normal [facility] Comment on above: Result Comment: <20 ng/mL Vit D deficient 20 - <30 ng/mL Vit D insufficient 30 - 100 ng/mL Vit D sufficient >100 ng/mL Potential Toxicity Performed By: #### Anneliese FOOTE VITAD ####[facility] [address] [address]Dr. May Santos Vital Signs Date Time Vital Sign Value Performing Clinician Faci lity 03-30-2024 14:29-0400 Blood Pressure Location Herbert RAINEY [facility] 03-30-2024 14:29-0400 Diastolic blood pressure 76 mm[Hg] Herbert RAINEY [facility] 03-30-2024 14:29-0400 [facility] 72 /[facility]-30-[facility] 14:29-0400 Respiratory rate 16 /min Herbert OSORIOL [facility] 03-30-2024 14:29-0400 Systolic blood pressure 116 mm[Hg] Herbert OSORIOL [facility] Encounters Encounter Date Encounter Type Care Provider Facility Start: 06-01-2024 End: 06-01-2024 [facility]: 06-01-2024 End: 06-01-2024 Patient encounter procedure Herbert aBrtholomew NILL [facility] Start: 05-19-2024 End: 05-19-2024 ambulatory Herbert R Nill Facility:[facility] Start: 05-19-2024 End: 05-19-2024 ambulatory Herbert R NILL Facility:CD:[id number] Start: 03-30-2024 End: 03-30-2024 [facility]ulatory [facility] Start: 03-30-2024 End: 03-30-2024 [facility] Start: 07-22-[address] MARIA [...] Immunizations Immunization Date Immunization Notes Care Provider [facility] 05-14-2021 SARS-CoV-2 (COVID-19 ) mRNA BNT-162b2 vax Herbert RAINEY [facility] 08-18-2020 SARS-CoV-2 (COVID-19 ) mRNA BNT-162b2 vax Herbert RAINEY [facility] 07-28-2020 SARS-CoV-2 (COVID-19 ) mRNA BNT-162b2 vax Herbert RAINEY [facility] Payers Date Payer Category Payer Medicare [id number] 1959 Self-pay 1961 Unknown [id number] 1955 Unknown [id number] 2.16.84 [id number] 1955 Unknown [id number] 2.16.84 [id number] 1953 Unknown [id number] 2.16.84 0.1.449635.3.579.2.593 1953 Unknown [id number] 2.16.84 0.1.776767.3.579.2.593 1953 Unknown [id number] 2.16.84 0.1.002162.3.579.2.593 1953 Unknown [id number] 2.16.84 0.1.762111.3.579.2.593 1953 Unknown [id number] 2.16.84 0.1.584342.3.579.2.593 1953 Unknown [id number] 2.16.84 0.1.398605.3.579.2.593 1953 Unknown [id number] 2.16.8 40.1.513455.3.579.2.727 1953 Unknown [id number] 2.16.8 40.1.174425.3.579.2.727 1953 Unknown [id number] 2.16.8 40.1.110603.3.579.2.727 1953 Unknown [id number] 2.16.8 40.1.950769.3.579.2.727 Unknown [id number] 2.16.8 40.1.088882.3.579.2.531 Social History Date Type Detail Facility Start: 03-30-2024 Tobacco smoking status Heavy t obacco smoker (finding) [facility] Tobacco smoking status Never [facility] Sex Assigned At Female [facility] Functional Status Date Assessment Result Facility 03-30-2024 Functional Status N/A [facility] Clinical Note 03-30-2024 Note Date & [...] SARS-CoV-2 (COVID-19) mRNA BNT-162b2 vax 07/28/2020 Recorded [facility] Comment on above: Result Comment: Elec tronically Signed By: JOSEPH WISDOM, Herbert Cunha\Date and Time Signed: 03/30/24 14:52 EDT Evaluation + Plan note Note Date & Type Note Facility Evaluation + Plan note No data available for this section [facility] Hospital Discharge instructions Note Date & Type Note Facility Hospital Discharge instructions No data available for this section [facility] Progress note Note Date & Type Note Facility Progress note No data available for this section [facility] Summary Purpose Family History No Family History Records Found No data available for this section No Family History Records Found No data available for this section No Family History Records Found Advance Directives No Advanced Directives Records FoundNo Advanced Directives Records FoundNo Advanced Directives Records Found Additional Source Comments INFORMATION SOURCE (unrecogn ized section and content) DATE CREATED AUTHOR 07/22/2022 [facility] DATE CREATED AUTHOR AUTHOR'S ORGANIZ ATION 05/27/2024 [facility] DATE CREATED AUTHOR AUTHOR'S ORGANIZ ATION 06/05/2024 [facility] Patient Care team informatio n (unrecognized section and content) Personnel Name: Elida Tao MD Address: Address: [address] [place] [address] Personnel Name: Elida Tao MD Address: Address: [address] [place] [address] FOR RECORDS PERTAINING TO PATIENTS WHO ARE [...] BE BASED ON THE PRIMARY CLINICAL RECORDS. [facility] [employer] [facility]. provides no warranty or guarantee of the accuracy or completeness of information in this document.
[2025-02-01 08:12] LABS: Ammonia 26 umol/L (11-32)
[2025-02-01 08:14] LABS: Hematocrit 43.9 % (36.0-48.0); Hemoglobin 14.9 g/dL (12.0-16.0); Immature Granulocytes Abs Auto 0.03 10^3/uL (0.00-0.03); Immature Granulocytes Pct Auto 0.3 % (0.0-0.5); Lymphocytes Absolute Auto 2.8 10^3/uL (1.2-3.8); Mean Corpuscular HGB Conc 33.9 g/dL (29.9-35.2); Mean Corpuscular Hemoglobin 33.0 pg (26.7-34.0); Mean Corpuscular Volume 97.1 fL (81.0-99.0); Platelet Count 316 10^3/uL (150-450); Red Blood Count 4.52 10^6/uL (4.20-5.40); White Blood Count 8.9 10^3/uL (4.0-11.0)
[2025-02-01 08:52] LABS: Iron 136.0 ug/dL (50.0-170.0)
[2025-02-01 09:09] LABS: Alanine Aminotransferase 13 U/L (14-59); Albumin Globulin Ratio 1.0; Albumin Level 3.8 g/dL (3.4-5.0); Alkaline Phosphatase 76 U/L (46-116); Anion Gap 15.6; Aspartate Amino Transferase 18 U/L (15-37); Blood Urea Nitrogen 12.0 mg/dL (7.0-18.0); Calcium 9.0 mg/dL (8.5-10.1); Carbon Dioxide 23.8 mmol/L (21.0-32.0); Chloride 106 mmol/L (98-107); Cholesterol 224 mg/dL (<=200); Estimated GFR (African America >60 (>=60 mL/min/1.73m^2); Estimated GFR (Non-African Ame >60 (>=60 mL/min/1.73m^2); Free T3 3.14 pg/mL (2.18-3.98); Globulin 3.8 g/dL; Glucose 108 mg/dL (74-106); HDL Cholesterol 49 mg/dL (40-60); NT Pro B Type Natriuretic Pept 196.0 pg/mL (<=900.0); Potassium 4.4 mmol/L (3.5-5.1); Sodium 141 mmol/L (136-145); Thyroid Stimulating Hormone 0.614 uIU/mL (0.358-3.740); Total Protein 7.6 g/dL (6.4-8.2); Triglycerides 121 mg/dL (<=150); VLDL CHOLESTEROL 24.2 mg/dL
== END 2025-02-01 07:27 | disposition home or self-care (01) ==
LOC: LAB 07:27
PROVIDERS: PCP Family Medicine; Visit Provider Family Medicine
DX: E78.5 Hyperlipidemia, unspecified (principal); R73.09 Other abnormal glucose; Z12.12 Encounter for screening for malignant neoplasm of rectum; D64.9 Anemia, unspecified; R53.83 Other fatigue; E55.9 Vitamin D deficiency, unspecified; I50.30 Unspecified diastolic (congestive) heart failure; I11.0 Hypertensive heart disease with heart failure
CPT/HCPCS: 36415; 80053; 80061; 82140; 82306; 82375; 83036; 83540; 83880; 84436; 84443; 84481; 85025

== ENCOUNTER 2025-04-22 08:51 | Outpatient (OUT) | payer MEDICARE, OTHER, SELFPAY ==
--- OUTSIDE RECORDS SUMMARY | 2025-04-19 09:40 | XMS_ITS | Encounter Summary ---
Author Organization [facility] Address [address] [place] [address] Care Team Providers Care Exhibits Manager Name Role Phone Unavailable Primary Care Provider Unavailabl e Reason for Visit * ReasonCommentsConsultPatient voiced that she has something that is falling out vaginally and is worse when she has to have a bowel movement. Encounter Details DateTypeDepartmentCare Team (Latest Contact Info)Uklbsqwkwdk55/04/2025 9:40 AM ESTOffice Visit KAHLIL SOTO [address] [place] [address] Kevin Rice, DO [address] [place] [address] Female bladder prolapse Social History Tobacco UseTypesPacks/DayYears UsedDateSmoking Tobacco: Never Assessed CommentsNoSex and Gender InformationValueDate RecordedSex Assigned at BirthNot on fileLegal HlfYaewkc39/15/2023 7:20 PM EDTGender IdentityNot on fileSexual OrientationNot on filedocumented as of this encounter Last Filed Vital Signs Vital SignReadingTime TakenCommentsBlood Rvevhomv310/8204/19/2025 10:06 AM EST Pulse--Temperature--Respiratory Rate--Oxygen Saturation--Inhaled Oxygen Concentration--Urymsr89.2 kg (157 lb)04/19/2025 10:06 AM ESTHeight--Body Mass Index--documented in this encounter Plan of Treatment DateTypeDepartmentCare Team (Latest Contact Info)Gmwgfpxiedo61/12/2025 10:20 AM ESTProcedure Visit KAHLIL SOTO [address] [place] [address] Gissell Becerra PA [address] [place] [address] [place] [address] documented as of this encounter Procedures Procedure NamePriorityDate/TimeAssociated DiagnosisCommentsPOCT URINALYSIS YBAYJIYHDxynwfe77/04/2025 10:19 AM EST Female bladder prolapse documented in this encounter Results * POCT urinalysis dipstick manually resulted (04/19/2025 10:19 AM EST)Component ValueRef RangeTest MethodAnalysis TimePerformed AtPathologist SignatureColor, UAYellowClarity, UAClearGlucose, UANegativeNegative - 2000(110) ++++ mg/dL Bilirubin, UANegativeNegative - 4(70) +++ mg/dLKetones, UANegativeNegative - 160(16) ++++ mg/dLSpec Grav, UA1.0101 - 1.03Blood, UANegativeNegative - 50 Chalino/mcLpH, UA6.05 - 9Protein, UANegativeNegative - 2000(20) ++++ mg/dL Urobilinogen, UA0.20.2 - 12 mg/dLLeukocytes, UANegativeNegative - 500+++ Diana/mcLNitrite, UANegativeNegative - PositiveSpecimen (Source)Anatomical Location / LateralityCollection Method / VolumeCollection TimeReceived Time Urine04/19/2025 10:19 AM EST Narrative Authorizing ProviderResult TypeResult StatusCorey Krystal DOPOINT OF CARE TEST ENTER/EDIT ORDERABLESFinal Result documented in this encounter Visit Diagnoses Diagnosis Female bladder prolapse documented in this encounter
--- NOTE | 2025-04-22 08:53 | MM_ITS ---
Patient Name: SUSANNA CABALLERO MR#: [id number] : 1955 Exam Date: 04/22/2025 Ordering Doctor: DR LEIDA BOOGIE . RADIOLOGY REPORT PROCEDURE: MM TOMOSYNTHESIS SCREENING BI COMPARISON: MM TOMOSYNTHESIS SCREENING BI, 04/08/2024. MM TOMOSYNTHESIS SCREENING BI, 04/07/2023. MG MAMM SCREEN 3D MICHAEL CAD, 04/05/2022. MG MAMM MICHAEL SCRN W CAD DIG, 11/30/2013. INDICATIONS: Screening Calculator Name NCI Breast Cancer Risk Assessment Tool 5 Year Breast Cancer Risk 1.30% Lifetime Breast Cancer Risk 3.50% Personal Breast Cancer No Personal Ovarian Cancer No Treatments None Family Cancers Father with colon cancer at age 78; Mother with lung cancer at age 82. LOCATION: [facility] BREAST COMPOSITION: The breasts are heterogeneously dense, which may obscure small masses. FINDINGS: DIAGNOSTIC CATEGORY 1--NEGATIVE. RIGHT BREAST: No significant suspicious finding. LEFT BREAST: No significant suspicious finding. RECOMMENDATIONS: ROUTINE MAMMOGRAM AND CLINICAL EVALUATION IN 12 MONTHS. Dictated by: Lawrence Mehta MD on 04/22/2025 at 11:12 Approved by: Lawrence Mehta MD on 04/22/2025 at 11:14
--- OUTSIDE RECORDS SUMMARY | 2025-04-22 08:53 | XMS_ITS | Clinical Summary ---
Author Organization [facility] Address [address] [place] [address] Care Team Providers Care Zoology Technical Officer Name Role Phone Ramin Isaac Primary Care Provider Allergies No known active allergies Medications MedicationSigDispense QuantityRefillsLast FilledStart DateEnd DateStatus OMEGA-3 ACID ETHYL ESTERS (LOVAZA ORAL) Take by mouth.Active rosuvastatin (CRESTOR) 5 mg ORAL tablet Take 5 mg by mouth once daily.Active VITAMIN E ORAL Take by mouth.Active Ascorbic Acid (VITAMIN C) 1,000 mg ORAL tablet Take 1,000 mg by mouth once daily.Active aspirin 325 mg ORAL tablet Take 325 mg by mouth once daily.Active Zolpidem 12.5 mg ORAL CR tablet Take 12.5 mg by mouth at bedtime as needed.Active Family History Medical HistoryRelationCommentsDiabetesFatherRelationStatusCommentsFather Social History Tobacco UseTypesPacks/DayYears UsedDateSmoking Tobacco: Every DayCigarettes Alcohol UseStandard Drinks/WeekCommentsYes0 (1 standard drink = 0.6 oz pure alcohol)CommentsUnknownSex and Gender InformationValueDate RecordedSex Assigned at BirthNot on fileLegal KklUxkius29/02/2012 10:12 AM ESTGender IdentityNot on fileSexual OrientationNot on file Last Filed Vital Signs Vital SignReadingTime TakenCommentsBlood Pressure--Pulse--Temperature-- Respiratory Rate--Oxygen Saturation--Inhaled Oxygen Concentration--Xrhczc71.6 kg (160 lb)07/02/2011 12:41 PM SZXYkhpzf636.6 cm (5' 6 )07/02/2011 12:41 PM ESTBody Mass Index25.8207/02/2011 12:41 PM EST Plan of Treatment Health MaintenanceDue DateLast DoneCommentsAnxiety Lcwdsgyku81/16/1972Depression Qydocswvj06/16/1972Hepatitis C Zzlatduno27/16/1972DTaP,Tdap,Td Vaccine (1 - Tdap)1972Mammogram Glebucnrb86/16/1994CT Fxzlvlsgynnr20/16/1999Cologuard (FIT-DNA)10/29/19986476Oybcsaszumn88/16/1999Colorectal Cancer Kmaswxrhk27/16/1999 Diabetes Cdwrbbzoc45/16/1999Fecal Occult Blood1998Lipid Screening 10/29/19988112Dzzlkcjtrdlcb19/16/1999Pneumococcal Vaccine: 50+ (1 of 1 - PCV) 10/30/2003Shingrix Vaccine (1 of 2)10/30/2003Bone Density Mzaqstdck64/16/2019 Advance Directive Yktqonfxhb96/01/2025ovid-19 Vaccine (1 - 2024-26 season) 2025Influenza Vaccine (#1)2025RSV Vaccine (1 - 1-dose 75+ series) 2028 Insurance MemberSubscriberPlan / Payer (Effective 2011-Present)Name:Courtney Caballero Relation to Subscriber:SpouseName:SUKHJINDER CABALLERO Date of :1948 (Home) Address: [address] [place] [address] Payer ID:[id number] (NAIC) Type:PPO Address: [facility] [id number] [id number] Care Teams Team MemberRelationshipSpecialtyStart DateEnd Date Ramin Isaac [address] [facility] [place] [id number] PCP - GeneralOb/Gyn04/25/11
--- OUTSIDE RECORDS SUMMARY | 2025-04-22 08:53 | XMS_ITS | Clinical Summary ---
Author Organization [facility] tem Address [id number] [address] [place] [address] Care Team Providers Care Contract Administration Specialist Name Role Phone Unavailable Primary Care Provider Unavailabl e Social History Tobacco UseTypesPacks/DayYears UsedDateSmoking Tobacco: Never AssessedChildcare AnswerDate MwvdnmcmRnbuwzufkWbzkkmg19/12/2019EmploymentAnswerDate Recorded RfonvzhncbLigrlfz62/12/2019CommentsUnknownSex and Gender Information ValueDate RecordedSex Assigned at BirthNot on fileLegal RugEecmts48/06/2015 12:04 PM EDTGender IdentityNot on fileSexual OrientationNot on file Plan of Treatment Health MaintenanceDue DateLast DoneCommentsDepression Pvsalcclf66/16/1966Tobacco Uqdcgsgei91/16/1966Adult BMI Zmdasfvog56/16/1972DTaP,Tdap and Td Vaccines (1 - Tdap)1972Zoster (Shingles) Vaccine (1 of 2)10/30/2003Fall Risk Screening 2018Influenza Dqpntqj9402/14/2025RSV ( or age 60+ yrs) (1 - 1-dose 75+ series)2028 Medical Devices Not on file
--- OUTSIDE RECORDS SUMMARY | 2025-04-22 08:53 | XMS_ITS | Clinical Summary ---
Author Organization [facility] Address [address] [address] Care Team Providers Care Neuropsychiatric Aide Name Role Phone Unavailable Primary Care Provider Unavailabl e Allergies No known active allergies Medications MedicationSigDispense QuantityRefillsLast FilledStart DateEnd DateStatus Ascorbic Acid (vitamin C) 1000 MG tablet Take 1,000 mg by mouth in the morning.Active aspirin 325 MG tablet Take 325 mg by mouth in the morning.Active carvedilol (Coreg) 25 MG tablet Every 12 hours5Active lisinopril 40 MG tablet Daily5Active meloxicam (Mobic) 15 MG tablet Daily5Active rosuvastatin (Crestor) 5 MG tablet Take 5 mg by mouth in the morning.Active zolpidem (Ambien) 5 MG tablet Daily at dysjtbp02/25/2025Active Encounters DateTypeDepartmentCare RsyuMfwnzvynqdn70/04/2025 9:40 AM ESTOffice Visit [facility] [address] [place] [address] Kevin Rice DO Female bladder wqumgqzf40/04/2025amboo flowsheet [facility] [address] [address] Kevin Rice DO from Last 3 Months Social History Tobacco UseTypesPacks/DayYears UsedDateSmoking Tobacco: Never Assessed CommentsNoSex and Gender InformationValueDate RecordedSex Assigned at BirthNot on fileLegal CayImdmvz01/15/2023 7:20 PM EDTGender IdentityNot on fileSexual OrientationNot on file Last Filed Vital Signs Vital SignReadingTime TakenCommentsBlood Fltznbuj033/8204/19/2025 10:06 AM EST Pulse--Temperature--Respiratory Rate--Oxygen Saturation--Inhaled Oxygen Concentration--Bbhwsz91.2 kg (157 lb)04/19/2025 10:06 AM ESTHeight--Body Mass Index-- Plan of Treatment DateTypeDepartmentCare Team (Latest Contact Info)Iwwjsmlbolo94/12/2025 10:20 AM ESTProcedure Visit [facility] [address] [address] Gissell Becerra PA [address] [place] [address] Health MaintenanceDue DateLast DoneCommentsCT Kcyysnannexo72/16/1954FIT-DNA 1953FIT1953FOBT1953 5737Uxqnaslhhvhfr01/16/1849Zexzmgfpc48/16/1994 Pneumococcal Vaccine: 65+ Years (2 of 2 - PCV20 or PCV21)/11/2019 COVID-19 Vaccine (4 - 2024- season), 08/18/2020, 6718Fhqeczelmyz34/04/0184334Colorectal Cancer Cyikncfuw49/04/2034 Influenza FxssiqgKxvorjzpu57/20/2025, 04/12/2024, 03/25/2023, Additional history exists Procedures Procedure NamePriorityDate/TimeAssociated DiagnosisCommentsPOCT URINALYSIS SGKVGDKPVplqwix01/04/2025 10:19 AM EST Female bladder prolapse from Last 3 Months Results * POCT urinalysis dipstick manually resulted [...] DOPOINT OF CARE TEST ENTER/EDIT ORDERABLESFinal Result from Last 3 Months Insurance
--- OUTSIDE RECORDS SUMMARY | 2025-04-22 08:53 | XMS_ITS | Encounter Summary ---
Author Organization [facility] Address [address] [place] [address] Care Team Providers Care Surgical Technician Name Role Phone Unavailable Primary Care Provider Unavailabl e Encounter Details DateTypeDepartmentCare Team (Latest Contact Info)Ytxcjmrtwow94/04/2025amboo flowsheet [facility] [address] [place] [address] Kevin Rice DO [address] [place]on Day, [facility] Social History Tobacco UseTypesPacks/DayYears UsedDateSmoking Tobacco: Never Assessed CommentsNoSex and Gender InformationValueDate RecordedSex Assigned at BirthNot on fileLegal KmuQiqlib23/15/2023 7:20 PM EDTGender IdentityNot on fileSexual OrientationNot on filedocumented as of this encounter Plan of Treatment DateTypeDepartmentCare Team (Latest Contact Info)Emghiangstu20/12/2025 10:20 AM ESTProcedure Visit [facility] [address] [place] [address] Gissell Becerra PA [address] [place] [address] documented as of this encounter Visit Diagnoses Not on filedocumented in this encounter
--- OUTSIDE RECORDS SUMMARY | 2025-04-22 08:53 | XMS_ITS | Clinical Summary ---
Author Organization [facility] Address [address] [place] [address] Care Team Providers Care Door Core Assembler Name Role Phone Unavailable Primary Care Provider Unavailabl e Social History Tobacco UseTypesPacks/DayYears UsedDateSmoking Tobacco: Never Assessed CommentsUnknownSex and Gender InformationValueDate RecordedSex Assigned at Not on fileLegal WwlBamtpg68/03/2013 3:41 PM ESTGender IdentityNot on fileSexual OrientationNot on file Plan of Treatment Health MaintenanceDue DateLast DoneCommentsDEXA SCAN EJMVJMOZXE21/16/1956 HEPATITIS C VIRUS SXBJXPNLJ58/16/3763DFRGAXQ71/16/1954TDAP (ADULT)1972 CERVICAL CANCER SCREENING VOOEFNLXLA42/16/1975LIPID LZCNFGHXF87/16/1994MAMMOGRAM SCREENING USFKNTESMI45/16/1994COLORECTAL CANCER SCREENING OXCMTNZUTB83/16/1999 PNEUMOCOCCAL VACCINE SERIES (1 of 1 - PCV)10/30/2003ZOSTER (SHINGLES) VACCINE (1 of 2)10/30/2003COVID-19 VACCINE (1 - 2024- season)2025INFLUENZA VACCINE (#1)2025RSV VACCINE (1 - 1-dose 75+ series)2028HEP B VACCINEAged Out No longer eligible based on patient's age to complete this topic
--- OUTSIDE RECORDS SUMMARY | 2025-04-22 08:53 | XMS_ITS | CCD ---
Author Organization [facility] CliniSyil Care Team Providers Care Timber Appraiser Name Role Phone KEAGAN, DR MARRERO Admitting Unavailable HOY, DR MARRERO Attending Unavailable HOY, DR MARRERO Primary Care Unavailable HOY, DR MARRERO Consulting Unavailable HOY, DR MRARERO Admitting Unavailable HOY, DR MARRERO Attending Unavailable [...] Unavailable Elida Tao Primary Care Physician Herbert RANIEY Attending Unavailable Herbert RAINEY Attending Unavailable Herbert RAINEY Attending Unavailable Herbert RAINEY Attending Unavailable Elida Tao MD Primary Care Provider [phone] Elida Tao MD Attending Provider Herbert Rainey Attending Unavailable Herbert Rainey Admitting Unavailable Hoy, Elida M Attending Unavailable Elida Tao Primary Care Unavailable Elida Tao Admitting Unavailable Unavailable Primary Care Provider UnavailGARCÍA March Attending Unavailable Allergies Allergy ClassificationReported Allergen(s)Allergy TypeDate of OnsetReaction(s) Facility (2 sources)Naproxen; Translations: [Aleve]Drug AllergyThe [facility] Repository (2 sources)Naproxen; Translations: [naproxen]Drug AllergyBl[facility] Medications Current Medications MedicationDrug Class(es)DatesSig (Normalized)Sig (Original)ALPRAZolam 0.25 mg oral tablet (1 source)BenzodiazepineStart: 05-04-1666fodk 1 tablet by mouth twice daily Alprazolam 0.25 mg tablet Active 0.25 MG PO Twice daily February 07, 2025 12:00am Complies with drug therapyamoxicillin 500 mg oral capsule (1 source)Penicillin-class AntibacterialStart: 24-41-8839drjb 1 capsule by mouth every eight hoursAmoxicillin 500 mg capsule Active 500 MG PO Every 8 hours February 07, 2025 12:00am Complies with drug therapycalcium carbonate 1500 mg oral tablet (2 sources)Start: 95-79-5877afur 1 tablet by mouth twice dailycalcium (as carbonate) 600 mg oral tablet 600 mg = 1 tab(s), Oral, BID, Refills(s) 0 Start Date: 03/12/24 Status: Orderedcarvedilol 25 mg oral tablet (1 source)alpha-Adrenergic Angel, beta-Adrenergic BlockerStart: 58-93-4484tbzf 1 tablet by mouth every twelve hours at mealtimeCarvedilol 25 mg tablet Active 25 MG PO Every 12 hours February 07, 2025 12:00am must administer with a meal/food Complies with drug therapylisinopril 40 mg oral tablet (1 source)Angiotensin Converting Enzyme InhibitorStart: 55-21-7221sfup 1 tablet by mouth once dailyLisinopril 40 mg tablet Active 40 MG PO Daily February 07, 2025 12:00am Complies with drug therapymeloxicam 15 mg oral tablet (1 source)Nonsteroidal Anti-inflammatory DrugStart: 36-54-9004ivdj 1 tablet by mouth once dailyMeloxicam 15 mg tablet Active 15 MG PO Daily February 07, 2025 12:00am Complies with drug therapyzolpidem tartrate 5 mg oral tablet (3 sources)gamma-Aminobutyric Acid-ergic AgonistStart: 07-19-9886qnly 1 tablet by mouth once daily at bedtimeZolpidem (Ambien) 5 mg tablet Active 5 MG PO Daily at bedtime February 07, 2025 12:00am Complies with drug therapyStart: 97-86-7711kcym 12.5 mg by mouth once daily at bedtimezolpidem 12.5 mg, Oral, Once a day (at bedtime), Refills(s) 0, Insomnia Start Date: 11/07/15 Status: Ordered Problems Active Problems Problem ClassificationProblemDateDocumented DateEpisodic/ChronicDisorders of lipid metabolism (8 sources)Hyperlipidemia, unspecified; Translations: [Pure hypercholesterolemia, unspecified]Onset: 80-22-4837VdfzpmcUfpgxncptsjarq and diverticulitis (1 source)Diverticular lktwnxi78-62-1665RvwlxysBhpkrrekecl deficiencies (1 source)Vitamin D deficiency, unspecified; Translations: [VITAMIN D DEFICIENCY UNSPECIFIED]Onset: 90-52-4185KqmhthnBakukieyydgf (2 sources)Abssswqqbrbk19-30-0739FrpdarsXhmdl and unspecified benign neoplasm (5 sources)History of polyp of colon; Translations: [Personal history of hyperplastic colon polyps]Onset: 48-72-1771LaqyfbqvIptce and unspecified benign neoplasm (2 sources)Pseudopolyposis of uxxdm94-05-1357ZtxugrflTnlnj nutritional; endocrine; and metabolic disorders (2 sources)Ogljhtlfhb31-09-7027AkbhmfngVnion nutritional; endocrine; and metabolic disorders (2 sources)Overweight in adulthood with body mass index of 25 or more but less than 6247-84-3009AzuatpawVhinphdg codes; unclassified (1 source)Family history of malignant neoplasm of digestive organ; Translations: [Family history of malignantneoplasm of digestive organs]Onset: 03-30-2024 EpisodicResidual codes; unclassified (2 sources)Family history of cancer of dtepj33-26-4918KyrrgydfOphcjdid codes; unclassified (2 sources)Aooriwle85-92-1652HddsrkfrCvbhlxfm codes; unclassified (2 sources)Tobacco hghw39-67-5932Wxqxxael Past or Other Problems Problem ClassificationProblemDateDocumented DateEpisodic/ChronicDeficiency and other anemia (1 source)Anemia, unspecified; Translations: [ANEMIA UNSPECIFIED]Onset: 28-34-5158HkjkrvfjFsdsduvv mellitus without complication (1 source)Other abnormal glucose; Translations: [OTHER ABNORMAL GLUCOSE]Onset: 84-65-7813NemwgmhrHpqpalw and fatigue (4 sources)Other fatigue; Translations: [OTHER FATIGUE]Onset: 63-58-3315Emyqrhrv Other screening for suspected conditions (not mental disorders or infectious disease) (4 sources)Encounter for screening mammogram for malignant neoplasm of breast; Translations: [ENC SCR MAMMO MALIG NEOPLASM BREAST]Onset: 96-48-0973Sppruyoe Residual codes; unclassified (1 source)Family history of malignant neoplasm of digestive organs; Translations: [FAM HX MALIG NEOPLASM DIGESTIV ORGN]Onset: 66-31-7036Antvbsyu Residual codes; unclassified (1 source)Family history of malignant neoplasm of trachea, bronchus and lung; Translations: [FAM HX MALIG NEOPLSM TRACH BRON LNG]Onset: 90-65-9646Unsiofaq Residual codes; unclassified (1 source)Insomnia, unspecified; Translations: [INSOMNIA UNSPECIFIED]Onset: 86-70-5925OujlefgiXtjhghg tract infections (8 sources)Urinary tract infection, site not specified; Translations: [Tubulo- interstitial nephritis, not specified as acute or chronic]Onset: 01-08-2022 Episodic Results Test NameValueInterpretationReference RangeFacilityCoagulation Profileon 44-65-6741qJTZ Coag (Bld) [Time]25.3 rUnzvmp18.1-36.5The Count Includes [facility] Physician GroupComment on above:Order Comment: STAT FOR THYROID BXResult Comment: A hematocrit value greater than 55% may lead to inaccurate results in coagulation testing. Patients having hematocrit values >55% require a special collection tube for coagulation studies. Please contact the laboratory at [phone] for redraw instructions. PERFORMED BY: [facility] [place] [address] PATHOLOGIST COLLECTIONS PROFESSIONAL CHRISTOFER SILVA M.D.Performed By: #### PLT, PP #### [facility] [address] [place] [address] USAINR in Platelet poor plasma by Coagulation assayOrdered By: Elida Tao on 41-16-1669XAS Coag (PPP) [Relative time]0.9 {INR}Normal [facility] Medical CenterComment on above:INR Therapeutic Range A) Pre- and Peroperative OAT started two weeks before surgery. NOT HIP SURGERY: 1.5 - 2.5 HIP SURGERY: 2 - 3B) Primary and secondary prevention of venous THROMBOSIS: 2 - 3C) Active venous thrombosis, pulmonary embolismand prevention of recurrent venous thrombosis: 2 - 3D) Prevention of arterial thromboembolismincluding patients with mechanical heart valves: 3 - 4.5Order Comment: STAT FOR THYROID BX Result Comment: INR Therapeutic Range A) Pre- and Peroperative OAT started two weeks before surgery. NOT HIP SURGERY: 1.5 - 2.5 HIP SURGERY: 2 - 3 B) Primary and secondary prevention of venous THROMBOSIS: 2 - 3 C) Active venous thrombosis, pulmonary embolism and prevention of recurrent venous thrombosis: 2 - 3 D) Prevention of arterial thromboembolism including patients with mechanical heart valves: 3 - 4.5Performed By: #### PLT, PP #### [facility] [address] [place] [address] USALon 02-07-2025L Specimen: [id number] Received: 02/07/25 Status: NAREN Gay Num: [id number] Spec Type: Cytology Subm Dr: Elida Tao MD Tissues: A FNA SLIDES PATH (THYROID CYST, LT) Procedures: -, DIFF QWIK/4, PAPSTN/5 Age/ Patient Sex Location Account Attending Physician Susanna Cabrera 69/F [id number] Elida Tao MD SPEC NUM: [id number] RECD: 02/07/25 STATUS: NAREN GAY NUM: [id number] ENRIQUE: 02/07/25-[address] [facility] [address]: Elida Tao MD ENTERED: 02/07/[address] [facility] [address]: NANCY TYPE: Cytology DEPT: CNG ENTERED BY: [id number] RECV BY: [id number] ORDERED: -, DIFF QWIK/4, PAPSTN/5 ORDERED: -, DIFF QWIK/4, PAPSTN/5 Pathological Diagnosis Left thyroid cyst, fine needle aspiration (ThinPrep and Smears Slides): - Suboptimal for evaluation due to scant cellularity. - Few benign-appearing follicular cells, macrophages and cystic content, favor benign follicular nodule with cystic changes ([facility] Category: II) - Negative for malignant cells. Comment: Recommend clinical and radiologic correlation and follow-up as clinically indicated. Clinical Information Thyroid Cyst,Left, 3.6 cm Gross Description Received fixed in Cytolyt is 33 ml red opaque fixed fluid for cytology said to have been obtained as Thyroid Cyst. ThinPrep preparations are prepared for microscopic examination. Also received are 8 total smeared slides for microscopic examination. (YC/nh) Specimen: [id number] Received: 02/07/25 Status: NAREN Gay Num: [id number] Spec Type: Cytology Subm Dr: Elida Tao MD Tissues: A FNA SLIDES PATH (THYROID CYST, LT) Procedures: -, DIFF QWIK/4, PAPSTN/5 Patient: Susanna Cabrera [id number] (Continued) Specimen: [id number] Received: 02/07/25 (Continued) Signed (signature on file) Faisal Loera MD 02/08/25 4422 Specimen: [id number] Received: 02/07/25 Status: NAREN Gay Num: [id number] Spec Type: Cytology Subm Dr: Elida Tao MD Tissues: A FNA SLIDES PATH (THYROID CYST, LT) Procedures: -, DIFF QWIK/4, PAPSTN/5 Patient: Susanna Cabrera [id number] (Continued) Specimen: [id number] Received: 02/07/25 (Continued) Immediate Evaluation Left thyroid,cyst, FNA, Pass#1 to Pass #4. - Cystic fluid with rare follicular cells. Faisal Loera 02/07/2511:28 A.M. Microscopic Description Microscopic examination is performed. CPT Codes 55650, 65658, 06282 Specimen: [id number] Received: 02/07/25 Status: NAREN Gay Num: [id number] Spec Type: Cytology Subm Dr: Elida Tao MD Tissues: A FNA SLIDES PATH (THYROID CYST, LT) Procedures: -, DIFF QWIK/4, PAPSTN/5 Patient: Susanna Cabrera [id number] (Continued) Signed (signature on file) Faisal Loera MD 02/08/25 1331Normal The Count Includes The [facility] Physician GroupPlatelets [#/volume] in Blood by Automated count Ordered By: Elida Tao on 71-13-8128Kpbkkiatt (Bld) [#/Vol]327 10*3/uLNormal 150-450As[facility] County Medical CenterComment on above:Order Comment: STAT FOR THYROID BXResult Comment: PERFORMED BY: [facility] [place] [address] PATHOLOGIST COLLECTIONS PROFESSIONAL CHRISTOFER SILVA M.D.Performed By: #### PLT, PP #### [facility] [address] [place] [address] USAProthrombin time (PT)Ordered By: Elida Tao on 02-07-2025 PT Coag (PPP) [Time]10.6 sNormal9.0-12.9[facility] County Medical CenterComment on above:A hematocrit value greater than 55% may lead to inaccurate results in coagulation testing. Patientshaving hematocrit values >55% require a special collection tube for coagulation studies. Please contact the laboratory at [phone] for redraw instructions.Order Comment: STAT FOR THYROID BXResult Comment: A hematocrit value greater than 55% may lead to inaccurate results in coagulation testing. Patients having hematocrit values >55% require a special collection tube for coagulation studies. Please contact the laboratory at [phone] for redraw instructions.Performed By: #### PLT, PP #### [facility] [address] [place] [address] USAUS needle aspirationon 77-70-5960HW needle aspiration [facility] [place] [address] [place] [address] Ultrasound Report Signed Patient: Susanna Cabrera MR#: [id number] 0 : 1955 Acct:[id number] Age/Sex: 69 / F ADM Date: 02/07/25 Loc: Room: Type: [facility] Attending Dr: Elida Tao MD Ordering Provider: Elida Tao MD Date of Service: 02/07/25 US/US needle aspiration: E04.1 Copies to: Elida Tao MD Ultrasound-guided fine-needle aspiration of left thyroid nodule HISTORY: Thyroid nodule identified with CT examination. There is identification of predominantly cystic left thyroid nodule. This measures 3.6 x 3.0 x 2.9 cm. Informed consent obtained. Skin entry site in left side of neck prepped and draped in sterile fashion with local lidocaine administered. 5 fine-needle aspirates were obtained. Cystic fluid collection also obtained. Adequate hemostasis. No immediate complication. Discharge in satisfactory condition. US/US needle aspiration IMPRESSION: Successful ultrasound-guided fine needle aspiration of left thyroid nodule Impression dictated by: Joey Oseguera M.D. 02/07/2025 1:37 PM Dictation Location: [place] [address] Tech: Tammy Cedra Transcribed By: OREN 02/07/251336 Dictated By: Joey Oseguera DO 02/07/251334 Signed By: 02/07/25 LeannH[facility] Physician GroupaPTT in Platelet poor plasma by Coagulation assayOrdered By: Elida Tao on 49-25-8440bKUJ Coag (PPP) [Time]25.3 s25.1-36.5FKindred Hospital DaytonComment on above:A hematocrit value greater than 55% may lead to inaccurate results in coagulation testing. Patients having hematocrit values >55% require a special collection tube for coagulation studies. Please contact the laboratory at [phone] for redraw instructions. Reminderson 28-81-1951QwjgntpdfVwjiblcba From: Yeimi Schwartz LPN To: N - Clinical; Sent: 05/27/2024 15:40:04 EST Show up: 04/19/2029 07:00:00 EST Subject: colonosocpy recall Due Date/Time: 05/19/2029 07:00:00 EST Reminder/Recall Patient due for surveillance colonoscopy 05/19/2029 due to family history of colon cancer.[facility] CenterPathology Request for Lab Corpon 19-18-9492Tzipvoqsf Request for Lab CorpHCA [facility] Hospital Physician Group Comment on above:Order Comment: PATHOLOGY GI SPECIMENResult Comment: See report. Scanned copy available in EMR. PERFORMED BY: [place] [address] PATHOLOGIST COLLECTIONS PROFESSIONAL YUAN GLEASON M.D.Performed By: #### PATH TO [facility] #### [place] [address] USAAmbulatory Visit Summaryon 30-62-7707Ymjbxmfrst Visit SummaryAmbulatory Visit Summary SUSANNA CABRERA Briana :1955 Visit Date:03/30/2024 Ambulatory Visit Instructions Your Diagnosis Family history of colon cancer in father Personal history of hyperplastic colon polyps Your Care Team Attending Physician - Herbert RAINEY MD Primary Care Physician - Elida Tao MD This Is Your Medications List Contact prescribing physician if questions or concerns calcium carbonate (calcium (as carbonate) 600 mg oral tablet) zolpidem Procedures Performed Colonoscopy (03/2019), Colonoscopy and biopsy of colon (11/08/2015), Appendectomy, Nephrectomy, TAHBSO - Total abdominal hysterectomy and bilateral salpingo-oophorectomy, [...] a day (at bedtime) Contact prescribing physician ifquestions or concerns Allergies Aleve (Hives) Problems Ongoing [...] you for choosing us for your care. [facility] CenterPhysician Referralon 09-17-2023 Physician [id number]#1.00TIFFNoParkview Health Montpelier HospitalPhysician Referral [id number]#1.00TIFProMedica Memorial HospitalINSULINon 97-82-5017Ikshcrc6.4 uIU/mLNormal2.6-24.9The [facility] Comment on above:Performed By: #### INSULIN #### [facility] [address] [place] [address] [address] May Santos MAMM SCREEN 3D MICHAEL CADon 69-86-1172IK MAMM SCREEN 3D MICHAEL CAD Patient: SUSANNA CABRERA Exam Date: 04/05/2022 : 1955 Gender:F Ordering : DR ELIDA TAO . Admission #: [id number] Family : Order #: [id number] CLICK HERE TO VIEW EXAM RADIOLOGY REPORT PROCEDURE: MAMMOGRAM SCREENING 3D BILATERAL CAD COMPARISON: MG MAMM SCREEN MICHAEL W CAD, 12/14/2019. MG MAMM SCREEN 3D MICHAEL CAD, 01/22/2021. INDICATIONS: Screening mammography Calculator Name [facility] Breast Cancer Risk Assessment Tool 5 Year Breast Cancer Risk 1.20% Lifetime Breast Cancer Risk 4.00% Personal Breast Cancer No Personal Ovarian Cancer No Treatments None Family Cancers Father with colon cancer at age 78; Mother with lung cancer at age 82. LOCATION: [facility] BREAST COMPOSITION: Heterogeneously dense,which may obscure small [...] SHOULD BE BIOPSIED. Dictated by: Maria Victoria Chou MD on 04/05/2022 at 10:06 Approved by: Maria Victoria Chou MD on 04/05/2022 at 10:08NoF[facility] AUTO DIFFon 86-01-3403JNTP #0.0 103/ulNormal0.0-0.1[facility] Tiffin HospitalComment on above:Performed By: #### CBC ####[facility] [address] [place], [place] [address]Cz.May ChangBasophils/100 WBC (Bld)0.3 %Normal 0.2-2.0The [facility] CenterComoaklawn hospital on above:Performed By: #### CBC ####[facility] [address] [place], [place] [address]Nl.Yilan ChangEO # 0.2 103/ulNormal0.0-0.7The [facility] CenterComoaklawn hospital on above:Performed By: #### CBC ####[facility] [address] [place] [address]Dr. Yilan ChangEosinophils/100 WBC (Bld)2.0 %Normal0.9-7.0[facility] Comment on above:Performed By: #### CBC ####[facility] [address] [place], [place] [address]Dr.Yilan ChangErythrocyte distribution width (RBC) [Ratio]12.7 %Hnwiak20.0-15.0The [facility] CenterComment on above: Performed By: #### CBC ####[facility] [address] [place], [place] [address]Dr.Yilan ChangHematocrit (Bld) [Volume fraction]44.7 % Dmlzom28.0-48.0The [facility] CenterComment on above:Performed By: #### CBC ####[facility] [address] [place], [place] [address]Dr. Loveiliana ChangHemoglobin (Bld) [Mass/Vol]14.9 g/eVBwjumz93.0-16.0The [facility] CenterComment on above:Performed By: #### CBC ####[facility] [address] [place], [place] [address]Dr.Yilan ChangIG #0.05 10e3/ulCritically high0.00-0.03The [facility] CenterComment on above:Performed By: #### CBC ####[facility] [address] [place], [place] [address]Dr.Yilan ChangIG %0.6 %Critically high0.0-0.5The [facility] CenterComment on above:Performed By: #### CBC ####[facility] [address] [place], [place] [address]Dr.Yilan ChangLYMPH #2.9 103/ulNormal1.2-3.8The [facility] CenterComment on above:Performed By: #### CBC ####[facility] [address] [place], [place] [address]Dr.Yilan ChangLymphocytes/100 WBC (Bld)32.9 %Yvbviy74.5-60.0The [facility] CenterComment on above:Performed By: #### CBC ####[facility] [address] [place] [address]Dr.Loveiliana TomMANUAL DIFF REQNONormalThe [facility] CenterComment on above:Performed By: #### CBC ####[facility] [address] [place], [place] [address]Dr.May SantosH (RBC) [Entitic mass]33.0 pgNormal 26.7-34.0The [facility] HospitalComment on above:Performed By: #### CBC ####[facility] [address] [place], [place] [address]Dr. May SantosHC (RBC) [Mass/Vol]33.3 g/bTLgqcxs09.9-35.2The [facility] Comment on above:Performed By: #### CBC ####[facility] [address] [place], [place] [address]Dr.May SantosV (RBC) [Entitic vol]98.9 fL Tvxykl87.0-99.0The [facility] CenterComment on above:Performed By: #### CBC ####[facility] [address] [place], [place] [address]Dr. May SantosMONO #0.7 103/ulNormal0.3-0.8The [facility] CenterComment on above: Performed By: #### CBC ####[facility] [address] [place], [place] [address]Dr.May SantosMonocytes/100 WBC (Bld)8.4 %Normal 1.7-12.0The [facility] CenterComment on above:Performed By: #### CBC ####[facility] [address] [place], [place] [address]DrDeborah SantosNEUT #4.9 103/ulNormal1.4-6.5The [facility] CenterComment on above: Performed By: #### CBC ####[facility] [address] [place], [place] [address]Dr.May SantosNeutrophils/100 WBC (Bld)55.8 %Normal 43.0-75.0The [facility] CenterComment on above:Performed By: #### CBC ####[facility] [address] [place] [address]Dr. May SantosPlatelet mean volume (Bld) [Entitic vol]10.5 fLNormal9.5-13.5The [facility] CenterComment on above:Performed By: #### CBC ####[facility] [address] [place] [address]Dr.May RhroyZLW960 103/ul Aiplsd398-022Bap [facility] CenterComment on above:Performed By: #### CBC ####[facility] [address] [place], [place] [address]Dr. May ChangRBC4.52 106/ulNormal4.20-5.40The [facility] CenterComment on above: Performed By: #### CBC ####[facility] [address] [place], [place] [address]Dr.May ChangWBC8.9 103/ulNormal4.0-11.0The [facility] CenterComment on above:Performed By: #### CBC ####[facility] [address] [place], [place] [address]Dr.May ChangFREE THYROXINE INDEX T7on 49-44-2307PAR9.36Cerxpi5.30-4.50The [facility] CenterComment on above:Performed By: #### T7, TSH, LIPID, CMP ####[facility] [address] [place], [place] [address]Dr. Lovelan BetfgM8W97.0 % Kqcysu43.0-39.0The [facility] CenterComment on above:Performed By: #### T7, TSH, LIPID, CMP ####[facility] [address] [place], [place] [address]Dr. Lovelan ChangT4 [Mass/Vol]7.80 ug/dLNormal4.80-13.90The [facility] Comment on above:Performed By: #### T7, TSH, LIPID, CMP ####[facility] [address] [place] [id number] Santos GLYCOHEMOGLOBIN A1Con 28-69-1500ICQ RECOMMENDATIONSEE [facility] HospitalComment on above:Result Comment: ADA RECOMMENDED LIMIT 4.0 - 6.0 ADA THERAPEUTIC TARGET < 7.0 ACTION SUGGESTED > 7.0Performed By: #### A1C #### [facility] [address] [address] [address] May SantosGlucose [Mass/Vol]114 mg/dLNoBerger HospitalComment on above:Performed By: #### A1C #### [facility] [address] [address] [address] May SantosHbA1c (Bld) [Mass fraction]5.6 %Normal4.5-6.2The [facility] CenterComment on above:Performed By: #### A1C #### [facility] [address] [address] [address] May Snider 54-09-1725Fjwi [Mass/Vol]100.0 ug/mNWdwdsb85.0-170.0The [facility] CenterComment on above:Performed By: #### VITAD, IRON ####[facility] [address] [place] [address]DrDeborah SantosLIPID PROFILEon 11-90-0383CHQF-HDL RATIO NORMSEE [facility] Comment on above:Result Comment: 3.3 - 4.4 LOW RISK 4.4 - 7.1 AVERAGE RISK 7.1 - 11.0 MODERATE RISK >11.0 HIGH RISKPerformed By: #### T7, TSH, LIPID, CMP ####[facility] [address] [place] [address]DrDeborah SantosCholesterol [Mass/Vol]195 mg/dLNormal<=200The [facility] Comment on above:Performed By: #### T7, TSH, LIPID, CMP ####[facility] [address] [place] [address]Dr. May SantosCholesterol in HDL [Mass/Vol]47 mg/rVLoqsqv80-86BsdMercy Health Tiffin HospitalComment on above: Performed By: #### T7, TSH, LIPID, CMP ####[facility] [address] [address]Dr. Yilan ChangCholesterol in LDL [Mass/Vol] 130.0 mg/dLMarion HospitalComment on above:Performed By: #### T7, TSH, LIPID, CMP ####[facility] Eyroqbmvim[address] [place], [place] [address]Dr. Yilan ChangCholesterol.total/Cholesterol in HDL [Mass ratio]4.1 {ratio}NormalThe [facility] CenterComoaklawn hospital on above:Performed By: #### T7, TSH, LIPID, CMP ####[facility] Atenujggbx[address] [place], [place] [address]Dr. Yilan ChangHDL NORMAL> or = 60 mg/dl - LOW CARDIOVASCULAR RISK <40 mg/dl - HIGH CARDIOVASCULAR RISKNoBerger HospitalComment on above: Performed By: #### T7, TSH, LIPID, CMP ####[facility] Uw[address]obopr[address] [place], [place] [address]Dr. Yilan ChangLDL CALC NORMALSEE BELOWNoBerger HospitalComment on above:Result Comment: <100 mg/dl OPTIMAL 100 - 129 mg/dl NEAR OR ABOVE OPTIMAL 130 - 159 mg/dl BORDERLINE HIGH 160 - 189 mg/dl HIGH >190 mg/dl VERY HIGHPerformed By: #### T7, TSH, LIPID, CMP ####[facility] Xhlgnpsecz[address] [place], [place] [address]Dr. Yilan ChangTriglyceride [Mass/Vol]90 mg/dLNormal<=150Mer[facility] Health Tiffin HospitalComment on above:Performed By: #### T7, TSH, LIPID, CMP ####[facility] Ssgnjvzbqc[address] [place], [place] [address]Dr. Yilan ChangVLDL CALC18.0 mg/dLMarion HospitalComment on above:Performed By: #### T7, TSH, LIPID, CMP ####[facility] Plgzjprqyl[address] [place], [place] [address]Dr. Yilan ChangPROF 14(COMP METB)on 17-08-5053Gsjshil [Mass/Vol]3.7 g/dLNormal3.4-5.0The [facility] CenterComment on above:Performed By: #### T7, TSH, LIPID, CMP ####[facility] [address] [address]Dr. May Santos Albumin/Globulin [Mass ratio]0.9 {ratio}NormalThe [facility] CenterComment on above:Performed By: #### T7, TSH, LIPID, CMP ####[facility] Lftblnqjof[address] [place], [place] [address]Dr. Yilan ChangALP [Catalytic activity/Vol]94 U/QNoxbgo53-088Fmn [facility] CenterComment on above:Performed By: #### T7, TSH, LIPID, CMP ####[facility] Gvxybgtnsl[address] [place], [place] [address]Dr. Loveiliana ChangALT [Catalytic activity/Vol]19 U/L Kkbiwd30-25Mza [facility] CenterComment on above:Performed By: #### T7, TSH, LIPID, CMP ####[facility] Givrfwxgta[address] [place], [place] [address]Dr. May ChangAnion gap [Moles/Vol]14.1 mmol/LNormalThe [facility] Comment on above:Performed By: #### T7, TSH, LIPID, CMP ####[facility] Rmfbntnrqy[address] [place], [place] [address]Dr. Yilan ChangAST [Catalytic activity/Vol]16 U/XVhajxw64-28Dcj [facility] CenterComment on above:Performed By: #### T7, TSH, LIPID, CMP ####[facility] Rhitqgvpsi[address] [place], [place] [address]Dr. Yilan ChangBilirubin [Mass/Vol]0.5 mg/dLNormal 0.2-1.0The [facility] CenterComment on above:Performed By: #### T7, TSH, LIPID, CMP ####[facility] Haxkvwaimn[address] [place], [place] [address]Dr. Yilan ChangCalcium [Mass/Vol]9.1 mg/dLNormal8.5-10.1The [facility] Comment on above:Performed By: #### T7, TSH, LIPID, CMP ####[facility] [address] [address]Dr. Yilan ChangChloride [Moles/Vol]104 mmol/XBmupjo95-108Acn [facility] CenterComment on above:Performed By: #### T7, TSH, LIPID, CMP ####[facility] Mhbiueasey[address] [place], [place] [address]Dr. Yilan ChangCO2 [Moles/Vol]26.6 mmol/LNormal 21.0-32.0The [facility] CenterComment on above:Performed By: #### T7, TSH, LIPID, CMP ####[facility] Zvwrqllykf7[address] [place], [place] [address]Dr. Yilan ChangCreatinine [Mass/Vol]0.82 mg/dLNormal0.55-1.02The [facility] CenterComment on above:Performed By: #### T7, TSH, LIPID, CMP ####[facility] Fcitvkrmiu7[address] [place], [place] [address]Dr. Yilan ChangEGFR- AF SWEDISH>60Normal>=60The [facility] CenterComment on above:Performed By: #### T7, TSH, LIPID, CMP ####[facility] Ntxrrdhsut6[address] [place], [place] [address]Dr. Yilan ChangEGFR-NON AF SWEDISH>60Normal>=60The [facility] CenterComment on above:Performed By: #### T7, TSH, LIPID, CMP ####[facility] Vvwbufsure[address] [place], [place] [address]Dr. Yilan ChangGlobulin (S) [Mass/Vol]4.0 g/dLNormalThe [facility] CenterComment on above:Performed By: #### T7, TSH, LIPID, CMP ####[facility] [address] [address]Dr. Yilan ChangGlucose [Mass/Vol]120 mg/dLCritically kwhe49-346Sly [facility] CenterComment on above: Performed By: #### T7, TSH, LIPID, CMP ####[facility] [address] [address]Dr. Yilan ChangPotassium [Moles/Vol]4.7 mmol/L Normal3.5-5.1The [facility] CenterComment on above:Performed By: #### T7, TSH, LIPID, CMP ####[facility] J[address]hor[address] [address]Dr. Yilan ChangProtein [Mass/Vol]7.7 g/dLNormal6.4-8.2The [facility] Comment on above:Performed By: #### T7, TSH, LIPID, CMP ####[facility] Akybxbviry[address] [place], [place] [address]Dr. Yilan ChangSodium [Moles/Vol]140 mmol/CXgyrfk789-050Usu [facility] CenterComment on above: Performed By: #### T7, TSH, LIPID, CMP ####[facility] Dakrjbzwoj[address] [place], [place] [address]Dr. Yilan ChangUrea nitrogen [Mass/Vol]9.0 mg/dL Normal7.0-18.0The [facility] CenterComment on above:Performed By: #### T7, TSH, LIPID, CMP ####[facility] Hnyvwrvkdy[address] [place], [place] [address]Dr. Yilan ChangUrea nitrogen/Creatinine [Mass ratio]11.0 mg/mgNormalThe [facility] CenterComment on above:Performed By: #### T7, TSH, LIPID, CMP ####[facility] U[address]vrgzuvl[address] [place], [place] [address]Dr. Yilan ChangTSHon 00-86-4998ZTA8.034 uIU/mLNormal0.358-3.740The [facility] Comment on above:Performed By: #### T7, TSH, LIPID, CMP ####[facility] Sdksqaiedt9[address] [place], [place] [address]Dr. Yilan ChangVITAMIN D 25 OHon 52-62-5732SIY D 25-OH45.9 ng/mLNormalThe [facility] CenterComment on above: Performed By: #### INSULIN #### [facility] [address] [address] [address] May Pacheco RANGESSEE BELOWNormalThParkwood HospitalComment on above: Result Comment: <20 ng/mL Vit D deficient 20 - <30 ng/mL Vit D insufficient 30 - 100 ng/mL Vit D sufficient >100 ng/mL Potential ToxicityPerformed By: #### INSULIN #### [facility] [address] [address] [address] May RiceLTURE URINEon [id number] URINECulture Observations: HEAVY GROWTH OF MIXED GENITAL SEAN. NO POTENTIAL PATHOGENS SEEN.NormalMercy Health Tiffin HospitalComment on above:Performed By: #### INSULIN #### [facility] [address] [place] [address] Dr. May Byrne RANDOM W/MICROSCOPICon [id number] SEENNormalNONE SEENMercy Health Tiffin HospitalComoaklawn hospital on above:Performed By: #### UAMIC ####[facility] Elhioxmsss[address] [place], [place] [address]Dr. May Santos Bilirubin Ql (U)NegativeNormalNEGATIVEMercy Health Tiffin HospitalComoaklawn hospital on above: Performed By: #### UAMIC ####[facility] Upfmszqggu317[address] [place], [place] [address]Dr. May ChangCASTNONE SEENNormalNONE SEENSt. Mary's Medical Center on above:Performed By: #### UAMIC ####[facility] Zirgwueaby25[address] [place], [place] [address]Dr. May ChangClarity (U) CLEARNormalCLEARMercy Health Tiffin HospitalComment on above:Performed By: #### UAMIC ####[facility] Kgspfskqpr60[address] [place], [place] [address]Dr. May ChangColor (U)YELLOWNormalYELLOWMercy Health Tiffin HospitalComoaklawn hospital on above: Performed By: #### UAMIC ####[facility] Czwejillpy[address] [place], [place] [address]Dr. May SantosCrystals LM Nom (Urine sed)NONE SEEN NormalNONE SEENMercy Health Tiffin HospitalComment on above:Performed By: #### UAMIC ####[facility] Xnicenzvkk[address] [place], [place] [address]Dr. Yilan ChangEpithelial cells LM Ql (Urine sed)FEWAbnormalNONE SEEN /RAREThe [facility] CenterComment on above:Performed By: #### UAMIC ####[facility] Lukedasudn[address] [place], [place] [address]Dr. Yilan ChangGlucose Ql (U) NegativeNormalNEGATIVESamaritan North Health Center HospitalComment on above:Performed By: #### UAMIC ####[facility] Kqxyautzhr08[address] [place], [place] [address]Dr. Yilan ChangHemoglobin Ql (U)NegativeNormalNEGATIVEThe [facility] Comment on above:Performed By: #### UAMIC ####[facility] [address]afzhwhzyb0918[address] [place], [place] [address]Dr. Yilan ChangKetones Ql (U)NegativeNormal NEGATIVESamaritan North Health Center HospitalComment on above:Performed By: #### UAMIC ####[facility] Henxkarhtq[address] [place], [place] [address]Dr. Yilan ChangLEUKOCYTESNegativeNormalNEGATIVEMercy Health Tiffin HospitalComment on above:Performed By: #### UAMIC ####[facility] Cdnewqxoef[address] [place], [place] [address]Dr. Yilan ChangMUCOUSNONE SEENNormalNONE SEENMercy Health Tiffin HospitalComment on above:Performed By: #### UAMIC ####[facility] Fdfrepvqbb264[address] [place], [place] [address]Dr. Yilan ChangNitrite Ql (U) NegativeNormalNEGATIVEMercy Health Tiffin HospitalComment on above:Performed By: #### UAMIC ####[facility] Kkorwczvnf[address] [place], [place] [address]Dr. Yilan ChangpH (U)7.0 [pH]Normal5-9Mer[facility] Health Tiffin HospitalComment on above:Performed By: #### UAMIC ####[facility] Ykddlhmbbz[address] [place], [place] [address]Dr. Yilan ChangRBCNONE SEENAbnormal0-2The [facility] CenterComment on above:Performed By: #### UAMIC ####[facility] [address] [address]Dr. May ChangSPEC GRAVITY 1.345Cwalwd2.005-<=1.025The [facility] CenterComment on above:Performed By: #### UAMIC ####[facility] [address] [address]Dr. Yilan ChangUA PROTEINNegativeNormalNEGATIVE/ TRACEThe [facility] Comment on above:Performed By: #### UAMIC ####[facility] Z[address]qge[address] [address]Dr. May ChangUrobilinogen Qn (U)0.2 {Taylor'U}/dLNormal0.2 - 1.0The [facility] CenterComment on above:Performed By: #### UAMIC ####[facility] Vnhysvwnad2[address] [place], [place] [address]Dr. Yilan ChangWBCNONE SEENNormalNONE SEENThe [facility] CenterComment on above:Performed By: #### UAMIC ####[facility] Nopfqsqirh4067[address] [place], [place] [address]Dr. Yiiliana ChangXR KUB 1 VIEWon 28-32-4987WF KUB 1 VIEW EXAMINATION: XR KUB 1 [...] authenticated by: MIGUEL ANGEL MILIAN Date: 2022-01-09 07:27NormalThe [facility] CenterUS KIDNEYS BLADDERon [id number] KIDNEYS BLADDERUltrasound kidneys, bilateral HISTORY: Tubulointerstitial nephritis , right [...] Electronically authenticated by: SORAYA RAMSAY Date: 2022-01-08 10:[address] [place] [address] AUTO DIFFon [id number] #0.0 103/ulNormal0.0-0.1The [facility] CenterComment on above:Performed By: #### CBC ####[facility] Hllsxvjnzd668[address] [place], [place] [address]Dr.Yilan ChangBasophils/100 WBC (Bld)0.6 %Normal0.2-2.0The [facility] CenterComment on above:Performed By: #### CBC ####[facility] Vovorwextx00[address] [place], [place] [address]Dr.Yilan ChangEO #0.2 103/ulNormal0.0-0.7The [facility] CenterComment on above:Performed By: #### CBC ####[facility] Wxwdblkett66[address] [place], [place] [address]Dr.Yilan ChangEosinophils/100 WBC (Bld)2.4 %Normal 0.9-7.0The [facility] CenterComment on above:Performed By: #### CBC ####[facility] Bimayeodvt9513[address] [place], [place] [address]Dr.May Santos Erythrocyte distribution width (RBC) [Ratio]13.0 %Xkfcwm76.0-15.0The [facility], Beachwoodment on above:Performed By: #### CBC ####[facility] Miasbfamhi26[address] [place], [place] [address]Dr.May SantosHematocrit (Bld) [Volume fraction]45.8 %Kjgaak09.0-48.0The [facility] CenterComment on above:Performed By: #### CBC ####[facility] Rseadobuqz30[address] [place], [place] [address]Dr.Loveiliana ChangHemoglobin (Bld) [Mass/Vol]15.1 g/dL Yfqhjv24.0-16.0The [facility] CenterComment on above:Performed By: #### CBC ####[facility] Ztmlyzcakd01[address] [place], [place] [address]Dr. Yilan ChangIG #0.02 10e3/ulNormal0.00-0.03The [facility] CenterComment on above: Performed By: #### CBC ####[facility] Gunjbescqa9823[address] [place], [place] [address]Dr.Lovelan ChangIG %0.3 %Normal0.0-0.5The [facility] CenterComment on above:Performed By: #### CBC ####[facility] Eldfjhqyac6[address] [place], [place] [address]Dr.Yilan ChangLYMPH #2.7 103/ulNormal1.2-3.8The [facility] CenterComment on above:Performed By: #### CBC ####[facility] Twmqunivpv[address] [place], [place] [address]Dr. May SantosLymphocytes/100 WBC (Bld)41.8 %Fwmzlz18.5-60.0The [facility] Comment on above:Performed By: #### CBC ####[facility] Whaqekumbj9[address] [place], [place] [address]Dr.Yilan ChangMANUAL DIFF REQNONormalThe [facility] CenterComment on above:Performed By: #### CBC ####[facility] Smzkeklggc39[address] [place], [place] [address]Dr.May SantosMCH (RBC) [Entitic mass]33.0 lgGqvubu71.7-34.0The [facility] CenterComment on above: Performed By: #### CBC ####[facility] [address] [address]Dr.May SantosMCHC (RBC) [Mass/Vol]33.0 g/dLNormal 29.9-35.2The [facility] CenterComment on above:Performed By: #### CBC ####[facility] [address] [address]Dr. May SantosMCV (RBC) [Entitic vol]100.0 fLCritically high81.0-99.0The Chandler HospitalComment on above:Performed By: #### CBC ####[facility] Fbtxykftwz29[address] [place], [place] [address]Dr.May SantosMONO #0.5 103/ulNormal0.3-0.8The [facility] CenterComment on above:Performed By: #### CBC ####[facility] Rupxdyuzyn[address] [place], [place] [address]Dr. May SantosMonocytes/100 WBC (Bld)7.2 %Normal1.7-12.0The [facility] Comment on above:Performed By: #### CBC ####[facility] Kxsshtxeyh[address] [place], [place] [address]Dr.May SantosNEUT #3.0 103/ulNormal1.4-6.5 The [facility] CenterComment on above:Performed By: #### CBC ####[facility] Oitaupygub[address] [place], [place] [address]Dr.May Santos Neutrophils/100 WBC (Bld)47.7 %Pbdfgb46.0-75.0The [facility] CenterComment on above:Performed By: #### CBC ####[facility] Ukkelzavwn[address] [place], [place] [address]Dr.May SantosPlatelet mean volume (Bld) [Entitic vol] 10.7 fLNormal9.5-13.5The [facility] CenterComment on above:Performed By: #### CBC ####[facility] Ukelrsgphu[address] [place], [place] [address]Dr. May SantosPLT300 103/apWwrsfp975-002Exb [facility] CenterComment on above: Performed By: #### CBC ####[facility] [address] [address]Dr.Yilan SantosRBC4.58 106/ulNormal4.20-5.40The [facility] CenterComment on above:Performed By: #### CBC ####[facility] [address] [address]Dr.Yilan SantosWBC6.4 103/ul Normal4.0-11.0The [facility] CenterComment on above:Performed By: #### CBC ####[facility] [address] [address]Dr. May Alatorre THYROXINE INDEX T7on 97-12-5131AHJ5.24NoBerger HospitalComment on above:Performed By: #### LIPID, CMP, TSH, T7 #### [facility] [address] [address] [address] May SantosT3U34.0 %Rcywle27.5-40.5The [facility] CenterComment on above: Performed By: #### LIPID, CMP, TSH, T7 #### [facility] [address] [address] [address] May SantosT4 [Mass/Vol]6.60 ug/dLNormal5.53-11.00The [facility] Comment on above:Performed By: #### LIPID, CMP, TSH, T7 #### [facility] [address] [address] [address] May SantosGLYCOHEMOGLOBIN A1Con 80-13-1391SYP RECOMMENDATIONADA THERAPEUTIC TARGET 6.0 - 7.0 ACTION SUGGESTED > 7.0NoBerger HospitalComment on above:Performed By: #### A1C #### [facility] [address] [place] [address] Dr. May SantosGlucose [Mass/Vol]120 mg/dLNoBerger HospitalComment on above:Performed By: #### A1C #### [facility] [address] [address] [address] May SantosHbA1c (Bld) [Mass fraction]5.8 %Normal<=6.0[facility] Comment on above:Performed By: #### A1C #### [facility] [address] [place] [address] Dr. May Snider 05-24-4557Muqv [Mass/Vol]121.0 ug/hTTtjtzg25.0-170.0Mer[facility] Tiffin HospitalComment on above:Performed By: #### IRON, VITAD #### [facility] [address] [place] [address] Dr. May Garvey PROFILEon 82-40-7387CCNF-HDL RATIO NORMSEE BELOWMarion HospitalComment on above:Result Comment: 3.3 - 4.4 LOW RISK 4.4 - 7.1 AVERAGE RISK 7.1 - 11.0 MODERATE RISK >11.0 HIGH RISKPerformed By: #### LIPID, CMP, TSH, T7 #### [facility] [address] [place] [address] Dr. May Orozcoesterol [Mass/Vol]218 mg/dLCritically high<=200The [facility] CenterComment on above:Performed By: #### LIPID, CMP, TSH, T7 #### [facility] [address] [place] [address] Dr. May Orozcoesterol in HDL [Mass/Vol]54 mg/dLMarion Hospital Comment on above:Performed By: #### LIPID, CMP, TSH, T7 #### [facility] [address] [place] [address] Dr. May Orozcoesterol in LDL [Mass/Vol]140.0 mg/dLMarion HospitalComment on above:Performed By: #### LIPID, CMP, TSH, T7 #### [facility] [address] [place] [address] Dr. May Kerr.total/Cholesterol in HDL [Mass ratio]4.0 {ratio} NormalMercy Health Tiffin HospitalComment on above:Performed By: #### LIPID, CMP, TSH, T7 #### [facility] [address] [address] [address] May Farias NORMAL> or = 60 mg/dl - LOW CARDIOVASCULAR RISK <40 mg/dl - HIGH CARDIOVASCULAR RISKMarion HospitalComment on above:Performed By: #### LIPID, CMP, TSH, T7 #### [facility] [address] [place] [address] Dr. May SantosLDL CALC NORMALSEE BELOWMarion HospitalComment on above:Result Comment: <100 mg/dl OPTIMAL 100 - 129 mg/dl NEAR OR ABOVE OPTIMAL 130 - 159 mg/dl BORDERLINE HIGH 160 - 189 mg/dl HIGH >190 mg/dl VERY HIGH Performed By: #### LIPID, CMP, TSH, T7 #### [facility] [address] [place] [address] Dr. May SantosTriglyceride [Mass/Vol]120 mg/dLNormal<=150The [facility] Comment on above:Performed By: #### LIPID, CMP, TSH, T7 #### [facility] [address] [place] [address] Dr. May WoodardLDL CALC24.0 mg/dLNoBerger HospitalComment on above: Performed By: #### LIPID, CMP, TSH, T7 #### [facility] [address] [place] [address] Dr. May Perez 14(COMP METB)on 53-16-5513Ofkkyzz [Mass/Vol]3.7 g/dLNormal 3.5-5.0The [facility] Beachwoodment on above:Performed By: #### LIPID, CMP, TSH, T7 #### [facility] [address] [place] [address] Dr. May SantosAlbumin/Globulin [Mass ratio]1.0 {ratio}NormalThe [facility] CenterComoaklawn hospital on above:Performed By: #### LIPID, CMP, TSH, T7 #### [facility] [address] [place] [address] Dr. May Sethi [Catalytic activity/Vol]84 U/ZVicyxl54-556Jtn [facility] CenterComment on above:Performed By: #### LIPID, CMP, TSH, T7 #### [facility] [address] [address] [address] May Daniel [Catalytic activity/Vol]17 U/LNormal9-52The [facility] Comment on above:Performed By: #### LIPID, CMP, TSH, T7 #### [facility] [address] [address] [address] May Zapataon gap [Moles/Vol]11.0 mmol/LNormalThe [facility] Comment on above:Performed By: #### LIPID, CMP, TSH, T7 #### [facility] [address] [address] [address] May SantosAST [Catalytic activity/Vol]16 U/MXvvegg56-80JvcMercy Health Tiffin HospitalComment on above:Performed By: #### LIPID, CMP, TSH, T7 #### [facility] [address] [place] [address] Dr. May SantosBilirubin [Mass/Vol]0.5 mg/dLNormal0.2-1.3[facility] Comment on above:Performed By: #### LIPID, CMP, TSH, T7 #### [facility] [address] [address] [address] May SantosCalcium [Mass/Vol]8.8 mg/dLNormal8.4-10.2[facility] Comment on above:Performed By: #### LIPID, CMP, TSH, T7 #### [facility] [address] [address] [address] May SantosChloride [Moles/Vol]107 mmol/PEupcho14-352Rpo [facility] Comment on above:Performed By: #### LIPID, CMP, TSH, T7 #### [facility] [address] [address] [address] May SantosCO2 [Moles/Vol]25.6 mmol/HItbkfk66.0-30.0The [facility] Comment on above:Performed By: #### LIPID, CMP, TSH, T7 #### [facility] [address] [place] [address] Dr. May SantosCreatinine [Mass/Vol]0.91 mg/dLNormal0.52-1.04The [facility] CenterComment on above:Performed By: #### LIPID, CMP, TSH, T7 #### [facility] [address] [address] [address] May CruzGFR-AF SWEDISH>60Normal>=60The [facility] CenterComment on above:Performed By: #### LIPID, CMP, TSH, T7 #### [facility] [address] [address] [address] May CruzGFR-NON AF SWEDISH>60Normal>=60The [facility] CenterComment on above:Performed By: #### LIPID, CMP, TSH, T7 #### [facility] Laboratory [address] [address] [address] May SantosGlobulin (S) [Mass/Vol]3.7 g/dLNormalThe [facility] CenterComment on above:Performed By: #### LIPID, CMP, TSH, T7 #### [facility] Laboratory [address] [place] [address] Dr. May SantosGlucose [Mass/Vol]116 mg/dLCritically vxey17-025Jnq [facility] CenterComment on above:Performed By: #### LIPID, CMP, TSH, T7 #### [facility] Laboratory [address] [place] [address] Dr. May SantosPotassium [Moles/Vol]4.6 mmol/LNormal3.4-5.0The [facility] Comment on above:Performed By: #### LIPID, CMP, TSH, T7 #### [facility] [address] [place] [address] Dr. May SantosProtein [Mass/Vol]7.4 g/dLNormal6.1-8.2The [facility] Comment on above:Performed By: #### LIPID, CMP, TSH, T7 #### [facility] [address] [place] [address] Dr. May SantosSodium [Moles/Vol]139 mmol/JIyjpor568-992Zpn [facility] Comment on above:Performed By: #### LIPID, CMP, TSH, T7 #### [facility] [address] [address] [address] May Reed nitrogen [Mass/Vol]8.0 mg/dLNormal7.0-17.0[facility] on above:Performed By: #### LIPID, CMP, TSH, T7 #### [facility] [address] [place] [address] Dr. May Reed nitrogen/Creatinine [Mass ratio]8.8 mg/mgNoBerger HospitalComoaklawn hospital on above:Performed By: #### LIPID, CMP, TSH, T7 #### [facility] [address] [place] [address] Dr. May Barnes 61-41-1014RSW5.583 uIU/mLNormal0.470-4.680[facility] on above:Performed By: #### LIPID, CMP, TSH, T7 #### [facility] [address] [place] [address] [address] Anne HospitalComment on above: Result Comment: <0.34 UIU/ml HYPERTHYROID 0.34-5.60 UIU/ml EUTHYROID >5.60 UIU/ml HYPOTHYROIDPerformed By: #### LIPID, CMP, TSH, T7 #### [facility] [address] [place] [address] Dr. May SantosVITAMIN D 25 OHon 06-12-9517MTJ D 25-OH26.0 ng/mLNormalThe [facility] on above:Performed By: #### IRON, VITAD ####[facility] [address] [place], [place] [address]Dr. May CROWJaky [facility] HospitalComoakla[facility] on above:Result Comment: <20 ng/mL Vit D deficient 20 - <30 ng/mL Vit D insufficient 30 - 100 ng/mL Vit D sufficient >100 ng/mL Potential ToxicityPerformed By: #### IRON, VITAD ####[facility] [address] [place], [place] [address]Dr. May Santos Vital Signs Date TimeVital SignValuePerforming LrrrktzpfRsmdflje51-85-7866 11:40-0400 Diastolic blood mm[Hg]Elida Tao MD Work Phone: [facility]08-25-2025 11:40-0400 Heart rate55 /Yobani Tao MD Work Phone: [phone]08-25-2025 11:40-0400 Respiratory rate16 /Yobani Tao MD Work Phone: [facility]08-25-2025 11:40-0400 SaO2% (BldA) [Mass fraction]95 %Elida Tao MD Work Phone: [phone]08-25-2025 11:40-0400 Systolic blood bdvavtjc146 mm[Hg]Elida Tao MD Work Phone: [phone]08-25-2025 10:11-0400 Body inrcbc873.64 cmDoangely Tao MD Work Phone: [facility]08-25-2025 10:11-0400 Body qbioal64.3 kgElida Tao MD Work Phone: [facility]10-15-2024 14:29-0400 Blood Pressure LocationMichael NILL [phone]-ZqsaiMetrohealth [facility]10-15-2024 14:29-0400Diastolic blood qhiuomvi44 mm[Hg]Herbert NILL [phone]-TyemfMetrohealth [facility] Heights [facility] Center10-15-2024 14:29-0400Heart rate72 /minMichael NILL [phone]-IaynnMetrohealth [facility]10-15-2024 14:29-0400Respiratory rate16 /minMichael NILL [phone]-IammnMet[facility]health [facility]10-15-2024 14:29-0400Systolic blood mm[Hg]Herbert NILL [phone]-ObhaeCherrington Hospital [facility] Encounters Encounter DateEncounter TypeCare ProviderFacilityStart: 04-19-2025 End: 54-95-7121Umowne flowsheetCorey Krystal DO Work Phone: [facility] OBGYNStart: 04-19-2025 End: 66-93-9731Dudxun flowsheetCorey Krystal DO Work Phone: [facility] Anand OBGYNStart: 04-19-2025 End: 24-58-0595nnfhutgnfhJKVXX FAZIONot AvailableStart: 02-07-2025 End: 99-06-2476Iwnqouzxx to same day surgery centerElida Martinez MD-Ultrasound [facility] Work Phone: Start: 02-07-2025 End: 42-45-3388bbiomifkhhAxuhpnu M Hoy MD Work Phone: [facility] Work Phone: Start: 06-01-2024 End: 94-53-1369qoecfjtogpCqqefuu R NILLFacility:[facility] Rehabilitationtart: 06-01-2024 End: 58-87-3614Nwfwihe encounter procedureMichael R NILL [phone]-AsjqbOhiohealth [facility] Start: 05-19-2024 End: 42-27-7126okncmkqxoiFeeflry R NillFacility:[facility]ertart: 05-19-2024 End: 85-65-6383qlofrbssepZkrhoyk R NILLFacility::[id number]: 03-30-2024 End: 37-78-7521prsjxtykgcIuthgav R NILLFacility:[facility] Campustart: 03-30-2024 End: 07-55-4317Bxwimlq encounter procedureMichael R NILL [phone]-TrhbtCherrington Hospital [facility] Start: 20-67-6415ksllrrzpabUV MARIA VICTORIA V WESTFacility:H1 Start: 04-05-2022 End: 26-81-0407karqeqjdgcTV ELIDA HOYFacility:J6Zarxe: 04-04-2022 End: 23-68-6787camgiuhvsuBN ELIDA HOYFacility:O1Ncqzg: 01-24-2022 End: 07-17-7223jpmyajorrcEV ELIDA HOYFacility:K7Qwves: 01-08-2022 End: 23-32-9218ssqmpeqqrzAO ELIDA HOYFacility:M0Knxmt: 01-07-2022 End: 95-29-4347apqwefmoyvGL MARIA VICTORIA V WESTFacility:E7Dyohs: 09-17-2021 End: 61-07-2123cvaxneahueHM MARIA VICTORIA V WESTFacility:S4Wcamh: 08-20-2021 End: 52-73-9528jbmhuadfuaFY ELIDA HOYFacility:H1 Procedures DateProcedureProcedure DetailPerforming ClinicianStart: 22-66-7004Bqtsxjmvjbw Herbert NILL Start: 98-88-2635ZbohqurhrkuNlnbrad NILL Start: 11-67-2957Fglefijpfpu and biopsy of colonMichael NILL Comment on above:hyperplastic polypsAppendectomyMichael NILL TonsillectomyMichael NILL Total abdominal hysterectomy with bilateral salpingo-oophorectomyMichael NILL Total nephrectomyMichael NILL Plan of Treatment DateCare ActivityDetailAuthorStart: 51-02-2625SzfpljdwzAshtabula County Medical Center Start: 16-37-4044DlsqhfncfoGrtsnzyyoAshtabula County Medical CenterPatient Education Know your Meds Count Includes [facility] Needle Biopsy, ThyroidKettering Health Preble Work Phone: Immunizations Immunization DateImmunizationNotesCare BxxvwlziNutlojxl15-06-9014DDVS-VzM-3 (COVID-19) mRNA BNT-162b2 vaxMichael NILL [phone]-EuvyrRegency Hospital [facility] 91-96-0879XEKH-CoV-2 (COVID-19) mRNA BNT-162b2 vaxMichael NILL [phone]-YzvqiRegency Hospital [facility]edo 39-22-7627UMPX-CoV-2 (COVID-19) mRNA BNT-162b2 vaxMichael NILL [phone]-WijgcRegency Hospital Toledo Payers DatePayer CategoryPayerPolicy [id number] Health InsuranceMEDICAL MUTUAL .[id number] 2019MedicareMEDICARE .[id number] [id number] 20-55-1078Bgzt-[id number] 2.16.840.1.960277.3.57[id number] 2.16.840.1.124226.3.57[id number] 2.16.840.1.410468.3.57[id number] 2..840.1.278197.3.57[id number] 2..840.1.124994.3.57[id number] 2..840.1.182915.3.57[id number] 2.840.1.142583.3.57[id number] 2..840.1.015279.3.57[id number] 2..840.1.227447.3.57[id number] 2.840.1.702621.3.57[id number] 2.840.1.930635.3.57[id number] 2.840.1.828815.3.57[id number] 2..840.1.236775.3.579.2.1259UnknownAnthem /[id number] [id number]-[id number] 2.16.840.1.9[id number] 2.16.840.1.178268.3.579.2.531 Social History DateTypeDetailFacilityStart: 32-43-6286Kkunvwu smoking statusHeavy tobacco smoker (finding)[facility]vueStart: 28-91-1181Sbskfez smoking statusNeverCherrington Hospital BellevueSex Assigned At FemaleDayton Osteopathic HospitalTobacco smoking status NHISUnknown if ever smokedNOHI HealthcareSexFemale (finding)[facility] Centertart: 44-03-4534Ijl Assigned At BirthFePremier Health Upper Valley Medical Centertart: 52-42-4961Neo assigned at birthNot on [facility] Functional Status RntyXfjlnzctojKubzyzJvtecuhj92-39-2736Tciepwuvee StatusN/AFMemorial Health System [facility] Hospitalue Clinical Note 03-30-2024 Note Date & IrddBkbhPfudgcmv93-50-9749 NoteGeneral Surgery Office/Clinic Note Chief Complaint consultation for colonoscopy HPI [...] in 2015 and 2018; patient denies change inbms or blood in stools, no abdominal complaints; [...] swallowing difficulties, no hearing loss, no ear infection(s),no nose bleeds. Cardiovascular: normal blood pressure, no [...] and biopsy of colon (11/08/2015), Appendectomy, Nephrectomy, TAHBSO - Total abdominal hysterectomy and bilateral salpingo-oophorectomy, [...] Recorded SARS-CoV-2 (COVID-19) mRNA BNT-162b2 vax 07/28/2020 RecordedThe Jewish HospitalComment on above:Result Comment: Electronically Signed By: JOSEPH WISDOM, Herbert Cunha\Date and Time Signed: 03/30/24 14:52 EDT Evaluation + Plan note Note Date & TypeNoteFacilityEvaluation + Plan note No data available for this section [facility] [place] Evaluation note Note Date & TypeNoteFacilityEvaluation noteNo assessment information available [facility] Work Phone: Hospital Discharge instructions Note Date & TypeNoteFacilityHospital Discharge instructions No data available for this section [facility] Progress note Note Date & TypeNoteFacilityProgress note No data available for this section [facility] Reason for referral (narrative) Note Date & TypeNoteFacilityReason for referral (narrative)No reason for referral information availableKettering Health [facility]ble Work Phone: Summary Purpose Family History No Family History Records Found No data available for this section No data available for this section No Family History Records FoundNo Family History Records FoundNo Family History Records Found Advance Directives No Advanced Directives Records Found Advance Directive Response Recorded Date/ Time Advance Directives No January 17 7:13am Chief Complaint and Reason for Visit Chief Complaint Admit Date E04.1 February 07, 2025 9: 35am Additional Source Comments INFORMATION SOURCE (unrecogn ized section and content) DATE CREATED AUTHOR 07/22/2022 [facility] DATE CREATED AUTHOR AUTHOR'S ORGANIZ ATION 06/05/2024 [facility] DATE CREATED AUTHOR AUTHOR'S ORGANIZ ATION 02/10/2025 The Count Includes [facility] DATE CREATED AUTHOR AUTHOR'S ORGANIZ ATION 04/20/2025 [facility] EPIC Patient Care team informatio n (unrecognized section and content) Team Status: Active Member Role Status Dates Elida Tao MD Primary Care Provider Active Team Status: Inactive Member Role Status Dates Elida Tao MD Primary Care Provider Active Start: February 07, 2025 End: February 07, 2025Doangely Tao MDAttending ProviderActiveStart: February 07, 2025 End: February 07, 2025 Goals (unrecognized section and content) Goals may be documented in a n alternate section FOR RECORDS PERTAINING TO PATIENTS WHO ARE [...] BE BASED ON THE PRIMARY CLINICAL RECORDS. [facility] [employer]ized Through [facility]. provides no warranty or guarantee of the accuracy or completeness of information in this document.
== END 2025-04-22 08:52 | disposition home or self-care (01) ==
LOC: MAMMO 08:51
PROVIDERS: PCP Family Medicine; Visit Provider Family Medicine
DX: Z12.31 Encounter for screening mammogram for malignant neoplasm of breast (principal); Z80.0 Family history of malignant neoplasm of digestive organs; Z80.1 Family history of malignant neoplasm of trachea, bronchus and lung
CPT/HCPCS: 77063; 77067